=== PATIENT | female | born 1965 | race Caucasian/White ===

== ENCOUNTER 2020-01-15 07:44 | Outpatient (REF) | payer OTHER, SELFPAY ==
[2020-01-15 12:33] LABS: Free T4 (Free Thyroxine) 1.18 ng/dL (0.71-1.85); Thyroid Stimulating Hormone 0.66 mIU/mL (0.32-4.0); Vitamin D 25-OH Total 41.5 ng/mL (>30)
[2020-01-15 12:36] LABS: Alanine Aminotransferase 25 U/L (0-31); Anion Gap 16 (12-20); Aspartate Amino Transferase 28 U/L (5-31); Blood Urea Nitrogen 10 mg/dL (9-16); Calcium 9.1 mg/dL (8.4-10.2); Carbon Dioxide 29 mmol/L (22-29); Chloride 100 mmol/L (96-108); Cholesterol 183 mg/dL; Estimated Glomerular Filt Rate > 60; Glucose Fasting 113 mg/dL (60-99); HDL Cholesterol 40 mg/dL; LDL Cholesterol Calculated 64 mg/dl; Potassium 3.4 mmol/l (3.3-5.1); Sodium 142 mmol/L (135-145); Triglycerides 396 mg/dL
== END 2020-01-15 07:45 | disposition home or self-care (01) ==
LOC: HO.HMGCLDS 07:44
PROVIDERS: PCP Internal Medicine; Visit Provider Internal Medicine
DX: Z00.01 Encounter for general adult medical examination with abnormal findings (principal); E03.9 Hypothyroidism, unspecified; Z78.0 Asymptomatic menopausal state
CPT/HCPCS: 80048; 80061; 82306; 84439; 84443; 84450; 84460

== ENCOUNTER 2020-10-19 06:01 | Outpatient (REF) | payer OTHER, SELFPAY ==
[2020-10-19 11:47] LABS: Estimated Average Glucose 100 mg/dL; Hemoglobin A1c % 5.1 %
[2020-10-19 12:17] LABS: Alanine Aminotransferase 17 U/L (0-31); Anion Gap 12 (12-20); Aspartate Amino Transferase 23 U/L (5-31); Blood Urea Nitrogen 8 mg/dL (9-16); Calcium 9.4 mg/dL (8.4-10.2); Carbon Dioxide 29 mmol/L (22-29); Chloride 101 mmol/L (96-108); Cholesterol 192 mg/dL; Estimated Glomerular Filt Rate > 60; Glucose Fasting 128 mg/dL (60-99); HDL Cholesterol 37 mg/dL; Potassium 3.4 mmol/L (3.3-5.1); Sodium 139 mmol/L (135-145); Triglycerides 487 mg/dL
[2020-10-19 12:19] LABS: Free T4 (Free Thyroxine) 1.17 ng/dL (0.71-1.85); Thyroid Stimulating Hormone 0.77 uIU/mL (0.32-4.0)
== END 2020-10-19 06:02 | disposition home or self-care (01) ==
LOC: HO.HMGCLDS 06:01
PROVIDERS: PCP Internal Medicine; Visit Provider Internal Medicine
DX: R73.01 Impaired fasting glucose (principal); E78.1 Pure hyperglyceridemia; E03.9 Hypothyroidism, unspecified; I10 Essential (primary) hypertension
CPT/HCPCS: 36415; 80048; 80061; 82306; 83036; 84439; 84443; 84450; 84460

== ENCOUNTER → 2020-12-17 10:04 | Outpatient (BNVA) | payer OTHER, SELFPAY | PROVIDERS: PCP Internal Medicine; Visit Provider Surgery Vascular Surgery | DX: I73.9 Peripheral vascular disease, unspecified (principal) | CPT/HCPCS: 99202 ==

== ENCOUNTER 2021-01-05 12:36 | Outpatient (REF) | payer OTHER, SELFPAY ==
--- NOTE | ~2021-01-05 | US_ITS ---
EXAMINATION: NONINVASIVE ASSESSMENT OF THE ARTERIES OF BOTH LOWER EXTREMITIES INCLUDING PVR EXAM AND BILATERAL LOWER EXTREMITY DUPLEX CLINICAL INFORMATION: Peripheral vascular disease COMPARISON: None TECHNIQUE: Ankle pulse volume recordings, ankle pressure measurements and ankle brachial indices were obtained of the lower extremity arterial system bilaterally in addition to duplex Doppler techniques with wave form analysis and measurement of velocities in the common femoral, profunda femoral, superficial femoral, popliteal, tibial and peroneal arteries. The study was performed only at rest. FINDINGS: RIGHT LEG 1. Right Ankle-Brachial Index: 0.95 (higher of the DP/PT) >0.97-1.25 = normal - no significant arterial disease 0.75-0.96 = mild peripheral arterial disease 0.5-0.74 = moderate peripheral arterial disease <0.50 = severe peripheral arterial disease <0.30 = critical arterial disease 2. Segmental Pressures (mmHg): Brachial: 116 Ankle: PT 110, DP 106 3. PVR Waveforms: Ankle: Normal 4. Direct Duplex: Common femoral artery: 217 cm/s, Multiphasic Profunda femoris artery: 50.3 cm/s, monophasic Superficial femoral artery (proximal): 87.9 cm/s, multiphasic Superficial femoral artery (mid): 89.7 cm/s, multiphasic Superficial femoral artery (distal): 52.6 cm/s, Multiphasic Proximal Popliteal artery: 55.8 cm/s, Multiphasic Distal popliteal artery: 40.9 cm/s, Multiphasic Mid posterior tibial artery: 60.9 cm/s, Multiphasic Peroneal artery: 42.9 cm/s, Multiphasic LEFT LE. Left Ankle-Brachial Index: 0.77 (higher of the DP/PT) >0.97-1.25 = normal - no significant arterial disease 0.75-0.96 = mild peripheral arterial disease 0.5-0.74 = moderate peripheral arterial disease <0.50 = severe peripheral arterial disease <0.30 = critical arterial disease 2. Segmental Pressures: Brachial: 111 Ankle: PT 89, DP 70 3. PVR Waveforms: Ankle: Loss of dicrotic notch 4. Direct Duplex: Common femoral artery: 66.4 cm/s, monophasic Profunda femoris artery: 51.1 cm/s, monophasic Superficial femoral artery (proximal): 55.4 cm/s, monophasic Superficial femoral artery (mid): 55 cm/s, monophasic Superficial femoral artery (distal): 42 cm/s, monophasic Proximal Popliteal artery: 26.3 cm/s, monophasic Distal popliteal artery: 35.9 cm/s, monophasic Mid posterior tibial artery: 35.5 cm/s, monophasic Peroneal artery: 19.8 cm/s, monophasic US/US arterial duplex LE BI IMPRESSION: Right MARBIN 0.95. There is elevated peak systolic velocity of the common femoral artery suggesting mild/moderate stenosis, though there is otherwise normal multiphasic flow throughout the remainder of the right lower extremity. Left MARBIN 0.77 indicating mild peripheral arterial disease. PVR waveforms are abnormal. There is monophasic flow throughout the entire left lower extremity suggesting inflow disease.
== END 2021-01-05 12:37 | disposition home or self-care (01) ==
LOC: HO.US 12:36
PROVIDERS: PCP Internal Medicine; Visit Provider Surgery Vascular Surgery
DX: I70.213 Atherosclerosis of native arteries of extremities with intermittent claudication, bilateral legs (principal)
CPT/HCPCS: 93923; 93925

== ENCOUNTER → 2021-01-19 14:42 | Outpatient (BNVA) | payer OTHER, SELFPAY | PROVIDERS: PCP Internal Medicine; Visit Provider Surgery Vascular Surgery | DX: I73.9 Peripheral vascular disease, unspecified (principal) | CPT/HCPCS: 99212 ==

== ENCOUNTER 2021-01-20 09:32 | Outpatient (REF) | payer OTHER, SELFPAY ==
[2021-01-23 01:36] LABS: HPV mRNA E6/E7 rflx Not Detected (Not Detected)
== END 2021-01-20 09:33 | disposition home or self-care (01) ==
LOC: HO.LAB 09:32
PROVIDERS: PCP Internal Medicine; Visit Provider Advanced Practice Midwife
DX: Z01.419 Encounter for gynecological examination (general) (routine) without abnormal findings (principal); F17.210 Nicotine dependence, cigarettes, uncomplicated
CPT/HCPCS: 87624; 88142

== ENCOUNTER 2021-03-02 08:42 | Outpatient (REF) | payer OTHER, SELFPAY ==
[2021-03-02 11:39] LABS: Alanine Aminotransferase 14 U/L (0-31); Aspartate Amino Transferase 17 U/L (5-31); Cholesterol 168 mg/dL; HDL Cholesterol 51 mg/dL; LDL Cholesterol Calculated 94 mg/dl; Triglycerides 116 mg/dL
[2021-03-02 12:02] LABS: Free T4 (Free Thyroxine) 1.14 ng/dL (0.71-1.85); Thyroid Stimulating Hormone 0.93 uIU/mL (0.32-4.0)
== END 2021-03-02 08:43 | disposition home or self-care (01) ==
LOC: HO.HMGCLDS 08:42
PROVIDERS: PCP Internal Medicine; Visit Provider Internal Medicine
DX: E03.9 Hypothyroidism, unspecified (principal); E78.1 Pure hyperglyceridemia
CPT/HCPCS: 36415; 80061; 84439; 84443; 84450; 84460

== ENCOUNTER 2021-03-18 16:07 | Emergency (ER) | payer OTHER, SELFPAY ==
--- NOTE | ~2021-03-18 | XR_ITS ---
EXAMINATION: XR CHEST CLINICAL INFORMATION: Shortness of breath. COMPARISON: None TECHNIQUE: Frontal view of the chest was obtained. FINDINGS: There is mild hyperinflation. There are groundglass opacities left base. No lobar or segmental airspace consolidation or effusion. The costophrenic sulci are clear. The heart is normal in size. The hilar and mediastinal contours are normal. There is mild levocurvature lower thoracic spine. Fusion hardware seen overlying lower cervical spine. XR/XR chest 1V IMPRESSION: Groundglass opacities left base. No effusion.
[2021-03-18 16:11] VITALS: BP 121/73; PULSE 69; RESP 24; TEMP 36.3; O2SAT 94; BMI 22.3
--- NOTE | 2021-03-18 16:15 | ECG_ITS ---
Test Reason : SOB Blood Pressure : / mmHG Vent. Rate : 064 BPM Atrial Rate : 064 BPM P-R Int : 138 ms QRS Dur : 094 ms QT Int : 426 ms P-R-T Axes : 078 070 086 degrees QTc Int : 439 ms Normal sinus rhythm ST & T wave abnormality, consider anterior ischemia Abnormal ECG No previous ECGs available Referred By: Generic ED Physician Electronically Signed By:MITESH MORALEZ MD
[2021-03-18 17:06] LABS: MANUAL DIFF FLAG NO
[2021-03-18 17:07] LABS: Basophils Percent Auto 0.3 % (0-2); Eosinophils Percent Auto 0.2 % (0-4); Hematocrit 35.8 % (37.0-47.0); Hemoglobin 12.7 g/dl (12.0-16.0); Imm Gran Abs Auto 0.05 X10*3/uL (0.00-0.03); Imm Gran Pct Auto 0.4 % (0.0-0.4); Lymphocytes Percent Auto 17.5 % (20-40); Mean Corpuscular HGB Conc 35.5 g/dl (31.0-35.0); Mean Corpuscular Hemoglobin 34.7 pg (27.0-33.0); Mean Corpuscular Volume 97.8 fL (80.0-98.0); Mean Platelet Volume 8.4 fL (9.4-12.3); Monocytes Absolute Auto 0.9 X10*3/uL (0.1-1.2); Monocytes Percent Auto 7.3 % (2-11); Neutrophils Absolute Auto 8.7 x10*3/uL (2.0-8.3); Neutrophils Percent Auto 74.3 % (45-73); Platelet Count 237 X10*3/uL (160-400); Red Blood Count 3.66 X10*6/uL (4.20-5.50); Red Cell Distribution Width 12.6 % (11.0-16.0); White Blood Count 11.7 X10*3/uL (4.8-10.8)
[2021-03-18 17:21] LABS: COVID-19 Test Positive (Negative); IDNOW Serial# 9DD0AD1C
[2021-03-18 17:33] LABS: Anion Gap 14 (12-20); Blood Urea Nitrogen 15 mg/dL (9-16); Calcium 9.2 mg/dL (8.4-10.2); Carbon Dioxide 27 mmol/L (22-29); Chloride 99 mmol/L (96-108); Creatinine Clr Calc Pharmacy 48.4; Estimated Glomerular Filt Rate 50; Glucose Random 118 mg/dL (60-115); Potassium 2.7 mmol/L (3.3-5.1); Sodium 137 mmol/L (135-145)
[2021-03-18 17:39] LABS: B Type Natriuretic Peptide 40 pg/mL (<100); Troponin-I High Sensitivity 4.6 ng/L (<3.5-17.0)
--- NOTE | 2021-03-18 18:05 | ED_ITS ---
HPI - SOB/Dyspnea General Chief Complaint: Dyspnea Stated Complaint: sob asthma diff breathing Time Seen by Provider: 03/18/21 17:55 Source: patient Mode of arrival: ambulatory Limitations: no limitations History of Present Illness HPI Narrative: 55-year-old female smoker with history of asthma came in for 1 week of coughing, generalized body ache, shortness of breath. Patient is up-to-date in her 2 Moderna vaccination for COVID, no sick contact, no recent travel. No lower extremity swelling or tenderness, no history or risk factors for DVT/ PE. Patient found to be COVID positive in the emergency department. Related Data Home Medications Medication Instructions Recorded Confirmed albuterol sulfate 90 mcg/actuation 2 puff PO Q6H PRN 02/05/20 03/12/21 aerosol inhaler cetirizine 10 mg tablet 10 mg PO DAILY 02/05/20 03/12/21 fluticasone propionate 50 INTRANASAL 02/05/20 03/12/21 mcg/actuation nasal spray,suspension levothyroxine 50 mcg tablet 50 mcg PO DAILY 02/05/20 03/12/21 losartan 50 mg tablet 50 mg PO DAILY 02/05/20 03/12/21 ascorbate calcium (vitamin C) 500 500 mg PO DAILY 08/05/20 03/12/21 mg tablet cholecalciferol (vitamin D3) 25 25 mcg PO DAILY 08/05/20 03/12/21 mcg (1,000 unit) capsule cyanocobalamin (vitamin B-12) 1,000 mcg PO DAILY 08/05/20 03/12/21 1,000 mcg capsule Previous Rx's Medication Instructions Recorded fenofibrate 160 mg tablet 160 mg PO DAILY #30 tab 11/12/20 atenolol 50 mg tablet 50 mg PO DAILY #30 tab 02/04/21 hydrochlorothiazide 12.5 mg capsule 12.5 mg PO QAM #90 cap 03/07/21 azithromycin 250 mg tablet See Rx Instructions .ROUTE 03/18/21 (Zithromax Z-Mic) .COMPLEX #6 tab prednisone 20 mg tablet 20 mg PO DAILY #5 tab 03/18/21 Allergies Allergy/AdvReac Type Severity Reaction Status Date / Time Sulfa (Sulfonamide Allergy Unknown rash Verified 03/12/21 01:05 Antibiotics) Review of Systems Review of Systems: All other systems are reviewed and are negative Constitutional: Reports as per HPI and Reports no additional constitutional complaints Eyes: Reports as per HPI and Reports no additional eye complaints Reports system reviewed and no additional complaints, except as documented Cardiovascular: Reports as per HPI and Reports no additional cardiovascular complaints Respiratory: Reports as per HPI and Reports no additional respiratory complaints Gastrointestinal: Reports as per HPI and Reports no additional gastrointestinal complaints Genitourinary: Reports no additional female genitourinary complaints Musculoskeletal: Reports no additional musculoskeletal complaints Skin/Breast: Reports system reviewed and no additional complaints, except as docu Psychiatric: Reports no additional psychiatric complaints Endocrine: Reports no additional endocrine complaints Hematologic/Lymphatic: Reports no additional hematologic/lymphatic complaints Allergic/Immunologic: Reports no additional allergic/immunologic complaints Reports system reviewed and no additional complaints, except as documented and Reports Abnormal speech present [facility] Past Medical History Medical History Acquired hypothyroidism Carpal tunnel syndrome, bilateral Degenerative disc disease, cervical Essential hypertension Hypertriglyceridemia Impaired fasting glucose Intermittent claudication Leg pain, bilateral Mass of both feet Mild intermittent asthma in adult without complication Osteoarthritis involving multiple joints on both sides of body Primary insomnia Smoker unmotivated to quit Smokes with greater than 40 pack year history Surgical History H/O LEEP History of carpal tunnel surgery History of fusion of cervical spine History of rotator cuff surgery Hx of tubal ligation Family History Family History Father Esophageal cancer Liver cancer Cancer of kidney Mother Emphysema lung Social History Social History Housing: Apartment Alcohol intake: current Patient Tobacco Use Status: Current everyday Tobacco user Tobacco use type: Cigarette Cigarette Packs Per Day: 1 Cigarettes Per Day: 20 Years Smoked: 40 e-Cigarette/Vaping Use: Former Use Second Hand Smoke Exposure: No Advance Directives: No Advance Directives Information Provided: No Current occupational status: employed Physical Exam Vital Signs: Vital Signs: Last Vital Signs Temp 98.3 F 03/18/21 18:10 Pulse 68 03/18/21 18:10 Resp 20 03/18/21 18:10 BP 111/64 03/18/21 18:10 Pulse Ox 91 L 03/18/21 18:10 BMI result Body Mass Index 22.3 vital signs have been reviewed as appeared to be correct. Blood pressure normal. Heart rate normal. Respiration rate elevated. Temperature normal. Oxygen saturation normal. Appearance: Alert. Oriented X3. No acute distress. Head: Normal external exam. Normocephalic. Atraumatic. No Bellamy signs noted. No raccoon eyes noted Eyes: PERRLA. EOMI. Conjunctiva and sclera normal. Eyelids normal. ENT: TM's Normal. Pharynx normal. Uvula midline. Moist mucous membranes. No trismus noted. No drooling noted. No muffled voice noted. Neck: Normal inspection. Neck supple. FROM. No adenopathy. Thyroid Normal. No meningeal signs. No neck mass noted. CVS: Normal heart rate and rhythm. Heart sound normal. No murmurs noted. Pulses normal throughout. Respiratory: No respiratory distress. Painless inspiration. Breath sounds normal. mild expiratory wheezing. Chest nontender. No accessory muscle usage noted or decreased air movement noted. Abdomen: Soft and nontender. Bowel sounds normal in all 4 quadrants. No distention noted. No organomegaly noted. No visible injury noted. Back: No CVA tenderness. Full range of motion noted. Skin: Skin warm and dry. Normal skin color. Normal skin turgor. No rashes/lesions/lacerations noted. Extremities: No lower extremity edema. Extremities exhibit normal range of motion. Extremities nontender. Neuro: Oriented X 3. Cranial nerve exam: II-XII are grossly intact No motor deficit. No sensory deficit. Reflexes normal. Course Course Course Narrative: assessment and plan. 55-year-old history of asthma/ smoker came in with COVID infection and likely bronchitis on top of the COVID infection. patient is satting 91% on room air and breathing 20-24 per minute patient was advised to stay in the hospital but patient declined admission patient stated she will call 911 if she get worse and come back to the ED. Will start the patient on prednisone/bronchodilator/ a Z-Mic. Hypokalemia will replete with p.o. potassium. MDM - SOB/Dyspnea Lab Data Attestation: I reviewed the patient's lab results. Result diagrams: 03/18/21 16:59 03/18/21 16:59 Labs: Lab Results 03/18/21 03/18/21 03/18/21 Range/Units 16:58 16:59 16:59 WBC 11.7 H (4.8-10.8) X10*3/uL RBC 3.66 L (4.20-5.50) X10*6/uL Hgb 12.7 (12.0-16.0) g/dl Hct 35.8 L (37.0-47.0) % MCV 97.8 (80.0-98.0) fL MCH 34.7 H (27.0-33.0) pg MCHC 35.5 H (31.0-35.0) g/dl RDW 12.6 (11.0-16.0) % Plt Count 237 (160-400) X10*3/uL MPV 8.4 L (9.4-12.3) fL Immature Gran % (Auto) 0.4 (0.0-0.4) % Neut % (Auto) 74.3 H (45-73) % Lymph % (Auto) 17.5 L (20-40) % [place] % (Auto) 7.3 (2-11) % Eos % (Auto) 0.2 (0-4) % Baso % (Auto) 0.3 (0-2) % Lymph # (Auto) 2.0 (1.2-4.9) X10*3/uL [place] # (Auto) 0.9 (0.1-1.2) X10*3/uL Eos # (Auto) 0.0 (0.0-0.4) X10*3/uL Baso # (Auto) 0.0 (0.0-0.2) X10*3/uL Abs Immat Gran (auto) 0.05 H (0.00-0.03) X10*3/uL Absolute Neuts (auto) 8.7 H (2.0-8.3) x10*3/uL Absolute Nucleated RBC 0.000 (0.0-0.012) X10*3/uL Nucleated RBC % (auto) 0.0 (0.0-0.2) /100WBC Sodium 137 (135-145) mmol/L Potassium 2.7 L D (3.3-5.1) mmol/L Chloride 99 (96-108) mmol/L Carbon Dioxide 27 (22-29) mmol/L Anion Gap 14 (12-20) BUN 15 (9-16) mg/dL Creatinine 1.12 (0.5-1.4) mg/dL Estim Creat Clear Calc 48.4 Estimated GFR 50 Random Glucose 118 H (60-115) mg/dL Calcium 9.2 (8.4-10.2) mg/dL Troponin I High Sens (<3.5-17.0) ng/L B-Natriuretic Peptide (<100) pg/mL COVID-19 ([facility]) Positive A (Negative) COVID-19 Clin Com See Note 03/18/21 Range/Units 16:59 WBC (4.8-10.8) X10*3/uL RBC (4.20-5.50) X10*6/uL Hgb (12.0-16.0) g/dl Hct (37.0-47.0) % MCV (80.0-98.0) fL MCH (27.0-33.0) pg MCHC (31.0-35.0) g/dl RDW (11.0-16.0) % Plt Count (160-400) X10*3/uL MPV (9.4-12.3) fL Immature Gran % (Auto) (0.0-0.4) % Neut % (Auto) (45-73) % Lymph % (Auto) (20-40) % [place] % (Auto) (2-11) % Eos % (Auto) (0-4) % Baso % (Auto) (0-2) % Lymph # (Auto) (1.2-4.9) X10*3/uL [place] # (Auto) (0.1-1.2) X10*3/uL Eos # (Auto) (0.0-0.4) X10*3/uL Baso # (Auto) (0.0-0.2) X10*3/uL Abs Immat Gran (auto) (0.00-0.03) X10*3/uL Absolute Neuts (auto) (2.0-8.3) x10*3/uL Absolute Nucleated RBC (0.0-0.012) X10*3/uL Nucleated RBC % (auto) (0.0-0.2) /100WBC Sodium (135-145) mmol/L Potassium (3.3-5.1) mmol/L Chloride (96-108) mmol/L Carbon Dioxide (22-29) mmol/L Anion Gap (12-20) BUN (9-16) mg/dL Creatinine (0.5-1.4) mg/dL Estim Creat Clear Calc Estimated GFR Random Glucose (60-115) mg/dL Calcium (8.4-10.2) mg/dL Troponin I High Sens 4.6 (<3.5-17.0) ng/L B-Natriuretic Peptide 40 (<100) pg/mL COVID-19 ([facility]) (Negative) COVID-19 Clin Com Imaging Data Chest x-ray: Radiologist's impression: Ground-glass opacities left base with no effusion Discharge Plan Discharge Clinical Impression: COVID-19 virus infection Patient Disposition: Home, Self-Care Instructions: COVID-19 (Coronavirus Disease 2019) (ED) Prescriptions: New prednisone 20 mg tablet 20 mg PO DAILY Qty: 5 RF: 0 azithromycin [Zithromax Z-Mic] 250 mg tablet See Rx Instructions .ROUTE .COMPLEX Qty: 6 RF: 0 No Action atenolol 50 mg tablet 50 mg PO DAILY Qty: 30 RF: 5 hydrochlorothiazide 12.5 mg capsule 12.5 mg PO QAM Qty: 90 RF: 0 levothyroxine 50 mcg tablet 50 mcg PO DAILY RF: 0 losartan 50 mg tablet 50 mg PO DAILY RF: 0 albuterol sulfate 90 mcg/actuation HFA aerosol inhaler 2 puff PO Q6H PRN (Reason: muscle spasm) RF: 0 cetirizine 10 mg tablet 10 mg PO DAILY RF: 0 fluticasone propionate 50 mcg/actuation spray,suspension intranasal RF: 0 ascorbate calcium (vitamin C) 500 mg tablet 500 mg PO DAILY RF: 0 cholecalciferol (vitamin D3) 25 mcg (1,000 unit) capsule 25 mcg PO DAILY RF: 0 cyanocobalamin (vitamin B-12) 1,000 mcg capsule 1,000 mcg PO DAILY RF: 0 fenofibrate 160 mg tablet 160 mg PO DAILY Qty: 30 RF: 5 Referrals: Dede Hua MD [Primary Care Provider] - 2 days Stand Alone Forms: Work/School Release
[2021-03-18 18:10] VITALS: BP 111/64; PULSE 68; RESP 20; TEMP 36.8; O2SAT 91
[2021-03-18] MEDS: Potassium Chloride Packet 20 MEQ PACKET 40 MEQ PO (19:06)
== END 2021-03-18 19:14 | disposition home or self-care (01) ==
PROVIDERS: Emergency Provider Emergency Medicine; PCP Internal Medicine
DX: U07.1 COVID-19 (principal); R06.02 Shortness of breath; I10 Essential (primary) hypertension; F17.200 Nicotine dependence, unspecified, uncomplicated
CPT/HCPCS: 36415; 71045; 80048; 83880; 84484; 85025; 87635; 93005; 99283; 99284

== ENCOUNTER 2021-06-02 06:59 | Day surgery (SDC) | payer OTHER, SELFPAY ==
[2021-06-02] VITALS (10 sets, daily range): BP systolic 109–142; BP diastolic 75–84; PULSE 46–81; RESP 16–18; TEMP 36.2–36.5; O2SAT 94–99
[2021-06-02 08:16] LABS: MANUAL DIFF FLAG NO
[2021-06-02 08:24] LABS: Basophils Absolute Auto 0.1 X10*3/uL (0.0-0.2); Basophils Percent Auto 1.3 % (0-2); Eosinophils Absolute Auto 0.8 X10*3/uL (0.0-0.4); Eosinophils Percent Auto 9.5 % (0-4); Hematocrit 41.3 % (37.0-47.0); Hemoglobin 14.1 g/dl (12.0-16.0); Imm Gran Abs Auto 0.03 X10*3/uL (0.00-0.03); Imm Gran Pct Auto 0.4 % (0.0-0.4); Lymphocytes Absolute Auto 2.2 X10*3/uL (1.2-4.9); Lymphocytes Percent Auto 26.6 % (20-40); Mean Corpuscular HGB Conc 34.1 g/dl (31.0-35.0); Mean Corpuscular Hemoglobin 34.9 pg (27.0-33.0); Mean Corpuscular Volume 102.2 fL (80.0-98.0); Mean Platelet Volume 8.4 fL (9.4-12.3); Monocytes Absolute Auto 0.8 X10*3/uL (0.1-1.2); Monocytes Percent Auto 9.4 % (2-11); Neutrophils Absolute Auto 4.4 x10*3/uL (2.0-8.3); Neutrophils Percent Auto 52.8 % (45-73); Platelet Count 288 X10*3/uL (160-400); Red Blood Count 4.04 X10*6/uL (4.20-5.50); Red Cell Distribution Width 12.5 % (11.0-16.0); White Blood Count 8.3 X10*3/uL (4.8-10.8)
[2021-06-02 08:38] LABS: Anion Gap 13 (12-20); Blood Urea Nitrogen 16 mg/dL (9-16); Calcium 9.7 mg/dL (8.4-10.2); Carbon Dioxide 28 mmol/L (22-29); Chloride 103 mmol/L (96-108); Estimated Glomerular Filt Rate > 60; Glucose Random 121 mg/dL (60-115); Potassium 4.1 mmol/L (3.3-5.1); Sodium 140 mmol/L (135-145)
[2021-06-02] MEDS: 0.9 % Sodium Chloride 1,000 ML 100 ML IVCONT (08:54)
[2021-06-02] MEDS: iohexoL 300 MG/ML 100 ML INFUS..BTL IV (11:06)
[2021-06-02] MEDS: iohexoL 300 MG/ML 50 ML INFUS..BTL IV (11:07)
--- NOTE | 2021-06-02 11:44 | W.PM.OPN ---
Operative Note Operative Note Date of Service: 06/02/21 Narrative: Angiogram report from [facility] Preoperative diagnosis: Atherosclerosis of left lower extremity with activity limiting claudication Postoperative diagnosis: Same Procedure: 1. Ultrasound-guided right common femoral access 2. Ultrasound-guided left common femoral access 3. Aortogram 4. Right common iliac plasty 5. Left common iliac stent Surgeon:Angelo Cruz M.D., FACS, RPVI Tur[employer] Electric Operator:None Anesthesia: Local with moderate conscious sedation. Total intraservice moderate sedation time was 78 minutes. I monitored the patient's level of consciousness and physiologic status continuously throughout the procedure. Specimens:none Drains:none Estimated blood loss: Less than 10 ml Implant: Coden VBX 6x39 balloon expandable stent Indications: 56-year-old female with a smoking history presents with severe activity limiting claudication of left lower extremity. She now presents for endovascular intervention. The patient has signed the informed consent after reviewing risks, complications, benefits, and alternatives previously discussed with the patient. The patient was given the opportunity to ask any additional questions or voice any concerns. All questions were answered to the patient's satisfaction. Procedure in detail: Patient was brought to the angiography suite prior to which a time-out was called for patient identification and site verification. Bilateral groins were prepped and draped in the standard surgical fashion. Under ultrasound guidance right common femoral was punctured with micro puncture needle and wire. Subsequently a precision 5 [place] sheath was then placed. espinal wire was advanced to the level of the aorta. 5 [place] Flush catheter was brought up and parked at the level of the renal arteries. Aortogram was then undertaken. Catheter was brought down to the level of the iliac bifurcation. Iliacs were subsequently imaged. It was recognized that she had significant left common iliac disease. At this point left common femoral artery puncture was made in a similar fashion under ultrasound guidance. We advanced wire and subsequently a 5 [place] sheath. We then slowly advanced a Glidewire through this area. We were able to re-enter and advanced a Thompsons catheter. We confirmed true lumen. At this point we administered 3000 units of systemic heparin. We initial plasty did at this area on the left common iliac with a 3 x 40 balloon. Is a very tight lumen. At this point we exchanged out on him and we re-entered again with a 5 x 20 balloon. We were able to obtain some luminal gain in this area. Due to the large nature of the calcification right at the bifurcation a decision was made to perform kissing stent technique. Through the right side 5 [place] sheath we advanced a 7 x 30 regular balloon. On the left side we advanced a Coden VBX 6 x 39 balloon expandable stent. A decision was made to use the smaller stent due to the bulky nature of the calcific disease in fear of rupture. Once in position these were simultaneously insufflated. Once to volume we then desufflated this. Good result was achieved. Bilateral catheter wire sheaths were removed. StarClose closure device was then deployed. Patient tolerated the procedure well returned to recovery with stable vitals. Interpretation of films: 1. Ultrasound demonstrates appropriate femoral puncture of right and left side. Image of which was saved. 2. Aortogram demonstrates appropriate caliber aorta. Minimal disease. Appropriate take-off of the renals. 3. Iliac images demonstrate left was near total occlusion with high-grade stenosis right at the bifurcation. There was significant calcific disease all the way up to the takeoff of the hypogastric. External iliac was within normal limits going down to the common femoral. Good takeoff of the profunda and SFA. 4. Iliac of the right had mild to moderate disease more towards the origin. The hypogastric was normal external iliac was normal in caliber as well good flow all the way down to the common femoral. Conclusion: 1. Successful left common iliac stent placement 2. Anticoagulation status: Will need minimum of 6 months of aspirin and Plavix This note is constructed using voice recognition software. While every effort has been made to ensure accuracy, radio division officer errors may have been included. Thank you for allowing me to participate in the care of your patient. Yours sincerely, Angelo Cruz MD, FACS, R.P.V.I.
[2021-06-02] MEDS: ondansetron HCL 4 MG/2 ML VIAL IVPUSH (12:02)
[2021-06-02] MEDS: oxyCODONE HCl Immed Release 5 MG TABLET PO (12:03)
[2021-06-02] MEDS: Clopidogrel Bisulfate 300 MG TABLET PO (12:03)
[2021-06-02] MEDS: Acetaminophen 325 MG TABLET 650 MG PO (12:03)
[2021-06-02] MEDS: Aspirin Enteric Coated 325 MG TABLET.DR 650 MG PO (12:21)
[2021-06-03 08:53] VITALS: BMI 23.2
== END 2021-06-02 13:58 | disposition home or self-care (01) ==
PROVIDERS: PCP Internal Medicine; Visit Provider Surgery Vascular Surgery
DX: I70.212 Atherosclerosis of native arteries of extremities with intermittent claudication, left leg (principal); M79.605 Pain in left leg; M79.604 Pain in right leg; M50.30 Other cervical disc degeneration, unspecified cervical region; M15.9 Polyosteoarthritis, unspecified; I10 Essential (primary) hypertension; R73.01 Impaired fasting glucose; E03.9 Hypothyroidism, unspecified; J45.20 Mild intermittent asthma, uncomplicated; Z79.51 Long term (current) use of inhaled steroids; Z79.899 Other long term (current) drug therapy; Z88.2 Allergy status to sulfonamides; F17.210 Nicotine dependence, cigarettes, uncomplicated
CPT/HCPCS: 36415; 37220; 37221; 76937; 80048; 85025; 99152; 99153; C1725; C1760; C1769; C1874; C1887; C1894; J2250; J2405; J3010; Q9967

== ENCOUNTER → 2021-06-15 10:44 | Outpatient (BNVA) | payer OTHER, SELFPAY | PROVIDERS: PCP Internal Medicine; Visit Provider Surgery Vascular Surgery | DX: I73.9 Peripheral vascular disease, unspecified (principal) | CPT/HCPCS: 99212 ==

== ENCOUNTER 2021-09-08 07:40 | Outpatient (REF) | payer OTHER, SELFPAY ==
--- NOTE | ~2021-09-08 | US_ITS ---
EXAMINATION: US RETROPERITONEAL LIMITED (AORTA) CLINICAL INFORMATION: Peripheral vascular disease, history of prior vascular stents. COMPARISON: None TECHNIQUE: Gonzalez-scale, color Doppler and spectral Doppler evaluation of the abdominal aorta. FINDINGS: The aorta is normal in caliber. Diffuse calcified plaque is seen. The measurements of the aorta in maximum AP dimensions respectively are as follows: Proximal: 2.6 cm. Mid: 1.9 cm. Distal: 1.6 cm. PSV: 52 cm/s. Right Common Iliac Artery: 9.8 mm. 104 cm/s, triphasic. Diffuse calcified plaque is seen. Right external iliac artery: 161 cm/s, monophasic. Diffuse calcified plaque is seen. There is a segment in the distal external iliac artery with extensive calcified plaque causing posterior acoustic shadowing and obscuring evaluation of the vessel Left Common Iliac Artery: 8 mm. 218 cm/s, monophasic. There are diffuse calcified plaque. Left external iliac artery: 156 cm/s, triphasic. Diffuse calcified plaque is seen Right leg:???Normal right lower extremity ankle brachial index. Normal arterial waveforms and velocities within the evaluated vessels. No significant arterial stenosis. No significant change compared to the prior exam ? Left leg:???Normal left lower extremity ankle brachial index which is improved compared the prior exam. Arterial waveforms and velocities are normal in the common femoral and proximal mid superficial femoral artery. These have improved compared the prior exam. Velocities are dampened in the distal superficial femoral artery and popliteal artery which could indicate a nonvisualized stenosis causing a decrease velocities ? ?? MARBIN Reference: - >1.4 = calcified vessels - 0.9 - 1.4 = normal - no significant arterial disease - 0.7 - 0.89 = mild peripheral arterial disease - 0.51 - 0.69 = moderate peripheral arterial disease - ? 0.50 = severe peripheral arterial disease - < .30 = critical arterial disease US/US abdominal aortic aneurysm IMPRESSION: Diffuse calcified plaque is seen throughout the abdominal aorta and bilateral iliac arteries. Elevated velocity seen in the right external iliac artery, left common iliac artery and left external iliac artery consistent with mild to moderate stenoses. EXAMINATION: Noninvasive assessment of the bilateral lower extremities with ARTERIAL DUPLEX and ANKLE BRACHIAL INDICES (ABIs). ? CLINICAL INFORMATION: Peripheral vascular disease ? TECHNIQUE: Duplex Doppler techniques with waveform analysis and measurement of velocities in the bilateral common femoral, profunda femoris, superficial femoral, popliteal and tibial arteries were performed. Additionally, ankle pulse volume recordings, ankle pressure measurements and ankle brachial indices were obtained of the lower extremity arterial system bilaterally. The study was performed only at rest. ? COMPARISON: 01/05/2021 ? FINDINGS: ? DIRECT DUPLEX DOPPLER FINDINGS: ? RIGHT LEG: Common femoral artery:?105 cm/s, phasicity: Triphasic Profunda femoris artery:??43 cm/s, phasicity: Triphasic Superficial femoral artery (proximal):?78.6 cm/s, phasicity: Biphasic Superficial femoral artery (mid):?60.1 cm/s, phasicity: Biphasic Superficial femoral artery (distal):?58.1 cm/s, phasicity: Biphasic Popliteal artery:?35.2 cm/s, phasicity: Biphasic Posterior tibial artery:?64 cm/s, phasicity: Biphasic Peroneal artery:?40.9 cm/s, phasicity: Biphasic ? LEFT LEG: Common femoral artery:?90 cm/s, phasicity: Triphasic Profunda femoris artery:?45?cm/s, phasicity: Triphasic Superficial femoral artery (proximal):?75?cm/s, phasicity: Biphasic Superficial femoral artery (mid):?77 cm/s, phasicity: Biphasic Superficial femoral artery (distal):?35?cm/s, phasicity: Biphasic Popliteal artery:?34?cm/s, phasicity: Biphasic Posterior tibial artery:?58?cm/s, phasicity: Biphasic Peroneal artery:?27.4 cm/s, phasicity: Biphasic ANKLE-BRACHIAL INDEX: ? Right: 1.02?, previously 0.95 Left: 1.03, previously 0.77 ? ANKLE PRESSURES: ? Right: PT 116, DP?120?? Left: PT?122, DP?112?? ? ANKLE PVR WAVEFORMS: ? Right: Normal Left: Normal? ? IMPRESSION: ?
--- NOTE | ~2021-09-08 | XR_ITS ---
EXAMINATION: XR RIBS, RIGHT CLINICAL INFORMATION: Contusion anterior chest COMPARISON: Previous chest x-ray March 2021 TECHNIQUE: 3 views of the right ribs and one view of the chest were obtained. FINDINGS: Lungs are clear. No consolidation, pneumothorax, or pleural effusion. The cardiomediastinal silhouette and pulmonary vasculature are normal. There are postsurgical changes to the lower cervical spine.. Ribs are intact. No fractures are identified. XR/XR ribs RT min 3V w CXR1V IMPRESSION: No evidence for acute disease in the chest. No rib fracture seen.
== END 2021-09-08 07:41 | disposition home or self-care (01) ==
LOC: HO.US 07:40
PROVIDERS: Absent Provider Internal Medicine; PCP Internal Medicine; Visit Provider Surgery Vascular Surgery
DX: Z13.6 Encounter for screening for cardiovascular disorders (principal); I73.9 Peripheral vascular disease, unspecified; S20.219A Contusion of unspecified front wall of thorax, initial encounter; Z98.890 Other specified postprocedural states
CPT/HCPCS: 71101; 76706; 93923; 93925

== ENCOUNTER → 2021-09-14 10:33 | Outpatient (BNVA) | payer OTHER, SELFPAY | PROVIDERS: PCP Internal Medicine; Visit Provider Surgery Vascular Surgery | DX: I73.9 Peripheral vascular disease, unspecified (principal) | CPT/HCPCS: 99212 ==

== ENCOUNTER → 2022-03-24 08:50 | Outpatient (BNVA) | payer OTHER, SELFPAY | PROVIDERS: PCP Internal Medicine; Visit Provider Advanced Practice Midwife | DX: Z13.89 Encounter for screening for other disorder (principal) ==

== ENCOUNTER 2022-04-15 14:32 | Outpatient (REF) | payer OTHER, SELFPAY ==
--- NOTE | ~2022-04-15 | CT_ITS ---
EXAMINATION: CT CHEST SCREENING CLINICAL INFORMATION: Nicotine dependence. COMPARISON: No prior chest CT. Radiographs from 09/08/2021. TECHNIQUE: Multidetector volumetric CT imaging of the chest is performed without contrast using low dose technique. Additional 2D coronal and sagittal reformatted images and axial 3D maximum intensity projection (MIP) images are generated on the CT workstation. This CT examination was performed using dose optimization techniques as appropriate, variously including the following: *Automated exposure control *Adjustment of mA and/or kV according to patient size (this includes techniques or standardized protocols for targeted exams where dose is matched to indication/reason for exam; i.e. extremities or head) *Use of iterative reconstruction technique DLP: 47 mGy-cm FINDINGS: LUNGS: The central airways are patent. No consolidation. No pulmonary mass. There is a peripheral right upper lobe on series 5 image 122. No additional pulmonary nodules identified.. MEDIASTINUM: Normal heart size. Coronary artery calcifications. No pericardial effusion. No mediastinal lymphadenopathy. CORONARY ARTERY CALCIFICATION: Present. PLEURA: There is no pleural effusion. No pleural mass or thickening. No pneumothorax. AXILLA: No lymphadenopathy. UPPER ABDOMEN: Unremarkable OSSEOUS STRUCTURES: No acute or suspicious osseous abnormality. Cervical fusion hardware. Mild T8 vertebral body compression deformity appears chronic. CT/CT lung screening IMPRESSION: Right upper lobe 0.2 cm pulmonary nodule. ASSESSMENT: Lung-RADS category 2: Benign RECOMMENDATION: Routine annual low-dose CT screening in 12 months.
== END 2022-04-15 14:33 | disposition home or self-care (01) ==
LOC: HO.CT 14:32
PROVIDERS: PCP Internal Medicine; Visit Provider Physician Assistant Medical
DX: Z12.2 Encounter for screening for malignant neoplasm of respiratory organs (principal); F17.210 Nicotine dependence, cigarettes, uncomplicated
CPT/HCPCS: 71271; G0296

== ENCOUNTER 2022-04-20 07:31 | Outpatient (REF) | payer OTHER, SELFPAY ==
[2022-04-20 12:14] LABS: Alanine Aminotransferase 19 U/L (0-31); Anion Gap 14 (12-20); Aspartate Amino Transferase 27 U/L (5-31); Blood Urea Nitrogen 13 mg/dL (9-16); Carbon Dioxide 27 mmol/L (22-29); Chloride 100 mmol/L (96-108); Cholesterol 185 mg/dL; Estimated Glomerular Filt Rate > 60; Glucose Fasting 127 mg/dL (60-99); HDL Cholesterol 49 mg/dL; LDL Cholesterol Calculated 97 mg/dl; Potassium 3.2 mmol/L (3.3-5.1); Sodium 138 mmol/L (135-145); Triglycerides 196 mg/dL
[2022-04-20 12:34] LABS: Free T4 (Free Thyroxine) 1.04 ng/dL (0.71-1.85); Thyroid Stimulating Hormone 1.18 uIU/mL (0.32-4.0); Vitamin D 25-OH Total 40.7 ng/mL (>30)
== END 2022-04-20 07:32 | disposition home or self-care (01) ==
LOC: HO.HMGCLDS 07:31
PROVIDERS: PCP Internal Medicine; Visit Provider Internal Medicine
DX: E03.9 Hypothyroidism, unspecified (principal); E78.1 Pure hyperglyceridemia; I10 Essential (primary) hypertension; Z78.0 Asymptomatic menopausal state
CPT/HCPCS: 36415; 80048; 80061; 82306; 84439; 84443; 84450; 84460

== ENCOUNTER 2022-04-20 07:57 | Outpatient (REF) | payer OTHER, SELFPAY ==
--- NOTE | ~2022-04-20 | US_ITS ---
EXAMINATION: US RETROPERITONEAL LIMITED (AORTA) NONINVASIVE ASSESSMENT OF THE ARTERIES OF BOTH LOWER EXTREMITIES INCLUDING PVR EXAM AND BILATERAL LOWER EXTREMITY DUPLEX CLINICAL INFORMATION: Peripheral vascular disease, unspecified. COMPARISON: Ultrasound 09/08/2021 TECHNIQUE: Gonzalez-scale, color Doppler and spectral Doppler evaluation of the abdominal aorta. Ankle pulse volume recordings, ankle pressure measurements and ankle brachial indices were obtained of the lower extremity arterial system bilaterally in addition to duplex Doppler techniques with wave form analysis and measurement of velocities in the common femoral, profunda femoral, superficial femoral, popliteal, tibial and peroneal arteries. The study was performed only at rest. FINDINGS: Minimal ectasia of the distal abdominal aorta, otherwise the aorta is overall unremarkable The measurements of the aorta in maximum AP and transverse dimensions respectively are as follows: Proximal: 2.3 cm. PSV 50.7 cm/s Mid: 1.6 cm. PSV 59.3 cm/s Distal: 1.7 cm. PSV 41.5 cm/s Visualization of the iliacs is quite limited on grayscale. Right common iliac artery measures on the order of 0.9 cm on grayscale images. Peak systolic velocities in the common iliac artery is 131 cm/s and within the external iliac artery is 150 cm/s. Waveforms are multiphasic. Left common iliac artery measures on the order of 0.8 cm on grayscale. Peak systolic velocity within the common iliac measures 177 cm/s and within the external iliac artery measures 125 cm/s. Waveforms are multiphasic. RIGHT LEG 1. Right Ankle-Brachial Index: 1.06 (higher of the DP/PT) >0.97-1.25 = normal - no significant arterial disease 0.75-0.96 = mild peripheral arterial disease 0.5-0.74 = moderate peripheral arterial disease <0.50 = severe peripheral arterial disease <0.30 = critical arterial disease 2. Segmental Pressures (mmHg): Brachial: 126 Ankle: PT 133, DP 125 3. PVR Waveforms: Ankle: Normal 4. Direct Duplex: Common femoral artery: 193 cm/s, Multiphasic Profunda femoris artery: 82.7 cm/s, Multiphasic Superficial femoral artery (proximal): 85 cm/s, Multiphasic Superficial femoral artery (mid): 64.4 cm/s, Multiphasic Superficial femoral artery (distal): 51.5 cm/s, Multiphasic Popliteal artery: 38.1 cm/s, Multiphasic Mid posterior tibial artery: 71.5 cm/s, Multiphasic Peroneal artery: 46.4 cm/s, Multiphasic LEFT LE. Left Ankle-Brachial Index: 1.06 (higher of the DP/PT) >0.97-1.25 = normal - no significant arterial disease 0.75-0.96 = mild peripheral arterial disease 0.5-0.74 = moderate peripheral arterial disease <0.50 = severe peripheral arterial disease <0.30 = critical arterial disease 2. Segmental Pressures: Brachial: 115 Ankle: PT 125, DP 134 3. PVR Waveforms: Ankle: Dampened, no dicrotic notch 4. Direct Duplex: Common femoral artery: 120 cm/s, Multiphasic Profunda femoris artery: 124 cm/s, Multiphasic Superficial femoral artery (proximal): 73.5 cm/s, Multiphasic Superficial femoral artery (mid): 99.7 cm/s, Multiphasic Superficial femoral artery (distal): 42.9 cm/s, Multiphasic Proximal Popliteal artery: 38.3 cm/s, Multiphasic Mid posterior tibial artery: 65.6 cm/s, Multiphasic Peroneal artery: 44 cm/s, multiphasic and proximal and midportion, monophasic distally US/US abdominal aortic aneurysm IMPRESSION: Slightly ectatic distal abdominal aorta, otherwise no evidence of abdominal aortic aneurysm. Patent bilateral iliac stents without evidence of iliac artery aneurysm. The right MARBIN is 1.06, PVR waveform is unremarkable. There is normal multiphasic flow throughout the right lower extremity. The left MARBIN is 1.06. PVR waveform is dampened and has loss of dicrotic notch. Other than monophasic flow within the distal peroneal artery suggesting distal small vessel disease, there is multiphasic flow throughout the left lower extremity.
== END 2022-04-20 07:58 | disposition home or self-care (01) ==
LOC: HO.US 07:57
PROVIDERS: PCP Internal Medicine; Visit Provider Surgery Vascular Surgery
DX: I73.9 Peripheral vascular disease, unspecified (principal)
CPT/HCPCS: 76706; 93923; 93925

== ENCOUNTER 2022-05-20 10:50 | Outpatient (AMB) | payer OTHER, SELFPAY ==
[2022-05-20 11:13] VITALS: BP 104/64; PULSE 52; O2SAT 98; BMI 22.8
--- NOTE | 2022-05-20 11:13 | MHC.PC.OV ---
Vital Signs 05/20/22 11:13 Height 5 ft 4 in Weight 133 lb BMI 22.8 BP 104/64 Blood Pressure Location Lt brachial Position Sitting Pulse 52 Pulse Source Pulse Oximeter Pulse Oximetry (%) 98 Oxygen Delivery Method Room Air Intake Visit Reasons: PE Allergies nisoldipine [Sular] Allergy (Unknown, Verified 05/30/23 01:47) Unknown Sulfa (Sulfonamide Antibiotics) Allergy (Unknown, Verified 05/30/23 01:47) rash Codeine Phosphate Adverse Reaction (Unknown, Uncoded 05/30/23 01:47) hives Medication List - Last Reconciled 05/20/22 by Dede Hua MD albuterol sulfate 90 mcg/actuation (Ventolin HFA) 2 puffs inhalation Q6H PRN ascorbate calcium (vitamin C) 500 mg PO DAILY aspirin 81 mg PO DAILY atenolol 50 mg PO DAILY cholecalciferol (vitamin D3) 25 mcg PO DAILY cyanocobalamin (vitamin B-12) 1,000 mcg PO DAILY hydrochlorothiazide 12.5 mg PO QAM levothyroxine 50 mcg PO DAILY losartan 50 mg PO DAILY Tobacco use date assessed: 05/20/22 HPI PE HPI Details 58-year-old lady with hypothyroidism, hypertension, has COPD with emphysema, osteoarthritis, peripheral artery disease and active smoker with no desire to quit at present time, here today for physical exam. She currently is being seen at [facility] for her routine Pap and pelvic exam, last done 2020 with normal findings. She is also up-to-date with her screening colonoscopy done by Dr. Tomas in 2018 with removal of hyperplastic polyp, repeat colonoscopy due again in 2028. She gets yearly low-dose CT scan of lung for lung cancer screening last 1 done a month ago which showed benign findings. She had recent fasting labs done which showed a mildly decreased potassium at 3.2, fasting glucose in the prediabetic range and elevated triglycerides. The rest of her lab results were within normal limits. Complaining today of pain and stiffness in her right shoulder joint, worse with doing overhead movements with right arm. Has history of rotator cuff surgery on the right done at [facility] in 2008. Has been taking [id number] NSAIDs and Tylenol which affords only temporary minimal relief. [facility] Medical History (Updated 05/30/23 @ 01:59 by Dede Hua MD) COPD (chronic obstructive pulmonary disease) with emphysema Second degree burn of right foot Microscopic hematuria (~2020) Postmenopausal Plantar fascial fibromatosis of both feet Nicotine dependence, cigarettes, uncomplicated Mild intermittent asthma PAD (peripheral artery disease) Hypertriglyceridemia Impaired fasting glucose Degenerative disc disease, cervical Osteoarthritis involving multiple joints on both sides of body Primary insomnia Acquired hypothyroidism Essential hypertension Surgical History (Updated 01/19/23 @ 10:52 by Dede Hua MD) History of arthroscopic surgery of shoulder History of colonoscopy History of tubal ligation History of loop electrosurgical excision procedure (LEEP) History of angioplasty (2021) History of carpal tunnel surgery History of rotator cuff surgery (~2008) History of fusion of cervical spine (~2004) Family History Father Esophageal cancer Liver cancer Cancer of kidney Mother Emphysema lung Social History Housing: Apartment Alcohol intake: current Patient Tobacco Use Status: Current everyday Tobacco user Tobacco use type: Cigarette Cigarettes Per Day: 15 Years Smoked: onset 15yo, 1ppd x 43yrs, now 3/4ppd - 40+PYH e-Cigarette/Vaping Use: Never Used Second Hand Smoke Exposure: No Current occupational status: employed Current occupation: [employer] Sexual orientation: Straight/Heterosexual Gender identity: Female Cognitive needs: No Hearing needs: No Vision needs: Yes Questionnaire PHQ-9 Over the last 2 weeks, how often have you been bothered by any of the following problems? 1. Little interest or pleasure in doing things: not at all 2. Feeling down, depressed, or hopeless: not at all 3. Trouble falling or staying asleep, or sleeping too much: more than half the days 4. Feeling tired or having little energy: more than half the days 5. Poor appetite or overeating: not at all 6. Feeling bad about yourself - or that you are a failure or have let yourself or your family down: not at all 7. Trouble concentrating on things, such as reading the newspaper or watching television: several days 8. Moving or speaking so slowly that other people could have noticed. Or the opposite - being so fidgety or restless that you have been moving around a lot more than usual: not at all 9. Thoughts that you would be better off or of hurting yourself in some way: not at all Total score: 5 Depression Screening Interpretation: Negative 85660 - PHQ-9 Billing: Yes Source: Developed by Drs. Maurice Talbot, Keke Gonzales, Mickey Henson and colleagues, with an educational elsa from [employer]. Thrive Questionnaire Declines Thrive assessment: No Date Thrive assessed: 05/20/22 I am a: Patient What is your living situation today?: I have a steady place to live Within the past 12 months, did the food you bought not last and you didn't have the money to get more?: Never true Within the past 12 months, did you worry whether your food would run out before you got money to buy more?: Never true Do you have trouble paying for medicines?: No Do you have trouble getting transportation to medical appointments?: No Do you have trouble paying your heating and electricity bill?: No Do you have trouble taking care of your child, family member or friend?: No Do you have trouble with day-to-day activities such as bathing, preparing meals, shopping, managing finances, etc.?: No Are you currently unemployed and looking for a job?: No Are you interested in more education?: No AUDIT C Alcohol Use Questionnaire (AUDIT-C) 1. How often do you have a drink containing alcohol?: Monthly or less 2. How many drinks containing alcohol do you have on a typical day when you are drinking?: 1 or 2 3. How often do you have six or more drinks on one occasion?: Never Total Score: 1 JOHN-7 AMB Questionnaire JOHN-7 Date JOHN - 7 assessed: 05/20/22 Feeling nervous, anxious, or on edge: 0 = Not at all Not being able to stop or control worryin = Not at all Worrying too much about different things: 0 = Not at all Trouble relaxin = Not at all Being so restless that it is hard to sit still: 0 = Not at all Becoming easily annoyed or irritable: 0 = Not at all Feeling afraid as if something awful might happen: 0 = Not at all Total JOHN-7 score (0-4 normal; 5-9 mild; 10-14 moderate; 15-21 severe): 0 Source: Developed by Drs. Maurice Talbot, Keke Gonzales, Mickey Henson and colleagues, with an educational elsa from [employer]. JOHN-7 Assessment Billing JOHN-7 Assessment Tool: JOHN-7 Assessment 07721 Review of Systems Const Denies excessive sweating, Reports fatigue, Denies fever(s), Reports malaise and Denies snoring Eyes Denies change in vision ENT Denies nasal congestion, Denies post nasal drip, Denies sinus pain and Denies sinus pressure Card Denies chest pain, Denies chest pain with activity, Denies leg ulcers, Denies leg edema, Denies lightheadedness, Denies palpitations, Denies dyspnea, Denies orthopnea and Denies paroxysmal nocturnal dyspnea Resp Denies cough, Denies hemoptysis, Denies excessive phlegm production, Denies dyspnea, Denies snoring and Denies wheezing GI Denies abdominal pain, Denies melena, Denies hematochezia and Denies heartburn Reports no additional complaints Musc Denies myalgias, Denies arthralgias and Denies joint swelling Skin/Breast Denies breast pain, Denies breast mass and Denies rash Neuro Denies memory loss and Denies seizure-like activity Psych Denies abnormal sleep pattern, Denies anxiety and Denies memory loss Endo Denies excessive sweating, Reports fatigue, Denies heat intolerance and Denies palpitations Catalino/Lymph Denies easy bruising Aller/Immun Denies seasonal rhinorrhea and Denies wheezing Physical exam (Primary Care) Vital Signs: Last Vital Signs Pulse 52 05/20/22 11:13 BP 104/64 05/20/22 11:13 Pulse Ox 98 05/20/22 11:13 Oxygen Delivery Method Room Air 05/20/22 11:13 BMI result Body Mass Index 22.8 Tobacco/Smoking Status: Tobacco use Status Tobacco use date assessed 05/20/22 05/20/22 11:16 Patient Tobacco Use Status Current everyday Tobacco 05/20/22 11:16 Tobacco use type Cigarette 05/20/22 11:16 e-Cigarette/Vaping Use Never Used 05/20/22 11:16 PHQ-9: PHQ-9 Score PHQ-9: Total score 9 05/20/22 11:26 Depression Screening Interpretation: Negative Thrive Assessment: Date of Thrive Assessment Date Thrive assessed 05/20/22 05/20/22 11:19 Const General: cooperative, comfortable and no acute distress Orientation/consciousness: patient oriented x3 [facility] General nose exam: Normal external nose present, Normal nasal mucous membranes and turbinates present and No nasal discharge present Mouth: Normal oral and palatal mucosa present, oropharynx normal and moist mucous membranes Eyes General: appearance normal, both eyes and all related structures Neck Neck: Yes full ROM, Yes no lymphadenopathy and Yes supple Chest Chest palpation & inspection: normal inspection of the chest Breast/axilla palpation: normal palpation of the breasts Resp Effort & Inspection: normal respiratory effort and able to speak in complete sentences Auscultation: clear to auscultation bilaterally Cardio Rate: regular rate Rhythm: regular rhythm Heart sounds: S1 normal heart sound present and S2 normal heart sound present GI Inspection: Yes normal to inspection Palpation (GI): Soft to palpation, nontender and no masses Auscultation: normal bowel sounds General: Yes no CVA tenderness and Yes deferred (Sees her OBGYN at [place], up-to-date with her cervical cancer screening) Back/Spine/Pelvis Back: no CVA tenderness and No back tenderness Skin General skin exam: no rashes or lesions noted Neuro General: patient oriented x3, gait normal, tone normal, moves all extremities, Normal light touch and pain sensation and no focal motor deficits Extrem Other: Decreased range of motion of right shoulder joint due to pain General: Yes no joint enlargement and Yes normal gait Psych Appearance: grossly normal Mental Status: mental status grossly normal Speech and movement: Normal speech and movement present Affect: normal affect Attitude: cooperative Thought process: Normal thought process present Results Reviewed Results Reviewed: RUN: 05/20/22 1125 PAGE 1 [facility] [address] [place] [id number] Telecom Coordinator: True Smith M.D. Specimen Inquiry Name: Liliya Richards Age/Sex: 57/F : 1965 Unit#: [id number] Attend Dr: Dede Hua MD Re04/20/22 Status: DEP REF Location: [facility] Disch: SPEC : [id number] MARÍA: 04/20/22 STATUS: COMP REQ : [id number] RECD: 04/20/22 [facility] DR: Dede Hua MD COMP: 04/20/224 ENTERED: 04/20/22 [facility] DR: ORDERED: Met Prof Fast, AST, ALT, Lipid Panel, Vitamin D 25-OH, Free T4, TSH Test Result Flag Reference Site Sodium 138 135-145 mmol/L Potassium 3.2 # L 3.3-5.1 mmol/L CL 100 96-108 mmol/L CO2 27 22-29 mmol/L Gap 14 12-20 BUN 13 9-16 mg/dL Creat 0.91 0.5-1.4 mg/dL EGFR > 60 NOTE: For -Portuguese individuals, multiply the result by 1.210. Chronic Kidney Disease: Estimated GFR < 60 mL/min/1.73m2 Severe Kidney Disease: Estimated GFR < 15 mL/min/1.73m2 FBS 127 H 60-99 mg/dL A fasting glucose of 126 mg/dl or greater on more than one occasion is considered diagnostic of diabetes. CA 9.0 # 8.4-10.2 mg/dL AST (GOT) 27 5-31 U/L ALT (GPT) 19 0-31 U/L Triglyceride 196 mg/dL Desirable Triglyceride: less than 150 mg/dL Borderline High Triglyceride 150-199 mg/dL High Triglyceride: 200-499 mg/dL Very High Triglyceride: greater than or equal to 5OO mg/dL Chol 185 mg/dL Desirable Cholesterol: less than 200 mg/dL Borderline High Cholesterol: 200-239 mg/dL High Cholesterol: greater than 239 mg/dL LDL Calculated 97 mg/dl Desirable LDL: less than 100 mg/dL Near Optimal/Above Optimal LDL: 110-129 mg/dL Borderline High LDL: 130-159 mg/dL High LDL: 160-189 mg/dL Very High LDL: greater than or equal to 190 mg/dL HDL 49 mg/dL Desirable HDL: greater than 40 mg/dL Note: This HDL assay may give artificially low results in patients with liver disease. Vit D 25-OH Tot 40.7 >30 ng/mL Health Based Reference Values* < 20 ng/mL Deficient 20-30 ng/mL Insufficient > 30 ng/mL Sufficient *Mallory FINNEY. N Engl J Med. 2007;357:266-280 Care must be taken in interpreting Vitamin D results from different laboratories and methodologies. Published data demonstrated that results from patients undergoing hemodialysis may show a negative bias when tested with various automated 25-OH vitamin D assays when compared to LC-MS/MS. When testing samples from patients whose predominant form of Vitamin D is Vitamin D2, such as patients receiving Vitamin D2 supplementation, results that are subtherapeutic should be confirmed with another method such as LC-MS/MS. Free T4 1.04 0.71-1.85 ng/dL TSH 3rd Gen. 1.18 0.32-4.0 uIU/mL TSH 3rd Generation ([facility]) Assessment and Plan Assessment & Plan (1) Annual visit for general adult medical examination with abnormal findings: Code(s): Z00.01 - Encounter for general adult medical examination with abnormal findings Plan: Reviewed recent fasting labs results with patient. She is up-to-date with her eye exam. Wears reading glasses only. . Take adequate calcium in diet and vitamin-D 3 at 2000 IU per cap once a day, in addition to weight-bearing exercises to help maintain good muscle tone and weight control. Instructed to do self-breast exam, and recommended to get yearly mammogram. She is up-to-date with her cervical cancer screening and pelvic exam. Already received her pneumonia vaccine and Tdap, reminded to get her COVID booster, but does not want to get a flu shot today. Up-to-date with her screening colonoscopy due again in 2028 (2) PAD (peripheral artery disease): Comment: 06/02/2021 left common iliac stent right common iliac plasty currently followed by Dr. Yepez Code(s): I73.9 - Peripheral vascular disease, unspecified Plan: she has done extremely well status post endovascular intervention.?continued on lifelong aspiri, and advised smoking cessation . Has a follow up visit with Dr yepez next month (3) Essential hypertension: Code(s): I10 - Essential (primary) hypertension Plan: Blood pressure at goal of less than 130/80. Continue with current medication. Reinforced importance of following a low sodium diet, getting regular exercise, and lowering stress levels. (4) Acquired hypothyroidism: Code(s): E03.9 - Hypothyroidism, unspecified Plan: Recent thyroid levels are within normal limits, continued on current dose of levothyroxine (5) Impaired fasting glucose: Code(s): R73.01 - Impaired fasting glucose Plan: Your fasting blood sugars elevated above 100 mg/dL. Impaired glucose metabolism makes you at risk for developing diabetes mellitus type 2, as well as heart attack and stroke later on. Lifestyle changes at just weight loss, healthy eating habits, and regular exercise are important, and can prevent the progression to diabetes. Ordered a hemoglobin A1c (6) Nicotine dependence, cigarettes, uncomplicated: Comment: (current smoker, onset 15yo, 1ppd x 44yrs, now 3/4ppd - 40+PYH) Code(s): F17.210 - Nicotine dependence, cigarettes, uncomplicated Plan: Patient strongly advised to stop smoking, as smoking damages blood vessels, degenerative of joints and spine, damage to lungs and heart., predisposes to developing certain cancers like lung, breast, bladder, colon. Recommended to try decreasing cigarette use by 1-2 cigarettes a day. Advised to monitor what triggers are for smoking so that this can be discussed on the next office visit. We can discuss different options to quit smoking when ready. Gets yearly low-dose CT for screening (7) Primary insomnia: Code(s): F51.01 - Primary insomnia (8) Osteoarthritis involving multiple joints on both sides of body: Code(s): M15.9 - Polyosteoarthritis, unspecified (9) Hypokalemia: Code(s): E87.6 - Hypokalemia Plan: Serum potassium ordered (10) Shoulder pain, right: Code(s): M25.511 - Pain in right shoulder Plan: X-ray right shoulder ordered, referred to orthopedics for further evaluation management (11) COPD (chronic obstructive pulmonary disease) with emphysema: Comment: Currently followed by [facility] Code(s): J43.9 - Emphysema, unspecified Orders: Orders Potassium 05/20/22 E87.6 - Hypokalemia, R73.01 - Impaired fasting glucose Hemoglobin A1c 05/20/22 E87.6 - Hypokalemia, R73.01 - Impaired fasting glucose Vitamin B12 and Folate 05/20/22 E87.6 - Hypokalemia, R73.01 - Impaired fasting glucose XR shoulder RT min 2V 05/20/22 M25.511 - Pain in right shoulder Referrals Orthopedics Referral M25.511 - Pain in right shoulder, Z98.890 - Other specified postprocedural states Coding Level of Care Code Est Pt Prev Care 40-64y(01346) Diagnoses Annual visit for general adult medical examination with abnormal findings Z00.01 PAD (peripheral artery disease) I73.9 Essential hypertension I10 Acquired hypothyroidism E03.9 Impaired fasting glucose R73.01 Nicotine dependence, cigarettes, uncomplicated F17.210 Primary insomnia F51.01 Osteoarthritis involving multiple joints on both sides of body M15.9 Hypokalemia E87.6 Shoulder pain, right M25.511 COPD (chronic obstructive pulmonary disease) with emphysema J43.9 Additional Codes JOHN-7 Assessment Billing - JOHN-7 Assessment Tool: JOHN-7 Assessment [id number] ([id number])
== END 2022-05-20 11:52 | disposition home or self-care (01) ==
LOC: HO.HMGC 10:50
PROVIDERS: PCP Internal Medicine; Visit Provider Internal Medicine
DX: Z00.01 Encounter for general adult medical examination with abnormal findings (principal); I73.9 Peripheral vascular disease, unspecified; I10 Essential (primary) hypertension; E03.9 Hypothyroidism, unspecified; R73.01 Impaired fasting glucose; F17.210 Nicotine dependence, cigarettes, uncomplicated; F51.01 Primary insomnia; M15.9 Polyosteoarthritis, unspecified; E87.6 Hypokalemia; M25.511 Pain in right shoulder; J43.9 Emphysema, unspecified
CPT/HCPCS: 99499

== ENCOUNTER 2022-05-20 11:55 | Outpatient (REF) | payer OTHER, SELFPAY ==
--- NOTE | ~2022-05-20 | XR_ITS ---
EXAMINATION: XR SHOULDER, RIGHT CLINICAL INFORMATION: Pain. COMPARISON: None TECHNIQUE: AP external rotation, Grashey, scapular Y, and axillary views of the right shoulder. FINDINGS: Bony alignment and mineralization are normal. The glenohumeral joint is intact and shows very mild osteoarthritic change. The acromioclavicular and coracoclavicular intervals are normal. No fracture or dislocation is seen. There is no abnormal soft tissue calcification or foreign body. No right pneumothorax is seen. XR/XR shoulder RT min 2V IMPRESSION: There is very mild osteoarthritic change of the right glenohumeral joint. The examination is otherwise unremarkable.
[2022-05-20 14:31] LABS: Estimated Average Glucose 105 mg/dL; Hemoglobin A1c % 5.3 %; Total Hemoglobin (HGBA1C) 3869.5639 umol/L
[2022-05-20 14:42] LABS: Potassium 3.1 mmol/L (3.3-5.1)
[2022-05-20 15:22] LABS: Folate < 2.2 ng/mL (> or = 4.0); Vitamin B12 1642 pg/mL (200-900)
== END 2022-05-20 11:56 | disposition home or self-care (01) ==
LOC: HO.HMGCLDS 11:55
PROVIDERS: PCP Internal Medicine; Visit Provider Internal Medicine
DX: M25.511 Pain in right shoulder (principal); R73.01 Impaired fasting glucose; E87.6 Hypokalemia
CPT/HCPCS: 36415; 73030; 82607; 82746; 83036; 84132

== ENCOUNTER 2022-06-08 13:50 | Outpatient (REF) | payer OTHER, SELFPAY ==
--- NOTE | ~2022-06-08 | XR_ITS ---
EXAMINATION: XR LUMBOSACRAL SPINE CLINICAL INFORMATION: Lower back pain COMPARISON: None TECHNIQUE: Three views of the lumbosacral spine. FINDINGS: No fracture or subluxation. Vertebral body height and alignment maintained. Mild disc space narrowing of L4-L5. Facet arthropathy at the lower lumbar spine. Small endplate osteophytes. There is a vascular stent noted in the left iliac region. The sacroiliac joints are symmetric. The sacrum is intact. Normal bowel gas pattern. XR/XR lumbar spine 2-3V IMPRESSION: Mild degenerative changes of the lower lumbar spine.
== END 2022-06-08 13:51 | disposition home or self-care (01) ==
LOC: HO.HMGCX 13:50
PROVIDERS: PCP Internal Medicine; Visit Provider Nurse Practitioner Family
DX: M54.50 Low back pain, unspecified (principal)
CPT/HCPCS: 72100

== ENCOUNTER → 2022-06-21 09:45 | Outpatient (BNVA) | payer OTHER, SELFPAY | PROVIDERS: PCP Internal Medicine; Visit Provider Physician Assistant | DX: M19.011 Primary osteoarthritis, right shoulder (principal) | CPT/HCPCS: 99202 ==

== ENCOUNTER → 2022-06-28 12:46 | Outpatient (BNVA) | payer OTHER, SELFPAY | PROVIDERS: PCP Internal Medicine; Visit Provider Surgery Vascular Surgery | DX: I73.9 Peripheral vascular disease, unspecified (principal) | CPT/HCPCS: 99212 ==

== ENCOUNTER 2022-07-05 10:28 | Outpatient (REF) | payer OTHER, SELFPAY ==
--- NOTE | 2022-07-05 12:00 | PFT_ITS ---
FLOWS: 1. FEV1 of 72% of predicted at 1.88 L. 2. FVC 83% of predicted at 2.79 L. 3. FEV1 to FVC ratio of 0.67. 4. Positive bronchodilator response. LUNG VOLUMES: 1. Total lung capacity 104% of predicted at 5.26 L. 2. Residual volume 144% of predicted at 2.82 L. 3. Slow vital capacity 78% of predicted at 2.44 L. 4. Expiratory reserve volume 57% of predicted at 0.52 L. 5. Diffusion capacity is mildly decreased. IMPRESSION: Moderate obstructive ventilatory defect with positive bronchodilatory response. Increased residual volume suggests air trapping. Decreased diffusion capacity suggests emphysema. Scot Boston MD AP/MODL / [id number]
== END 2022-07-05 10:29 | disposition home or self-care (01) ==
LOC: HO.RESP 10:28
PROVIDERS: PCP Internal Medicine; Visit Provider Internal Medicine
DX: F17.210 Nicotine dependence, cigarettes, uncomplicated (principal)
CPT/HCPCS: 94060; 94727; 94729

== ENCOUNTER 2022-10-12 09:04 | Outpatient (AMB) | payer OTHER, SELFPAY ==
[2022-10-12 09:19] VITALS: BP 130/70; PULSE 55; TEMP 36.4; O2SAT 97
--- NOTE | 2022-10-12 09:19 | MHC.OFFWIV ---
Intake Vital Signs 10/12/22 09:19 Height 5 ft 4 in BP 130/70 Blood Pressure Location Rt brachial Position Sitting Pulse 55 Pulse Source Pulse Oximeter Temp 97.6 F Temp Source Temporal Artery Scan Pulse Oximetry (%) 97 Intake Visit Reasons: EST/cat bite left hand Intake Note: pt is here for cat bite on left hand, swollen and red last tdap according to chart is 07/17/22 Patient Tobacco Use Status: Current everyday Tobacco user [employer] Required: No Accompanied by: Self / Same As Patient Allergies nisoldipine [Sular] Allergy (Unknown, Verified 10/12/22 09:47) Unknown Sulfa (Sulfonamide Antibiotics) Allergy (Unknown, Verified 10/12/22 09:47) rash Codeine Phosphate Adverse Reaction (Unknown, Uncoded 06/08/22 13:14) hives Medication List - Last Reconciled 10/12/22 by Lashawn Simmons, [facility]- ascorbate calcium (vitamin C) 500 mg PO DAILY aspirin 81 mg PO DAILY atenolol 50 mg PO DAILY cholecalciferol (vitamin D3) 25 mcg PO DAILY cyanocobalamin (vitamin B-12) 1,000 mcg PO DAILY hydrochlorothiazide 12.5 mg PO QAM levothyroxine 50 mcg PO DAILY losartan 50 mg PO DAILY Ventolin HFA 90 mcg/actuation (albuterol sulfate) 2 puffs inhalation Q6H PRN NS Do you need a note to return to daycare/school/sports/work: Yes HPI HPI Comments History of Present Illness Details Here today with complaints of Cat bite that occurred 2 days ago. The CaT was hers; up-to-date on vaccinations. Affecting left hand. No at home treatments rendered. Up-to-date on her tetanus shot given in July. Denies fever chills. [facility] Medical History Acquired hypothyroidism Degenerative disc disease, cervical Essential hypertension Hypertriglyceridemia Impaired fasting glucose Microscopic hematuria (~2020) Mild intermittent asthma Nicotine dependence, cigarettes, uncomplicated Osteoarthritis involving multiple joints on both sides of body PAD (peripheral artery disease) Plantar fascial fibromatosis of both feet Postmenopausal Primary insomnia Shoulder pain, right Surgical History History of angioplasty (2021) History of arthroscopic surgery of shoulder History of carpal tunnel surgery History of colonoscopy History of fusion of cervical spine (~2004) History of loop electrosurgical excision procedure (LEEP) History of rotator cuff surgery (~2008) History of tubal ligation Family History Father Esophageal cancer Liver cancer Cancer of kidney Mother Emphysema lung Social History Housing: Apartment Alcohol intake: current Patient Tobacco Use Status: Current everyday Tobacco user Tobacco use type: Cigarette Cigarettes Per Day: 15 Years Smoked: onset 15yo, 1ppd x 44yrs, now 3/4ppd - 40+PYH e-Cigarette/Vaping Use: Never Used Second Hand Smoke Exposure: No Current occupational status: employed Current occupation: [employer] Sexual orientation: Straight/Heterosexual Gender identity: Female Cognitive needs: No Hearing needs: No Vision needs: Yes Review of Systems Const All systems reviewed & are unremarkable except as noted in HPI and below Physical Exam Vital Signs: Last Vital Signs Temp 97.6 F 10/12/22 09:19 Pulse 55 10/12/22 09:19 BP 130/70 10/12/22 09:19 Pulse Ox 97 10/12/22 09:19 Const Other: awake alert oriented in no acute distress dorsum of left hand is a single cat bite proximal to the wrist; distal to this on the back of the hand is a well-circumscribed area of erythema and edema skin is mildly warm to touch. on the lower arm are several cat scratches without signs of infection. With her permission the area of redness on the hand and wrist were outlined. full use of hand and fingers without limitation. Assessment & Plan Assessment & Plan (1) Cat bite of left hand: Code(s): S61.452A - Open bite of left hand, initial encounter; W55.01XA - Bitten by cat, initial encounter Medications: New amoxicillin-pot clavulanate 875-125 mg 1 tab PO Q12H 10 days 20 tabs 0RF Patient Instructions: advised to monitor the area. It was outlined with marker today. If the redness extends outside of the markings, swelling becomes worse, redness becomes worse, Fever or chills develop advised to seek care in the emergency room. Otherwise advised not to scrub the marker offices used to monitor the area. Take antibiotics as directed and complete the course of therapy. Coding Level of Care Code Est Pt Level 3 (08968) Diagnoses Cat bite of left hand S61.452A; W55.01XA
== END 2022-10-12 09:56 | disposition home or self-care (01) ==
PROVIDERS: PCP Internal Medicine; Visit Provider Nurse Practitioner Family
DX: S61.452A Open bite of left hand, initial encounter (principal); W55.01XA Bitten by cat, initial encounter
CPT/HCPCS: 99213

== ENCOUNTER 2022-12-21 10:17 | Outpatient (AMB) | payer OTHER, SELFPAY ==
--- NOTE | 2022-12-21 11:04 | AM.OFFWIN_ITS ---
Intake Vital Signs 12/21/22 11:27 Height 5 ft 4 in Weight 129 lb 4 oz BMI 22.2 BP 140/80 H Pulse 65 Pulse Source Pulse Oximeter Temp 98 F Temp Source Temporal Artery Scan Pulse Oximetry (%) 98 Oxygen Delivery Method Room Air Intake Visit Reasons: EP, upper back pain Intake Note: Pt is here c/o upper back pain. Pt states she leaned forward on her couch 2 1/2 weeks ago and got a radiating pain up her back. Patient Tobacco Use Status: Current everyday Tobacco user Allergies nisoldipine [Sular] Allergy (Unknown, Verified 12/21/22 12:33) Unknown Sulfa (Sulfonamide Antibiotics) Allergy (Unknown, Verified 12/21/22 12:33) rash Codeine Phosphate Adverse Reaction (Unknown, Uncoded 12/21/22 12:33) hives Medication List - Last Reconciled 12/21/22 by Ej John MD amoxicillin-pot clavulanate 875-125 mg 1 tab PO Q12H 10 days ascorbate calcium (vitamin C) 500 mg PO DAILY aspirin 81 mg PO DAILY atenolol 50 mg PO DAILY cholecalciferol (vitamin D3) 25 mcg PO DAILY cyanocobalamin (vitamin B-12) 1,000 mcg PO DAILY hydrochlorothiazide 12.5 mg PO QAM levothyroxine 50 mcg PO DAILY losartan 50 mg PO DAILY Ventolin HFA 90 mcg/actuation (albuterol sulfate) 2 puffs inhalation Q6H PRN NS Do you need a note to return to daycare/school/sports/work: No HPI EP, upper back pain HPI Details Patient presents to the office for a sick visit. Complaining of lower back pain for the past week. No history of fall or trauma prior to the onset of symptoms. No urinary incontinence. No fevers or chills. Pain is worse on bending forwards or sideways. Relieve done sitting down. Pain is radiating into the gluteal area. [facility] Medical History Acquired hypothyroidism Degenerative disc disease, cervical Essential hypertension Hypertriglyceridemia Impaired fasting glucose Microscopic hematuria (~2020) Mild intermittent asthma Nicotine dependence, cigarettes, uncomplicated Osteoarthritis involving multiple joints on both sides of body PAD (peripheral artery disease) Plantar fascial fibromatosis of both feet Postmenopausal Primary insomnia Shoulder pain, right Surgical History History of angioplasty (2021) History of arthroscopic surgery of shoulder History of carpal tunnel surgery History of colonoscopy History of fusion of cervical spine (~2004) History of loop electrosurgical excision procedure (LEEP) History of rotator cuff surgery (~2008) History of tubal ligation Family History Father Esophageal cancer Liver cancer Cancer of kidney Mother Emphysema lung Social History Housing: Apartment Alcohol intake: current Patient Tobacco Use Status: Current everyday Tobacco user Tobacco use type: Cigarette Cigarettes Per Day: 15 Years Smoked: onset 15yo, 1ppd x 43yrs, now 3/4ppd - 40+PYH e-Cigarette/Vaping Use: Never Used Second Hand Smoke Exposure: No Current occupational status: employed Current occupation: [employer] Sexual orientation: Straight/Heterosexual Gender identity: Female Cognitive needs: No Hearing needs: No Vision needs: Yes Physical Exam Vital Signs: Last Vital Signs Temp 98 F 12/21/22 11:27 Pulse 65 12/21/22 11:27 BP 140/80 H 12/21/22 11:27 Pulse Ox 98 12/21/22 11:27 Oxygen Delivery Method Room Air 12/21/22 11:27 BMI result Body Mass Index 22.2 Const General: cooperative and healthy appearing Nutritional Appearance: well nourished Orientation/consciousness: patient oriented x3 Limitations: no limitations HEENT Head: Yes normal to inspection Eyes General: appearance normal, both eyes and all related structures Neck Neck: Yes normal visual inspection Chest Chest palpation & inspection: normal palpation of entire chest wall Resp Effort & Inspection: normal respiratory effort Back/Spine/Pelvis Other: Back: No spinal tenderness or paraspinal spasm. Neuro General: patient oriented x3 Assessment & Plan Assessment & Plan (1) Upper back pain: Code(s): M54.9 - Dorsalgia, unspecified Plan: Meloxicam and cyclobenzaprine called in. Patient was advised rest. Note for work if necessary provided. Once pain symptoms subside, patient should start physical therapy. If symptoms worsen to follow-up here. Patient is a heavy smoker. Chest x-ray done was unremarkable. Images were personally reviewed by me. Orders: Orders XR chest 2V Today R05.9 - Cough, unspecified Coding Level of Care Code Est Pt Level 4 (36774) Diagnoses Upper back pain M54.9
[2022-12-21 11:27] VITALS: BP 140/80; PULSE 65; TEMP 36.6; O2SAT 98; BMI 22.2
== END 2022-12-21 12:40 | disposition home or self-care (01) ==
PROVIDERS: PCP Internal Medicine; Visit Provider Internal Medicine
DX: M54.9 Dorsalgia, unspecified (principal)
CPT/HCPCS: 99214

== ENCOUNTER 2022-12-21 11:54 | Outpatient (REF) | payer OTHER, SELFPAY ==
--- NOTE | ~2022-12-21 | XR_ITS ---
EXAMINATION: XR CHEST CLINICAL INFORMATION: Cough COMPARISON: Right rib radiograph from 09/08/2021, CT lung screening from 04/15/2022 TECHNIQUE: 2 views of the chest were obtained. FINDINGS: No focal consolidation. No pneumothorax. Trachea is midline. Cardiac mediastinal silhouette is not enlarged. No large. Partially visualized lower cervical spinal hardware. Stable loss of height of midthoracic vertebral body. Soft tissues are unremarkable. XR/XR chest 2V IMPRESSION: No acute cardiopulmonary process.
== END 2022-12-21 11:55 | disposition home or self-care (01) ==
LOC: HO.HMGCX 11:54
PROVIDERS: PCP Internal Medicine; Visit Provider Internal Medicine
DX: R05.9 Cough, unspecified (principal)
CPT/HCPCS: 71046

== ENCOUNTER 2023-01-19 09:50 | Outpatient (AMB) | payer OTHER, SELFPAY ==
--- NOTE | 2023-01-19 09:53 | A.OFFPC_ITS ---
Vital Signs 3 01/19/23 09:54 Height 5 ft 4 in Weight 129 lb BMI 22.1 BP 130/86 Blood Pressure Location Lt brachial Position Sitting Pulse 70 Pulse Source Pulse Oximeter Pulse Oximetry (%) 100 Oxygen Delivery Method Room Air Intake Visit Reasons: Discuss pulmonary function test Intake Note: pt is here for the results of her PFT test. pt says she spilled boiling water on her right foot a few weeks ago but pt says her pinky toe does not look good Allergies nisoldipine [Sular] Allergy (Unknown, Verified 01/20/23 02:30) Unknown Sulfa (Sulfonamide Antibiotics) Allergy (Unknown, Verified 01/20/23 02:30) rash Codeine Phosphate Adverse Reaction (Unknown, Uncoded 01/20/23 02:30) hives Medication List - Last Reconciled 01/20/23 by Dede Hua MD albuterol sulfate 90 mcg/actuation 2 puffs inhalation Q6H PRN amoxicillin-pot clavulanate 875-125 mg 1 tab PO Q12H 10 days aspirin 81 mg PO DAILY atenolol 50 mg PO DAILY cholecalciferol (vitamin D3) 25 mcg PO DAILY cyanocobalamin (vitamin B-12) 1,000 mcg PO DAILY fluticasone propion-salmeterol 250-50 mcg/dose (Advair Diskus) 1 inh inhalation Q12H hydrochlorothiazide 12.5 mg PO QAM levothyroxine 50 mcg PO DAILY losartan 50 mg PO DAILY Tobacco use date assessed: 01/19/23 Dental Screening Dental Screen Date: 01/19/23 Did you have a dental visit in the last 12 months?: No Did you have a dental problem in the last 6 months where you did not have access to dental care?: No Was dental information given to patient?: No HPI Discuss pulmonary function test 2 HPI0 Details 57-year-old lady here today to have her burn injury on right foot checked. Patient states that she was cooking lobster approximately 10 days ago when she accidentally spilled boiling water on her right foot. She went to the Urgent Care going to and was advised to just apply bacitracin ointment to burn area. Patient is up-to-date with her tetanus shot, has been applying bacitracin ointment from her wounds on dorsal aspect of her right foot just below the right big toe and on her right 5th toe, and wrapping it with a nonstick dressing and leaving it open at night. She states that it is slowly healing, wound getting smaller and has less pain . 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 She is also here for follow-up on results of her pulmonary function test which showed moderate obstructive ventilatory defect with positive bronchodilatory response. Increased residual volume suggests air trapping, and decreased diffusion capacity suggests emphysema. Continues to smoke at least 15 cigarettes/day however, with no desire to quit at present time he denies any shortness of breath, no wheezing, rarely needing to use her albuterol inhaler. She has hypothyroidism, hypertriglyceridemia, prediabetes, hypertension and noted to have elevated vitamin B12 level and low folic acid level as well as hypokalemia on previous labs done. [place] 2 History of Present Illness0 Associated symptoms denies fever(s) [facility] Medical History (Updated 01/20/23 @ 02:36 by Dede Hua MD) COPD (chronic obstructive pulmonary disease) with emphysema Second degree burn of right foot Folic acid deficiency Shoulder pain, right Microscopic hematuria (~2020) Postmenopausal Plantar fascial fibromatosis of both feet Nicotine dependence, cigarettes, uncomplicated Mild intermittent asthma PAD (peripheral artery disease) Hypertriglyceridemia Impaired fasting glucose Degenerative disc disease, cervical Osteoarthritis involving multiple joints on both sides of body Primary insomnia Acquired hypothyroidism Essential hypertension Surgical History (Updated 01/19/23 @ 10:52 by Dede Hua MD) History of arthroscopic surgery of shoulder History of colonoscopy History of tubal ligation History of loop electrosurgical excision procedure (LEEP) History of angioplasty (2021) History of carpal tunnel surgery History of rotator cuff surgery (~2008) History of fusion of cervical spine (~2004) Family History Father Esophageal cancer Liver cancer Cancer of kidney Mother Emphysema lung Social History Housing: Apartment Alcohol intake: current Patient Tobacco Use Status: Current everyday Tobacco user Tobacco use type: Cigarette Cigarettes Per Day: 15 Years Smoked: onset 15yo, 1ppd x 44yrs, now 3/4ppd - 40+PYH e-Cigarette/Vaping Use: Never Used Second Hand Smoke Exposure: No Current occupational status: employed Current occupation: [employer] Sexual orientation: Straight/Heterosexual Gender identity: Female Cognitive needs: No Hearing needs: No Vision needs: Yes Questionnaire Thrive Questionnaire Date Thrive assessed: 05/20/22 JOHN-7 AMB Questionnaire JOHN-7 Date JOHN - 7 assessed: 05/20/22 Source: Developed by Drs. Maurice Talbot, Keke Gonzales, Mickey Henson and colleagues, with an educational elsa from [employer]. Review of Systems Const Denies fever(s), Denies headache(s) and Denies lethargy Eyes Denies change in vision ENT Denies headache(s) and Denies sore throat Card Denies chest pain, Denies irregular heart rhythm and Denies dyspnea Resp Denies chest congestion, Denies cough and Denies dyspnea GI Reports no additional complaints Reports no additional complaints Musc Reports as per HPI, Denies abnormal gait, Denies joint swelling and Reports stiffness Skin/Breast Reports as per HPI Neuro Denies abnormal gait, Denies headache(s) and Denies Sensory deficit (Neuro) Endo Reports no additional complaints Catalino/Lymph Reports no additional complaints Aller/Immun Reports no additional complaints Physical exam (Primary Care) Vital Signs: Last Vital Signs Pulse 70 01/19/23 09:54 BP 130/86 01/19/23 09:54 Pulse Ox 100 01/19/23 09:54 Oxygen Delivery Method Room Air 01/19/23 09:54 BMI result Body Mass Index 22.1 Tobacco/Smoking Status: Tobacco use Status Tobacco use date assessed 01/19/23 01/19/23 10:00 Patient Tobacco Use Status Current everyday Tobacco 01/19/23 10:00 Tobacco use type Cigarette 01/19/23 10:00 e-Cigarette/Vaping Use Never Used 01/19/23 10:00 Thrive Assessment: Date of Thrive Assessment Date Thrive assessed 05/20/22 01/19/23 10:00 Const Other: Alert oriented x3, no acute distress noted, ambulatory normal gait Orientation/consciousness: patient oriented x3 HENMT Mouth: Normal oral and palatal mucosa present, oropharynx normal and moist mucous membranes Eyes General: appearance normal, both eyes and all related structures Neck Other: Supple, no lymphadenopathy palpated, thyroid gland nonpalpable Resp Auscultation: clear to auscultation bilaterally Cardio Other: S1-S2 present regular rate and rhythm GI Inspection: Yes normal to inspection Palpation (GI): Soft to palpation, nontender and no guarding Skin Wounds: wounds noted (See above pictures) Neuro General: patient oriented x3, tone normal, moves all extremities, Normal light touch and pain sensation, no focal motor deficits and CN's II-XI intact bilaterally Sensory Exam: No Sensory deficit (Neuro) Assessment and Plan Assessment & Plan (1) Second degree burn of right foot: Code(s): T25.221A - Burn of second degree of right foot, initial encounter Qualifiers: Encounter type: initial encounter Qualified Code(s): T25.221A - Burn of second degree of right foot, initial encounter Plan: Wound cleaned and bacitracin applied, covered with nonstick Telfa dressing secured with surgical tape. Patient is up-to-date with her tetanus booster. Empirically placed on Augmentin 875 mg per tablet to take 1 every 12 hours for 7 days. Return to clinic in a week for follow-up (2) Impaired fasting glucose: Code(s): R73.01 - Impaired fasting glucose Plan: Your fasting blood sugars in the past were elevated above 100 mg/dL. Impaired glucose metabolism O2 at risk for developing diabetes mellitus type 2, as well as heart attack and stroke later on. Lifestyle changes at just weight loss, healthy eating habits, and regular exercise are important, and can prevent the progression to diabetes (3) Acquired hypothyroidism: Code(s): E03.9 - Hypothyroidism, unspecified Plan: TSH and free T4 ordered today, in the meantime continue with current dose of levothyroxine 50 mcg daily. (4) Essential hypertension: Code(s): I10 - Essential (primary) hypertension Plan: Blood pressure at goal of less than 130/80. Continue with current medication. Reinforced importance of following a low sodium diet, getting regular exercise, and lowering stress levels. (5) Elevated vitamin B12 level: Code(s): R74.8 - Abnormal levels of other serum enzymes Plan: Will repeat another vitamin B12 level advised to hold off on taking her vitamin B12 supplements (6) COPD (chronic obstructive pulmonary disease) with emphysema: Code(s): J43.9 - Emphysema, unspecified Plan: Discussed results of pulmonary function test with patient. Continue with albuterol inhaler as needed for episodes of bronchospasm and wheezing, started on Advair 250/50 mcg 1 inhalation every 12 hours. Advised to rinse mouth after use. Referred to Pulmonary for further evaluation and management. (7) Nicotine dependence, cigarettes, uncomplicated: Comment: (current smoker, onset 15yo, 1ppd x 44yrs, now 3/4ppd - 40+PYH) Code(s): F17.210 - Nicotine dependence, cigarettes, uncomplicated Plan: Patient strongly advised to stop smoking, as smoking damages blood vessels, degenerative of joints and spine, damage to lungs and heart., predisposes to developing certain cancers like lung, breast, bladder, colon. Recommended to try decreasing cigarette use by 1-2 cigarettes a day. Advised to monitor what triggers are for smoking so that this can be discussed on the next office visit. We can discuss different options to quit smoking when ready. Orders: Orders 2 Vitamin D 25-OH Total 01/19/23 E03.9 - Hypothyroidism, unspecified, E53.8 - Deficiency of other specified B group vitamins, I10 - Essential (primary) hypertension, R73.01 - Impaired fasting glucose, R74.8 - Abnormal levels of other serum enzymes, T25.221A - Burn of second degree of right foot, initial encounter, Z78.0 - Asymptomatic menopausal state Thyroid Stimulating Hormone 01/19/23 E03.9 - Hypothyroidism, unspecified, E53.8 - Deficiency of other specified B group vitamins, I10 - Essential (primary) hypertension, R73.01 - Impaired fasting glucose, R74.8 - Abnormal levels of other serum enzymes, T25.221A - Burn of second degree of right foot, initial encounter, Z78.0 - Asymptomatic menopausal state Free T4 (Free Thyroxine) 3 Months E03.9 - Hypothyroidism, unspecified, E53.8 - Deficiency of other specified B group vitamins, I10 - Essential (primary) hypertension, R73.01 - Impaired fasting glucose, R74.8 - Abnormal levels of other serum enzymes, T25.221A - Burn of second degree of right foot, initial encounter, Z78.0 - Asymptomatic menopausal state Hemoglobin A1c 01/19/23 E03.9 - Hypothyroidism, unspecified, E53.8 - Deficiency of other specified B group vitamins, I10 - Essential (primary) hypertension, R73.01 - Impaired fasting glucose, R74.8 - Abnormal levels of other serum enzymes, T25.221A - Burn of second degree of right foot, initial encounter, Z78.0 - Asymptomatic menopausal state Aspartate Amino Transferase 01/19/23 E03.9 - Hypothyroidism, unspecified, E53.8 - Deficiency of other specified B group vitamins, I10 - Essential (primary) hypertension, R73.01 - Impaired fasting glucose, R74.8 - Abnormal levels of other serum enzymes, T25.221A - Burn of second degree of right foot, initial encounter, Z78.0 - Asymptomatic menopausal state Vitamin B12 and Folate 01/19/23 E03.9 - Hypothyroidism, unspecified, E53.8 - Deficiency of other specified B group vitamins, I10 - Essential (primary) hypertension, R73.01 - Impaired fasting glucose, R74.8 - Abnormal levels of other serum enzymes, T25.221A - Burn of second degree of right foot, initial encounter, Z78.0 - Asymptomatic menopausal state Basic Metabolic Panel Fasting 01/19/23 E03.9 - Hypothyroidism, unspecified, E53.8 - Deficiency of other specified B group vitamins, I10 - Essential (primary) hypertension, R73.01 - Impaired fasting glucose, R74.8 - Abnormal levels of other serum enzymes, T25.221A - Burn of second degree of right foot, initial encounter, Z78.0 - Asymptomatic menopausal state Complete Blood Count Auto Diff 01/19/23 E03.9 - Hypothyroidism, unspecified, E53.8 - Deficiency of other specified B group vitamins, I10 - Essential (primary) hypertension, R73.01 - Impaired fasting glucose, R74.8 - Abnormal levels of other serum enzymes, T25.221A - Burn of second degree of right foot, initial encounter, Z78.0 - Asymptomatic menopausal state Alanine Aminotransferase 01/19/23 E03.9 - Hypothyroidism, unspecified, E53.8 - Deficiency of other specified B group vitamins, I10 - Essential (primary) hypertension, R73.01 - Impaired fasting glucose, R74.8 - Abnormal levels of other serum enzymes, T25.221A - Burn of second degree of right foot, initial encounter, Z78.0 - Asymptomatic menopausal state Lipid Panel 01/19/23 E03.9 - Hypothyroidism, unspecified, E53.8 - Deficiency of other specified B group vitamins, I10 - Essential (primary) hypertension, R73.01 - Impaired fasting glucose, R74.8 - Abnormal levels of other serum enzymes, T25.221A - Burn of second degree of right foot, initial encounter, Z78.0 - Asymptomatic menopausal state Referrals 2 Pulmonary Medicine Referral F17.210 - Nicotine dependence, cigarettes, uncomplicated, J43.9 - Emphysema, unspecified Medications: New 2 amoxicillin-pot clavulanate 875-125 mg 1 tab PO Q12H 10 days 20 tabs 0RF fluticasone propion-salmeterol 250-50 mcg/dose (Advair Diskus) 1 inh inhalation Q12H 60 ea 1RF Coding Level of Care Code Est Pt Level 4 (23275) Diagnoses Partial thickness burn of right foot, initial encounter T25.221A Encounter type: initial encounter Impaired fasting glucose R73.01 Acquired hypothyroidism E03.9 Essential hypertension I10 Elevated vitamin B12 level R74.8 COPD (chronic obstructive pulmonary disease) with emphysema J43.9 Nicotine dependence, cigarettes, uncomplicated F17
[2023-01-19 09:54] VITALS: BP 130/86; PULSE 70; O2SAT 100; BMI 22.1
== END 2023-01-19 10:58 | disposition home or self-care (01) ==
PROVIDERS: PCP Internal Medicine; Visit Provider Internal Medicine
DX: R73.01 Impaired fasting glucose (principal); T25.221A Burn of second degree of right foot, initial encounter; E03.9 Hypothyroidism, unspecified; J43.9 Emphysema, unspecified; I10 Essential (primary) hypertension; R74.8 Abnormal levels of other serum enzymes; F17.210 Nicotine dependence, cigarettes, uncomplicated
CPT/HCPCS: 99214

== ENCOUNTER 2023-01-19 11:00 | Outpatient (REF) | payer OTHER, SELFPAY ==
[2023-01-19 13:23] LABS: MANUAL DIFF FLAG NO
[2023-01-19 13:33] LABS: Basophils Absolute Auto 0.1 X10*3/uL (0.0-0.2); Basophils Percent Auto 1.4 % (0-2); Eosinophils Absolute Auto 0.4 X10*3/uL (0.0-0.4); Eosinophils Percent Auto 4.2 % (0-4); Hematocrit 39.8 % (37.0-47.0); Imm Gran Abs Auto 0.04 X10*3/uL (0.00-0.03); Imm Gran Pct Auto 0.4 % (0.0-0.4); Lymphocytes Absolute Auto 2.3 X10*3/uL (1.2-4.9); Lymphocytes Percent Auto 22.7 % (20-40); Mean Corpuscular HGB Conc 35.2 g/dl (31.0-35.0); Mean Corpuscular Hemoglobin 36.2 pg (27.0-33.0); Mean Corpuscular Volume 102.8 fL (80.0-98.0); Mean Platelet Volume 9.1 fL (9.4-12.3); Monocytes Absolute Auto 0.9 X10*3/uL (0.1-1.2); Monocytes Percent Auto 8.7 % (2-11); Neutrophils Absolute Auto 6.2 x10*3/uL (2.0-8.3); Neutrophils Percent Auto 62.6 % (45-73); Platelet Count 275 X10*3/uL (160-400); Red Blood Count 3.87 X10*6/uL (4.20-5.50); Red Cell Distribution Width 12.3 % (11.0-16.0); White Blood Count 9.9 X10*3/uL (4.8-10.8)
[2023-01-19 14:39] LABS: Estimated Average Glucose 105 mg/dL; Hemoglobin A1c % 5.3 % (<6.0)
[2023-01-19 14:51] LABS: Alanine Aminotransferase 17 U/L (0-31); Anion Gap 16 (12-20); Aspartate Amino Transferase 24 U/L (5-31); Blood Urea Nitrogen 13 mg/dL (9-16); Calcium 10.1 mg/dL (8.4-10.2); Carbon Dioxide 29 mmol/L (22-29); Chloride 98 mmol/L (96-108); Cholesterol 186 mg/dL (<200); Estimated Glomerular Filt Rate > 60; Glucose Fasting 88 mg/dL (60-99); HDL Cholesterol 45 mg/dL (>40); LDL Cholesterol Calculated 73 mg/dL (<100); Potassium 3.8 mmol/L (3.3-5.1); Sodium 139 mmol/L (135-145); Thyroid Stimulating Hormone 0.61 uIU/mL (0.32-4.0); Triglycerides 342 mg/dL (<150); Vitamin D 25-OH Total 53.1 ng/mL (>30)
[2023-01-19 14:52] LABS: Folate < 2.2 ng/mL (> or = 4.0); Vitamin B12 1856 pg/mL (200-900)
== END 2023-01-19 11:01 | disposition home or self-care (01) ==
LOC: HO.HMGCLDS 11:00
PROVIDERS: PCP Internal Medicine; Visit Provider Internal Medicine
DX: R73.01 Impaired fasting glucose (principal); E03.9 Hypothyroidism, unspecified; I10 Essential (primary) hypertension; R74.8 Abnormal levels of other serum enzymes; E53.8 Deficiency of other specified B group vitamins; T25.221A Burn of second degree of right foot, initial encounter; Z78.0 Asymptomatic menopausal state
CPT/HCPCS: 36415; 80048; 80061; 82306; 82607; 82746; 83036; 84443; 84450; 84460; 85025

== ENCOUNTER 2023-05-02 09:40 | Outpatient (AMB) | payer OTHER, SELFPAY ==
[2023-05-02 09:45] VITALS: BP 128/87; PULSE 65; O2SAT 98; BMI 22.3
--- NOTE | 2023-05-02 09:45 | A.OFFVIS_ITS ---
Intake Vital Signs 05/02/23 09:45 Height 5 ft 4 in Weight 130 lb 1.164 oz BMI 22.3 BP 128/87 Blood Pressure Location Rt brachial Position Sitting Pulse 65 Pulse Source Doppler Pulse Oximetry (%) 98 Oxygen Delivery Method Room Air Intake Visit Reasons: Emphysema Allergies nisoldipine [Sular] Allergy (Unknown, Verified 05/02/23 09:49) Unknown Sulfa (Sulfonamide Antibiotics) Allergy (Unknown, Verified 05/02/23 09:49) rash Codeine Phosphate Adverse Reaction (Unknown, Uncoded 01/20/23 02:30) hives HPI Emphysema HPI Details 58-year-old lady, active 30+ pack-year s isaac referred for evaluation her underlying recently diagnosed COPD. Patient had pulmonary function test in spring 2022 showing underlying moderate COPD with significant bronchodilator response. She denies dyspnea on exertion. She does use albuterol MDI every other day or so. Her symptoms were somewhat controlled on Advair, however it is no longer available. She does have family history of COPD in her mother. Patient does have cats. She does complain of environmental allergies worse in fall and spring. [facility], [facility] Medical History (Updated 01/20/23 @ 02:36 by Dede Hua MD) COPD (chronic obstructive pulmonary disease) with emphysema Second degree burn of right foot Folic acid deficiency Shoulder pain, right Microscopic hematuria (~2020) Postmenopausal Plantar fascial fibromatosis of both feet Nicotine dependence, cigarettes, uncomplicated Mild intermittent asthma PAD (peripheral artery disease) Hypertriglyceridemia Impaired fasting glucose Degenerative disc disease, cervical Osteoarthritis involving multiple joints on both sides of body Primary insomnia Acquired hypothyroidism Essential hypertension Surgical History (Updated 01/19/23 @ 10:52 by Dede Hua MD) History of arthroscopic surgery of shoulder History of colonoscopy History of tubal ligation History of loop electrosurgical excision procedure (LEEP) History of angioplasty (2021) History of carpal tunnel surgery History of rotator cuff surgery (~2008) History of fusion of cervical spine (~2004) Family History Father Esophageal cancer Liver cancer Cancer of kidney Mother Emphysema lung Social History Housing: Apartment Alcohol intake: current Patient Tobacco Use Status: Current everyday Tobacco user Tobacco use type: Cigarette Cigarettes Per Day: 15 Years Smoked: onset 15yo, 1ppd x 44yrs, now 3/4ppd - 40+PYH e-Cigarette/Vaping Use: Never Used Second Hand Smoke Exposure: No Current occupational status: employed Current occupation: [employer] Sexual orientation: Straight/Heterosexual Gender identity: Female Cognitive needs: No Hearing needs: No Vision needs: Yes Review of Systems Const Denies daytime sleepiness, Denies excessive sweating, Denies fatigue, Denies fever(s), Denies lethargy, Denies malaise, Denies night sweats, Denies snoring and Denies weight loss Eyes Denies blurry vision and Denies itchy eyes ENT Denies nasal congestion, Denies post nasal drip, Denies sinus pain, Denies sinus pressure and Denies other ( Thrush) Card Denies chest pain, Denies pedal edema, Denies dyspnea, Denies orthopnea and Denies paroxysmal nocturnal dyspnea Resp Denies cough, Denies hemoptysis, Denies excessive phlegm production, Denies dyspnea, Denies snoring and Denies wheezing GI Denies abdominal pain and Denies heartburn Musc Denies myalgias, Denies arthralgias and Denies joint swelling Skin/Breast Denies rash Neuro Denies memory loss and Denies seizure-like activity Psych Denies abnormal sleep pattern, Denies anxiety and Denies memory loss Endo Denies excessive sweating, Denies fatigue and Denies heat intolerance Catalino/Lymph Denies easy bruising Aller/Immun Denies itchy eyes, Denies seasonal rhinorrhea and Denies wheezing Physical Exam Vital Signs: Last Vital Signs Pulse 65 05/02/23 09:45 BP 128/87 05/02/23 09:45 Pulse Ox 98 05/02/23 09:45 Oxygen Delivery Method Room Air 05/02/23 09:45 BMI result Body Mass Index 22.3 Const General: no acute distress and alert Nutritional Appearance: not obese Orientation/consciousness: Other orientation findings ( oriented) HEENT Head: Yes atraumatic Eyes General: appearance normal, both eyes and all related structures Sclerae: sclerae normal EOM: EOMs intact bilaterally Neck Neck: Yes supple Lymphatic: no lymphadenopathy noted Resp Effort & Inspection: normal respiratory effort and no use of accessory muscles Auscultation: clear to auscultation bilaterally Cardio Rate: regular rate Rhythm: regular rhythm Heart sounds: no gallops, no murmurs and no rubs Skin General skin exam: other ( warm) Extrem General: No clubbing, No cyanosis and No edema Assessment & Plan Assessment & Plan (1) COPD (chronic obstructive pulmonary disease) with emphysema: Code(s): J43.9 - Emphysema, unspecified Plan: Underlying moderate COPD suboptimally controlled on Advair, will switch to An fidelina. Continue albuterol MDI. (2) Nicotine dependence, cigarettes, uncomplicated: Comment: (current smoker, onset 15yo, 1ppd x 44yrs, now 3/4ppd - 40+PYH) Code(s): F17.210 - Nicotine dependence, cigarettes, uncomplicated Plan: Strategies for quitting smoking, including setting a day to quit and usage of ancillary nicotine replacement have been discussed with the patient. Will continue with lung cancer screening. Orders: Orders CT lung screening Today - Nicotine dependence, cigarettes, uncomplicated Medications: New umeclidinium-vilanterol 62.5-25 mcg/actuation (Anoro Ellipta) 1 inh inhalation DAILY 1 ea 6RF 30 days nicotine apply 1-21 mg NICOTINE PATCH daily for 28 days; follow with 1-14 mg PATCH daily for 14 days, then 1-7mg PATCH daily for 14 days transdermal 56 patches 0RF nicotine (polacrilex) 4 mg buccal Q2-4H PRN 108 ea 3RF nicotine cravings 30 days Discontinued fluticasone propion-salmeterol 250-50 mcg/dose (Advair Diskus) Discontinued Reason: Doctor's Order 1 inh inhalation Q12H 60 ea 1RF Coding Level of Care Code New Pt Level 4 (56309) Diagnoses COPD (chronic obstructive pulmonary disease) with emphysema J43.9 Nicotine dependence, cigarettes, uncomplicated
== END 2023-05-02 10:05 | disposition home or self-care (01) ==
PROVIDERS: PCP Internal Medicine; Visit Provider Internal Medicine Pulmonary Disease
DX: J43.9 Emphysema, unspecified (principal); F17.210 Nicotine dependence, cigarettes, uncomplicated
CPT/HCPCS: 99214

== ENCOUNTER → 2023-05-02 09:40 | Outpatient (BNVA) | payer OTHER, SELFPAY | PROVIDERS: PCP Internal Medicine; Visit Provider Internal Medicine Pulmonary Disease | DX: J43.9 Emphysema, unspecified (principal); F17.210 Nicotine dependence, cigarettes, uncomplicated | CPT/HCPCS: 99212 ==

== ENCOUNTER 2023-06-07 09:05 | Outpatient (REF) | payer OTHER, SELFPAY ==
--- NOTE | ~2023-06-07 | CT_ITS ---
EXAMINATION: CT CHEST SCREENING CLINICAL INFORMATION: Nicotine dependence. Current smoker at 1 pack per day with 45 pack year history. COMPARISON: CT lung screening 04/15/2022. TECHNIQUE: Multidetector volumetric CT imaging of the chest is performed without contrast using low dose technique. Additional 2D coronal and sagittal reformatted images and axial 3D maximum intensity projection (MIP) images are generated on the CT workstation. This CT examination was performed using dose optimization techniques as appropriate, variously including the following: *Automated exposure control *Adjustment of mA and/or kV according to patient size (this includes techniques or standardized protocols for targeted exams where dose is matched to indication/reason for exam; i.e. extremities or head) *Use of iterative reconstruction technique DLP: 43 mGy-cm FINDINGS: LUNGS: Biapical pleural-parenchymal scarring is again seen. Minimal emphysematous changes are seen. Again noted is a tiny 1 mm pulmonary nodule in the right upper lobe laterally (5:106 compare prior 5:120). The lungs are otherwise clear with no evidence of inflammation or concerning nodules. MEDIASTINUM: The mediastinum is normal. CORONARY ARTERY CALCIFICATION: Minimal. PLEURA: There is no pleural effusion. No pleural mass or thickening. AXILLA: No lymphadenopathy. UPPER ABDOMEN: Liver attenuation is decreased compared with the spleen consistent with hepatic steatosis. Upper abdomen otherwise unremarkable. OSSEOUS STRUCTURES: Degenerative changes are present in the spine. Most marked at T7-T8 where there are Schmorl's nodes/compression fractures of the inferior endplate of T7 and the superior endplate of T8. No bony destructive lesions are seen. CT/CT lung screening IMPRESSION: No evidence of malignancy. ASSESSMENT: Lung-RADS category 2: Benign. RECOMMENDATION: Routine annual low-dose CT screening in 12 months.
== END 2023-06-07 09:06 | disposition home or self-care (01) ==
LOC: HO.CT 09:05
PROVIDERS: PCP Internal Medicine; Visit Provider Internal Medicine Pulmonary Disease
DX: Z12.2 Encounter for screening for malignant neoplasm of respiratory organs (principal); F17.210 Nicotine dependence, cigarettes, uncomplicated
CPT/HCPCS: 71271

== ENCOUNTER 2023-06-12 07:55 | Outpatient (REF) | payer OTHER, SELFPAY ==
--- NOTE | ~2023-06-12 | US_ITS ---
EXAMINATION: US RETROPERITONEAL LIMITED (AORTA) CLINICAL INFORMATION: Peripheral vascular disease with history of iliac artery stents. COMPARISON: 04/20/2022 TECHNIQUE: Gonzalez-scale, color Doppler and spectral Doppler evaluation of the abdominal aorta. FINDINGS: The aorta is normal in diameter with scattered atherosclerotic plaque. The measurements of the aorta in maximum AP and transverse dimensions respectively are as follows: Proximal: 2.1 cm. Mid: 1.7 cm. Distal: 1.6 cm. PSV: 118 cm/s. Diffuse atherosclerotic calcified plaque throughout the bilateral common iliac and external iliac arteries. Diameter measurements are not obtained due to the extensive plaque. Velocity measurements as follows: Right common iliac artery: 75.2 cm/s Right external iliac artery: 134 cm/s Left common iliac artery: 101 cm/s Left external iliac artery 92.8 cm/s US/US abdominal aortic aneurysm IMPRESSION: Atherosclerotic plaque in the bilateral common and external iliac arteries without significant stenosis. EXAMINATION: Noninvasive assessment of the bilateral lower extremities with ARTERIAL DUPLEX and ANKLE BRACHIAL INDICES (ABIs). CLINICAL INFORMATION: Peripheral vascular disease TECHNIQUE: Duplex Doppler techniques with waveform analysis and measurement of velocities in the bilateral common femoral, profunda femoris, superficial femoral, popliteal and tibial arteries were performed. Additionally, ankle pulse volume recordings, ankle pressure measurements and ankle brachial indices were obtained of the lower extremity arterial system bilaterally. The study was performed only at rest. COMPARISON: 04/20/2022 FINDINGS: DIRECT DUPLEX DOPPLER FINDINGS: RIGHT LEG: Common femoral artery: 138 cm/s, phasicity: Triphasic. Mild calcified plaque Profunda femoris artery: 37.3 cm/s, phasicity: Biphasic Superficial femoral artery (proximal): 58.9 cm/s, phasicity: Biphasic. Mild calcified plaque Superficial femoral artery (mid): 55.9 cm/s, phasicity: Biphasic Superficial femoral artery (distal): 40.6 cm/s, phasicity: Biphasic Popliteal artery: 49.1 cm/s, phasicity: Biphasic Posterior tibial artery: 40.8 cm/s, phasicity: Biphasic Peroneal artery: 40.5 cm/s, phasicity: Biphasic Anterior tibial artery: 36.1 cm/s, phasicity: Biphasic Dorsalis pedis artery: 41.3 cm/s, phasicity:Biphasic LEFT LEG: Common femoral artery: 83.1 cm/s, phasicity: Triphasic. Moderate calcified plaque Profunda femoris artery: 97.0 cm/s, phasicity: Triphasic Superficial femoral artery (proximal): 101 cm/s, phasicity: Triphasic Superficial femoral artery (mid): 61.1 cm/s, phasicity: Biphasic Superficial femoral artery (distal): 36.4 cm/s, phasicity: Biphasic Popliteal artery: 49.9 cm/s, phasicity: Triphasic Posterior tibial artery: 49.4 cm/s, phasicity: Biphasic Peroneal artery: 33.8 cm/s, phasicity: Biphasic Anterior tibial artery: 52.8 cm/s, phasicity: Biphasic Dorsalis pedis artery: 40.8 cm/s, phasicity: Biphasic ANKLE-BRACHIAL INDEX: Right: 0.92?, previously 1.06 Left: 0.94, previously 1.06 ANKLE PRESSURES: Right: PT 116, DP 120 Left: PT?117, DP?122 ANKLE PVR WAVEFORMS: Right: Mildly dampened Left: Mildly dampened IMPRESSION: Right leg: Low-normal ankle-brachial index. Patent arterial flow throughout the right lower extremity without significant stenosis or occlusion. No significant change Left leg: Low-normal ankle-brachial index. Patent arterial flow throughout the left lower extremity without significant stenosis or occlusion. No significant change MARBIN Reference: - >1.4 = calcified vessels - 0.9 - 1.4 = normal - no significant arterial disease - 0.7 - 0.89 = mild peripheral arterial disease - 0.51 - 0.69 = moderate peripheral arterial disease - ? 0.50 = severe peripheral arterial disease - < .30 = critical arterial disease
== END 2023-06-12 07:56 | disposition home or self-care (01) ==
LOC: HO.US 07:55
PROVIDERS: PCP Internal Medicine; Visit Provider Surgery Vascular Surgery
DX: I70.213 Atherosclerosis of native arteries of extremities with intermittent claudication, bilateral legs (principal)
CPT/HCPCS: 76706; 93923; 93925

== ENCOUNTER 2023-07-11 13:54 | Outpatient (AMB) | payer OTHER, SELFPAY ==
--- NOTE | 2023-07-11 13:54 | MHC.OFFVIS ---
Intake Vital Signs 07/11/23 13:59 Height 5 ft 4 in Weight 134 lb BMI 23.0 Intake Visit Reasons: 1 yr follow up arterial US 06/12/2023 Intake Note: Pt presents to the office today for a 1 year follow up Arterial US 06/12/23. Pt states she is feeling well and denies any concerns at this time. Allergies nisoldipine [Sular] Allergy (Unknown, Verified 07/11/23 14:01) Unknown Sulfa (Sulfonamide Antibiotics) Allergy (Unknown, Verified 07/11/23 14:01) rash Codeine Phosphate Adverse Reaction (Unknown, Uncoded 07/11/23 14:01) hives HPI 1 yr follow up arterial US 06/12/2023 HPI Details Very pleasant 58-year-old female presents for follow-up regarding peripheral vascular disease. She had undergone bilateral iliac stenting with us nearly 2 years ago with us. She reports she is doing fairly well since that time. She is ambulating with no difficulty. 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 She now presents to us for routine follow-up. She continues to smoke about 3/4-1 pack per day. [facility] Medical History COPD (chronic obstructive pulmonary disease) with emphysema Second degree burn of right foot Microscopic hematuria (~2020) Postmenopausal Plantar fascial fibromatosis of both feet Nicotine dependence, cigarettes, uncomplicated Mild intermittent asthma PAD (peripheral artery disease) Hypertriglyceridemia Impaired fasting glucose Degenerative disc disease, cervical Osteoarthritis involving multiple joints on both sides of body Primary insomnia Acquired hypothyroidism Essential hypertension Surgical History History of arthroscopic surgery of shoulder History of colonoscopy History of tubal ligation History of loop electrosurgical excision procedure (LEEP) History of angioplasty (2021) History of carpal tunnel surgery History of rotator cuff surgery (~2008) History of fusion of cervical spine (~2004) Family History Father Esophageal cancer Liver cancer Cancer of kidney Mother Emphysema lung Social History Housing: Apartment Alcohol intake: current Patient Tobacco Use Status: Current everyday Tobacco user Tobacco use type: Cigarette Cigarettes Per Day: 15 Years Smoked: onset 15yo, 1ppd x 44yrs, now 3/4ppd - 40+PYH e-Cigarette/Vaping Use: Never Used Second Hand Smoke Exposure: No Current occupational status: employed Current occupation: [employer] Sexual orientation: Straight/Heterosexual Gender identity: Female Cognitive needs: No Hearing needs: No Vision needs: Yes Review of Systems Const All systems reviewed & are unremarkable except as noted in HPI and below Reports no additional complaints ENT Reports Normal hearing present Card Denies chest pain, Denies chest pain at rest, Denies chest pain with activity and Denies pedal edema Resp Denies cough GI Denies abdominal pain Musc Denies abnormal gait, Denies muscle cramps and Denies radiating pain into limb Skin/Breast Denies skin ulcer and Denies wounds Neuro Reports Normal hearing present and Denies abnormal gait Psych Reports no additional complaints Physical Exam Vital Signs: BMI result Body Mass Index 23.0 Const General: cooperative, healthy appearing and comfortable Orientation/consciousness: oriented to person, oriented to place and oriented to time HEENT Head: Yes normal to inspection Neck Neck: Yes normal visual inspection Carotids: no bruits Chest Chest palpation & inspection: normal inspection of the chest Resp Effort & Inspection: normal respiratory effort and able to speak in complete sentences Auscultation: clear to auscultation bilaterally, no crackles, no rales, no rhonchi and no wheezes Cardio Other: Bilateral palpable dorsalis pedis pulse Rate: regular rate Rhythm: regular rhythm Heart sounds: S1 normal heart sound present and S2 normal heart sound present Bruits: no carotid bruits Peripheral pulses: Peripheral pulses 2+ throughout GI Inspection: Yes normal to inspection Skin Wounds: no wounds Hair: normal Neuro General: oriented to person, oriented to place and oriented to time Cranial nerves: Yes CN's II-XII intact bilaterally and Yes Normal hearing present Cognition (Neuro): normal cognition Motor exam (neuro): 5/5 motor strength present throughout Extrem Other: venous exam: No significant superficial varicosities or spider telangiectasias, minimal edema General: No clubbing, No cyanosis and No edema Psych Appearance: grossly normal Mental Status: mental status grossly normal Speech and movement: Normal speech and movement present Results Reviewed Results Reviewed: Noninvasive testing dated 06/12/2023 demonstrates MARBIN on the right of 0.92 and on the left of 0.94. Direct ultrasound of stents demonstrates no significant disease. Assessment & Plan Assessment & Plan (1) PAD (peripheral artery disease): Comment: 06/02/2021 left common iliac stent right common iliac plasty currently followed by Dr. Cruz Code(s): I73.9 - Peripheral vascular disease, unspecified Plan: In short patient has stable claudication. I did review the pathophysiology of peripheral vascular disease with the patient. In addition we did discuss routine conservative measures including a healthy diet and the importance of exercise and ambulation. We did discuss risk factor modification. The patient will continue to to follow-up with surveillance follow-up in approximately 1 year. Thank you for allowing us to participate in this patient's care. If there are any questions or concerns please do not hesitate to contact us. Orders: Orders US abdominal aortic aneurysm 1 Year I73.9 - Peripheral vascular disease, unspecified US arterial duplex LE BI 1 Year I73.9 - Peripheral vascular disease, unspecified Coding Level of Care Code Est Pt Level 4 (61810) Diagnoses PAD (peripheral artery disease) I73.9
[2023-07-11 13:59] VITALS: BMI 23.0
== END 2023-07-11 14:19 | disposition home or self-care (01) ==
PROVIDERS: PCP Internal Medicine; Visit Provider Surgery Vascular Surgery
DX: I73.9 Peripheral vascular disease, unspecified (principal)
CPT/HCPCS: 99213

== ENCOUNTER → 2023-07-11 13:54 | Outpatient (BNVA) | payer OTHER, SELFPAY | PROVIDERS: PCP Internal Medicine; Visit Provider Surgery Vascular Surgery | DX: I73.9 Peripheral vascular disease, unspecified (principal) | CPT/HCPCS: 99212 ==

== ENCOUNTER 2023-07-26 09:25 | Outpatient (AMB) | payer OTHER, SELFPAY ==
[2023-07-26 09:27] VITALS: BP 132/67; PULSE 63; O2SAT 97; BMI 21.1
--- NOTE | 2023-07-26 09:27 | MHC.OFFVIS ---
Vital Signs 07/26/23 09:27 Height 5 ft 4 in Weight 123 lb BMI 21.1 BP 132/67 Blood Pressure Location Rt brachial Position Sitting Pulse 63 Pulse Source Doppler Pulse Oximetry (%) 97 Oxygen Delivery Method Room Air Intake Visit Reasons: Emphysema Allergies nisoldipine [Sular] Allergy (Unknown, Verified 07/26/23 09:32) Unknown Sulfa (Sulfonamide Antibiotics) Allergy (Unknown, Verified 07/26/23 09:32) rash Codeine Phosphate Adverse Reaction (Unknown, Uncoded 07/11/23 14:01) hives HPI HPI Emphysema: Details: 58-year-old lady, active 30+ pack-year smoker followed for COPD. Patient had pulmonary function test in spring 2022 showing underlying moderate COPD with significant bronchodilator response. She denies dyspnea on exertion. She does use albuterol MDI every other day or so. At the last office visit her Advair was switched to Anoro, however patient states that she does not require using it. she denies recent exacerbations. Patient did complete her lung cancer screening CT chest that did not demonstrate any worrisome pulmonary nodules [facility] Medical History COPD (chronic obstructive pulmonary disease) with emphysema Second degree burn of right foot Microscopic hematuria (~2020) Postmenopausal Plantar fascial fibromatosis of both feet Nicotine dependence, cigarettes, uncomplicated Mild intermittent asthma PAD (peripheral artery disease) Hypertriglyceridemia Impaired fasting glucose Degenerative disc disease, cervical Osteoarthritis involving multiple joints on both sides of body Primary insomnia Acquired hypothyroidism Essential hypertension Surgical History History of arthroscopic surgery of shoulder History of colonoscopy History of tubal ligation History of loop electrosurgical excision procedure (LEEP) History of angioplasty (2021) History of carpal tunnel surgery History of rotator cuff surgery (~2008) History of fusion of cervical spine (~2004) Family History Father Esophageal cancer Liver cancer Cancer of kidney Mother Emphysema lung Social History Housing: Apartment Alcohol intake: current Patient Tobacco Use Status: Current everyday Tobacco user Tobacco use type: Cigarette Cigarettes Per Day: 15 Years Smoked: onset 15yo, 1ppd x 43yrs, now 3/4ppd - 40+PYH e-Cigarette/Vaping Use: Never Used Second Hand Smoke Exposure: No Current occupational status: employed Current occupation: [employer] Sexual orientation: Straight/Heterosexual Gender identity: Female Cognitive needs: No Hearing needs: No Vision needs: Yes Review of Systems Const Denies daytime sleepiness, Denies excessive sweating, Denies fatigue, Denies fever(s), Denies lethargy, Denies malaise, Denies night sweats, Denies snoring and Denies weight loss Eyes Denies blurry vision and Denies itchy eyes ENT Denies nasal congestion, Denies post nasal drip, Denies sinus pain, Denies sinus pressure and Denies other ( Thrush) Card Denies chest pain, Denies pedal edema, Denies dyspnea, Denies orthopnea and Denies paroxysmal nocturnal dyspnea Resp Denies cough, Denies hemoptysis, Denies excessive phlegm production, Denies dyspnea, Denies snoring and Denies wheezing GI Denies abdominal pain and Denies heartburn Musc Denies myalgias, Denies arthralgias and Denies joint swelling Skin/Breast Denies rash Neuro Denies memory loss and Denies seizure-like activity Psych Denies abnormal sleep pattern, Denies anxiety and Denies memory loss Endo Denies excessive sweating, Denies fatigue and Denies heat intolerance Catalino/Lymph Denies easy bruising Aller/Immun Denies itchy eyes, Denies seasonal rhinorrhea and Denies wheezing Physical Exam Vital Signs: Last Vital Signs Pulse 63 07/26/23 09:27 BP 132/67 07/26/23 09:27 Pulse Ox 97 07/26/23 09:27 Oxygen Delivery Method Room Air 07/26/23 09:27 BMI result Body Mass Index 21.1 Const General: no acute distress and alert Nutritional Appearance: not obese Orientation/consciousness: Other orientation findings ( oriented) HEENT Head: Yes atraumatic Eyes General: appearance normal, both eyes and all related structures Sclerae: sclerae normal EOM: EOMs intact bilaterally Neck Neck: Yes supple Lymphatic: no lymphadenopathy noted Resp Effort & Inspection: normal respiratory effort and no use of accessory muscles Auscultation: clear to auscultation bilaterally Cardio Rate: regular rate Rhythm: regular rhythm Heart sounds: no gallops, no murmurs and no rubs Skin General skin exam: other ( warm) Extrem General: No clubbing, No cyanosis and No edema Assessment & Plan Assessment & Plan (1) COPD (chronic obstructive pulmonary disease) with emphysema: Comment: Currently followed by [facility] Code(s): J43.9 - Emphysema, unspecified Category: Medical Plan: Well controlled on current regimen of Anoro and albuterol MDI. Continue current regimen. (2) Personal history of nicotine dependence: Code(s): Z87.891 - Personal history of nicotine dependence Category: Medical Plan: Results of lung cancer screening CT chest reviewed and no worrisome pulmonary nodules noted. Will continue with yearly screening, next in June of 2024. Ordered. Orders: Orders CT lung screening 06/24/24 Z87.891 - Personal history of nicotine dependence Coding Level of Care Code Est Pt Level 4 (22449) Diagnoses COPD (chronic obstructive pulmonary disease) with emphysema J43.9 Personal history of nicotine dependence Z87.891
== END 2023-07-26 09:37 | disposition home or self-care (01) ==
PROVIDERS: PCP Internal Medicine; Visit Provider Internal Medicine Pulmonary Disease
DX: J43.9 Emphysema, unspecified (principal); Z87.891 Personal history of nicotine dependence
CPT/HCPCS: 99214

== ENCOUNTER → 2023-07-26 09:25 | Outpatient (BNVA) | payer OTHER, SELFPAY | PROVIDERS: PCP Internal Medicine; Visit Provider Internal Medicine Pulmonary Disease | DX: J43.9 Emphysema, unspecified (principal); Z87.891 Personal history of nicotine dependence | CPT/HCPCS: 99212 ==

== ENCOUNTER 2023-09-15 11:27 | Outpatient (AMB) | payer OTHER, SELFPAY ==
--- NOTE | 2023-09-15 11:31 | A.OFFPC_ITS ---
Vital Signs 09/15/23 11:37 Height 5 ft 4 in Weight 124 lb BMI 21.3 BP 118/74 Blood Pressure Location Lt brachial Position Sitting Pulse 66 Pulse Source Pulse Oximeter Pulse Oximetry (%) 98 Oxygen Delivery Method Room Air Intake Visit Reasons: PE Intake Note: pt here for annual PE. Pap 01/21/21. Colonoscopy 10/09/18. Mammogram due. Bone density due Allergies nisoldipine [Sular] Allergy (Unknown, Verified 09/15/23 11:56) Unknown Sulfa (Sulfonamide Antibiotics) Allergy (Unknown, Verified 09/15/23 11:56) rash Codeine Phosphate Adverse Reaction (Unknown, Uncoded 09/15/23 11:56) hives Tobacco use date assessed: 09/15/23 Dental Screening Dental Screen Date: 09/15/23 Did you have a dental visit in the last 12 months?: No Did you have a dental problem in the last 6 months where you did not have access to dental care?: No Was dental information given to patient?: No HPI HPI Comments History of Present Illness Details Patient is a 58-year-old female who I am meeting for the 1st time in for a physical exam. She is up-to-date with Tdap, shingles vaccine, influenza and COVID. Patient had Prevnar 23, due to reactive airway disease she is a candidate for Prevnar 20. PT declining in office. Patient is due for mammogram and Pap smear. Patient does have establish care with [facility]. Last well-woman visit is 2021. Patient had colonoscopy in 2018 with a suggested follow-up in 7 years, patient has follow-up colonoscopy will be due in 2025. She has a past medical history significant for: Peripheral artery disease-she has establish care with [facility]. Does have history of stenting in the iliac artery. Vascular notes indicate patient is doing well with this. History of smoking-patient is currently in the screening program, recent CT scan of the lungs showed no malignancies. This was completed and June of 2023. COPD-patient has establish care with Pulmonary Medicine utilizes Anoro Ellipta and albuterol sulfate with good effect. Hypothyroidism-currently utilizing 50 mcg levothyroxine sodium with good effect. History of SI pain- Will obtain X-ray today. Patient declining prednisone. Hypertension-utilizing losartan 50 mg p.o. daily, hydrochlorothiazide 12.5 mg p.o. daily. Atenolol 50 mg p.o. daily. [facility] Medical History COPD (chronic obstructive pulmonary disease) with emphysema Second degree burn of right foot Microscopic hematuria (~2020) Postmenopausal Plantar fascial fibromatosis of both feet Nicotine dependence, cigarettes, uncomplicated Mild intermittent asthma PAD (peripheral artery disease) Hypertriglyceridemia Impaired fasting glucose Degenerative disc disease, cervical Osteoarthritis involving multiple joints on both sides of body Primary insomnia Acquired hypothyroidism Essential hypertension Surgical History History of arthroscopic surgery of shoulder History of colonoscopy History of tubal ligation History of loop electrosurgical excision procedure (LEEP) History of angioplasty (2021) History of carpal tunnel surgery History of rotator cuff surgery (~2008) History of fusion of cervical spine (~2004) Family History Father Esophageal cancer Liver cancer Cancer of kidney Mother Emphysema lung Social History Housing: Apartment Alcohol intake: current Patient Tobacco Use Status: Current everyday Tobacco user Tobacco use type: Cigarette Cigarettes Per Day: 15 Years Smoked: onset 15yo, 1ppd x 44yrs, now 3/4ppd - 40+PYH e-Cigarette/Vaping Use: Never Used Second Hand Smoke Exposure: No Current occupational status: employed Current occupation: [employer] Sexual orientation: Straight/Heterosexual Gender identity: Female Cognitive needs: No Hearing needs: No Vision needs: Yes Questionnaire PHQ-9 Over the last 2 weeks, how often have you been bothered by any of the following problems? 1. Little interest or pleasure in doing things: not at all 2. Feeling down, depressed, or hopeless: not at all 3. Trouble falling or staying asleep, or sleeping too much: not at all 4. Feeling tired or having little energy: not at all 5. Poor appetite or overeating: not at all 6. Feeling bad about yourself - or that you are a failure or have let yourself or your family down: not at all 7. Trouble concentrating on things, such as reading the newspaper or watching television: not at all 8. Moving or speaking so slowly that other people could have noticed. Or the opposite - being so fidgety or restless that you have been moving around a lot more than usual: not at all 9. Thoughts that you would be better off or of hurting yourself in some way: not at all Total score: 0 Depression Screening Interpretation: Negative Depression Screening Done: Yes 38632 - PHQ-9 Billing: Yes Source: Developed by Drs. Maurice Talbot, Keke Gonzales, Mickey Henson and colleagues, with an educational elsa from [employer]. Thrive Questionnaire Date Thrive assessed: 09/15/23 I am a: Patient What is your living situation today?: I have a steady place to live Within the past 12 months, did the food you bought not last and you didn't have the money to get more?: Never true Within the past 12 months, did you worry whether your food would run out before you got money to buy more?: Never true Do you have trouble paying for medicines?: No Do you have trouble getting transportation to medical appointments?: No Do you have trouble paying your heating and electricity bill?: No Do you have trouble taking care of your child, family member or friend?: No Do you have trouble with day-to-day activities such as bathing, preparing meals, shopping, managing finances, etc.?: No Are you currently unemployed and looking for a job?: No Are you interested in more education?: No Please select the resources that you would like help with: None Currently or been in a relationship where the following occur: no concerns reported THRIVE Score: 0 AUDIT C Alcohol Use Questionnaire (AUDIT-C) 1. How often do you have a drink containing alcohol?: Monthly or less 2. How many drinks containing alcohol do you have on a typical day when you are drinking?: 1 or 2 3. How often do you have six or more drinks on one occasion?: Never Total Score: 1 Score Reviewed/Action Taken: Yes JOHN-7 AMB Questionnaire JOHN-7 Date JOHN - 7 assessed: 09/15/23 Feeling nervous, anxious, or on edge: 0 = Not at all Not being able to stop or control worryin = Not at all Worrying too much about different things: 0 = Not at all Trouble relaxin = Not at all Being so restless that it is hard to sit still: 0 = Not at all Becoming easily annoyed or irritable: 0 = Not at all Feeling afraid as if something awful might happen: 0 = Not at all Total JOHN-7 score (0-4 normal; 5-9 mild; 10-14 moderate; 15-21 severe): 0 Source: Developed by Drs. Maurice Talbot, Keke Gonzales, Mickey Henson and colleagues, with an educational elsa from [employer]. JOHN-7 Assessment Billing JOHN-7 Assessment Tool: JOHN-7 Assessment 68237 Review of Systems Const All systems reviewed & are unremarkable except as noted in HPI and below ENT Reports dysphagia (Food intermittently getting stuck in throat.) GI Reports hematochezia, Reports dysphagia (Food intermittently getting stuck in throat.), Reports dyspepsia and Reports other Physical exam (Primary Care) Care Plan Goal for BP management: Blood pressure control. Tobacco/Smoking Status: Tobacco use Status Tobacco use date assessed 01/19/23 09/15/23 11:31 Patient Tobacco Use Status Current everyday Tobacco 09/15/23 11:31 Tobacco use type Cigarette 09/15/23 11:31 e-Cigarette/Vaping Use Never Used 09/15/23 11:31 Are you ready to quit: No Tobacco cessation counseling provided: No Depression Screening Interpretation: Negative Thrive Assessment: Date of Thrive Assessment Date Thrive assessed 05/20/22 09/15/23 11:31 Currently or been in a relationship where the following occur: no concerns reported Forms completed: Health Care Proxy Time spent: 16-45 minutes Actual minutes spent: 17 Const Other: Appearance: Alert.? Oriented X3.? No acute distress.? Head: Normocephalic. Eyes: Pupils equal, round and reactive to light.? ENT: Pharynx normal.?TM intact and pearly biswas. Neck: Normal inspection.? Neck supple.? CVS: Normal heart rate and rhythm.? Pulses normal.? Respiratory: No respiratory distress.? Breath sounds diminished. Abdomen: Soft and nontender.? Rectal: Declined. Skin: Skin warm and dry.? Normal skin color.? Normal skin turgor.? Extremities: No lower extremity edema. 5/5 strength to bilateral upper and lower extremities Back: No midline tenderness, no C-spine tenderness, full range of motion, no CVA tenderness bilaterally. +Right sided SI tenderness with rediculopathy. Neuro: Oriented X 3.? No motor deficit.? No sensory deficit. CN 2-12 intact Assessment and Plan Assessment & Plan (1) Encounter for routine adult physical exam with abnormal findings: Comment: Patient is a 58-year-old female who I am meeting for the 1st time in for a physical exam. She is up-to-date with Tdap, shingles vaccine, influenza and COVID. Patient had Prevnar 23, due to reactive airway disease she is a candidate for Prevnar 20. PT declining in office. Patient is due for mammogram and Pap smear. Patient does have establish care with [facility]. Last well-woman visit is 2021. Patient had colonoscopy in 2018 with a suggested follow-up in 7 years, patient has follow-up colonoscopy will be due in 2025. She has a past medical history significant for: Peripheral artery disease-she has establish care with [facility]. Does have history of stenting in the iliac artery. Vascular notes indicate patient is doing well with this. History of smoking-patient is currently in the screening program, recent CT scan of the lungs showed no malignancies. This was completed and June of 2023. COPD-patient has establish care with Pulmonary Medicine utilizes Anoro Ellipta and albuterol sulfate with good effect. Hypothyroidism-currently utilizing 50 mcg levothyroxine sodium with good effect. History of SI pain- Will obtain X-ray today. Patient declining prednisone. Hypertension-utilizing losartan 50 mg p.o. daily, hydrochlorothiazide 12.5 mg p.o. daily. Atenolol 50 mg p.o. daily. Code(s): Z00.01 - Encounter for general adult medical examination with abnormal findings Orders: Orders Vitamin D 25-OH (D2 and D3) Today Z13.21 - Encounter for screening for nutritional disorder Comprehensive Met. Panel Today Z91.89 - Other specified personal risk factors, not elsewhere classified Lipid Panel Today Z13.220 - Encounter for screening for lipoid disorders XR sacroiliac joint 1-2V Today M53.3 - Sacrococcygeal disorders, not elsewhere classified MM tomosynthesis screening BI Today Z12.31 - Encounter for screening mammogram for malignant neoplasm of breast Vitamin B12 Today Z13.21 - Encounter for screening for nutritional disorder Vitamin B6 Today Z13.21 - Encounter for screening for nutritional disorder UA CC w/rflx Micro + Cult Today Z13.89 - Encounter for screening for other disorder TSH reflex Free T4 Today Z13.29 - Encounter for screening for other suspected endocrine disorder Complete Blood Count Auto Diff Today Z13.0 - Encounter for screening for diseases of the blood and blood-forming organs and certain disorders involving the immune mechanism Referrals Gastroenterology Referral K92.1 - [facility] Referral Z12.4 - Encounter for screening for malignant neoplasm of cervix Coding Level of Care Code Est Pt Prev Care 40-64y(08894) Diagnoses Encounter for routine adult physical exam with abnormal findings Z00.01 Additional Codes JOHN-7 Assessment Billing - JOHN-7 Assessment Tool: JOHN-7 Assessment 91923 ([id number]) Vital Signs *Quality* - Time spent: 16-45 minutes ([id number]) Time Spent (min) 35
[2023-09-15 11:37] VITALS: BP 118/74; PULSE 66; O2SAT 98; BMI 21.3
== END 2023-09-15 12:14 | disposition home or self-care (01) ==
PROVIDERS: PCP Internal Medicine; Visit Provider Nurse Practitioner Primary Care
DX: Z00.00 Encounter for general adult medical examination without abnormal findings (principal)
CPT/HCPCS: 99396; 99497

== ENCOUNTER 2023-09-15 12:15 | Outpatient (REF) | payer OTHER, SELFPAY ==
--- NOTE | ~2023-09-15 | XR_ITS ---
EXAMINATION: XR SACROILIAC JOINTS CLINICAL INFORMATION: Sacrococcygeal disorders COMPARISON: None available. TECHNIQUE: 3 views of the sacroiliac joints FINDINGS: Bones and soft tissues are normal. No fracture. Alignment is anatomic. Sacroiliac joint spaces are well-maintained without erosions or surrounding sclerosis. Calcific atherosclerotic disease noted. Left iliac stent noted XR/XR sacroiliac joint 1-2V IMPRESSION: Normal sacroiliac joints.
[2023-09-15 13:26] LABS: MANUAL DIFF FLAG NO
[2023-09-15 13:29] LABS: Appearance Urine Clear; Color Urine Yellow; Glucose Urine UA Negative (Negative); Leukocyte Esterase Urine Negative (Negative); Nitrite Urine Negative (Negative); PH 7.5 (5.0-9.0); Urine Blood Negative (Negative); Urine Ketones Negative (Negative); Urine Protein Negative (Neg-Trace)
[2023-09-15 13:47] LABS: Basophils Absolute Auto 0.1 X10*3/uL (0.0-0.2); Basophils Percent Auto 1.2 % (0-2); Eosinophils Absolute Auto 0.5 X10*3/uL (0.0-0.4); Eosinophils Percent Auto 4.3 % (0-4); Hematocrit 40.1 % (37.0-47.0); Hemoglobin 14.2 g/dl (12.0-16.0); Imm Gran Abs Auto 0.06 X10*3/uL (0.00-0.03); Imm Gran Pct Auto 0.6 % (0.0-0.4); Lymphocytes Absolute Auto 2.6 X10*3/uL (1.2-4.9); Mean Corpuscular HGB Conc 35.4 g/dl (31.0-35.0); Mean Corpuscular Volume 104.4 fL (80.0-98.0); Mean Platelet Volume 8.5 fL (9.4-12.3); Monocytes Percent Auto 9.3 % (2-11); Neutrophils Absolute Auto 6.5 x10*3/uL (2.0-8.3); Neutrophils Percent Auto 60.6 % (45-73); Platelet Count 280 X10*3/uL (160-400); Red Blood Count 3.84 X10*6/uL (4.20-5.50); Red Cell Distribution Width 12.3 % (11.0-16.0); White Blood Count 10.8 X10*3/uL (4.8-10.8)
[2023-09-15 14:46] LABS: Alanine Aminotransferase 16 U/L (0-31); Alkaline Phosphatase 88 U/L (39-117); Anion Gap 12 (12-20); Aspartate Amino Transferase 24 U/L (5-31); Bilirubin Total 0.9 mg/dL (0.0-1.0); Blood Urea Nitrogen 12 mg/dL (9-16); Calcium 9.8 mg/dL (8.4-10.2); Carbon Dioxide 30 mmol/L (22-29); Chloride 101 mmol/L (96-108); Cholesterol 181 mg/dL (<200); Estimated Glomerular Filt Rate > 60; Glucose Random 102 mg/dL (60-115); HDL Cholesterol 55 mg/dL (>40); LDL Cholesterol Calculated 95 mg/dL (<100); Potassium 3.5 mmol/L (3.3-5.1); Sodium 139 mmol/L (135-145); Total Protein 7.1 g/dL (6.5-8.0); Triglycerides 157 mg/dL (<150)
[2023-09-15 14:48] LABS: TSH reflex Free T4 0.88 uIU/mL (0.32-4.0)
[2023-09-15 14:54] LABS: Vitamin B12 376 pg/mL (200-900)
[2023-09-20 13:52] LABS: Vitamin D 25-OH, D2 <4 ng/mL; Vitamin D 25-OH, D3 35 ng/mL; Vitamin D 25-OH, Total 35 ng/mL (30-100)
[2023-09-22 09:14] LABS: Vitamin B6 3.3 ng/mL (2.1-21.7)
== END 2023-09-15 12:16 | disposition home or self-care (01) ==
LOC: HO.HMGCX 12:15
PROVIDERS: PCP Internal Medicine; Visit Provider Nurse Practitioner Primary Care
DX: M53.3 Sacrococcygeal disorders, not elsewhere classified (principal); Z13.21 Encounter for screening for nutritional disorder; Z13.89 Encounter for screening for other disorder; Z13.29 Encounter for screening for other suspected endocrine disorder; Z13.220 Encounter for screening for lipoid disorders; Z91.89 Other specified personal risk factors, not elsewhere classified; Z13.0 Encounter for screening for diseases of the blood and blood-forming organs and certain disorders involving the immune mechanism
CPT/HCPCS: 36415; 72200; 80053; 80061; 81003; 82306; 82607; 84207; 84443; 85025

== ENCOUNTER 2023-10-10 10:30 | Outpatient (REF) | payer OTHER, SELFPAY | END 2023-10-10 10:31 | disposition home or self-care (01) | LOC: HO.MAMMO 10:30 | PROVIDERS: Visit Provider Nurse Practitioner Primary Care | DX: Z12.31 Encounter for screening mammogram for malignant neoplasm of breast (principal) | CPT/HCPCS: 77063; 77067 ==

== ENCOUNTER → 2023-10-10 10:30 | Outpatient (BNV) | payer OTHER, SELFPAY | PROVIDERS: Visit Provider Radiology Diagnostic Radiology | DX: Z12.31 Encounter for screening mammogram for malignant neoplasm of breast (principal) | CPT/HCPCS: 77063; 77067 ==

== ENCOUNTER 2024-03-25 11:17 | Outpatient (AMB) | payer OTHER, SELFPAY ==
[2024-03-25 11:39] VITALS: BP 120/80; PULSE 78; O2SAT 96
--- NOTE | 2024-03-25 11:39 | MHC.OFFWIV ---
Intake Vital Signs 03/25/24 11:39 Weight 127 lb 8 oz BP 120/80 Blood Pressure Location Rt brachial Pulse 78 Pulse Source Pulse Oximeter Pulse Oximetry (%) 96 Oxygen Delivery Method Room Air Intake Visit Reasons: EP pain on LT arm and sciatic nerve Intake Note: Patient here for left arm pain after open ochoa door a couple of weeks ago and her arm gave out. Patient Tobacco Use Status: Current everyday Tobacco user Allergies nisoldipine [Sular] Allergy (Unknown, Verified 03/25/24 11:46) Unknown Sulfa (Sulfonamide Antibiotics) Allergy (Unknown, Verified 03/25/24 11:46) rash Codeine Phosphate Adverse Reaction (Unknown, Uncoded 03/25/24 11:46) hives Do you need a note to return to daycare/school/sports/work: No HPI EP pain on LT arm and sciatic nerve HPI Details This note is constructed using voice recognition software. While every effort has been made to ensure accuracy, assistant executive housekeeper errors may have been included. The patient is a 59 year old female who presents to the clinic today with left arm and right sciatic nerve pain. She notes that she was in the basement coming out of a hat when she pushed with her left arm opening the ochoa, felt like her left arm gave out. She reports that she has been taking ibuprofen intermittently which seems to help as well as Voltaren gel. She is not taking ibuprofen regularly. She denies numbness and tingling in her hand. She notes that she has also been struggling with right-sided sciatica for the past couple of weeks. [facility] Medical History COPD (chronic obstructive pulmonary disease) with emphysema Second degree burn of right foot Microscopic hematuria (~2020) Postmenopausal Plantar fascial fibromatosis of both feet Nicotine dependence, cigarettes, uncomplicated Mild intermittent asthma PAD (peripheral artery disease) Hypertriglyceridemia Impaired fasting glucose Degenerative disc disease, cervical Osteoarthritis involving multiple joints on both sides of body Primary insomnia Acquired hypothyroidism Essential hypertension Surgical History History of arthroscopic surgery of shoulder History of colonoscopy History of tubal ligation History of loop electrosurgical excision procedure (LEEP) History of angioplasty (2021) History of carpal tunnel surgery History of rotator cuff surgery (~2008) History of fusion of cervical spine (~2004) Family History Father Esophageal cancer Liver cancer Cancer of kidney Mother Emphysema lung Social History Housing: Apartment Alcohol intake: current Patient Tobacco Use Status: Current everyday Tobacco user Tobacco use type: Cigarette Cigarettes Per Day: 15 Years Smoked: onset 15yo, 1ppd x 43yrs, now 3/4ppd - 40+PYH e-Cigarette/Vaping Use: Never Used Second Hand Smoke Exposure: No Current occupational status: employed Current occupation: [employer] Sexual orientation: Straight/Heterosexual Gender identity: Female Cognitive needs: No Hearing needs: No Vision needs: Yes Review of Systems Const All systems reviewed & are unremarkable except as noted in HPI and below Physical Exam Vital Signs: Last Vital Signs Pulse 78 03/25/24 11:39 BP 120/80 03/25/24 11:39 Pulse Ox 96 03/25/24 11:39 Oxygen Delivery Method Room Air 03/25/24 11:39 Const General: cooperative, healthy appearing, comfortable, no acute distress and well developed Orientation/consciousness: patient oriented x3 Limitations: no limitations Resp Effort & Inspection: normal respiratory effort and able to speak in complete sentences Skin General skin exam: no rashes or lesions noted Neuro Other: Positive right SLR, negative well SLR General: patient oriented x3 Extrem Other: Left arm abduction limited to 90 degrees due to pain. Strength 5/5, equal bilaterally. No visible deformities. No erythema, warmth, ecchymosis. TTP at biceps insertion point General: Yes normal to inspection Assessment & Plan Assessment & Plan (1) Left shoulder pain: Code(s): M25.512 - Pain in left shoulder Qualifiers: Chronicity: acute Qualified Code(s): M25.512 - Pain in left shoulder Plan: Likely muscular in nature, we will continue with NSAIDs for symptomatic management. Advised gentle stretches to avoid immobilization. X-ray ordered for evaluation due to nature of injury. Muscle relaxers prescribed for symptomatic management. Advised follow up as needed with worsening or failure to resolve. (2) Right sided sciatica: Code(s): M54.31 - Sciatica, right side Plan: Advised ongoing use of NSAIDs, muscle relaxers prescribed for symptomatic management. Advised follow up with PCP with ongoing symptoms, as she may benefit from physical therapy. Plan See above for full details and plan. Orders: Orders XR shoulder LT min 2V Today M25.512 - Pain in left shoulder Medications: New cyclobenzaprine 1 to 2 orally 3 times a day PRN; 10 tabs 0RF muscle spasm Coding Level of Care Code Est Pt Level 3 (21585) Diagnoses Acute pain of left shoulder M25.512 Chronicity: acute Right sided sciatica M54.31
== END 2024-03-25 12:16 | disposition home or self-care (01) ==
PROVIDERS: Visit Provider Registered Nurse
DX: M25.512 Pain in left shoulder (principal); M54.31 Sciatica, right side

== ENCOUNTER 2024-03-25 11:17 | Outpatient (REF) | payer OTHER, SELFPAY ==
--- NOTE | ~2024-03-25 | XR_ITS ---
EXAMINATION: XR SHOULDER, LEFT CLINICAL INFORMATION: M25.512 - Pain in left shoulder. The patient states lifting injury a few weeks ago, pain since then. COMPARISON: None available. TECHNIQUE: Three views of the left shoulder. FINDINGS: Moderate degenerative changes in the acromioclavicular joint with joint space narrowing and hypertrophic change. Mild degenerative changes in the glenohumeral joint with inferior hypertrophic change. Small faint calcifications in the soft tissues adjacent to the supralateral aspect of the humeral head. Small amorphous calcification inferior to the glenoid. XR/XR shoulder LT min 2V IMPRESSION: 1. Moderate degenerative changes in the acromioclavicular joint. 2. Mild degenerative changes in the glenohumeral joint. 3. Small faint calcifications in the soft tissues adjacent to the supralateral aspect of the humeral head suggestive of calcific tendinitis. Small amorphous calcification inferior to the glenoid. This study was presented today to March 25, 2024 for interpretation. Stat results provided at this time as requested by referring provider. Electronically signed by: Mavis Espinoza MD 03/25/2024 01:13 PM [facility]
== END 2024-03-25 11:18 | disposition home or self-care (01) ==
LOC: HO.HMGCX 11:17
PROVIDERS: Visit Provider Registered Nurse
DX: M25.512 Pain in left shoulder (principal); M54.31 Sciatica, right side
CPT/HCPCS: 73030; 99212

== ENCOUNTER 2024-04-08 08:03 | Outpatient (AMB) | payer OTHER, SELFPAY ==
[2024-04-08 08:11] VITALS: BP 108/70; PULSE 76; O2SAT 97; BMI 21.6
--- NOTE | 2024-04-08 08:11 | A.OFFPC_ITS ---
Vital Signs 04/08/24 08:11 Height 5 ft 4 in Weight 126 lb BMI 21.6 BP 108/70 Blood Pressure Location Rt brachial Position Sitting Pulse 76 Pulse Source Pulse Oximeter Pulse Oximetry (%) 97 Oxygen Delivery Method Room Air Intake Visit Reasons: Back pain Intake Note: Pt is here today c/o Lt shoulder pain into Lt Hip down Lt leg x1mo. ago opening a ochoa in the basement: Was seen at the walkin no improvement Allergies nisoldipine [Sular] Allergy (Unknown, Verified 04/08/24 08:44) Unknown Sulfa (Sulfonamide Antibiotics) Allergy (Unknown, Verified 04/08/24 08:44) rash Codeine Phosphate Adverse Reaction (Unknown, Uncoded 04/08/24 08:44) hives Medication List - Last Reconciled 04/08/24 by Dede Hua MD albuterol sulfate 90 mcg/actuation 2 puffs inhalation Q6H PRN aspirin 81 mg PO DAILY atenolol 50 mg PO DAILY cholecalciferol (vitamin D3) 25 mcg PO DAILY cyclobenzaprine 1 to 2 orally 3 times a day PRN; hydrochlorothiazide 12.5 mg PO QAM levothyroxine 50 mcg PO DAILY losartan 50 mg PO DAILY Tobacco use date assessed: 04/08/24 Dental Screening Dental Screen Date: 04/08/24 Did you have a dental visit in the last 12 months?: No Did you have a dental problem in the last 6 months where you did not have access to dental care?: No Was dental information given to patient?: Patient declined (no teeth) HPI Back pain HPI Details 59-year-old lady here today complaining of sudden onset of left shoul juana pain. Which was not been present now for the last month. Patient states that she was trying to keep the shaft door in her basement open when her left shoulder suddenly gave out. Prior to that she did not have any problems with her left shoulder joint. Ever since then she has also been having recurrent pain in her left lower back, radiating to buttock which is aggravated with weight-bearing denies any accompanying urinary or stool incontinence, no numbness or tingling in extremities reported. She has been taking naproxen which affords no relief. She went to the urgent care clinic and was prescribed cyclobenzaprine, x-ray of her shoulder showed presence of calcific tendinosis [facility] Medical History Left shoulder pain COPD (chronic obstructive pulmonary disease) with emphysema Second degree burn of right foot Microscopic hematuria (~2020) Postmenopausal Plantar fascial fibromatosis of both feet Nicotine dependence, cigarettes, uncomplicated Mild intermittent asthma PAD (peripheral artery disease) Hypertriglyceridemia Impaired fasting glucose Degenerative disc disease, cervical Osteoarthritis involving multiple joints on both sides of body Primary insomnia Acquired hypothyroidism Essential hypertension Surgical History History of arthroscopic surgery of shoulder History of colonoscopy History of tubal ligation History of loop electrosurgical excision procedure (LEEP) History of angioplasty (2021) History of carpal tunnel surgery History of rotator cuff surgery (~2008) History of fusion of cervical spine (~2004) Family History Father Esophageal cancer Liver cancer Cancer of kidney Mother Emphysema lung Social History Housing: Apartment Alcohol intake: current Patient Tobacco Use Status: Current everyday Tobacco user Tobacco use type: Cigarette Cigarettes Per Day: 15 Years Smoked: onset 15yo, 1ppd x 44yrs, now 3/4ppd - 40+PYH Packs per year/per ci.00 e-Cigarette/Vaping Use: Never Used Second Hand Smoke Exposure: No Current occupational status: employed Current occupation: [employer] Sexual orientation: Straight/Heterosexual Gender identity: Female Cognitive needs: No Hearing needs: No Vision needs: Yes Questionnaire PHQ-9 Over the last 2 weeks, how often have you been bothered by any of the following problems? 1. Little interest or pleasure in doing things: not at all 2. Feeling down, depressed, or hopeless: not at all 3. Trouble falling or staying asleep, or sleeping too much: not at all 4. Feeling tired or having little energy: not at all 5. Poor appetite or overeating: not at all 6. Feeling bad about yourself - or that you are a failure or have let yourself or your family down: not at all 7. Trouble concentrating on things, such as reading the newspaper or watching television: not at all 8. Moving or speaking so slowly that other people could have noticed. Or the opposite - being so fidgety or restless that you have been moving around a lot m ore than usual: not at all 9. Thoughts that you would be better off or of hurting yourself in some way: not at all Total score: 0 Source: Developed by Drs. Maurice Talbot, Keke Gonzales, Mickey Henson and colleagues, with an educational elsa from [employer]. Thrive Questionnaire Date Thrive assessed: 04/08/24 I am a: Patient What is your living situation today?: I have a steady place to live Within the past 12 months, did the food you bought not last and you didn't have the money to get more?: Never true Within the past 12 months, did you worry whether your food would run out before you got money to buy more?: Never true Do you have trouble paying for medicines?: No Do you have trouble getting transportation to medical appointments?: No Do you have trouble paying your heating and electricity bill?: No Do you have trouble taking care of your child, family member or friend?: No Do you have trouble with day-to-day activities such as bathing, preparing meals, shopping, managing finances, etc.?: No Are you currently unemployed and looking for a job?: Yes Are you interested in more education?: No Please select the resources that you would like help with: None Currently or been in a relationship where the following occur: No concerns reported THRIVE Score: 0 AUDIT C Alcohol Use Questionnaire (AUDIT-C) 1. How often do you have a drink containing alcohol?: 2-3 times a week 2. How many drinks containing alcohol do you have on a typical day when you are drinking?: 1 or 2 3. How often do you have six or more drinks on one occasion?: Never Total Score: 3 JOHN-7 AMB Questionnaire JOHN-7 Date JOHN - 7 assessed: 04/08/24 Feeling nervous, anxious, or on edge: 0 = Not at all Not being able to stop or control worryin = Not at all Worrying too much about different things: 0 = Not at all Trouble relaxin = Not at all Being so restless that it is hard to sit still: 0 = Not at all Becoming easily annoyed or irritable: 0 = Not at all Feeling afraid as if something awful might happen: 0 = Not at all Total JOHN-7 score (0-4 normal; 5-9 mild; 10-14 moderate; 15-21 severe): 0 Source: Developed by Drs. Maurice Talbot, Keke Gonzales, Mickey Henson and colleagues, with an educational elsa from [employer]. Review of Systems Const All systems reviewed & are unremarkable except as noted in HPI and below Physical exam (Primary Care) Vital Signs: Last Vital Signs Pulse 76 04/08/24 08:11 BP 108/70 04/08/24 08:11 Pulse Ox 97 04/08/24 08:11 Oxygen Delivery Method Room Air 04/08/24 08:11 BMI result Body Mass Index 21.6 Tobacco/Smoking Status: Tobacco use Status Tobacco use date assessed 04/08/24 04/08/24 08:18 Patient Tobacco Use Status Current everyday Tobacco 04/08/24 08:12 Tobacco use type Cigarette 04/08/24 08:12 e-Cigarette/Vaping Use Never Used 04/08/24 08:12 PHQ-9: PHQ-9 Score PHQ-9: Total score 0 04/08/24 09:02 Thrive Assessment: Date of Thrive Assessment Date Thrive assessed 04/08/24 04/08/24 08:18 Currently or been in a relationship where the following occur: No concerns reported Const Other: Alert oriented x3, no acute distress noted ambulatory normal gait General: no acute distress Nutritional Appearance: average body habitus Orientation/consciousness: patient oriented x3 Neck Neck: Yes full ROM, Yes no lymphadenopathy and Yes supple Resp Auscultation: clear to auscultation bilaterally Cardio Rate: regular rate Rhythm: regular rhythm Heart sounds: S1 normal heart sound present and S2 normal heart sound present Back/Spine/Pelvis Other: Slight swelling noted over left lumbar area Thoracic/Lumbar Spine: straight leg raise negative bilaterally and paraspinal muscle tenderness on the left in the mid lumbar Skin General skin exam: no rashes or lesions noted Neuro General: patient oriented x3 Extrem Other: Decreased range of motion of shoulder especially on abduction, forward flexion, supination and pronation, tenderness on palpation over left AC joint, no gross bone deformity swelling Coding Level of Care Code Est Pt Level 4 (90811) Diagnoses Calcific tendinitis of left shoulder M75.32 Left shoulder pain M25.512 SI (sacroiliac) pain M53.3 Assessment & Plan Assessment & Plan (1) Calcific tendinitis of left shoulder: Code(s): M75.32 - Calcific tendinitis of left shoulder Category: Medical (2) Left shoulder pain: Code(s): M25.512 - Pain in left shoulder Category: Medical (3) SI (sacroiliac) pain: Code(s): M53.3 - Sacrococcygeal disorders, not elsewhere classified Category: Medical Plan Orthopedics consult obtained for left shoulder joint for further evaluation management, recent sent for prednisone tapering dose and also prescribed gabapentin 100 mg per capsule to take 1 capsule once up to 3 capsules at bedtime as needed for pain relief Orders: Referrals Orthopedics Referral M25.512 - Pain in left shoulder, M75.32 - Calcific tendinitis of left shoulder Medications: New prednisone take 4 tablets on days 1 &2, 3 tablets po on days 3 and 4, 2 tablets on days 5 and 6 , and 1 tablet on days 7 and 8, Take with food or milk in am 10 mg PO DIRECTED 20 tabs 0RF prednisone see taper instructions 10 mg PO DIRECTED 20 tabs 0RF gabapentin 100 mg PO BEDTIME 30 caps 0RF
== END 2024-04-08 09:05 | disposition home or self-care (01) ==
PROVIDERS: Visit Provider Internal Medicine
DX: M75.32 Calcific tendinitis of left shoulder (principal); M25.512 Pain in left shoulder; M53.3 Sacrococcygeal disorders, not elsewhere classified

== ENCOUNTER → 2024-04-08 08:03 | Outpatient (BNVA) | payer OTHER, SELFPAY | PROVIDERS: Visit Provider Internal Medicine | DX: M75.32 Calcific tendinitis of left shoulder (principal); M25.512 Pain in left shoulder; M53.3 Sacrococcygeal disorders, not elsewhere classified | CPT/HCPCS: 99212 ==

== ENCOUNTER 2024-05-20 11:34 | Inpatient (IN) | payer OTHER, SELFPAY ==
[2024-05-20] VITALS (11 sets, daily range): BP systolic 88–111; BP diastolic 44–67; PULSE 56–90; RESP 14–22; TEMP 36.6–36.8; O2SAT 86–96; BMI 22.7
--- NOTE | ~2024-05-20 | XR_ITS ---
CLINICAL HISTORY: cough, SOB Chest two views Comparison: 01/26/2017 Findings: Mild overinflation and coarsened pulmonary interstitium as on prior. New patchy opacities in the right lower lungs most compatible with multifocal pneumonia involving right middle lobe and lingula although can not exclude lower lobe involvement. An additional smaller patchy opacity in the retrosternal clear space indeterminate for small nodule or infiltrate. This appears to be in the left perihilar lung on the PA view. May reflect small nodular infiltrate or nodule. Close follow-up recommended. Similar apical pleural scarring. Right slightly greater than left. Normal heart size and mediastinal contour with midline trachea. Lower cervical fusion. Upper abdomen unremarkable. Impression: Bilateral infiltrates suggesting multifocal pneumonia appearing to be in the right middle lobe and lingula. More focal opacity in the left mid lung, possibly small infiltrate or nodule. Close follow-up recommended. This document has been electronically signed by: Tres Coto MD on 05/20/2024 12:38:10
--- NOTE | 2024-05-20 12:01 | ED_ITS ---
HPI - URI/Sore Throat General Chief Complaint: Upper Respiratory Symptoms Stated Complaint: Diff Breathing SOB Time Seen by Provider: 05/20/24 12:47 Source: patient and family Mode of arrival: ambulatory Limitations: no limitations History of Present Illness ED Provider: AMITA ROSAS Narrative: 59 female with PMH of COPD not on home O2, smoker, PAD, HTN, hypothyroidism who works at the [employer] in [place] she has been sick for 10 days with fevers, cough, difficulty breathing and poor PO intake. She denies sick contacts at home. She is coughing up thick sputum. She feels weak and tired today. She has not smoked in 10 days. She has not traveled, stayed in a hotel. She notes she has not felt like this before. There was no preceding illness. MD elicited complaint: fever, cough and rhinorrhea Pertinent past history: COPD Onset (ago): day(s) (10) Consistency: constant Severity: moderate Description of mucous: yellow Able to tolerate fluids by mouth: Yes Exacerbating factors: exertion Relieving factors: nothing Associated symptoms: fever, chills, myalgias, rhinorrhea, cough, shortness of breath and nausea Treatments prior to arrival: none Related Data Home Medications ?Medication ?Instructions ?Recorded ?Confirmed cholecalciferol (vitamin D3) 25 25 mcg PO DAILY 08/05/20 10/12/22 mcg (1,000 unit) capsule Previous Rx's ?Medication ?Instructions ?Recorded atenolol 50 mg tablet 50 mg PO DAILY #90 tabs 08/02/23 losartan 50 mg tablet 50 mg PO DAILY #90 tabs 08/02/23 hydrochlorothiazide 12.5 mg capsule 12.5 mg PO QAM #90 caps 12/13/23 levothyroxine 50 mcg tablet 50 mcg PO DAILY #90 tabs 03/11/24 cyclobenzaprine 5 mg tablet See Rx Instructions PO TID PRN 03/25/24 muscle spasm #10 tabs albuterol sulfate 90 mcg/actuation 2 puff inhalation Q6H PRN 04/08/24 aerosol inhaler shortness of breath or wheezing #25.5 grams prednisone 10 mg tablet 10 mg PO DIRECTED #20 tabs 04/08/24 meloxicam 15 mg tablet 15 mg PO DAILY PRN pain, moderate 04/18/24 #30 tabs gabapentin 100 mg capsule 300 mg (3 x 100 mg) PO BEDTIME #90 01/20/25 caps aspirin 81 mg tablet,delayed 81 mg PO DAILY #90 tabs 04/30/24 release Allergies Allergy/AdvReac Type Severity Reaction Status Date / Time nisoldipine [Sular] Allergy Unknown Unknown Verified 05/20/24 12:03 Sulfa (Sulfonamide Allergy Unknown rash Verified 05/20/24 12:03 Antibiotics) Codeine Phosphate AdvReac Unknown hives Uncoded 05/20/24 12:03 Review of Systems 2 Review of Systems: Constitutional : pos Fever, pos Chills ENT/Mouth : No Hoarseness, No sore throat, No Rhinorrhea Eyes: No Redness, No Discharge, No Vision Changes Cardiovascular : No Chest Pain, positive SOB, positive Dyspnea on Exertion, No Edema Respiratory : positive Cough, pos Sputum, positive Wheezing, Gastrointestinal : pos Nausea, No Vomiting, No Diarrhea, No abdominal Pain Genitourinary : No Dysuria, No Hematuria Musculoskeletal : No joint pain, No Myalgias Skin : No rash Neuro : pos Weakness, No Numbness, No Headache Psych : No anxiety, depression Heme/Lymph: No Bruising, No Bleeding Endocrine : No Polyuria, No Polydipsia All other systems reviewed and are negative PMFSH Past Medical History Attestation statement: The following information was validated with the patient. Source: old records reviewed Medical History Left hip pain Left shoulder pain COPD (chronic obstructive pulmonary disease) with emphysema Second degree burn of right foot Microscopic hematuria (~2020) Postmenopausal Plantar fascial fibromatosis of both feet Nicotine dependence, cigarettes, uncomplicated Mild intermittent asthma PAD (peripheral artery disease) Hypertriglyceridemia Impaired fasting glucose Degenerative disc disease, cervical Osteoarthritis involving multiple joints on both sides of body Primary insomnia Acquired hypothyroidism Essential hypertension Surgical History History of arthroscopic surgery of shoulder History of colonoscopy History of tubal ligation History of loop electrosurgical excision procedure (LEEP) History of angioplasty (2021) History of carpal tunnel surgery History of rotator cuff surgery (~2008) History of fusion of cervical spine (~2004) Family History Family History Father Esophageal cancer Liver cancer Cancer of kidney Mother Emphysema lung Social History Social History Housing: Apartment Alcohol intake: current Patient Tobacco Use Status: Current everyday Tobacco user Tobacco use type: Cigarette Cigarettes Per Day: 15 Years Smoked: onset 15yo, 1ppd x 43yrs, now 3/4ppd - 40+PYH e-Cigarette/Vaping Use: Never Used Second Hand Smoke Exposure: No Advance Directives: Yes Advance Directives on File: Yes Advance Directives Date on File: 09/15/23 Do you have a plan to hurt others: No Plan Current occupational status: employed Current occupation: [employer] Sexual orientation: Straight/Heterosexual Gender identity: Female Cognitive needs: No Hearing needs: No Vision needs: Yes Physical Exam 2 Vital Signs: Vital Signs: Last Vital Signs Temp 98.2 F 05/20/24 15:27 Pulse 56 05/20/24 15:27 Resp 21 H 05/20/24 15:27 BP 102/59 L 05/20/24 15:27 Pulse Ox 92 05/20/24 15:27 O2 Del Method Nasal Cannula 05/20/24 15:27 O2 Flow Rate 2 05/20/24 15:27 BMI result Body Mass Index 22.7 Appearance: Alert. Oriented X3. Mild acute distress. Eyes: Pupils equal, round and reactive to light. ENT: Pharynx dry MM Neck: Normal inspection. Neck supple. CVS: Normal heart rate and rhythm. Pulses normal. Respiratory: No respiratory distress. Breath sounds normal coarse and diminished throughout decreased RLL, + wheeze Abdomen: Soft and nontender. Skin: Skin warm and dry. Normal skin color. Normal skin turgor. Extremities: No lower extremity edema. No calf ttp Neuro: Oriented X 3. No motor deficit. No sensory deficit. CN2-12 intact Course Course Course Narrative: This is an RME: Additional HPI, ROS, PE not included below will be deferred to primary provider. RME assessment and note performed by: Louise Mack PA-C This is a [id number], with a hx of HTN, hypothyroidism, PAD, asthma, COPD, who presents to the ER with complaints of shortness of breath x 10 days. Reports that she has had cough, congestion. Reports yellow sputum. Endorsing fevers, chills. Lung sounds extremely diminished, with inspiratory and expiratory wheezes noted in the right upper and right lower lung hickman. Plan: labs, viral swabs, cxr, ed bronch protocol. Reevaluation(s) Reevaluation #1: focused exam for sepsis performed at 419pm Medications Administered Generic Name Dose Route Start Last Admin Trade Name Freq PRN Reason Stop Dose Admin Potassium Chloride 10 meq in 100 mls @ 100 mls/hr 05/20/24 13:30 05/20/24 15:48 Potassium Chloride/H20 IV 05/20/24 17:29 100 mls/hr Q1H RADHA Administration Discontinued Medications Generic Name Dose Route Start Last Admin Trade Name Freq PRN Reason Stop Dose Admin Albuterol Sulfate 5 mg/ 7.5 mg 05/20/24 12:30 05/20/24 12:33 Albuterol Sulfate 2.5 mg INHALE 05/20/24 12:31 7.5 mg ONCE ONE Administration Ceftriaxone Sodium 1 gm 05/20/24 12:53 05/20/24 13:15 Ceftriaxone Sodium 1 Gm Vial IVPUSH 05/20/24 12:54 1 gm ONCE ONE Administration Azithromycin 500 mg/ Sodium 250 mls @ 125 mls/hr 05/20/24 12:53 05/20/24 15:47 Chloride IV 05/20/24 14:52 Infused ONCE ONE Infusion Lactated Ringer's 1,796.22 mls @ 1,796.22 mls/hr 05/20/24 12:55 05/20/24 14:30 Lr 30 ml/kg infuse over 1 hr (1796.22 ml) 05/20/24 13:54 Infused IV Infusion .Q1H ONE Magnesium Sulfate 2 gm in 50 mls @ 25 mls/hr 05/20/24 13:24 05/20/24 16:07 Magnesium Sulfate/H2o IV 05/20/24 15:23 Infused ONCE ONE Infusion Vancomycin HCl 1,500 mg/ 500 mls @ 333.333 mls/hr 05/20/24 13:28 05/20/24 14:49 Sodium Chloride IV 05/20/24 14:57 333.33 mls/hr ONCE ONE Administration Lactated Ringer's 1,000 mls @ 999 mls/hr 05/20/24 13:28 05/20/24 15:47 Lr IV 05/20/24 14:28 Infused .Q1H1M ONE Infusion Methylprednisolone Sodium Succinate 60 mg 05/20/24 12:54 05/20/24 13:15 Methylprednisolone Sod Succ 125 Mg/2 Ml Vial IVPUSH 05/20/24 12:55 60 mg ONCE ONE Administration Medical Decision Making Medical Decision Making [facility] Narrative: 59 female with PMH of COPD not on home O2, smoker, PAD, HTN, hypothyroidism here with c/o being sick for 10 days now with low BPs and respiratory illness at this time I have ordered 30cc/kg bolus, empiric CAP abx and steroids, nebs, viral panel - suspect pneumonia vs viral syndrome. She is labored on arrival BP lower will add on additional fluids and add on vancomycin as well Differential Diagnosis Differential Diagnoses: The differential diagnosis associated with the presentation includes URI, viral syndrome, COPD, pneumonia Admission/Observation Consideration of admission/observation: Escalation of care including admission/observation considered admit given sepsis and multifocal pneumonia 02 demand new desaturated into the 80s Consult Healthcare Provider Management of the patient was discussed with: Hospitalist (will admit) Lab Data [facility] Lab Attestation statement: I reviewed the patient's lab results. 05/20/24 12:42 05/20/24 12:42 Labs: Lab Results 05/20/24 05/20/24 05/20/24 Range/Units 12:42 12:43 13:04 WBC 19.0 H (4.8-10.8) X10*3/uL RBC 3.84 L (4.20-5.50) X10*6/uL Hgb 13.6 (12.0-16.0) g/dl Hct 36.7 L (37.0-47.0) % MCV 95.6 (80.0-98.0) fL MCH 35.4 H (27.0-33.0) pg MCHC 37.1 H (31.0-35.0) g/dl RDW 12.1 (11.0-16.0) % Plt Count 421 H D (160-400) X10*3/uL MPV 8.0 L (9.4-12.3) fL Immature Gran % (Auto) Cancelled Neut % (Auto) Cancelled Lymph % (Auto) Cancelled [place] % (Auto) Cancelled Eos % (Auto) Cancelled Baso % (Auto) Cancelled Lymph # (Auto) Cancelled [place] # (Auto) Cancelled Eos # (Auto) Cancelled Baso # (Auto) Cancelled Abs Immat Gran (auto) Cancelled Absolute Neuts (auto) Cancelled Absolute Nucleated RBC 0.000 (0.0-0.012) X10*3/uL Nucleated RBC % (auto) 0.0 (0.0-0.2) /100WBC Neutrophils % (Manual) 80 H (45-73) % Band Neutrophils % 8 H (3-5) % Lymphocytes % (Manual) 9 L (20-40) % Monocytes % (Manual) 3 (2-11) % Abs Neuts (Manual) 16.7 H (2.0-8.3) X10*3/uL Lymphocytes # (Manual) 1.7 (1.2-4.9) X10*3/uL Monocytes # (Manual) 0.6 (0.1-1.2) X10*3/uL Platelet Estimate SLIGHTLY INCREASED (NORMAL) Plt Morphology Comment NORMAL RBC Morphology NORMAL Smear Tech's Comments MANUAL DIFF Sodium 133 L (135-145) mmol/L Potassium 2.7 L* D (3.3-5.1) mmol/L Chloride 97 (96-108) mmol/L Carbon Dioxide 25 (22-29) mmol/L Anion Gap 14 (12-20) BUN 22 H (9-16) mg/dL Creatinine 0.81 (0.5-1.4) mg/dL Estim Creat Clear Calc 63.8 Estimated GFR > 60 Random Glucose 148 H (60-115) mg/dL Lactic Acid 1.5 (0.5-2.0) mmol/L Calcium 9.0 D (8.4-10.2) mg/dL Magnesium 1.9 (1.6-2.6) mg/dL Total Bilirubin 0.9 (0.0-1.0) mg/dL Direct Bilirubin 0.4 (0.0-0.5) mg/dL AST 24 (5-31) U/L ALT 14 (0-31) U/L Alkaline Phosphatase 98 (39-117) U/L Troponin I High Sens < 2.7 (<3.5-17.0) ng/L C-Reactive Protein 13.01 H (< or = 0.50) mg/dL B-Natriuretic Peptide 23 (<100) pg/mL Total Protein 7.9 (6.5-8.0) g/dL Albumin 3.6 (3.5-5.0) g/dL Procalcitonin 0.08 ng/mL Influenza Type A (PCR) NEGATIVE (Negative) Influenza Type B (PCR) NEGATIVE (Negative) RSV RNA Qual (PCR) NEGATIVE (Negative) SARS-CoV-2 RNA (RT-PCR) NEGATIVE (Negative) Independent Interpretation I performed an independent interpretation of an: EKG and Plain X-Ray (multifocal opacities) Interpretation: Rate: 55 Rhythm: sinus bradycardia [place]: normal Normal P waves. Normal BEATA. Normal QRS complex. ST T wave : inverted t waves V1-V3, no JONG qTC: 411 prior studies: no acute ischemia no change 2020 The study has been interpreted contemporaneously by me. . Radiology Impression Discussion of test interpretation with radiology: I have reviewed the radiologist's reading. Critical Care Time Critical Care Time Critical Care Time: Yes Total Critical Care Time: 60 Attestation: IVF 2L of fluid, sepsis protocol, nebs, admission, review of records I attest to this time spent taking care of the patient Discharge Plan Discharge Clinical Impression: Acute hypokalemia, Bandemia, Multifocal pneumonia, Hypoxia Patient Disposition: Admitted As Inpatient Print Language: Croatian
--- NOTE | 2024-05-20 12:04 | ECG_ITS ---
Test Reason : SOB Blood Pressure : */* mmHG Vent. Rate : 55 BPM Atrial Rate : 55 BPM P-R Int : 128 ms QRS Dur : 90 ms QT Int : 430 ms P-R-T Axes : 91 73 72 degrees QTcB Int : 411 ms Sinus bradycardia Nonspecific ST abnormality Abnormal ECG When compared with ECG of 18-Mar-2021 16:50, No significant changes seen Referred By: Louise Mack Electronically Signed By: GISSELLE COLE
[2024-05-20] MEDS: Albuterol Sulfate 5 MG, Albuterol Sulfate (0.083%) 2.5 MG 7.5 MG INHALE (12:33)
[2024-05-20 12:52] LABS: Hematocrit 36.7 % (37.0-47.0); Hemoglobin 13.6 g/dl (12.0-16.0); Mean Corpuscular HGB Conc 37.1 g/dl (31.0-35.0); Mean Corpuscular Hemoglobin 35.4 pg (27.0-33.0); Mean Corpuscular Volume 95.6 fL (80.0-98.0); Platelet Count 421 X10*3/uL (160-400); Red Blood Count 3.84 X10*6/uL (4.20-5.50); Red Cell Distribution Width 12.1 % (11.0-16.0)
[2024-05-20 13:11] LABS: SLIDE REVIEW MANUAL DIFF
[2024-05-20 13:13] LABS: B Type Natriuretic Peptide 23 pg/mL (<100)
--- NOTE | 2024-05-20 13:13 | PC.NURSE ---
Called lab- awaiting labs to accept blood culture orders at this time prior to scanning abx.
[2024-05-20] MEDS: Azithromycin 500 MG in 0.9 % Sodium Chloride 250 ML 125 MG IV (13:14)
[2024-05-20 13:15] LABS: Troponin-I High Sensitivity < 2.7 ng/L (<3.5-17.0)
[2024-05-20] MEDS: cefTRIAXone sodium 1 GM VIAL IVPUSH (13:15)
[2024-05-20] MEDS: methylPREDNISolone Sod Succ 125 MG/2 ML VIAL 60 MG IVPUSH (13:15)
[2024-05-20] MEDS: LACTATED RINGERS 1796.22 ML IV (13:17)
[2024-05-20 13:19] LABS: Band Neutrophils Percent 8 % (3-5); Lymphocytes Absolute Manual 1.7 X10*3/uL (1.2-4.9); Lymphocytes Percent Manual 9 % (20-40); Monocytes Absolute Manual 0.6 X10*3/uL (0.1-1.2); Monocytes Percent Manual 3 % (2-11); Neutrophils Absolute Manual 16.7 X10*3/uL (2.0-8.3); Neutrophils Percent Manual 80 % (45-73); RBC Morphology NORMAL
[2024-05-20 13:20] LABS: Alanine Aminotransferase 14 U/L (0-31); Albumin Level 3.6 g/dL (3.5-5.0); Alkaline Phosphatase 98 U/L (39-117); Anion Gap 14 (12-20); Aspartate Amino Transferase 24 U/L (5-31); Bilirubin Direct 0.4 mg/dL (0.0-0.5); Bilirubin Total 0.9 mg/dL (0.0-1.0); Blood Urea Nitrogen 22 mg/dL (9-16); Carbon Dioxide 25 mmol/L (22-29); Chloride 97 mmol/L (96-108); Creatinine Clr Calc Pharmacy 63.8; Estimated Glomerular Filt Rate > 60; Glucose Random 148 mg/dL (60-115); Magnesium 1.9 mg/dL (1.6-2.6); Platelet Estimate SLIGHTLY INCREASED (NORMAL); Platelet Morphology Comment NORMAL; Sodium 133 mmol/L (135-145); Total Protein 7.9 g/dL (6.5-8.0)
[2024-05-20 13:26] LABS: Potassium 2.7 mmol/L (3.3-5.1)
[2024-05-20 13:35] LABS: Influenza A PCR NEGATIVE (Negative); Influenza B PCR NEGATIVE (Negative); Resp Syncy Virus RNA Qual PCR NEGATIVE (Negative); SARS COV2 PCR INHOUSE NEGATIVE (Negative)
[2024-05-20 13:38] LABS: Lactic Acid 1.5 mmol/L (0.5-2.0)
[2024-05-20 13:41] LABS: C Reactive Protein 13.01 mg/dL (< or = 0.50)
--- NOTE | 2024-05-20 13:54 | PC.NURSE ---
3 IV access placed- 20G to R forearm, 20G to R AC, 20G to L forearm. All insertions tolerated well and with good blood return.
[2024-05-20 13:59] LABS: Procalcitonin 0.08 ng/mL
[2024-05-20] MEDS: Potassium Chloride/H20 10 MEQ/100 ML PIGGYBACK 100 MEQ IV ×4 (14:01→20:53)
[2024-05-20] MEDS: Magnesium Sulfate/H2O 2 GM/50 ML PIGGYBACK IV (14:01)
[2024-05-20] MEDS: Lactated Ringers 1,000 ML 999 ML IV (14:12)
[2024-05-20] MEDS: vancomycin HCL 1,500 MG in 0.9 % Sodium Chloride 500 ML 333.33 MG IV (14:49)
--- NOTE | 2024-05-20 15:43 | MHC.EDTECH ---
pt is unable to tolerate ambulation to bathroom or commode due to weakness, pure wick in place, will obtain urine sample when able
[2024-05-20] MEDS: Potassium Chloride ER 20 MEQ TAB.ER.PRT PO (17:12)
--- NOTE | 2024-05-20 17:23 | PM.IMHP ---
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 Review of Systems Review of Systems: General no headache no dizziness ,fever and chills, generalized weakness, fatigue. CVS no chest pain, no palpitation. Respiratory cough productive of thick mucus Gastrointestinal no nausea no vomiting, no abdominal pain no urgency no frequency Musculoskeletal no pain Skin no rash All other system reviewed and are negative [facility] Medical History Left hip pain Left shoulder pain COPD (chronic obstructive pulmonary disease) with emphysema Second degree burn of right foot Microscopic hematuria (~2020) Postmenopausal Plantar fascial fibromatosis of both feet Nicotine dependence, cigarettes, uncomplicated Mild intermittent asthma PAD (peripheral artery disease) Hypertriglyceridemia Impaired fasting glucose Degenerative disc disease, cervical Osteoarthritis involving multiple joints on both sides of body Primary insomnia Acquired hypothyroidism Essential hypertension Family History Father Esophageal cancer Liver cancer Cancer of kidney Mother Emphysema lung Surgical History History of arthroscopic surgery of shoulder History of colonoscopy History of tubal ligation History of loop electrosurgical excision procedure (LEEP) History of angioplasty (2021) History of carpal tunnel surgery History of rotator cuff surgery (~2008) History of fusion of cervical spine (~2004) Social History Housing: Apartment Alcohol intake: current Patient Tobacco Use Status: Current everyday Tobacco user Tobacco use type: Cigarette Cigarettes Per Day: 15 Years Smoked: onset 15yo, 1ppd x 44yrs, now 3/4ppd - 40+PYH e-Cigarette/Vaping Use: Never Used Second Hand Smoke Exposure: No Advance Directives: Yes Advance Directives on File: Yes Advance Directives Date on File: 09/15/23 Do you have a plan to hurt others: No Plan Current occupational status: employed Current occupation: [employer] Sexual orientation: Straight/Heterosexual Gender identity: Female Cognitive needs: No Hearing needs: No Vision needs: Yes Meds Allergies Allergy/AdvReac Type Severity Reaction Status Date / Time nisoldipine [Sular] Allergy Unknown Unknown Verified 05/20/24 12:03 Sulfa (Sulfonamide Allergy Unknown rash Verified 05/20/24 12:03 Antibiotics) Codeine Phosphate AdvReac Unknown hives Uncoded 05/20/24 12:03 Active Medications: Current Medications Acetaminophen (Acetaminophen 325 Mg Tablet) 650 mg PO Q6H PRN PRN Reason: Pain, Mild 1-3,fever,headache Albuterol/Ipratropium (Albuterol/Iprat 2.5/0.5mg 3 Ml Ampul.Neb) 3 ml INHALE RQ6H WHILE AWAKE RADHA Calcium Carbonate (Calcium Carbonate 750 Mg Tab.Chew) 750 mg PO Q4H PRN PRN Reason: Heartburn Enoxaparin Sodium (Enoxaparin Sodium 40 Mg/0.4 Ml Syringe) 40 mg SUBCUT Q24H [facility] Guaifenesin/Codeine Phosphate (Guaifen/Codeine Sf 200/20/10ml 10 Ml Liquid) 10 ml PO Q6H PRN PRN Reason: Cough Guaifenesin/Dextromethorphan (Guaifenesin Dm 200/20/10 Ml 10 Ml Syrup) 10 ml PO QID RAD[facility] Potassium Chloride (Potassium Chloride/H20) 10 meq in 100 mls @ 100 mls/hr IV Q1H RADHA Stop: 05/20/24 17:29 Last Admin: 05/20/24 17:13 Dose: 100 mls/hr Magnesium Hydroxide (Milk Of Magnesia 30 Ml Oral.Susp) 30 ml PO DAILY PRN PRN Reason: Constipation Melatonin (Melatonin 3 Mg Tablet) 6 mg PO BEDTIME PRN PRN Reason: Insomnia Ondansetron HCl (Ondansetron Hcl 4 Mg/2 Ml Vial) 4 mg IVPUSH Q8H PRN PRN Reason: Nausea and Vomiting Sodium Chloride (0.9 % Sodium Chloride Flush 3 Ml Syringe) 3 ml IVFLUSH QSHIFT [facility] Home Medications ?Medication ?Instructions ?Recorded ?Confirmed ?Last Taken ?Type cholecalciferol (vitamin D3) 25 25 mcg PO DAILY 08/05/20 10/12/22 Unknown History mcg (1,000 unit) capsule Physical Exam Vital Signs and Narrative: Vital Signs: Last Vital Signs Temp 98.2 F 05/20/24 15:27 Pulse 56 05/20/24 15:27 Resp 21 H 05/20/24 15:27 BP 102/59 L 05/20/24 15:27 Pulse Ox 92 05/20/24 15:27 O2 Del Method Nasal Cannula 05/20/24 15:27 O2 Flow Rate 2 05/20/24 15:27 BMI result Body Mass Index 22.7 Const: Other: General awake alert, in no acute distress. Anicteric sclera Neck no JVD. CVS regular rate rhythm, Respiratory lungs coarse breath sounds, no rhonchi, no wheeze Gastrointestinal abdomen soft, non tender, bowel sounds audible. Extremities no edema. Neuro non focal Skin no rash Psych appropriate affect. Results Labs 05/20/24 12:42 05/20/24 12:42 Labs: Laboratory Results - last 24 hr 05/20/24 05/20/24 05/20/24 12:42 12:43 13:04 MCV 95.6 MCH 35.4 H MCHC 37.1 H RDW 12.1 Plt Count 421 H D MPV 8.0 L Immature Gran % (Auto) Cancelled Neut % (Auto) Cancelled Lymph % (Auto) Cancelled [place] % (Auto) Cancelled Eos % (Auto) Cancelled Baso % (Auto) Cancelled Lymph # (Auto) Cancelled [place] # (Auto) Cancelled Eos # (Auto) Cancelled Baso # (Auto) Cancelled Abs Immat Gran (auto) Cancelled Absolute Neuts (auto) Cancelled Absolute Nucleated RBC 0.000 Nucleated RBC % (auto) 0.0 Neutrophils % (Manual) 80 H Band Neutrophils % 8 H Lymphocytes % (Manual) 9 L Monocytes % (Manual) 3 Abs Neuts (Manual) 16.7 H Lymphocytes # (Manual) 1.7 Monocytes # (Manual) 0.6 Platelet Estimate SLIGHTLY INCREASED Plt Morphology Comment NORMAL RBC Morphology NORMAL Smear Tech's Comments MANUAL DIFF Anion Gap 14 Estim Creat Clear Calc 63.8 Estimated GFR > 60 Random Glucose 148 H Lactic Acid 1.5 Calcium 9.0 D Magnesium 1.9 Total Bilirubin 0.9 Direct Bilirubin 0.4 AST 24 ALT 14 Alkaline Phosphatase 98 C-Reactive Protein 13.01 H B-Natriuretic Peptide 23 Total Protein 7.9 Albumin 3.6 Procalcitonin 0.08 Influenza Type A (PCR) NEGATIVE Influenza Type B (PCR) NEGATIVE RSV RNA Qual (PCR) NEGATIVE SARS-CoV-2 RNA (RT-PCR) NEGATIVE Assessment and Plan (1) Hypoxia: Status: Acute (2) Multifocal pneumonia: Status: Acute (3) Bandemia: Status: Acute (4) Acute hypokalemia: Status: Acute Plan 59-year-old female patient with past medical history significant for COPD not on home oxygen, tobacco use disorder, hypertension, hypothyroidism presented with 10 days of fever cough chills generalized weakness has not smoked in last 10 days workup in the ED showed multifocal pneumonia with severe sepsis and is being admitted for continued antibiotic treatment. Severe sepsis due to multifocal pneumonia Met sepsis criteria due to leukocytosis with bandemia, tachypnea, hypotension MAP <60, normal lactic acid Received 30 cc/kg IV fluid bolus, blood pressure improved. Treated in emergency room with IV ceftriaxone, IV azithromycin and IV vancomycin. cont. iv abx ,cough syp,duoneb, supportive care. Follow CBC, blood cultures. Acute hypoxic respiratory failure Due to pneumonia as above, not on home oxygen, continued to support and wean as tolerated. Hypokalemia Likely due to poor by mouth intake and use of hydrochlorothiazide, treat with p.o./IV potassium replacement hold hydrochlorothiazide follow labs. Tobacco use disorder Has not smoked in last 10 days due to acute illness will order Nicorette gums/nicotine patch. Counseling done. Essential hypertension Presented with low blood pressure, hold antihypertensive medications follow BP, on atenolol, losartan and hydrochlorothiazide. Hypothyroidism continue Synthroid, check TSH. Overlap syndrome with COPD/mild intermittent asthma no acute exacerbation, continue home inhalers, hold IV steroids. DVT prophylaxis Lovenox. Full code In my clinical judgment patient requires 2 night inpatient hospitalization for management of severe sepsis. requiring IV antibiotics. IV fluids and close clinical follow-up. Quality Stroke Does the patient have a stroke diagnosis?: No VTE Prior VTE?: No VTE Risk Level:: Medical - moderate - high VTE Device Contraindication: Treatment Not Indicated VTE Drug Contraindication: N/A - Med Ordered
[2024-05-20] MEDS: Piperacillin Sodium/Tazobactam 4.5 GM in 0.9 % Sodium Chloride 100 ML IV (18:42)
[2024-05-20] MEDS: Enoxaparin Sodium 40 MG/0.4 ML SYRINGE SUBCUT (18:43)
[2024-05-20] MEDS: Albuterol/Iprat 2.5/0.5MG 3 ML AMPUL.NEB INHALE (19:44)
--- NOTE | 2024-05-20 20:15 | PHA.MEDREC ---
Addendum entered by Sivan Cárdenas RPh 05/20/24 22:52: Reviewed by [facility] Original Note: Pharmacy Consult ? Medication Reconciliation Pharmacy has completed the medication reconciliation. Spoke with patient to confirm medications. She takes 2 gabapentin capsules at bedtime, not 3. She is no longer taking prednisone or cyclobenzaprine. She last took her medications this morning.
--- NOTE | 2024-05-20 20:50 | PC.NURSE ---
order for fourth bag of potassium late unable to pull from pyxis per clinical coordinator pharmacy called for med re time
[2024-05-20] MEDS: guaiFENesin DM 200/20/10 ML 10 ML SYRUP PO (20:53)
[2024-05-21] VITALS (9 sets, daily range): BP systolic 87–109; BP diastolic 41–64; PULSE 47–75; RESP 12–19; TEMP 36.2–37; O2SAT 96–98; BMI 22.6
[2024-05-21] MEDS: 0.9 % Sodium Chloride Flush 3 ML SYRINGE IVFLUSH ×3 (00:01→17:39)
[2024-05-21 05:14] LABS: Hemoglobin 11.9 g/dl (12.0-16.0); Mean Corpuscular HGB Conc 37.2 g/dl (31.0-35.0); Mean Corpuscular Hemoglobin 35.7 pg (27.0-33.0); Mean Corpuscular Volume 96.1 fL (80.0-98.0); Mean Platelet Volume 8.4 fL (9.4-12.3); Platelet Count 431 X10*3/uL (160-400); Red Blood Count 3.33 X10*6/uL (4.20-5.50); Red Cell Distribution Width 12.2 % (11.0-16.0); White Blood Count 19.1 X10*3/uL (4.8-10.8)
[2024-05-21 05:42] LABS: Anion Gap 12 (12-20); Blood Urea Nitrogen 17 mg/dL (9-16); Calcium 8.2 mg/dL (8.4-10.2); Carbon Dioxide 21 mmol/L (22-29); Chloride 108 mmol/L (96-108); Creatinine Clr Calc Pharmacy 70.7; Estimated Glomerular Filt Rate > 60; Glucose Random 149 mg/dL (60-115); Potassium 3.3 mmol/L (3.3-5.1); Sodium 138 mmol/L (135-145)
[2024-05-21 06:01] LABS: Thyroid Stimulating Hormone 0.18 uIU/mL (0.32-4.0)
[2024-05-21] MEDS: Piperacillin Sodium/Tazobactam 4.5 GM in 0.9 % Sodium Chloride 100 ML IV ×5 (06:10→23:38)
--- NOTE | 2024-05-21 06:14 | PC.NURSE ---
pt medicated according to mar at which time pt noted to have increased coughing this rn asked pt if pt wanted prn for cough medicine pt declined states I just want a brittni srinivasa pt provided with brittni srinivasa declines new needs at this time
[2024-05-21 07:00] LABS: Appearance Urine Clear; Color Urine Yellow; Glucose Urine UA Negative (Negative); Leukocyte Esterase Urine Negative (Negative); Nitrite Urine Negative (Negative); PH 6.5 (5.0-9.0); Specific Gravity - Urine 1.015 (1.005-1.025); Urine Blood Negative (Negative); Urine Ketones Negative (Negative); Urine Protein Negative (Neg-Trace)
[2024-05-21] MEDS: Albuterol/Iprat 2.5/0.5MG 3 ML AMPUL.NEB INHALE ×3 (07:33→21:49)
[2024-05-21 08:42] LABS: Free T4 (Free Thyroxine) 1.14 ng/dL (0.71-1.85)
[2024-05-21] MEDS: guaiFENesin DM 200/20/10 ML 10 ML SYRUP PO ×4 (09:32→20:46)
[2024-05-21] MEDS: Aspirin Enteric Coated 81 MG TABLET.DR PO (09:32)
--- NOTE | 2024-05-21 10:22 | PC.NURSE ---
Attending arrives to see Pt. Pt is resting comfortably with eyes closed a this time and attending opts to allow Pt to rest. Attending plans to follow up with Pt later on. Brief review of the events of this AM completed with attending and will contact attending with any issues that arise.
--- NOTE | 2024-05-21 14:20 | MHC.CM.PN ---
PT LIVES [place] HAS OWN RIDE JHO E IS WORKING WILL NOT NEED SERVICES WHEN DCD
--- NOTE | 2024-05-21 14:40 | P.PNIM_ITS ---
Subjective Subjective Date of Service: 05/21/24 Interval History: Complaining of persistent weakness, feeling cold, congested cough, denies nausea, no vomiting tolerated diet, no other acute events overnight. Review of Systems All other system reviewed and are negative. Physical Exam 2 Vital Signs: Vital Signs: Last Vital Signs Temp 98.6 F 05/21/24 10:00 Pulse 75 05/21/24 14:30 Resp 17 05/21/24 14:30 BP 90/41 L 05/21/24 10:00 Pulse Ox 96 05/21/24 10:00 O2 Del Method Nasal Cannula 05/21/24 10:00 O2 Flow Rate 2 05/21/24 10:00 BMI result Body Mass Index 22.6 Const: Other: General awake alert, in no acute distress. Anicteric sclera Neck no JVD. CVS regular rate rhythm, Respiratory lungs coarse breath sounds, diminished, no rhonchi, no wheeze Gastrointestinal abdomen soft, non tender, bowel sounds audible. Extremities no edema. Neuro non focal Skin no rash Psych appropriate affect. Objective Data Active Medications Acetaminophen (Acetaminophen 325 Mg Tablet) 650 mg PO Q6H PRN PRN Reason: Pain, Mild 1-3,fever,headache Albuterol/Ipratropium (Albuterol/Iprat 2.5/0.5mg 3 Ml Ampul.Neb) 3 ml INHALE RQ6H WHILE AWAKE [facility] Last Admin: 05/21/24 14:28 Dose: 3 ml Documented By: EVARISTO Aspirin (Aspirin Enteric Coated 81 Mg Tablet.Dr) 81 mg PO DAILY [facility] Last Admin: 05/21/24 09:32 Dose: 81 mg Documented By: TON Calcium Carbonate (Calcium Carbonate 750 Mg Tab.Chew) 750 mg PO Q4H PRN PRN Reason: Heartburn Enoxaparin Sodium (Enoxaparin Sodium 40 Mg/0.4 Ml Syringe) 40 mg SUBCUT Q24H [facility] Last Admin: 05/20/24 18:43 Dose: 40 mg Documented By: FELIZ Gabapentin (Gabapentin 100 Mg Capsule) 200 mg PO BEDTIME [facility] Guaifenesin/Codeine Phosphate (Guaifen/Codeine Sf 200/20/10ml 10 Ml Liquid) 10 ml PO Q6H PRN PRN Reason: Cough Guaifenesin/Dextromethorphan (Guaifenesin Dm 200/20/10 Ml 10 Ml Syrup) 10 ml PO QID [facility] Last Admin: 05/21/24 13:49 Dose: 10 ml Documented By: TON Piperacillin Sod/Tazobactam (Sod 4.5 gm/ Sodium Chloride) 100 mls @ 200 mls/hr IV Q6H [facility] Last Infusion: 05/21/24 12:45 Dose: Infused Documented By: TON Magnesium Hydroxide (Milk Of Magnesia 30 Ml Oral.Susp) 30 ml PO DAILY PRN PRN Reason: Constipation Melatonin (Melatonin 3 Mg Tablet) 6 mg PO BEDTIME PRN PRN Reason: Insomnia Ondansetron HCl (Ondansetron Hcl 4 Mg/2 Ml Vial) 4 mg IVPUSH Q8H PRN PRN Reason: Nausea and Vomiting Sodium Chloride (0.9 % Sodium Chloride Flush 3 Ml Syringe) 3 ml IVFLUSH QSHIFT [facility] Last Admin: 05/21/24 07:35 Dose: 3 ml Documented By: TON Labs 05/21/24 04:45 05/21/24 04:44 Labs: Laboratory Results - last 24 hr 05/21/24 05/21/24 05/21/24 04:44 04:45 06:51 MCV 96.1 MCH 35.7 H MCHC 37.2 H RDW 12.2 Plt Count 431 H MPV 8.4 L Absolute Nucleated RBC 0.000 Nucleated RBC % (auto) 0.0 Anion Gap 12 Estim Creat Clear Calc 70.7 Estimated GFR > 60 Random Glucose 149 H Calcium 8.2 L D TSH 0.18 L Free T4 1.14 Urine Color Yellow Urine Appearance Clear Urine pH 6.5 Ur Specific Williamson 1.015 Urine Protein Negative Urine Glucose (UA) Negative Urine Ketones Negative Urine Blood Negative Urine Nitrite Negative Ur Leukocyte Esterase Negative Assessment and Plan (1) Hypoxia: Status: Acute (2) Multifocal pneumonia: Status: Acute Plan 59-year-old female patient with past medical history significant for COPD not on home oxygen, tobacco use disorder, hypertension, hypothyroidism presented with 10 days of fever cough chills generalized weakness has not smoked in last 10 days workup in the ED showed multifocal pneumonia with severe sepsis and is being admitted for continued antibiotic treatment. Severe sepsis due to multifocal pneumonia Met sepsis criteria due to leukocytosis with bandemia, tachypnea, hypotension MAP <60, normal lactic acid,s/p 30 cc/kg IV fluid bolus, blood pressure improved. Sepsis resolved persistent leukocytosis likely due to steroids cont. iv Zosyn and azithromycin started on 05/20 ,cough syp,duoneb, supportive care. Follow CBC, blood cultures. RSV/flu/COVID negative Will check respiratory viral pathogen Acute hypoxic respiratory failure Due to pneumonia as above, not on home oxygen, continued to support and wean as tolerated. Hypokalemia Likely due to poor by mouth intake and use of hydrochlorothiazide, potassium improved to 3.3 continue to hold hydrochlorothiazide and give additional potassium Tobacco use disorder Has not smoked in last 10 days due to acute illness ,on Nicorette gums/nicotine patch. Counseling done. Essential hypertension Low BP, hold antihypertensive medications follow BP, on atenolol, losartan and hydrochlorothiazide. Hypothyroidism continue Synthroid, TSH 0.18 will check free T3 and T4 hold Synthroid. Overlap syndrome with COPD/mild intermittent asthma no acute exacerbation, continue inhalers, hold IV steroids. DVT prophylaxis Lovenox. Full code In my clinical judgment patient requires continued inpatient hospitalization for management of severe sepsis. requiring IV antibiotics and close clinical follow- up. Quality Stroke Does the patient have a stroke diagnosis?: No VTE Prior VTE?: No VTE Risk Level:: Medical - moderate - high VTE Device Contraindication: Treatment Not Indicated VTE Drug Contraindication: N/A - Med Ordered
[2024-05-21] MEDS: Potassium Chloride ER 20 MEQ TAB.ER.PRT PO (15:08)
[2024-05-21] MEDS: Azithromycin 500 MG in 0.9 % Sodium Chloride 250 ML 125 MG IV (15:09)
--- NOTE | 2024-05-21 15:47 | PC.NURSE ---
Pt will transition to Overflow unit. Call placed to HEMANT Avendaño for RN to RN report. Transport Team with Pt now.
[2024-05-21] MEDS: Enoxaparin Sodium 40 MG/0.4 ML SYRINGE SUBCUT (17:21)
[2024-05-21] MEDS: Gabapentin 100 MG CAPSULE 200 MG PO (20:46)
[2024-05-22] MEDS: 0.9 % Sodium Chloride Flush 3 ML SYRINGE IVFLUSH ×3 (00:30→15:51)
--- NOTE | 2024-05-22 04:32 | PC.NURSE ---
Assumed care of patient . Patient has been sleeping throughout night. Purposeful rounding performed to maintain safety. Bed alarm vendor relationship manager hughes within reach.
[2024-05-22] MEDS: Piperacillin Sodium/Tazobactam 4.5 GM in 0.9 % Sodium Chloride 100 ML IV ×3 (05:14→18:09)
[2024-05-22 05:17] VITALS: BP 137/75; PULSE 83; RESP 18; TEMP 36.8; O2SAT 93
[2024-05-22 05:35] LABS: Anion Gap 11 (12-20); Blood Urea Nitrogen 11 mg/dL (9-16); Calcium 8.1 mg/dL (8.4-10.2); Carbon Dioxide 23 mmol/L (22-29); Chloride 111 mmol/L (96-108); Creatinine Clr Calc Pharmacy 69.8; Estimated Glomerular Filt Rate > 60; Glucose Random 96 mg/dL (60-115); Potassium 3.1 mmol/L (3.3-5.1); Sodium 142 mmol/L (135-145)
[2024-05-22 05:53] LABS: Free T4 (Free Thyroxine) 1.07 ng/dL (0.71-1.85)
[2024-05-22] MEDS: Albuterol/Iprat 2.5/0.5MG 3 ML AMPUL.NEB INHALE ×3 (08:41→21:48)
[2024-05-22 08:44] VITALS: BP 111/63; PULSE 59; PULSE 60; RESP 16; RESP 20; TEMP 36.8; O2SAT 93; O2SAT 95
[2024-05-22 08:58] LABS: Adenovirus PCR Not Detected (Not Detect.); Bordetella parapertussis PCR Not Detected (Not Detect.); Bordetella pertussis PCR Not Detected (Not Detect.); Chlamydia pneumoniae PCR Not Detected (Not Detect.); Coronavirus 229E PCR Not Detected (Not Detect.); Coronavirus HKU1 PCR Not Detected (Not Detect.); Coronavirus NL63 PCR Not Detected (Not Detect.); Coronavirus OC43 PCR Not Detected (Not Detect.); Human metapneumovirus PCR Not Detected (Not Detect.); Influenza A PCR Not Detected (Not Detect.); Influenza B PCR Not Detected (Not Detect.); Mycoplasma pneumoniae PCR Not Detected (Not Detect.); Parainfluenza 1 PCR Not Detected (Not Detect.); Parainfluenza 2 PCR Not Detected (Not Detect.); Parainfluenza 3 PCR Not Detected (Not Detect.); Parainfluenza 4 PCR Not Detected (Not Detect.); RSV PCR Not Detected (Not Detect.); Rhino/Enterovirus PCR Not Detected (Not Detect.)
[2024-05-22 09:11] LABS: SARS-CoV-2 PCR Not Detected (Not Detect.)
[2024-05-22] MEDS: Aspirin Enteric Coated 81 MG TABLET.DR PO (10:02)
[2024-05-22] MEDS: guaiFENesin DM 200/20/10 ML 10 ML SYRUP PO ×3 (10:02→21:39)
[2024-05-22 12:11] VITALS: PULSE 75; RESP 18; O2SAT 96
--- NOTE | 2024-05-22 14:53 | HO.PM.IMPN ---
Subjective Subjective Date of Service: 05/22/24 Interval History: Feeling tired/persistent shortness of breath and cough/no fevers, no chills/tolerating diet. Review of Systems All other system reviewed and are negative. Physical Exam Vital Signs: Vital Signs: Last Vital Signs Temp 98.3 F 05/22/24 08:44 Pulse 75 05/22/24 12:11 Resp 18 05/22/24 12:11 BP 111/63 05/22/24 08:44 Pulse Ox 93 05/22/24 08:44 O2 Del Method Room Air 05/22/24 08:44 O2 Flow Rate 2 05/21/24 22:12 BMI result Body Mass Index 22.6 Const: Other: General awake alert, in no acute distress. Anicteric sclera Neck no JVD. CVS regular rate rhythm, Respiratory lungs expiratory wheeze, diminished, no use of accessory muscles Gastrointestinal abdomen soft, non tender, bowel sounds audible. Extremities no edema. Neuro non focal Skin no rash Psych appropriate affect. Objective Data Active Medications Acetaminophen (Acetaminophen 325 Mg Tablet) 650 mg PO Q6H PRN PRN Reason: Pain, Mild 1-3,fever,headache Albuterol/Ipratropium (Albuterol/Iprat 2.5/0.5mg 3 Ml Ampul.Neb) 3 ml INHALE RQ4H WHILE AWAKE ON LICENSE OF [facility] Last Admin: 05/22/24 12:09 Dose: 3 ml Documented By: NANETTE Aspirin (Aspirin Enteric Coated 81 Mg Tablet.) 81 mg PO DAILY [facility] OF [facility] Last Admin: 05/22/24 10:02 Dose: 81 mg Documented By: CHRISTINA Calcium Carbonate (Calcium Carbonate 750 Mg Tab.Chew) 750 mg PO Q4H PRN PRN Reason: Heartburn Enoxaparin Sodium (Enoxaparin Sodium 40 Mg/0.4 Ml Syringe) 40 mg SUBCUT Q24H [facility] Last Admin: 05/21/24 17:21 Dose: 40 mg Documented By: ALEXA Gabapentin (Gabapentin 100 Mg Capsule) 200 mg PO BEDTIME [facility] Last Admin: 05/21/24 20:46 Dose: 200 mg Documented By: PRITI Guaifenesin/Codeine Phosphate (Guaifen/Codeine Sf 200/20/10ml 10 Ml Liquid) 10 ml PO Q6H PRN PRN Reason: Cough Guaifenesin/Dextromethorphan (Guaifenesin Dm 200/20/10 Ml 10 Ml Syrup) 10 ml PO QID [facility] Last Admin: 05/22/24 10:02 Dose: 10 ml Documented By: CHRISTINA Piperacillin Sod/Tazobactam (Sod 4.5 gm/ Sodium Chloride) 100 mls @ 200 mls/hr IV Q6H [facility] Last Admin: 05/22/24 12:06 Dose: 200 mls/hr Documented By: CHRISTINA Azithromycin 500 mg/ Sodium (Chloride) 250 mls @ 125 mls/hr IV Q24H [facility] Last Infusion: 05/21/24 17:24 Dose: Infused Documented By: ALEXA Magnesium Hydroxide (Milk Of Magnesia 30 Ml Oral.Susp) 30 ml PO DAILY PRN PRN Reason: Constipation Melatonin (Melatonin 3 Mg Tablet) 6 mg PO BEDTIME PRN PRN Reason: Insomnia Ondansetron HCl (Ondansetron Hcl 4 Mg/2 Ml Vial) 4 mg IVPUSH Q8H PRN PRN Reason: Nausea and Vomiting Sodium Chloride (0.9 % Sodium Chloride Flush 3 Ml Syringe) 3 ml IVFLUSH QSHIFT ON LICENSE OF [facility] Last Admin: 05/22/24 10:02 Dose: 3 ml Documented By: CHRISTINA Labs 05/21/24 04:45 05/22/24 04:11 Labs: Laboratory Results - last 24 hr 05/21/24 05/22/24 16:33 04:11 Anion Gap 11 L Estim Creat Clear Calc 69.8 Estimated GFR > 60 Random Glucose 96 Calcium 8.1 L Free T4 1.07 Respiratory Panel [place] See Note Adenovirus (Rapid PCR) Not Detected B.pert (TEM-PCR) Not Detected B.parapertussis DNA PCR Not Detected C. pneumoniae DNA (PCR) Not Detected Coronavirus OC43 (PCR) Not Detected Coronavirus HKU1 (PCR) Not Detected Coronavirus 229E (PCR) Not Detected Coronavirus NL63 (PCR) Not Detected Human Metapneumovir PCR Not Detected Influenza A (RT-PCR) Not Detected Influenza B (RT-PCR) Not Detected M. pneumoniae (PCR) Not Detected Parainfluenza 1 (PCR) Not Detected Parainfluenza 2 (PCR) Not Detected Parainfluenza 3 (PCR) Not Detected Parainfluenza 4 (PCR) Not Detected RSV (PCR) Not Detected Entero/Rhino (PCR) Not Detected SARS-CoV-2 RNA (RT-PCR) Not Detected Microbiology Microbiology Results: Microbiology 05/20/24 13:03 Blood Culture - Preliminary Blood - Venous No growth after 24 hours. 05/20/24 13:04 Blood Culture - Preliminary Blood - Venous No growth after 24 hours. Assessment and Plan (1) Hypoxia: Status: Acute (2) Multifocal pneumonia: Status: Acute Plan 59-year-old female patient with past medical history significant for COPD not on home oxygen, tobacco use disorder, hypertension, hypothyroidism presented with 10 days of fever cough chills generalized weakness has not smoked in last 10 days workup in the ED showed multifocal pneumonia with severe sepsis and is being admitted for continued antibiotic treatment. Severe sepsis due to multifocal pneumonia Met sepsis criteria due to leukocytosis with bandemia, tachypnea, hypotension MAP <60, normal lactic acid,s/p 30 cc/kg IV fluid bolus, blood pressure improved. Sepsis resolved persistent leukocytosis likely due to steroids cont. iv Zosyn and azithromycin started on 05/20 ,cough syp,duoneb, supportive care. Follow CBC, blood cultures. RSV/flu/COVID negative, respiratory viral pathogen neg. Acute hypoxic respiratory failure Due to pneumonia as above, not on home oxygen, continued to support and wean as tolerated. Hypokalemia Likely due to poor by mouth intake and use of hydrochlorothiazide, give potassium follow labs Tobacco use disorder Has not smoked in last 10 days due to acute illness ,on Nicorette gums prn, Counseling done. Essential hypertension Low BP, hold antihypertensive medications follow BP, on atenolol, losartan and hydrochlorothiazide. Hypothyroidism on Synthroid, TSH 0.18 ,free T3 pending and T4 1.07 Overlap syndrome with COPD/mild intermittent asthma with acute exacerbation, noted to bilateral expiratory wheeze, will treat with IV steroids and updraft treatment. DVT prophylaxis Lovenox. Full code In my clinical judgment patient requires continued inpatient hospitalization for management of severe sepsis. requiring IV antibiotics and close clinical follow-up. Quality Stroke Does the patient have a stroke diagnosis?: No VTE Prior VTE?: No VTE Risk Level:: Medical - moderate - high VTE Device Contraindication: Treatment Not Indicated VTE Drug Contraindication: N/A - Med Ordered
[2024-05-22] MEDS: Azithromycin 500 MG in 0.9 % Sodium Chloride 250 ML 125 MG IV (15:23)
[2024-05-22] MEDS: Potassium Chloride ER 20 MEQ TAB.ER.PRT 40 MEQ PO (15:49)
[2024-05-22 18:04] VITALS: BP 137/72; PULSE 67; RESP 20; TEMP 36.9; O2SAT 95
[2024-05-22] MEDS: guaiFEN/Codeine SF 200/20/10ML 10 ML LIQUID PO (18:08)
[2024-05-22] MEDS: Enoxaparin Sodium 40 MG/0.4 ML SYRINGE SUBCUT (18:09)
--- NOTE | 2024-05-22 19:49 | PC.NURSE ---
This RN assumed pt care @ 1910. Pt a&ox4, no signs of distress. Pt reports pain only when coughing When this RN entered the pts room, IV was completed and removed from pt just not charted. This RN charted against the med. Plan of care ongoing.
[2024-05-22] MEDS: Gabapentin 100 MG CAPSULE 200 MG PO (21:39)
--- NOTE | 2024-05-22 21:42 | PC.NURSE ---
Pt medicated per [facility] Plan of care ongoing.
[2024-05-23] MEDS: Piperacillin Sodium/Tazobactam 4.5 GM in 0.9 % Sodium Chloride 100 ML IV ×2 (00:10→08:23)
[2024-05-23] MEDS: 0.9 % Sodium Chloride Flush 3 ML SYRINGE IVFLUSH ×2 (00:11→08:27)
--- NOTE | 2024-05-23 00:13 | PC.NURSE ---
Pt medicated per [facility] Plan of care ongoing.
[2024-05-23] MEDS: methylPREDNISolone Sod Succ 40 MG/ML VIAL IVPUSH (02:42)
[2024-05-23 06:13] VITALS: BP 145/78; PULSE 68; RESP 20; TEMP 36.2; O2SAT 94
--- NOTE | 2024-05-23 06:19 | PC.NURSE ---
Carlitos Leone not in the Pyxis. Med req from pharmacy Plan of care ongoing.
[2024-05-23 07:34] LABS: Potassium 3.9 mmol/L (3.3-5.1)
[2024-05-23] MEDS: guaiFENesin DM 200/20/10 ML 10 ML SYRUP PO (08:57)
[2024-05-23] MEDS: Aspirin Enteric Coated 81 MG TABLET.DR PO (08:57)
--- NOTE | 2024-05-23 09:57 | PC.NURSE ---
Pt took morning meds, ate some of her breakfast. Pt reports still feeling unwell but overall better. Per provider plan to check in around noon time today and see if pt is ready to go home. Pt refused her morning breathing treatment, reports she does not need it. No signs of resp distress. Requested to sleep.
[2024-05-23 10:29] LABS: Triiodothyronine T3 Free 2.3 pg/mL (2.3-4.2)
--- NOTE | 2024-05-23 11:25 | PC.NURSE ---
Pt reports feeling overall better and requesting discharge. Provider updated
--- NOTE | 2024-05-23 11:47 | P.DS_ITS ---
DS: Providers Provider Date of Service: 05/23/24 Date of admission: 05/20/24 17:36 Date of discharge: 05/23/24 Primary care physician: Harjinder Boykin MD DS: Diagnosis Discharge Diagnosis (1) Hypoxia: Status: Acute (2) Multifocal pneumonia: Status: Acute DS: Summary Hospital Course Hospital Course: History of presenting illness: Date of Service: 05/20/24 Chief Complaint: Fever/chills 59-year-old female patient with past medical history significant for active tobacco use, history of COPD, not on home O2, mild intermittent asthma, peripheral arterial disease, hypothyroidism, essential hypertension, presented to [place] ED with history of fever , chills, cough productive of yellow phlegm, generalized weakness, fatigue decreased by mouth intake of 10 day duration, patient denied history of travel, no sick contacts, 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 Hospital course: 59-year-old female patient with past medical history significant for COPD not on home oxygen, tobacco use disorder, hypertension, hypothyroidism presented with 10 days of fever cough chills generalized weakness has not smoked in last 10 days workup in the ED showed multifocal pneumonia with severe sepsis and iadmitted for continued antibiotic treatment. Severe sepsis due to multifocal pneumonia, Met sepsis criteria due to leukocytosis with bandemia, tachypnea, hypotension MAP <60, normal lactic acid,s/p 30 cc/kg IV fluid bolus, blood pressure improved, treated with IV Zosyn IV azithromycin, cough medication IV steroids and updraft treatment patient responded well to above treatment blood cultures negative, RSV/flu/COVID negative, respiratory viral pathogen neg. Patient responded well to above treatment all features of sepsis resolved, patient is being discharged home on Augmentin and cough medication. Acute hypoxic respiratory failure due to mild acute exacerbation of overlap syndrome with COPD/mild intermittent asthma, treated with updraft treatment steroids hypoxia resolved lung sounds significantly improved, being discharged on tapering dose of steroids and recommend to use home inhalers, strongly advised to quit smoking. Hypokalemia Likely due to poor by mouth intake and use of hydrochlorothiazide, repleted and normalized. Tobacco use disorder as per patient she has Nicorette gum and nicotine patch that she will use counseling done. Essential hypertension noted to have significantly low blood pressure on admission, therefore all antihypertensive medication held since blood pressure is trending up resume home dose of atenolol and recommend to discontinue losartan and hydrochlorothiazide and follow blood pressure as outpatient. Hypothyroidism on Synthroid, TSH 0.18 ,free T3 normal and T4 1.07 , recommend to continue Synthroid and outpatient TSH in 6 weeks Time Attestation Discharge Coordination Time (in mins): 40 Quality: Safe Use of Opioids Does Pt have an Active Cancer Diagnosis on the Problem List?: No Quality: Stroke Does the patient have a stroke diagnosis?: No Physical Exam Vital Signs: Vital Signs: Last Vital Signs Temp 97.1 F 05/23/24 06:13 Pulse 68 05/23/24 06:13 Resp 20 05/23/24 06:13 BP 145/78 H 05/23/24 06:13 Pulse Ox 94 05/23/24 06:13 O2 Del Method Room Air 05/23/24 06:13 O2 Flow Rate 2 05/21/24 22:12 BMI result Body Mass Index 22.6 Const: Other: General awake alert, in no acute distress. Anicteric sclera Neck no JVD. CVS regular rate rhythm, Respiratory lungs coarse breath sounds, no wheeze, no crackles Gastrointestinal abdomen soft, non tender, bowel sounds audible. Extremities no edema. Neuro non focal Skin no rash Psych appropriate affect. DS: Data Data Completed and Pending Labs on day of discharge: Laboratory Results - last 24 hr 05/22/24 05/23/24 06:48 06:58 Potassium 3.9 D Free T3 2.3 Preliminary micro results at discharge 05/20/24 13:03 Blood Culture - Preliminary Blood - Venous No growth after 48 hours. 05/20/24 13:04 Blood Culture - Preliminary Blood - Venous No growth after 48 hours. Discharge Plan Discharge Anticipated Discharge Date/Time: 05/23/24 11:41 Patient Disposition: Home, Self-Care Discharge Diagnosis: Multifocal pneumonia Severe sepsis Acute hypoxic respiratory failure Hypokalemia Referrals: Harjinder Boykin MD [Primary Care Provider] - 1 Week Discharge Medications: New prednisone 10 mg tablet 10 mg PO DIRECTED Qty: 30 0RF Rx Instructions: see taper instructions; 40 mg Daily x3 days, 30 mg daily x3 days, 20 mg daily x3 days, 10 mg daily x3 days amoxicillin-pot clavulanate 875-125 mg tablet 1 tab PO BID Qty: 6 0RF dextromethorphan-guaifenesin 10-100 mg/5 mL Syrup 10 ml PO QID Qty: 500 0RF Continued atenolol 50 mg tablet 50 mg PO DAILY Qty: 90 5RF albuterol sulfate 90 mcg/actuation HFA aerosol inhaler 2 puff inhalation Q6H PRN (Reason: shortness of breath or wheezing) Qty: 25.5 1RF meloxicam 15 mg tablet 15 mg PO DAILY PRN (Reason: pain, moderate) Qty: 30 0RF aspirin 81 mg tablet,delayed release (DR/EC) 81 mg PO DAILY Qty: 90 4RF gabapentin 100 mg capsule 200 mg PO BEDTIME levothyroxine 50 mcg tablet 50 mcg PO DAILY@0600 Discontinued losartan 50 mg tablet 50 mg PO DAILY Qty: 90 5RF hydrochlorothiazide 12.5 mg capsule 12.5 mg PO QAM Qty: 90 1RF Discharge Orders: Discharge Order (Routine); Ordered 05/23/24 Ordered By: Nicolle Clemons Diet: Advance to usual diet Activity on Discharge: As tolerated Stand Alone Forms: Patient Portal Discharge page, Work/School Release Print Language: Turkish Care Plan Goals: Take Augmentin 1 tablet for 3 more days Use prednisone as directed Take cough medication 4 times a day Continue home inhalers 2 puffs Q 2-4 hours as needed for chest tightness/wheeze Rest and plenty of fluids Take cough medication 10 mL 4 times a day for next few days and then as needed Low TSH likely subclinical hypothyroidism repeat TSH in 6 weeks Health Concerns: Tobacco use disorder use nicotine patch and Nicorette gums(patient has medicine at home) Strongly recommend to abstain from smoking. Plan of Treatment: Outpatient follow-up with primary care physician call for appointment Assessment: As above
[2024-05-23 11:58] VITALS: BP 131/77; PULSE 80; RESP 18; TEMP 37; O2SAT 93
--- NOTE | 2024-05-23 12:10 | MHC.CM.PN ---
PT CLEARED TO DC HOME TODAY WITH NO SERVICES VIA PRIVATE TRANSPORT
[2024-05-23 12:58] VITALS: BP 131/77; PULSE 80; RESP 18; TEMP 37; O2SAT 93
== END 2024-05-23 12:34 | disposition home or self-care (01) | DRG 720 ==
LOC: HO.ED 16:34 → HO.EDOVER 17:38
PROVIDERS: Physician Assistant Medical; Admitting Provider Hospitalist; Emergency Provider Emergency Medicine; PCP Internal Medicine; Visit Provider Hospitalist
DX: A41.9 Sepsis, unspecified organism (principal); J96.01 Acute respiratory failure with hypoxia; J44.0 Chronic obstructive pulmonary disease with (acute) lower respiratory infection; J18.9 Pneumonia, unspecified organism; J44.1 Chronic obstructive pulmonary disease with (acute) exacerbation; J45.21 Mild intermittent asthma with (acute) exacerbation; R65.20 Severe sepsis without septic shock; F17.210 Nicotine dependence, cigarettes, uncomplicated; E03.9 Hypothyroidism, unspecified; E87.6 Hypokalemia; Z71.6 Tobacco abuse counseling; Z20.822 Contact with and (suspected) exposure to COVID-19; Z79.82 Long term (current) use of aspirin; Z79.890 Hormone replacement therapy; Z79.899 Other long term (current) drug therapy
CPT/HCPCS: 0241U; 36415; 71046; 80048; 80076; 81003; 83605; 83735; 83880; 84132; 84145; 84439; 84443; 84481; 84484; 85007; 85025; 85027; 86140; 87040; 87633; 93005; 94640; 99285; J0456; J0696; J1650; J2543; J2919; J3371; J3475; J3480; J7120

== ENCOUNTER → 2024-05-20 12:04 | Outpatient (BNV) | payer OTHER, SELFPAY | PROVIDERS: Admitting Provider Hospitalist; Emergency Provider Emergency Medicine; PCP Internal Medicine; Visit Provider Internal Medicine | DX: R00.1 Bradycardia, unspecified (principal) | CPT/HCPCS: 93010 ==

== ENCOUNTER → 2024-05-20 12:04 | Outpatient (BNV) | payer OTHER, SELFPAY | PROVIDERS: PCP Internal Medicine; Visit Provider Radiology Diagnostic Radiology | DX: J18.9 Pneumonia, unspecified organism (principal) | CPT/HCPCS: 71046 ==

== ENCOUNTER → 2024-05-20 17:36 | Outpatient (BNV) | payer OTHER, SELFPAY | PROVIDERS: Admitting Provider Hospitalist; Emergency Provider Emergency Medicine; PCP Internal Medicine; Visit Provider Hospitalist | DX: A41.9 Sepsis, unspecified organism (principal); R65.20 Severe sepsis without septic shock; J96.01 Acute respiratory failure with hypoxia; J18.9 Pneumonia, unspecified organism | CPT/HCPCS: 99223; 99232; 99239 ==

== ENCOUNTER 2024-06-07 11:14 | Outpatient (AMB) | payer OTHER, SELFPAY ==
[2024-06-07 11:33] VITALS: BP 120/70; PULSE 88; TEMP 36.8; O2SAT 96; BMI 21.8
--- NOTE | 2024-06-07 11:33 | AM.OFFWIN_ITS ---
Intake Vital Signs 06/07/24 11:33 Height 5 ft 4 in Weight 127 lb BMI 21.8 BP 120/70 Blood Pressure Location Lt brachial Position Sitting Pulse 88 Pulse Source Pulse Oximeter Temp 98.2 F Temp Source Oral Pulse Oximetry (%) 96 Intake Visit Reasons: EP pain on hip & tingling on LT foot Intake Note: pt is here for pain on hip and tingling on left foot Patient Tobacco Use Status: Current everyday Tobacco user Allergies nisoldipine [Sular] Allergy (Unknown, Verified 06/07/24 11:33) Unknown Sulfa (Sulfonamide Antibiotics) Allergy (Unknown, Verified 06/07/24 11:33) rash Codeine Phosphate Adverse Reaction (Unknown, Uncoded 05/20/24 12:03) hives Do you need a note to return to daycare/school/sports/work: No HPI HPI Comments History of Present Illness Details History of Present Illness - The patient is a 59-year-old female pr esenting with exacerbated hip pain. - Hip pain and numbness began a while ag o, with progression to unbearable intensity hindering ambulation. - Pain is described to affect the hip, b uttock, and but it does not radiate. - no pain in the calf - without specific injury inciting pain, associated with foot tingling and unilateral left hip swelling - Has Ortho appt in July for her hip, P CP already sent referral - Previous interventions like cyclobenza shaila, ibuprofen, meloxicam, a heating pad, and a back brace failed to provide substantial relief, though a course of Prednisone previously offered considerable improvement. - 200 mg of gabapentin, used at bedtime, aids in pain management but is avoided during the day due to sedative effects. - Associated shoulder pain stems from an incident involving a falling ochoa door, presumed to cause rotator cuff injury, with ongoing movement deficits. has a follow up with Ortho about this next month. 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 - Past hospitalizations for multifocal p neumonia and severe sepsis have impacted health and recuperation significantly. Physical Exam General: Cooperative, healthy appearing, comfortable, no acute distress and well developed Orientation: Patient oriented x3 Limitations: Patient reports severe pain in the hip and buttock area, with tingling in the foot and swelling on one side, causing limitations in walking and standing. Head: Normal to inspection Ears: Hearing grossly normal bilaterally Nose: Normal external nose present Face and sinus: Normal facial exam Eyes: Appearance normal, both eyes and all related structures Neck: Normal visual inspection and Yes full ROM Respiratory: Normal respiratory effort and able to speak in complete sentences. Skin: no rashes or lesions noted Neuro: Patient oriented x3, reports tingling in the foot Extremities: see below [facility] Medical History Left hip pain Left shoulder pain COPD (chronic obstructive pulmonary disease) with emphysema Second degree burn of right foot Microscopic hematuria (~2020) Postmenopausal Plantar fascial fibromatosis of both feet Nicotine dependence, cigarettes, uncomplicated Mild intermittent asthma PAD (peripheral artery disease) Hypertriglyceridemia Impaired fasting glucose Degenerative disc disease, cervical Osteoarthritis involving multiple joints on both sides of body Primary insomnia Acquired hypothyroidism Essential hypertension Surgical History History of arthroscopic surgery of shoulder History of colonoscopy History of tubal ligation History of loop electrosurgical excision procedure (LEEP) History of angioplasty (2021) History of carpal tunnel surgery History of rotator cuff surgery (~2008) History of fusion of cervical spine (~2004) Family History Father Esophageal cancer Liver cancer Cancer of kidney Mother Emphysema lung Social History Household Members: Family Housing: House Do you presently have visiting nurse or other home services: No Alcohol intake: former Patient Tobacco Use Status: Current everyday Tobacco user Tobacco use type: Cigarette Cigarettes Per Day: 15 Years Smoked: onset 15yo, 1ppd x 44yrs, now 3/4ppd - 40+PYH e-Cigarette/Vaping Use: Never Used Second Hand Smoke Exposure: No Advance Directives Date on File: 09/15/23 service: No Current occupational status: employed Current occupation: [employer] Sexual orientation: Straight/Heterosexual Gender identity: Female Cognitive needs: No Hearing needs: No Vision needs: Yes Review of Systems Const All systems reviewed & are unremarkable except as noted in HPI and below Physical Exam Vital Signs: Last Vital Signs Temp 98.2 F 06/07/24 11:33 Pulse 88 06/07/24 11:33 BP 120/70 03/07/25 11:33 Pulse Ox 96 06/07/24 11:33 BMI result Body Mass Index 21.8 Back/Spine/Pelvis Cervical Spine: cervical ROM normal and No Cervical spine tenderness Thoracic/Lumbar Spine: No paraspinal muscle tenderness, No thoracic spinal tenderness and No lumbar spinal tenderness Pelvis: no pain with lateral compression and buttock tenderness Assessment & Plan Assessment & Plan (1) Left hip pain: Code(s): M25.552 - Pain in left hip Plan: A prednisone tapering dose is prescribed to mitigate hip pain by reducing inflammation, with an initial dosage of 40 mg, stepping down progressively every 3 days. Gabapentin will be used at a lower daytime dose of 100 mg to aid daytime pain management. An orthopedic consultation is scheduled for late July to evaluate the underlying cause of pain. Given the limitations described at the patient's workplace, the option for note excusal or leave was discussed though logistical acceptance remains a barrier as her employer does not accept doctors notes . Further reassessment will follow based on symptom progression and specialist input. Patient was informed and verbally consented to the use of an ambient scribe for clinic note documentation during this visit. Medications: New gabapentin 100 mg PO DAILY 20 caps 0RF Refilled prednisone see taper instructions; 40 mg Daily x3 days, 30 mg daily x3 days, 20 mg daily x3 days, 10 mg daily x3 days 10 mg PO DIRECTED 30 tabs 0RF Coding Level of Care Code Est Pt Level 3 (30142) Diagnoses Left hip pain M25.552
== END 2024-06-07 13:08 | disposition home or self-care (01) ==
PROVIDERS: PCP Internal Medicine; Visit Provider Physician Assistant
DX: M25.552 Pain in left hip (principal)

== ENCOUNTER → 2024-06-07 11:14 | Outpatient (BNVA) | payer OTHER, SELFPAY | PROVIDERS: PCP Internal Medicine; Visit Provider Physician Assistant | DX: M25.552 Pain in left hip (principal) | CPT/HCPCS: 99212 ==

== ENCOUNTER 2024-06-11 13:36 | Outpatient (REF) | payer OTHER, SELFPAY ==
--- NOTE | ~2024-06-11 | XR_ITS ---
EXAMINATION: XR SHOULDER 2 OR MORE VIEWS LEFT HISTORY: M25.519 - Pain in unspecified shoulder COMPARISON: Comparison is made with the prior examination dated 03/22/2024. FINDINGS: Three views of the left shoulder are submitted. Osseous mineralization is normal. A tiny triangular osseous density is again noted adjacent to the inferior glenoid which may be the result of old trauma. There is no acute fracture or dislocation. The glenohumeral joint is maintained. There is moderate narrowing of the AC joint. Again seen are calcifications adjacent to the humeral head and greater tuberosity which are likely related to the rotator cuff. XR/XR shoulder LT min 2V IMPRESSION: Moderate osteoarthritis of the AC joint. Probable rotator cuff calcifications. Electronically signed by: Maurice Gruber MD 06/12/2024 08:04 AM EDT
== END 2024-06-11 13:37 | disposition home or self-care (01) ==
LOC: HO.HOSX 13:36
PROVIDERS: Visit Provider Physician Assistant
DX: M25.512 Pain in left shoulder (principal); M25.312 Other instability, left shoulder
CPT/HCPCS: 20610; 73030; 99212; J1010; J2003

== ENCOUNTER 2024-06-11 13:36 | Outpatient (AMB) | payer OTHER, SELFPAY ==
--- NOTE | 2024-06-11 13:40 | MHC.OFFVIS ---
Intake Visit Reasons: New Prob - left shoulder pain Intake Note: Liliya is a 59 year old right hand dominant female who presents today for a evaluation of her left shoulder pain. Patient reports ongoing pain for a couple months. She states that her pain is on the lateral aspect of the shoulder. Patient notices that she is unable to perform overhead reaching, reaching her back and is unable to put pressure on the side. She has tried and failed NSAIDs, cyclobenzaprine and meloxicam. IMPRESSION (03/25/24): 1. Moderate degenerative changes in the acromioclavicular joint. 2. Mild degenerative changes in the glenohumeral joint. 3. Small faint calcifications in the soft tissues adjacent to the supralateral aspect of the humeral head suggestive of calcific tendinitis. Small amorphous calcification inferior to the glenoid. Allergies nisoldipine [Sular] Allergy (Unknown, Verified 06/11/24 13:53) Unknown Sulfa (Sulfonamide Antibiotics) Allergy (Unknown, Verified 06/11/24 13:53) rash Codeine Phosphate Adverse Reaction (Unknown, Uncoded 05/20/24 12:03) hives HPI HPI New Prob - left shoulder pain: Details: Ms. Richards is a 59-year-old [id number] female who presents to the office today for evaluation of left shoulder pain. She reports that she has had ongoing pain for the past 3 months. She states that she has trying to open her ochoa way when it fell. This placed excess pressure on the left shoulder and caused immediate pain. She reports that the pain is mostly located on the lateral aspect of the shoulder and has difficulty with overhead activities. She has tried and failed NSAIDs, cyclobenzaprine and meloxicam. [facility] Medical History Left hip pain Left shoulder pain COPD (chronic obstructive pulmonary disease) with emphysema Second degree burn of right foot Microscopic hematuria (~2020) Postmenopausal Plantar fascial fibromatosis of both feet Nicotine dependence, cigarettes, uncomplicated Mild intermittent asthma PAD (peripheral artery disease) Hypertriglyceridemia Impaired fasting glucose Degenerative disc disease, cervical Osteoarthritis involving multiple joints on both sides of body Primary insomnia Acquired hypothyroidism Essential hypertension Surgical History History of arthroscopic surgery of shoulder History of colonoscopy History of tubal ligation History of loop electrosurgical excision procedure (LEEP) History of angioplasty (2021) History of carpal tunnel surgery History of rotator cuff surgery (~2008) History of fusion of cervical spine (~2004) Family History Father Esophageal cancer Liver cancer Cancer of kidney Mother Emphysema lung Social History Household Members: Family Housing: House Do you presently have visiting nurse or other home services: No Alcohol intake: former Patient Tobacco Use Status: Current everyday Tobacco user Tobacco use type: Cigarette Cigarettes Per Day: 15 Years Smoked: onset 15yo, 1ppd x 44yrs, now 3/4ppd - 40+PYH e-Cigarette/Vaping Use: Never Used Second Hand Smoke Exposure: No Advance Directives Date on File: 09/15/23 service: No Current occupational status: employed Current occupation: [employer] Sexual orientation: Straight/Heterosexual Gender identity: Female Cognitive needs: No Hearing needs: No Vision needs: Yes Review of Systems Const All systems reviewed & are unremarkable except as noted in HPI and below Physical Exam Const General: cooperative, healthy appearing and no acute distress Resp Effort & Inspection: normal respiratory effort and able to speak in complete sentences Cardio Rate: regular rate Peripheral pulses: Peripheral pulses 2+ throughout Skin Lesions: no lesions Rashes: no rashes Extrem Other: Right shoulder: Forward flexion to 90 degrees. Abduction to 45 degrees. Pain with cross-body reach. 3/5 strength with empty can. Negative drop arm. NVI. Office Procedures AMB Joint Injection/Aspiration Joint Injection/Aspiration Primary Site: left shoulder Prep: site was prepped using aseptic technique, ethochloride spray was applied and injection warnings given Injected: 80 mg of, DepoMedrol, with 8 mL of (2% plain lidocaine) and in the subcromial space Approach Used: posterolateral Procedure: The patient tolerated the procedure well, but had some pain with the injection and there was some relief with the local anesthesia Coding 87030 - Large joint Procedure code (CPT) selection complete Assessment & Plan Assessment & Plan (1) Rotator cuff insufficiency of left shoulder: Code(s): M25.312 - Other instability, left shoulder Category: Medical Plan Ms. Richards is a 59-year-old [id number] female who presents to the office today for evaluation of left shoulder pain. She reports that she has had ongoing pain for the past 3 months. She states that she has trying to open her ochoa way when it fell. This placed excess pressure on the left shoulder and caused immediate pain. She reports that the pain is mostly located on the lateral aspect of the shoulder and has difficulty with overhead activities. She has tried and failed NSAIDs, cyclobenzaprine and meloxicam. While in the office today, we discussed the role of cortisone injection and physical therapy. The patient is reluctant to attend physical therapy due to her work hours being late in the evening. I did educate the patient that it would be beneficial for her to attend at least 1-2 physical therapy sessions with home exercise instruction. The patient was offered a cortisone injection in the left shoulder with 80 mg of DepoMedrol. The patient was explained the risks, benefits, and alternatives to receiving this injection. After receiving consent for the injection, the patient had the procedure done while in the office today. The patient tolerated the procedure well with no complications. She will follow up by telephone in the next 6-8 weeks if her symptoms continue to persist an MRI will be ordered at that time. X-rays of the left shoulder which were obtained while in the office today and were reviewed by me, Sara Moore PA-C, revealed calcific tendonitis Orders: Orders XR shoulder LT min 2V Today M25.519 - Pain in unspecified shoulder Coding Level of Care Code Est Pt Level 4 (05611) Diagnoses Rotator cuff insufficiency of left shoulder M25.312 CPT Codes Coding - 15399 Large joint: 27255 - Large joint ([id number])
== END 2024-06-11 14:43 | disposition home or self-care (01) ==
LOC: HO.HOS 13:37
PROVIDERS: Visit Provider Physician Assistant
DX: M25.312 Other instability, left shoulder (principal)
CPT/HCPCS: 20610; 99214

== ENCOUNTER → 2024-06-11 14:15 | Outpatient (BNV) | payer OTHER, SELFPAY | PROVIDERS: Visit Provider Radiology Diagnostic Radiology | DX: M19.012 Primary osteoarthritis, left shoulder (principal) | CPT/HCPCS: 73030 ==

== ENCOUNTER 2024-06-14 08:51 | Outpatient (AMB) | payer OTHER, SELFPAY ==
[2024-06-14 08:53] VITALS: BP 118/76; PULSE 73; RESP 16; TEMP 36.7; O2SAT 97; BMI 21.5
--- NOTE | 2024-06-14 08:53 | MHC.PC.OV ---
Vital Signs 06/14/24 08:53 Height 5 ft 4 in Weight 125 lb 8 oz BMI 21.5 BP 118/76 Blood Pressure Location Rt brachial Position Sitting Respiration 16 Pulse 73 Pulse Source Pulse Oximeter Temp 98.1 F Temp Source Oral Pulse Oximetry (%) 97 Oxygen Delivery Method Room Air Intake Visit Reasons: HDF pneumonia ok's per Dr. Pathak Allergies nisoldipine [Sular] Allergy (Unknown, Verified 06/14/24 08:53) Unknown Sulfa (Sulfonamide Antibiotics) Allergy (Unknown, Verified 06/14/24 08:53) rash Codeine Phosphate Adverse Reaction (Unknown, Uncoded 05/20/24 12:03) hives Medication List - Last Reconciled 06/14/24 by Juancho Pathak MD albuterol sulfate 90 mcg/actuation 2 puffs inhalation Q6H PRN aspirin 81 mg PO DAILY atenolol 50 mg PO DAILY gabapentin 200 mg PO BEDTIME levothyroxine 50 mcg PO DAILY@0600 losartan mg PO DAILY prednisone 10 mg PO DIRECTED Tobacco use date assessed: 06/14/24 Dental Screening Dental Screen Date: 06/14/24 Did you have a dental visit in the last 12 months?: Yes Did you have a dental problem in the last 6 months where you did not have access to dental care?: No Was dental information given to patient?: Patient has dentist HPI HDF pneumonia ok's per Dr. Pathak HPI Details Patient is 59-year-old female came in today for hospital discharge follow-up Date of admission 05/20/2024 date of discharge 05/23/2024 [facility] Patient have history of tobacco abuse, history of COPD, peripheral arterial disease, hypothyroidism, essential hypertension. 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 and mild asthma Multifocal pneumonia And sepsis resolved For tobacco abuse patient verbalized to having Nicorette gum and nicotine patch at home Due to low blood pressure on admission her blood pressure medications were held Once blood pressure came up medication were supposed to be resumed upon discharge She is on atenolol Losartan and hydrochlorothiazide was discontinued Patient is also on Synthroid TSH level was within normal limit Medications - Atenolol for hypertension - Losartan for hypertension - Hydrochlorothiazide for hypertension - Aspirin for cardiovascular disease prevention - Levothyroxine for thyroid disorder - Albuterol inhaler for respiratory use, as needed - Anoro inhaler which patient is not using Problem List - Sepsis, resolved - Essential Hypertension - Nicotine Dependence - Thyroid Disorder - Pneumonia, history - Hypokalemia, resolved - peripheral vascular disease Patient Instructions - Begin consistent home blood pressure monitoring with a report to follow up. - Schedule a lab test for potassium levels as indicated. - Withhold thyroid function re-evaluation for two additional weeks for more accurate testing. - Incorporate albuterol inhaler usage for respiratory symptom management, as advised. - Immediate smoking cessation is advised, explore her chemotherapy since you have filled other treatment modalities to quit smoking - Continue with scheduled CAT scan and address any upcoming concerns as necessary. Review of Systems General: No fever no chills neurological: No headaches no dizziness ear nose throat: No sore throat no hearing difficulty no ear pain cardiovascular: No syncope, no chest pain, no palpitations gastrointestinal: No nausea vomiting or diarrhea endocrine: No polyuria polydipsia no heat intolerance genitourinary: No dysuria skin: No new complaints Physical Exam general: No acute distress HEENT: No acute findings neck: Supple respiratory system: Wheezing present, able to talk in full sentences, no stridor, mild shortness a breath noted seems to be baseline for the patient cardiovascular: S1-S2 gastrointestinal: No pain extremities: No new findings UTILITY ARBORIST: Alert awake oriented x3 motor sensory intact skin: Normal turgor [facility] Medical History Left hip pain Left shoulder pain COPD (chronic obstructive pulmonary disease) with emphysema Second degree burn of right foot Microscopic hematuria (~2020) Postmenopausal Plantar fascial fibromatosis of both feet Nicotine dependence, cigarettes, uncomplicated Mild intermittent asthma PAD (peripheral artery disease) Hypertriglyceridemia Impaired fasting glucose Degenerative disc disease, cervical Osteoarthritis involving multiple joints on both sides of body Primary insomnia Acquired hypothyroidism Essential hypertension Surgical History History of arthroscopic surgery of shoulder History of colonoscopy History of tubal ligation History of loop electrosurgical excision procedure (LEEP) History of angioplasty (2021) History of carpal tunnel surgery History of rotator cuff surgery (~2008) History of fusion of cervical spine (~2004) Family History Father Esophageal cancer Liver cancer Cancer of kidney Mother Emphysema lung Social History Household Members: Family Housing: House Do you presently have visiting nurse or other home services: No Alcohol intake: former Patient Tobacco Use Status: Current everyday Tobacco user Tobacco use type: Cigarette Cigarettes Per Day: 15 Years Smoked: onset 15yo, 1ppd x 44yrs, now 3/4ppd - 40+PYH Packs per year/per ci.00 e-Cigarette/Vaping Use: Never Used Second Hand Smoke Exposure: No Advance Directives Date on File: 09/15/23 service: No Current occupational status: employed Current occupation: [employer] Sexual orientation: Straight/Heterosexual Gender identity: Female Cognitive needs: No Hearing needs: No Vision needs: Yes Questionnaire PHQ-9 Over the last 2 weeks, how often have you been bothered by any of the following problems? 30720 - PHQ-9 Billing: Yes Source: Developed by Drs. Maurice Talbot, Keke Gonzales, Mickey Henson and colleagues, with an educational elsa from [employer]. Thrive Questionnaire Date Thrive assessed: 06/14/24 I am a: Patient What is your living situation today?: I have a steady place to live Within the past 12 months, did the food you bought not last and you didn't have the money to get more?: Never true Within the past 12 months, did you worry whether your food would run out before you got money to buy more?: Never true Do you have trouble paying for medicines?: No Do you have trouble getting transportation to medical appointments?: No Do you have trouble paying your heating and electricity bill?: No Do you have trouble taking care of your child, family member or friend?: No Do you have trouble with day-to-day activities such as bathing, preparing meals, shopping, managing finances, etc.?: No Are you currently unemployed and looking for a job?: Yes Are you interested in more education?: No Please select the resources that you would like help with: None Currently or been in a relationship where the following occur: No concerns reported THRIVE Score: 0 AUDIT C Alcohol Use Questionnaire (AUDIT-C) 1. How often do you have a drink containing alcohol?: 2-3 times a week 2. How many drinks containing alcohol do you have on a typical day when you are drinking?: 1 or 2 3. How often do you have six or more drinks on one occasion?: Never Total Score: 3 Score Reviewed/Action Taken: Yes JOHN-7 AMB Questionnaire JOHN-7 Date JOHN - 7 assessed: 06/14/24 Feeling nervous, anxious, or on edge: 0 = Not at all Not being able to stop or control worryin = Not at all Worrying too much about different things: 0 = Not at all Trouble relaxin = Not at all Being so restless that it is hard to sit still: 0 = Not at all Becoming easily annoyed or irritable: 0 = Not at all Feeling afraid as if something awful might happen: 0 = Not at all Total JOHN-7 score (0-4 normal; 5-9 mild; 10-14 moderate; 15-21 severe): 0 Source: Developed by Drs. Maurice Talbot, Keke Gonzales, Mickey Henson and colleagues, with an educational elsa from [employer]. JOHN-7 Assessment Billing JOHN-7 Assessment Tool: JOHN-7 Assessment 83407 Physical exam (Primary Care) Vital Signs: Last Vital Signs Temp 98.1 F 06/14/24 08:53 Pulse 73 06/14/24 08:53 Resp 16 06/14/24 08:53 BP 118/76 06/14/24 08:53 Pulse Ox 97 06/14/24 08:53 Oxygen Delivery Method Room Air 06/14/24 08:53 BMI result Body Mass Index 21.5 Tobacco/Smoking Status: Tobacco use Status Tobacco use date assessed 06/14/24 06/14/24 08:55 Patient Tobacco Use Status Current everyday Tobacco 06/14/24 08:55 Tobacco use type Cigarette 06/14/24 08:55 e-Cigarette/Vaping Use Never Used 06/14/24 08:55 Thrive Assessment: Date of Thrive Assessment Date Thrive assessed 06/14/24 06/14/24 08:55 Currently or been in a relationship where the following occur: No concerns reported Coding Level of Care Code Est Pt Level 5 (58147) Diagnoses Hospital discharge follow-up Z09 Mild shortness of breath R06.02 Wheezing R06.2 Low TSH level R79.89 Multifocal pneumonia J18.9 Essential hypertension I10 Acquired hypothyroidism E03.9 Other emphysema J43.8 Emphysema type: other Additional Codes JOHN-7 Assessment Billing - JOHN-7 Assessment Tool: JOHN-7 Assessment 38360 ([id number]) PHQ-9 - 67327 - PHQ-9 Billing: Yes ([id number]) Assessment & Plan Assessment & Plan (1) Hospital discharge follow-up: Code(s): Z09 - Encounter for follow-up examination after completed treatment for conditions other than malignant neoplasm Category: Medical (2) Mild shortness of breath: Code(s): R06.02 - Shortness of breath Category: Medical (3) Wheezing: Code(s): R06.2 - Wheezing Category: Medical (4) Low TSH level: Code(s): R79.89 - Other specified abnormal findings of blood chemistry Category: Medical (5) Multifocal pneumonia: Code(s): J18.9 - Pneumonia, unspecified organism Category: Medical (6) Essential hypertension: Code(s): I10 - Essential (primary) hypertension Category: Medical (7) Acquired hypothyroidism: Code(s): E03.9 - Hypothyroidism, unspecified Category: Medical (8) COPD (chronic obstructive pulmonary disease) with emphysema: Comment: Currently followed by [facility] [place] [facility] Code(s): J43.9 - Emphysema, unspecified Category: Medical Qualifiers: Emphysema type: other Qualified Code(s): J43.8 - Other emphysema Plan Patient is 59-year-old female came in today for hospital discharge follow-up Date of admission 05/20/2024 date of discharge 05/23/2024 [facility] Patient have history of tobacco abuse, history of COPD, peripheral arterial disease, hypothyroidism, essential hypertension. 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 and mild asthma Multifocal pneumonia And sepsis resolved For tobacco abuse patient verbalized to having Nicorette gum and nicotine patch at home Due to low blood pressure on admission her blood pressure medications were held Once blood pressure came up medication were supposed to be resumed upon discharge She is on atenolol Losartan and hydrochlorothiazide was discontinued Patient is also on Synthroid TSH level was within normal limit Medications - Atenolol for hypertension - Losartan for hypertension - Hydrochlorothiazide for hypertension - Aspirin for cardiovascular disease prevention - Levothyroxine for thyroid disorder - Albuterol inhaler for respiratory use, as needed - Anoro inhaler which patient is not using Problem List - Sepsis, resolved - Essential Hypertension - Nicotine Dependence - Thyroid Disorder - Pneumonia, history - Hypokalemia, resolved - peripheral vascular disease Patient Instructions - Begin consistent home blood pressure monitoring with a report to follow up. - Schedule a lab test for potassium levels as indicated. - Withhold thyroid function re-evaluation for two additional weeks for more accurate testing. - Incorporate albuterol inhaler usage for respiratory symptom management, as advised. - Immediate smoking cessation is advised, explore her chemotherapy since you have filled other treatment modalities to quit smoking - Continue with scheduled CAT scan and address any upcoming concerns as necessary. 41 when minutes spent in care of this patient Orders: Orders Comprehensive Met. Panel 2 Weeks E03.9 - Hypothyroidism, unspecified, I10 - Essential (primary) hypertension, J18.9 - Pneumonia, unspecified organism, J43.9 - Emphysema, unspecified, R79.89 - Other specified abnormal findings of blood chemistry TSH reflex Free T4 2 Weeks E03.9 - Hypothyroidism, unspecified, I10 - Essential (primary) hypertension, J18.9 - Pneumonia, unspecified organism, J43.9 - Emphysema, unspecified, R79.89 - Other specified abnormal findings of blood chemistry Complete Blood Count Auto Diff 2 Weeks E03.9 - Hypothyroidism, unspecified, I10 - Essential (primary) hypertension, J18.9 - Pneumonia, unspecified organism, J43.9 - Emphysema, unspecified, R79.89 - Other specified abnormal findings of blood chemistry Medications: Changed From losartan PO DAILY To losartan 50 mg PO DAILY 90 tabs 0RF Refilled atenolol 50 mg PO DAILY 90 tabs 0RF hydrochlorothiazide 12.5 mg PO QAM 90 caps 1RF I10 - Essential (primary) hypertension umeclidinium-vilanterol 62.5-25 mcg/actuation (Anoro Ellipta) 1 inh inhalation DAILY 1 ea 6RF 30 days
== END 2024-06-14 09:32 | disposition home or self-care (01) ==
LOC: HO.HMCC 08:52
PROVIDERS: PCP Internal Medicine; Visit Provider Internal Medicine
DX: R06.02 Shortness of breath (principal); R06.2 Wheezing; J43.8 Other emphysema; Z09 Encounter for follow-up examination after completed treatment for conditions other than malignant neoplasm; R79.89 Other specified abnormal findings of blood chemistry; J18.9 Pneumonia, unspecified organism; I10 Essential (primary) hypertension; E03.9 Hypothyroidism, unspecified

== ENCOUNTER → 2024-06-14 08:51 | Outpatient (BNVA) | payer OTHER, SELFPAY | PROVIDERS: PCP Internal Medicine; Visit Provider Internal Medicine | DX: Z09 Encounter for follow-up examination after completed treatment for conditions other than malignant neoplasm (principal); R06.02 Shortness of breath; R06.2 Wheezing; R79.89 Other specified abnormal findings of blood chemistry; J18.9 Pneumonia, unspecified organism; I10 Essential (primary) hypertension; J43.8 Other emphysema; E03.9 Hypothyroidism, unspecified | CPT/HCPCS: 96127; 99212 ==

== ENCOUNTER 2024-07-02 09:40 | Outpatient (REF) | payer OTHER, SELFPAY ==
--- NOTE | ~2024-07-02 | XR_ITS ---
EXAMINATION: XR HIP, LEFT CLINICAL INFORMATION: M25.559 - Pain in unspecified hip COMPARISON: None available. TECHNIQUE: Two views of the left hip. FINDINGS: No acute cortical disruption or gross malalignment. No lytic or blastic lesions. Vascular calcifications. XR/XR hip LT min 2V IMPRESSION: No acute fracture or dislocation, left hip. Atherosclerosis disease. Electronically signed by: Eugene Birch MD 07/03/2024 08:46 AM EDT
== END 2024-07-02 09:41 | disposition home or self-care (01) ==
LOC: HO.HOSX 09:40
PROVIDERS: Visit Provider Physician Assistant
DX: M25.552 Pain in left hip (principal)
CPT/HCPCS: 73502; 99212

== ENCOUNTER 2024-07-02 11:44 | Outpatient (AMB) | payer OTHER, SELFPAY ==
--- NOTE | 2024-07-02 11:54 | MHC.OFFVIS ---
Vital Signs 07/02/24 11:59 Height 5 ft 4 in Weight 125 lb BMI 21.5 Intake Visit Reasons: New prob - left hip pain Intake Note: Liliya is a 59 year old right hand dominant female who presents today for a evaluation of her left hip pain. Patient reports ongoing pain for 6 months. She states that her pain is on the glutes and it moves to her lower back. Patient notices that her pain is worse when she is standing. Patient has tried and failed icing/heat, Tylenol and resting. Allergies nisoldipine [Sular] Allergy (Unknown, Verified 07/02/24 11:59) Unknown Sulfa (Sulfonamide Antibiotics) Allergy (Unknown, Verified 07/02/24 11:59) rash Codeine Phosphate Adverse Reaction (Unknown, Uncoded 05/20/24 12:03) hives HPI HPI New prob - left hip pain: Details: The patient is a 59-year-old female presenting with left hip pain. The pain has been ongoing for six months, specifically in the glute and radiating towards the lower back, intensifying while standing. She has attempted conservative measures such as icing and heating along with Tylenol use without notable relief. Imaging of the L spine from June 2022 identified mild degenerative changes in the lower lumbar spine, including disc space narrowing and facet arthropathy at L4-L5, as well as small endplate osteophytes. She has no history of consultations regarding her lower back before this visit and endorses left foot numbness and tingling. [facility] Medical History Left hip pain Left shoulder pain COPD (chronic obstructive pulmonary disease) with emphysema Second degree burn of right foot Microscopic hematuria (~2020) Postmenopausal Plantar fascial fibromatosis of both feet Nicotine dependence, cigarettes, uncomplicated Mild intermittent asthma PAD (peripheral artery disease) Hypertriglyceridemia Impaired fasting glucose Degenerative disc disease, cervical Osteoarthritis involving multiple joints on both sides of body Primary insomnia Acquired hypothyroidism Essential hypertension Surgical History History of arthroscopic surgery of shoulder History of colonoscopy History of tubal ligation History of loop electrosurgical excision procedure (LEEP) History of angioplasty (2021) History of carpal tunnel surgery History of rotator cuff surgery (~2008) History of fusion of cervical spine (~2004) Family History Father Esophageal cancer Liver cancer Cancer of kidney Mother Emphysema lung Social History Household Members: Family Housing: House Do you presently have visiting nurse or other home services: No Alcohol intake: former Patient Tobacco Use Status: Current everyday Tobacco user Tobacco use type: Cigarette Cigarettes Per Day: 15 Years Smoked: onset 15yo, 1ppd x 44yrs, now 3/4ppd - 40+PYH e-Cigarette/Vaping Use: Never Used Second Hand Smoke Exposure: No Advance Directives Date on File: 09/15/23 service: No Current occupational status: employed Current occupation: [employer] Sexual orientation: Straight/Heterosexual Gender identity: Female Cognitive needs: No Hearing needs: No Vision needs: Yes Review of Systems Const All systems reviewed & are unremarkable except as noted in HPI and below Physical Exam Vital Signs: BMI result Body Mass Index 21.5 Const General: cooperative, healthy appearing and no acute distress Resp Effort & Inspection: normal respiratory effort and able to speak in complete sentences Cardio Rate: regular rate Peripheral pulses: Peripheral pulses 2+ throughout Skin Lesions: no lesions Rashes: no rashes Extrem Other: Left hip: Full hip ROM in all planes. No tenderness to palpation over the greater trochanteric bursa. 4/5 strength with resisted hip flexion, knee extension, abduction, and abduction. Able to perform straight leg raise. Reports numbness and tingling in the left foot. Assessment & Plan Assessment & Plan (1) Lumbar back pain with radiculopathy affecting left lower extremity: Code(s): M54.16 - Radiculopathy, lumbar region Category: Medical Plan I discussed with the patient the current findings of mild degenerative changes in the lower lumbar spine and the absence of significant hip arthritis. The proposed management includes physical therapy to strengthen the lower back muscles as an initial step, as this should enhance support and possibly alleviate the pain through non-pharmacological avenues however the patient would like to hold off at this time. We discussed that cortisone injections were not necessary at this stage for the hip joint. I have placed referral to Dr. Easton for a comprehensive lumbar spine evaluation, highlighting an integrative approach rather than immediate invasive interventions. she will follow up with Orthopedics p.r.n. X-rays of the left hip and pelvis which were obtained while in the office today and were reviewed by me, Sara Moore PA-C, revealed no acute .abnormalities Orders: Orders XR hip LT min 2V Today M25.559 - Pain in unspecified hip Coding Level of Care Code Est Pt Level 4 (48385) Diagnoses Lumbar back pain with radiculopathy affecting left lower extremity M54.16
[2024-07-02 11:59] VITALS: BMI 21.5
== END 2024-07-02 12:13 | disposition home or self-care (01) ==
LOC: HO.HOS 11:45
PROVIDERS: PCP Internal Medicine; Visit Provider Physician Assistant
DX: M54.16 Radiculopathy, lumbar region (principal)
CPT/HCPCS: 99214

== ENCOUNTER → 2024-07-02 11:47 | Outpatient (BNV) | payer OTHER, SELFPAY | PROVIDERS: Visit Provider Radiology Diagnostic Radiology | DX: M25.552 Pain in left hip (principal) | CPT/HCPCS: 73502 ==

== ENCOUNTER 2024-07-03 07:37 | Outpatient (REF) | payer OTHER, SELFPAY ==
--- NOTE | ~2024-07-03 | CT_ITS ---
CLINICAL HISTORY: Z87.891 - Personal history of nicotine dependence CT lung cancer screening (LDCT) Comparison: CT/REG/GA/SR - CT LUNG SCREENING - 06/07/23 09:[address]/GA/SR - CT LUNG SCREENING - 04/15/22 14:41 EST Technique: Axial CT images of the chest using low-dose technique. Referring provider counseled the patient on shared decision-making for LDCT screening. Additional counseling was provided on smoking cessation. Effective radiation dose total: DLP 28.2 mGycm, CTDIvol 0.9 mGy. Findings: 2 mm nodule right upper lobe image 26 series 4 and image 49, appears stable to priors. No clearly new or progressive lung nodule. Linear parenchymal changes in the anterior base right upper lobe suggesting subsegmental atelectasis or possibly scar more conspicuous than on priors. Similar generalized peribronchial thickening. No endobronchial nodule evident. Stable mild emphysema. No consolidation, pleural effusion or pneumothorax. Thoracic inlet intact. No thyroid nodules. No enlarged mediastinal or hilar lymph nodes. Normal caliber thoracic aorta. Normal heart size. Multifocal coronary artery calcification. No acute process evident upper abdomen. Bones unchanged with minor compression deformity with Schmorl's node centered at T7-8. Impression: Lung rads 2. Benign appearance. Management: Continue annual low-dose screening. Category 1: Normal; continue annual screening Category 2: Benign appearance or behavior, continue annual screening Category 3: Probably benign, [address] recommended Category 4A: Suspicious, [address] recommended; may consider PET/CT Category 4B: Suspicious, Additional diagnostics and/or tissue sampling recommended Category 4X: Suspicious, Additional diagnostics and/or tissue sampling recommended Category 0: Recalls (incomplete screen due to Incomplete coverage, Noise, Respiratory motion, Expiration, Obscured by acute abnormality) This document has been electronically signed by: Tres Coto MD on 07/04/2024 05:20:07
== END 2024-07-03 07:38 | disposition home or self-care (01) ==
LOC: HO.CT 07:37
PROVIDERS: PCP Internal Medicine; Visit Provider Internal Medicine Pulmonary Disease
DX: Z12.2 Encounter for screening for malignant neoplasm of respiratory organs (principal); Z87.891 Personal history of nicotine dependence
CPT/HCPCS: 71271

== ENCOUNTER → 2024-07-03 07:39 | Outpatient (BNV) | payer OTHER, SELFPAY | PROVIDERS: PCP Internal Medicine; Visit Provider Radiology Diagnostic Radiology | DX: Z12.2 Encounter for screening for malignant neoplasm of respiratory organs (principal); Z87.891 Personal history of nicotine dependence | CPT/HCPCS: 71271 ==

== ENCOUNTER 2024-07-23 18:07 | Inpatient (IN) | payer OTHER, SELFPAY ==
--- NOTE | ~2024-07-23 | XR_ITS ---
CLINICAL HISTORY: Pneumonia? 1 view chest x-ray Comparison: CR - XR CHEST 2V - 05/20/24 12:23 EST Findings: Heart size is normal. Atherosclerotic vascular disease of aortic arch. Chronic interstitial changes bilaterally appear stable. No consolidation, significant pleural effusion or pneumothorax. No acute fracture. Previous cervical spine fusion. IMPRESSION: 1. No acute findings. This document has been electronically signed by: Sona Jeffery MD on 07/23/2024 19:41:28
[2024-07-23 18:18] VITALS: BP 125/75; PULSE 91; RESP 22; TEMP 37.2; O2SAT 89; BMI 22.7
--- NOTE | 2024-07-23 18:21 | ECG_ITS ---
Test Reason : SOB Blood Pressure : */* mmHG Vent. Rate : 90 BPM Atrial Rate : 90 BPM P-R Int : 128 ms QRS Dur : 72 ms QT Int : 352 ms P-R-T Axes : 64 76 80 degrees QTcB Int : 430 ms Normal sinus rhythm Nonspecific ST and T wave abnormality Abnormal ECG When compared with ECG of 20-May-2024 12:51, Vent. rate has increased by 35 bpm Nonspecific T wave abnormality now evident in Lateral leads Referred By: Bobby Bansal Electronically Signed By: GISSELLE COLE
--- NOTE | 2024-07-23 18:28 | ED.GENADULT ---
HPI - General Adult General Chief complaint: Dyspnea Stated complaint: Difficulty breathing Time Seen by Provider: 07/23/24 19:29 Related Data Home Medications ?Medication ?Instructions ?Recorded ?Confirmed gabapentin 100 mg capsule 200 mg PO BEDTIME 05/20/24 06/14/24 levothyroxine 50 mcg tablet 50 mcg PO DAILY@0600 05/20/24 06/14/24 Previous Rx's ?Medication ?Instructions ?Recorded aspirin 81 mg tablet,delayed 81 mg PO DAILY #90 tabs 04/30/24 release albuterol sulfate 90 mcg/actuation 2 puff inhalation Q6H PRN 05/30/24 aerosol inhaler shortness of breath or wheezing #25.5 grams prednisone 10 mg tablet 10 mg PO DIRECTED #30 tabs 06/07/24 atenolol 50 mg tablet 50 mg PO DAILY #90 tabs 06/14/24 losartan 50 mg tablet 50 mg PO DAILY #90 tabs 06/14/24 umeclidinium 62.5 mcg-vilanterol 1 inh inhalation DAILY 30 days #1 06/14/24 25 mcg/actuation powdr for ea inhalation (Anoro Ellipta) Allergies Allergy/AdvReac Type Severity Reaction Status Date / Time nisoldipine [Sular] Allergy Unknown Unknown Verified 07/23/24 18:21 Sulfa (Sulfonamide Allergy Unknown rash Verified 07/23/24 18:21 Antibiotics) Codeine Phosphate AdvReac Unknown hives Uncoded 05/20/24 12:03 PMFSH Past Medical History Medical History Left hip pain Left shoulder pain COPD (chronic obstructive pulmonary disease) with emphysema Second degree burn of right foot Microscopic hematuria (~2020) Postmenopausal Plantar fascial fibromatosis of both feet Nicotine dependence, cigarettes, uncomplicated Mild intermittent asthma PAD (peripheral artery disease) Hypertriglyceridemia Impaired fasting glucose Degenerative disc disease, cervical Osteoarthritis involving multiple joints on both sides of body Primary insomnia Acquired hypothyroidism Essential hypertension Surgical History History of arthroscopic surgery of shoulder History of colonoscopy History of tubal ligation History of loop electrosurgical excision procedure (LEEP) History of angioplasty (2021) History of carpal tunnel surgery History of rotator cuff surgery (~2008) History of fusion of cervical spine (~2004) Family History Family History Father Esophageal cancer Liver cancer Cancer of kidney Mother Emphysema lung Social History Social History Household Members: Family Housing: House Do you presently have visiting nurse or other home services: No Alcohol intake: former Patient Tobacco Use Status: Current everyday Tobacco user Tobacco use type: Cigarette Cigarettes Per Day: 15 Years Smoked: onset 15yo, 1ppd x 44yrs, now 3/4ppd - 40+PYH e-Cigarette/Vaping Use: Never Used Second Hand Smoke Exposure: No Advance Directives: Yes Advance Directives on File: Yes Advance Directives Date on File: 09/15/23 service: No Current occupational status: employed Current occupation: [employer] Sexual orientation: Straight/Heterosexual Gender identity: Female Cognitive needs: No Hearing needs: No Vision needs: Yes Physical Exam ED Vital Signs: Vital Signs - 24 hr 07/23/24 18:18 Temperature 98.9 F Pulse Rate 91 Respiratory Rate 22 H Blood Pressure 125/75 Pulse Oximetry 89 L Oxygen Delivery Method Room Air BMI result Body Mass Index 22.7 Course Course Course Narrative: RmE: 59-year-old female presents to ED for shortness of breath coughing weakness and chills. Patient has history of COPD. Patient's O2 sat 88 90% on room air. Patient is placed on oxygen labs EKG ordered. Patient is brought back to the ED Medical Decision Making Lab Data 07/23/24 18:43 07/23/24 18:43 Labs: Lab Results 07/23/24 07/23/24 07/23/24 Range/Units 18:43 18:44 18:50 WBC 19.6 H (4.8-10.8) X10*3/uL RBC 3.61 L (4.20-5.50) X10*6/uL Hgb 12.9 (12.0-16.0) g/dl Hct 35.6 L (37.0-47.0) % MCV 98.6 H (80.0-98.0) fL MCH 35.7 H (27.0-33.0) pg MCHC 36.2 H (31.0-35.0) g/dl RDW 15.3 (11.0-16.0) % Plt Count 250 D (160-400) X10*3/uL MPV 7.9 L (9.4-12.3) fL Immature Gran % (Auto) 0.5 H (0.0-0.4) % Neut % (Auto) 84.8 H (45-73) % Lymph % (Auto) 6.2 L (20-40) % [place] % (Auto) 7.9 (2-11) % Eos % (Auto) 0.1 (0-4) % Baso % (Auto) 0.5 (0-2) % Lymph # (Auto) 1.2 (1.2-4.9) X10*3/uL [place] # (Auto) 1.6 H (0.1-1.2) X10*3/uL Eos # (Auto) 0.0 (0.0-0.4) X10*3/uL Baso # (Auto) 0.1 (0.0-0.2) X10*3/uL Abs Immat Gran (auto) 0.10 H (0.00-0.03) X10*3/uL Absolute Neuts (auto) 16.6 H (2.0-8.3) x10*3/uL Absolute Nucleated RBC 0.020 H (0.0-0.012) X10*3/uL Nucleated RBC % (auto) 0.1 (0.0-0.2) /100WBC Smear Tech's Comments VERIFIED VBG pH 7.44 H (7.32-7.43) VBG pCO2 35 mmHg VBG pO2 52 mmHg VBG HCO3 24 (22-26) mmol/L VBG O2 Saturation 83.0 % VBG Base Excess 0.9 mmol/L Sodium 136 (135-145) mmol/L Potassium 3.1 L D (3.3-5.1) mmol/L Chloride 103 (96-108) mmol/L Carbon Dioxide 22 (22-29) mmol/L Anion Gap 14 (12-20) BUN 7 L (9-16) mg/dL Creatinine 0.74 (0.5-1.4) mg/dL Estim Creat Clear Calc 69.8 Estimated GFR > 60 Random Glucose 166 H (60-115) mg/dL Lactic Acid 2.0 (0.5-2.0) mmol/L Calcium 7.9 L (8.4-10.2) mg/dL Total Bilirubin 1.5 H (0.0-1.0) mg/dL AST 22 (5-31) U/L ALT < 6 (0-31) U/L Alkaline Phosphatase 143 H (39-117) U/L Troponin I High Sens 3.4 (<3.5-17.0) ng/L B-Natriuretic Peptide 110 H (<100) pg/mL Total Protein 6.5 (6.5-8.0) g/dL Albumin 3.2 L (3.5-5.0) g/dL Influenza Type A (PCR) NEGATIVE (Negative) Influenza Type B (PCR) NEGATIVE (Negative) RSV RNA Qual (PCR) NEGATIVE (Negative) SARS-CoV-2 RNA (RT-PCR) NEGATIVE (Negative) Discharge Plan Discharge Clinical Impression: Acute exacerbation of chronic obstructive pulmonary disease Patient Disposition: Admitted As Inpatient Print Language: Turkish
--- NOTE | 2024-07-23 18:46 | PC.NURSE ---
PLACED ON 2L NC
[2024-07-23 18:54] LABS: VBG Base Excess 0.9 mmol/L; VBG HCO3 24 mmol/L (22-26); VBG pCO2 35 mmHg; VBG pH 7.44 (7.32-7.43); VBG pO2 52 mmHg
[2024-07-23 18:54] LABS: Venous Blood Gas Refer to POC result
[2024-07-23 18:55] LABS: Basophils Absolute Auto 0.1 X10*3/uL (0.0-0.2); Basophils Percent Auto 0.5 % (0-2); Eosinophils Percent Auto 0.1 % (0-4); Hematocrit 35.6 % (37.0-47.0); Hemoglobin 12.9 g/dl (12.0-16.0); Imm Gran Pct Auto 0.5 % (0.0-0.4); Lymphocytes Absolute Auto 1.2 X10*3/uL (1.2-4.9); Lymphocytes Percent Auto 6.2 % (20-40); MANUAL DIFF FLAG SCAN; Mean Corpuscular HGB Conc 36.2 g/dl (31.0-35.0); Mean Corpuscular Hemoglobin 35.7 pg (27.0-33.0); Mean Corpuscular Volume 98.6 fL (80.0-98.0); Mean Platelet Volume 7.9 fL (9.4-12.3); Monocytes Absolute Auto 1.6 X10*3/uL (0.1-1.2); Monocytes Percent Auto 7.9 % (2-11); NRBC Pct Auto 0.1 /100WBC (0.0-0.2); Neutrophils Absolute Auto 16.6 x10*3/uL (2.0-8.3); Neutrophils Percent Auto 84.8 % (45-73); Platelet Count 250 X10*3/uL (160-400); Red Blood Count 3.61 X10*6/uL (4.20-5.50); Red Cell Distribution Width 15.3 % (11.0-16.0); SCAN SMEAR FLAG 1; White Blood Count 19.6 X10*3/uL (4.8-10.8)
[2024-07-23 19:16] LABS: Alanine Aminotransferase < 6 U/L (0-31); Albumin Level 3.2 g/dL (3.5-5.0); Anion Gap 14 (12-20); Aspartate Amino Transferase 22 U/L (5-31); Bilirubin Total 1.5 mg/dL (0.0-1.0); Blood Urea Nitrogen 7 mg/dL (9-16); Calcium 7.9 mg/dL (8.4-10.2); Carbon Dioxide 22 mmol/L (22-29); Chloride 103 mmol/L (96-108); Creatinine Clr Calc Pharmacy 69.8; Estimated Glomerular Filt Rate > 60; Glucose Random 166 mg/dL (60-115); Potassium 3.1 mmol/L (3.3-5.1); Sodium 136 mmol/L (135-145); Total Protein 6.5 g/dL (6.5-8.0)
[2024-07-23 19:18] LABS: B Type Natriuretic Peptide 110 pg/mL (<100); Troponin-I High Sensitivity 3.4 ng/L (<3.5-17.0)
[2024-07-23 19:23] LABS: SLIDE REVIEW VERIFIED
[2024-07-23 19:31] LABS: Alkaline Phosphatase 143 U/L (39-117)
[2024-07-23 19:38] LABS: Influenza A PCR NEGATIVE (Negative); Influenza B PCR NEGATIVE (Negative); Resp Syncy Virus RNA Qual PCR NEGATIVE (Negative); SARS COV2 PCR INHOUSE NEGATIVE (Negative)
--- NOTE | 2024-07-23 19:40 | ED_ITS ---
HPI - SOB/Dyspnea General Chief Complaint: Dyspnea Stated Complaint: Difficulty breathing Time Seen by Provider: 07/23/24 19:29 History of Present Illness HPI Narrative: Patient is a 59-year-old female with a history of COPD. Baseline not on oxygen still smokes. Complaining of today of having increasing shortness of breath coughing upper respiratory symptoms generalized malaise. Patient and ambulation got extremely short of breath. Has a history of peripheral arterial disease. Patient from home. Positive coughing upper respiratory symptoms. Tried neb treatment at home to no avail. Related Data Home Medications ?Medication ?Instructions ?Recorded ?Confirmed gabapentin 100 mg capsule 200 mg PO BEDTIME 05/20/24 06/14/24 levothyroxine 50 mcg tablet 50 mcg PO DAILY@0600 05/20/24 06/14/24 Previous Rx's ?Medication ?Instructions ?Recorded aspirin 81 mg tablet,delayed 81 mg PO DAILY #90 tabs 04/30/24 release albuterol sulfate 90 mcg/actuation 2 puff inhalation Q6H PRN 05/30/24 aerosol inhaler shortness of breath or wheezing #25.5 grams prednisone 10 mg tablet 10 mg PO DIRECTED #30 tabs 06/07/24 atenolol 50 mg tablet 50 mg PO DAILY #90 tabs 06/14/24 losartan 50 mg tablet 50 mg PO DAILY #90 tabs 06/14/24 umeclidinium 62.5 mcg-vilanterol 1 inh inhalation DAILY 30 days #1 06/14/24 25 mcg/actuation powdr for ea inhalation (Anoro Ellipta) Allergies Allergy/AdvReac Type Severity Reaction Status Date / Time nisoldipine [Sular] Allergy Unknown Unknown Verified 07/23/24 18:21 Sulfa (Sulfonamide Allergy Unknown rash Verified 07/23/24 18:21 Antibiotics) Codeine Phosphate AdvReac Unknown hives Uncoded 05/20/24 12:03 Review of Systems 2 Review of Systems: Positive increased shortness of breath coughing upper respiratory symptoms Yes all other systems are reviewed and are negative [facility] Past Medical History Attestation statement: The following information was validated with the patient. Medical History Left hip pain Left shoulder pain COPD (chronic obstructive pulmonary disease) with emphysema Second degree burn of right foot Microscopic hematuria (~2020) Postmenopausal Plantar fascial fibromatosis of both feet Nicotine dependence, cigarettes, uncomplicated Mild intermittent asthma PAD (peripheral artery disease) Hypertriglyceridemia Impaired fasting glucose Degenerative disc disease, cervical Osteoarthritis involving multiple joints on both sides of body Primary insomnia Acquired hypothyroidism Essential hypertension Surgical History History of arthroscopic surgery of shoulder History of colonoscopy History of tubal ligation History of loop electrosurgical excision procedure (LEEP) History of angioplasty (2021) History of carpal tunnel surgery History of rotator cuff surgery (~2008) History of fusion of cervical spine (~2004) Family History Family History Father Esophageal cancer Liver cancer Cancer of kidney Mother Emphysema lung Social History Social History Household Members: Family Housing: House Do you presently have visiting nurse or other home services: No Alcohol intake: former Patient Tobacco Use Status: Current everyday Tobacco user Tobacco use type: Cigarette Cigarettes Per Day: 15 Years Smoked: onset 15yo, 1ppd x 43yrs, now 3/4ppd - 40+PYH e-Cigarette/Vaping Use: Never Used Second Hand Smoke Exposure: No Advance Directives: Yes Advance Directives on File: Yes Advance Directives Date on File: 09/15/23 service: No Current occupational status: employed Current occupation: [employer] Sexual orientation: Straight/Heterosexual Gender identity: Female Cognitive needs: No Hearing needs: No Vision needs: Yes Physical Exam 2 Vital Signs: Vital Signs: Last Vital Signs Temp 98.9 F 07/23/24 18:18 Pulse 91 07/23/24 18:18 Resp 22 H 07/23/24 18:18 BP 125/75 07/23/24 18:18 Pulse Ox 89 L 07/23/24 18:18 O2 Del Method Room Air 07/23/24 18:18 BMI result Body Mass Index 22.7 Appearance: Alert. Oriented X3. No acute distress. Eyes: Pupils equal, round and reactive to light. ENT: Pharynx normal. Neck: Normal inspection. Neck supple. No lymph nodes noted. No crepitus CVS: Normal heart rate and rhythm. Pulses normal. Normal S1 and S2 Respiratory: Diminished breath sounds bilaterally Abdomen: Soft and nontender. No rigidity. No distention. good BS x4 Skin: Skin warm and dry. Normal skin color. Normal skin turgor. Extremities: No lower extremity edema. Neurovascular intact to all extremities. No Lacerations. No Rash Neuro: Oriented X 3. No motor deficit. No sensory deficit. Moving all extermities. No slurred speech Medical Decision Making Medical Decision Making [facility] Narrative: Positive coughing upper respiratory symptoms generalized malaise patient's flu COVID RSV were all negative my interpretation of patient's chest x-ray was grossly negative for pneumonia no pneumothorax given neb treatment here in the emergency department with only moderate relief of symptoms O2 sat still 89% on room air patient baseline not on oxygen will admit patient for further evaluation additional treatment. Has a history of elevated white count. This is old. Patient given antibiotics as she had extensive amount of coughing upper respiratory symptoms. Patient to be admitted for further evaluation lactate was 2.0 there is no evidence for severe sepsis. Differential Diagnosis Differential Diagnoses: The differential diagnosis associated with the presentation includes Asthma, COPD Admission/Observation Consideration of admission/observation: Escalation of care including admission/observation considered Will require admission Consult Healthcare Provider Management of the patient was discussed with: Hospitalist Lab Data [facility] Lab Attestation statement: I reviewed the patient's lab results. 07/23/24 18:43 07/23/24 18:43 Labs: Lab Results 07/23/24 07/23/24 07/23/24 Range/Units 18:43 18:44 18:50 WBC 19.6 H (4.8-10.8) X10*3/uL RBC 3.61 L (4.20-5.50) X10*6/uL Hgb 12.9 (12.0-16.0) g/dl Hct 35.6 L (37.0-47.0) % MCV 98.6 H (80.0-98.0) fL MCH 35.7 H (27.0-33.0) pg MCHC 36.2 H (31.0-35.0) g/dl RDW 15.3 (11.0-16.0) % Plt Count 250 D (160-400) X10*3/uL MPV 7.9 L (9.4-12.3) fL Immature Gran % (Auto) 0.5 H (0.0-0.4) % Neut % (Auto) 84.8 H (45-73) % Lymph % (Auto) 6.2 L (20-40) % [place] % (Auto) 7.9 (2-11) % Eos % (Auto) 0.1 (0-4) % Baso % (Auto) 0.5 (0-2) % Lymph # (Auto) 1.2 (1.2-4.9) X10*3/uL [place] # (Auto) 1.6 H (0.1-1.2) X10*3/uL Eos # (Auto) 0.0 (0.0-0.4) X10*3/uL Baso # (Auto) 0.1 (0.0-0.2) X10*3/uL Abs Immat Gran (auto) 0.10 H (0.00-0.03) X10*3/uL Absolute Neuts (auto) 16.6 H (2.0-8.3) x10*3/uL Absolute Nucleated RBC 0.020 H (0.0-0.012) X10*3/uL Nucleated RBC % (auto) 0.1 (0.0-0.2) /100WBC Smear Tech's Comments VERIFIED VBG pH 7.44 H (7.32-7.43) VBG pCO2 35 mmHg VBG pO2 52 mmHg VBG HCO3 24 (22-26) mmol/L VBG O2 Saturation 83.0 % VBG Base Excess 0.9 mmol/L Sodium 136 (135-145) mmol/L Potassium 3.1 L D (3.3-5.1) mmol/L Chloride 103 (96-108) mmol/L Carbon Dioxide 22 (22-29) mmol/L Anion Gap 14 (12-20) BUN 7 L (9-16) mg/dL Creatinine 0.74 (0.5-1.4) mg/dL Estim Creat Clear Calc 69.8 Estimated GFR > 60 Random Glucose 166 H (60-115) mg/dL Lactic Acid 2.0 (0.5-2.0) mmol/L Calcium 7.9 L (8.4-10.2) mg/dL Total Bilirubin 1.5 H (0.0-1.0) mg/dL AST 22 (5-31) U/L ALT < 6 (0-31) U/L Alkaline Phosphatase 143 H (39-117) U/L Troponin I High Sens 3.4 (<3.5-17.0) ng/L B-Natriuretic Peptide 110 H (<100) pg/mL Total Protein 6.5 (6.5-8.0) g/dL Albumin 3.2 L (3.5-5.0) g/dL Influenza Type A (PCR) NEGATIVE (Negative) Influenza Type B (PCR) NEGATIVE (Negative) RSV RNA Qual (PCR) NEGATIVE (Negative) SARS-CoV-2 RNA (RT-PCR) NEGATIVE (Negative) Independent Interpretation I performed an independent interpretation of an: EKG (Sinus heart rate was 90 ME QRS QTC normal no acute ST segment elevation) and Plain X-Ray (No acute infiltrate) Radiology Impression Discussion of test interpretation with radiology: I have reviewed the radiologist's reading. External Record Review External record reviewed: Inpatient record Chronic Conditions COPD, peripheral vascular disease Social Determinants Patient?s care significantly limited by Social Determinants of Health including: Problems related to primary support group and Unemployment Critical Care Time Critical Care Time Critical Care Time: Yes Total Critical Care Time: 40 Attestation: I have personally provided 40 minutes of critical care time exclusive of time spent on separately billable procedures. ?Time includes review of lab data, radiology results, discussion with consultants, and monitoring for potential decompensation. ?Interventions were performed as documented above Discharge Plan Discharge Clinical Impression: Acute exacerbation of chronic obstructive pulmonary disease Patient Disposition: Admitted As Inpatient Print Language: Czech
[2024-07-23] MEDS: methylPREDNISolone Sod Succ 125 MG/2 ML VIAL IVPUSH (20:07)
[2024-07-23] MEDS: cefTRIAXone sodium 1 GM VIAL IVPUSH (20:07)
[2024-07-23] MEDS: Azithromycin 500 MG TABLET PO (20:07)
[2024-07-23] MEDS: Magnesium Sulfate/H2O 2 GM/50 ML PIGGYBACK IV (20:07)
[2024-07-23 20:39] VITALS: BP 131/82; PULSE 99; RESP 23; O2SAT 93
--- NOTE | 2024-07-23 20:59 | PHA.MEDREC ---
Addendum entered by Jd Walker mildred 07/23/24 21:06: Med rec reviewed Original Note: Pharmacy Consult ? Medication Reconciliation Pharmacy has completed the medication reconciliation. Spoke to patient to confirm med list. Patient states she no longer takes HCTZ 12.5 mg, and Anoro Elipta.
--- NOTE | 2024-07-23 21:58 | PM.IMHP ---
History of Present Illness Date of Service: 07/23/24 Attending physician on admission: Darian Wall Chief Complaint: Shortness of breath, fatigue, cough Patient is a 59-year-old female with a past medical history significant for COPD unspecified, PAD, tobacco use disorder, HTN and hypothyroid, who presented to the ED due to worsening shortness of breath, fatigue and cough. She was recently diagnosed with pneumonia and completed treatment for this. Occasionally, she will have some production with the cough and is unsure of the sputum color but reports no hemoptysis. She is having a hard time talking due to her cough, therefore, her history was limited. she denies any measured fever at home. no nausea, vomting, diarrhea, urinary sx, or abd pain. She has not been eating and drinking much due to her illness. Review of Systems Constitutional: Constitutional: Denies body ache(s), Denies chills, Reports fatigue, Denies fever(s) and Denies headache(s) Eyes: Eyes: Denies change in vision and Denies photophobia ENT: Denies headache(s), Denies nasal congestion, Denies nasal discharge and Denies sore throat Cardiovascular: Cardiovascular: Denies chest pain, Denies rapid heart rate, Denies leg edema, Denies lightheadedness and Reports dyspnea Respiratory: Respiratory: Reports chest congestion, Reports cough, Reports dyspnea and Reports wheezing Gastrointestinal: Gastrointestinal: Denies coffee ground emesis, Denies diarrhea and Denies vomiting Genitourinary: Genitourinary: Denies dysuria and Denies urinary urgency Musculoskeletal: Musculoskeletal: Denies myalgias Integumentary/Breasts: Skin/Breast: Denies rash Neurologic: Denies confusion and Denies headache(s) Psychiatric: Psychiatric: Denies confusion Endocrine: Endocrine: Reports fatigue Hematologic/Lymphatic: Hematologic/Lymphatic: Denies easy bleeding and Denies easy bruising Allergic/Immunologic: Allergic/Immunologic: Reports wheezing [facility] Medical History Left hip pain Left shoulder pain COPD (chronic obstructive pulmonary disease) with emphysema Second degree burn of right foot Microscopic hematuria (~2020) Postmenopausal Plantar fascial fibromatosis of both feet Nicotine dependence, cigarettes, uncomplicated Mild intermittent asthma PAD (peripheral artery disease) Hypertriglyceridemia Impaired fasting glucose Degenerative disc disease, cervical Osteoarthritis involving multiple joints on both sides of body Primary insomnia Acquired hypothyroidism Essential hypertension Functional capacity: independent ambulation Family History Father Esophageal cancer Liver cancer Cancer of kidney Mother Emphysema lung Surgical History History of arthroscopic surgery of shoulder History of colonoscopy History of tubal ligation History of loop electrosurgical excision procedure (LEEP) History of angioplasty (2021) History of carpal tunnel surgery History of rotator cuff surgery (~2008) History of fusion of cervical spine (~2004) Social History Household Members: Family Housing: House Do you presently have visiting nurse or other home services: No Alcohol intake: former Patient Tobacco Use Status: Current everyday Tobacco user Tobacco use type: Cigarette Cigarettes Per Day: 15 Years Smoked: onset 15yo, 1ppd x 44yrs, now 3/4ppd - 40+PYH Smoked in Last 30 Days: Yes e-Cigarette/Vaping Use: Never Used Second Hand Smoke Exposure: No Use of substances other than those prescribed or required for medical reasons: No Advance Directives: Yes Advance Directives on File: Yes Advance Directives Date on File: 09/15/23 Do you have a plan to hurt others: No Plan Nutrition Risks: No Nutritional Risk Patient : No service: No Current occupational status: employed Current occupation: [employer] Sexual orientation: Straight/Heterosexual Gender identity: Female Cognitive needs: No Hearing needs: No Vision needs: Yes Narrative: smokes 1/2-3/4 ppd, few etoh beverages almost daily, no drug use Meds Allergies Allergy/AdvReac Type Severity Reaction Status Date / Time nisoldipine [Sular] Allergy Unknown Unknown Verified 07/23/24 18:21 Sulfa (Sulfonamide Allergy Unknown rash Verified 07/23/24 18:21 Antibiotics) Codeine Phosphate AdvReac Unknown hives Uncoded 05/20/24 12:03 Active Medications: Current Medications Acetaminophen (Acetaminophen 325 Mg Tablet) 975 mg PO Q6H PRN PRN Reason: Pain, Mild 1-3,fever,headache Benzonatate (Benzonatate 100 Mg Capsule) 100 mg PO TID PRN PRN Reason: Cough Calcium Carbonate (Calcium Carbonate 750 Mg Tab.Chew) 750 mg PO Q4H PRN PRN Reason: Heartburn Levalbuterol HCl 2.5 mg/ (Ipratropium [place] 0.5 mg) 0 mg INHALE RQ4H WHILE AWAKE [facility] Enoxaparin Sodium (Enoxaparin Sodium 40 Mg/0.4 Ml Syringe) 40 mg SUBCUT Q24H [facility] Doxycycline Hyclate 100 mg/ (Sodium Chloride) 250 mls @ 166.67 mls/hr IV BID [facility] Magnesium Hydroxide (Milk Of Magnesia 30 Ml Oral.Susp) 30 ml PO DAILY PRN PRN Reason: Constipation Melatonin (Melatonin 3 Mg Tablet) 6 mg PO BEDTIME PRN PRN Reason: Insomnia Methylprednisolone Sodium Succinate (Methylprednisolone Sod Succ 125 Mg/2 Ml Vial) 60 mg IVPUSH Q12H [facility] Ondansetron HCl (Ondansetron Hcl 4 Mg/2 Ml Vial) 4 mg IVPUSH Q8H PRN PRN Reason: Nausea and Vomiting Sodium Chloride (0.9 % Sodium Chloride Flush 3 Ml Syringe) 3 ml IVFLUSH QSHIFT [facility] Home Medications ?Medication ?Instructions ?Recorded ?Confirmed ?Last Taken ?Type levothyroxine 50 mcg tablet 50 mcg PO DAILY@0600 05/20/24 07/23/24 07/23/24 History gabapentin 100 mg capsule 100 mg PO BEDTIME 07/23/24 07/23/24 Unknown History Physical Exam Vital Signs and Narrative: Vital Signs: Last Vital Signs Temp 98.9 F 07/23/24 18:18 Pulse 99 07/23/24 20:39 Resp 23 H 07/23/24 20:39 BP 131/82 07/23/24 20:39 Pulse Ox 93 07/23/24 20:39 O2 Del Method Room Air 07/23/24 20:39 BMI result Body Mass Index 22.7 General: AOx3, couging consistently, appears ill, not in respiratory distress Resp: no wheezing. diminished throughout CVS: S1, S2, RRR GI: +BS, NT, no distention Skin: Warm, dry Neuro: Cranial nerves II-XII grossly intact bilaterally. Motor grossly intact bilaterally Extremities: No LE edema Psych: Appropriate affect Const: General: No confusion Orientation/consciousness: No confusion Eyes: Direct Ophthalmoscopy: No photophobia Neuro: General: No confusion Results Labs 07/23/24 18:43 07/23/24 18:43 Labs: Laboratory Results - last 24 hr 07/23/24 07/23/24 07/23/24 18:43 18:44 18:50 MCV 98.6 H MCH 35.7 H MCHC 36.2 H RDW 15.3 Plt Count 250 D MPV 7.9 L Immature Gran % (Auto) 0.5 H Neut % (Auto) 84.8 H Lymph % (Auto) 6.2 L [place] % (Auto) 7.9 Eos % (Auto) 0.1 Baso % (Auto) 0.5 Lymph # (Auto) 1.2 [place] # (Auto) 1.6 H Eos # (Auto) 0.0 Baso # (Auto) 0.1 Abs Immat Gran (auto) 0.10 H Absolute Neuts (auto) 16.6 H Absolute Nucleated RBC 0.020 H Nucleated RBC % (auto) 0.1 Smear Tech's Comments VERIFIED VBG pH 7.44 H VBG pCO2 35 VBG pO2 52 VBG HCO3 24 VBG O2 Saturation 83.0 VBG Base Excess 0.9 Anion Gap 14 Estim Creat Clear Calc 69.8 Estimated GFR > 60 Random Glucose 166 H Lactic Acid 2.0 Calcium 7.9 L Total Bilirubin 1.5 H AST 22 ALT < 6 Alkaline Phosphatase 143 H B-Natriuretic Peptide 110 H Total Protein 6.5 Albumin 3.2 L Influenza Type A (PCR) NEGATIVE Influenza Type B (PCR) NEGATIVE RSV RNA Qual (PCR) NEGATIVE SARS-CoV-2 RNA (RT-PCR) NEGATIVE Assessment and Plan (1) Sepsis: Status: Acute (2) Acute hypoxic respiratory failure: Status: Acute (3) Acute exacerbation of chronic obstructive pulmonary disease: Status: Acute (4) Hypokalemia: Status: Acute (5) Alcohol use disorder: Status: Acute (6) Tobacco use: Status: Acute Plan Patient is a 59-year-old female with a past medical history significant for COPD/asthma unspecified, PAD, tobacco use disorder, HTN and hypothyroid, who presented to the ED due to worsening shortness of breath, fatigue and cough. Sepsis and acute hypoxic respiratory failure secondary to acute exacerbation of COPD/asthma - WBC 19.6, tachycardic and tachypneic, lactic acid normal, blood cultures x2 pending, not severe sepsis - chest x-ray negative for pneumonia - COVID/flu/RSV negative - BNP 110, no pulmonary edema or lower extremity edema - started on ceftriaxone and azithromycin in ED, discontinue and start doxycycline b.i.d. for bronchitis - Solu-Medrol 125 mg given in ED, continue 60 mg b.i.d. - given IV Mag 2 g in ED - levalbuteral/ipratropium q.4h while awake - Tessalon p.r.n. t.i.d. for cough - BP stable, give 1L LR due to poor PO intake and sepsis - monitor CBC and BMP Hypokalemia - secondary to poor p.o. intake - potassium 40 mEq p.o. - 1 L LR - recheck BMP in a.m. Alcohol use disorder - no history of alcohol withdrawal - monitor CIWA - start phenobarb protocol if CIWA scores elevated - alcohol cessation discussed PAD - continue aspirin Tobacco use disorder - smoking cessation encouraged - patient declines nicotine patch HTN - continue atenolol and losartan Hypothyroid - continue levothyroxine Full code VTE prophylaxis: Lovenox Patient with sepsis and acute hypoxic respiratory failure secondary to acute COPD/asthma exacerbation, requiring admission for at least 2 midnight stay for IV antibiotics, steroids and monitoring. Quality Stroke Does the patient have a stroke diagnosis?: No VTE Prior VTE?: No VTE Risk Level:: Medical - moderate - high VTE Device Contraindication: Treatment Not Indicated VTE Drug Contraindication: N/A - Med Ordered
[2024-07-23] MEDS: Potassium Chloride Packet 20 MEQ PACKET 40 MEQ PO (22:11)
[2024-07-23] MEDS: Doxycycline Hyclate 100 MG in 0.9 % Sodium Chloride 250 ML 166.67 MG IV (22:12)
[2024-07-23] MEDS: Enoxaparin Sodium 40 MG/0.4 ML SYRINGE SUBCUT (22:12)
[2024-07-23 22:19] VITALS: BP 145/81; PULSE 74; RESP 20; O2SAT 95
[2024-07-23 22:50] VITALS: BP 126/66; PULSE 66; RESP 22; TEMP 36.7; O2SAT 95
[2024-07-23] MEDS: Gabapentin 100 MG CAPSULE PO (23:27)
[2024-07-23] MEDS: Lactated Ringers 1,000 ML 999 ML IV (23:30)
[2024-07-24] VITALS (9 sets, daily range): BP systolic 97–141; BP diastolic 57–79; PULSE 57–88; RESP 14–24; TEMP 36.2–37.1; O2SAT 86–96; BMI 21.7
[2024-07-24] MEDS: Levothyroxine Sodium 50 MCG TABLET PO (05:54)
--- NOTE | 2024-07-24 06:37 | HO.SKINPHOTO ---
Location: L Lower Extremity
[2024-07-24 07:00] LABS: Basophils Absolute Auto 0.1 X10*3/uL (0.0-0.2); Basophils Percent Auto 0.3 % (0-2); Hematocrit 36.7 % (37.0-47.0); Imm Gran Abs Auto 0.06 X10*3/uL (0.00-0.03); Imm Gran Pct Auto 0.4 % (0.0-0.4); Lymphocytes Absolute Auto 0.7 X10*3/uL (1.2-4.9); Lymphocytes Percent Auto 4.4 % (20-40); MANUAL DIFF FLAG SCAN; Mean Corpuscular HGB Conc 35.4 g/dl (31.0-35.0); Mean Corpuscular Hemoglobin 35.4 pg (27.0-33.0); Mean Platelet Volume 8.1 fL (9.4-12.3); Monocytes Absolute Auto 0.4 X10*3/uL (0.1-1.2); Monocytes Percent Auto 2.3 % (2-11); Neutrophils Absolute Auto 15.1 x10*3/uL (2.0-8.3); Neutrophils Percent Auto 92.6 % (45-73); Platelet Count 257 X10*3/uL (160-400); Red Blood Count 3.67 X10*6/uL (4.20-5.50); SCAN SMEAR FLAG 1; White Blood Count 16.3 X10*3/uL (4.8-10.8)
[2024-07-24 07:06] LABS: Anion Gap 12 (12-20); Blood Urea Nitrogen 8 mg/dL (9-16); Calcium 7.9 mg/dL (8.4-10.2); Carbon Dioxide 23 mmol/L (22-29); Chloride 108 mmol/L (96-108); Creatinine Clr Calc Pharmacy 77.1; Estimated Glomerular Filt Rate > 60; Glucose Random 191 mg/dL (60-115); Potassium 3.3 mmol/L (3.3-5.1); Sodium 140 mmol/L (135-145)
[2024-07-24] MEDS: levalbuterol HCL 2.5 MG, Ipratropium Bromide 0.5 MG INHALE ×4 (07:48→19:26)
[2024-07-24] MEDS: atenoloL 50 MG TABLET PO (07:57)
[2024-07-24] MEDS: Aspirin Enteric Coated 81 MG TABLET.DR PO (07:57)
[2024-07-24] MEDS: Losartan Potassium 50 MG TABLET PO (07:58)
[2024-07-24] MEDS: Doxycycline Hyclate 100 MG in 0.9 % Sodium Chloride 250 ML 166.67 MG IV ×2 (07:58→20:49)
[2024-07-24] MEDS: methylPREDNISolone Sod Succ 125 MG/2 ML VIAL 60 MG IVPUSH ×2 (07:58→20:41)
[2024-07-24] MEDS: 0.9 % Sodium Chloride Flush 3 ML SYRINGE IVFLUSH ×3 (07:58→20:44)
[2024-07-24 08:47] LABS: SLIDE REVIEW VERIFIED
--- NOTE | 2024-07-24 13:43 | MHC.RECOVRN ---
AUDIT-C Brief Intervention Pt had positive screen for unhealthy alcohol use on admission. Attempted to meet with pt to discuss alcohol use and offer resources, pt declined. Pt declines SAMY and appt for treatment for SAMY, as well. Janette Cazares APRN, aware.
--- NOTE | 2024-07-24 15:33 | MHC.CM.PN ---
Pt. lives with her son, he is HCP, she will complete form when she is feeling better. She does not have home health services or DME. PCP confirmed: Dr. Hua. Pt is able to arrange a ride home at [place]. DCP: home, self care, CM to follow for [place] needs.
--- NOTE | 2024-07-24 16:11 | HO.PM.IMPN ---
Subjective Subjective Date of Service: 07/24/24 Interval History: Still sob and not well Review of Systems All other system reviewed and are negative. Physical Exam Vital Signs: Vital Signs: Last Vital Signs Temp 97.6 F 07/24/24 15:27 Pulse 64 07/24/24 15:27 Resp 24 H 07/24/24 15:27 BP 101/58 L 07/24/24 15:27 Pulse Ox 96 07/24/24 15:27 O2 Del Method Nasal Cannula 07/24/24 15:27 O2 Flow Rate 2 07/24/24 15:27 BMI result Body Mass Index 21.7 Const: Other: General: AO X 3, no acute distress Resp: CTA bilateral CVS: S1,S2,RRR GI: +BS, NT, no distention Skin: No rash Neuro: motor grossly intact Psych: appropriate affect Objective Data Active Medications Acetaminophen (Acetaminophen 325 Mg Tablet) 975 mg PO Q6H PRN PRN Reason: Pain, Mild 1-3,fever,headache Aspirin (Aspirin Enteric Coated 81 Mg Tablet.) 81 mg PO DAILY [facility] Last Admin: 07/24/24 07:57 Dose: 81 mg Documented By: BESSY Atenolol (Atenolol 50 Mg Tablet) 50 mg PO DAILY [facility]; Protocol Last Admin: 07/24/24 07:57 Dose: 50 mg Documented By: BESSY Benzonatate (Benzonatate 100 Mg Capsule) 100 mg PO TID PRN PRN Reason: Cough Calcium Carbonate (Calcium Carbonate 750 Mg Tab.Chew) 750 mg PO Q4H PRN PRN Reason: Heartburn Levalbuterol HCl 2.5 mg/ (Ipratropium [place] 0.5 mg) 0 mg INHALE RQ4H WHILE AWAKE [facility] Last Admin: 07/24/24 15:00 Dose: 3 dose Documented By: FAMILIA Enoxaparin Sodium (Enoxaparin Sodium 40 Mg/0.4 Ml Syringe) 40 mg SUBCUT Q24H [facility] Last Admin: 07/23/24 22:12 Dose: 40 mg Documented By: JACK Gabapentin (Gabapentin 100 Mg Capsule) 100 mg PO BEDTIME [facility] Last Admin: 07/23/24 23:27 Dose: 100 mg Documented By: DANA Doxycycline Hyclate 100 mg/ (Sodium Chloride) 250 mls @ 166.67 mls/hr IV BID [facility] Last Infusion: 07/24/24 09:51 Dose: Infused Documented By: BESSY Levothyroxine Sodium (Levothyroxine Sodium 50 Mcg Tablet) 50 mcg PO DAILY@0600 [facility] Last Admin: 07/24/24 05:54 Dose: 50 mcg Documented By: DANA Losartan Potassium (Losartan Potassium 50 Mg Tablet) 50 mg PO DAILY [facility]; Protocol Last Admin: 07/24/24 07:58 Dose: 50 mg Documented By: BESSY Magnesium Hydroxide (Milk Of Magnesia 30 Ml Oral.Susp) 30 ml PO DAILY PRN PRN Reason: Constipation Melatonin (Melatonin 3 Mg Tablet) 6 mg PO BEDTIME PRN PRN Reason: Insomnia Methylprednisolone Sodium Succinate (Methylprednisolone Sod Succ 125 Mg/2 Ml Vial) 60 mg IVPUSH Q12H [facility] Last Admin: 07/24/24 07:58 Dose: 60 mg Documented By: BESSY Ondansetron HCl (Ondansetron Hcl 4 Mg/2 Ml Vial) 4 mg IVPUSH Q8H PRN PRN Reason: Nausea and Vomiting Sodium Chloride (0.9 % Sodium Chloride Flush 3 Ml Syringe) 3 ml IVFLUSH QSHIFT [facility] Last Admin: 07/24/24 15:59 Dose: 3 ml Documented By: BESSY Labs 07/24/24 06:43 07/24/24 06:43 Labs: Laboratory Results - last 24 hr 07/23/24 07/23/24 07/23/24 18:43 18:44 18:50 MCV 98.6 H MCH 35.7 H MCHC 36.2 H RDW 15.3 Plt Count 250 D MPV 7.9 L Immature Gran % (Auto) 0.5 H Neut % (Auto) 84.8 H Lymph % (Auto) 6.2 L [place] % (Auto) 7.9 Eos % (Auto) 0.1 Baso % (Auto) 0.5 Lymph # (Auto) 1.2 [place] # (Auto) 1.6 H Eos # (Auto) 0.0 Baso # (Auto) 0.1 Abs Immat Gran (auto) 0.10 H Absolute Neuts (auto) 16.6 H Absolute Nucleated RBC 0.020 H Nucleated RBC % (auto) 0.1 Smear Tech's Comments VERIFIED VBG pH 7.44 H VBG pCO2 35 VBG pO2 52 VBG HCO3 24 VBG O2 Saturation 83.0 VBG Base Excess 0.9 Anion Gap 14 Estim Creat Clear Calc 69.8 Estimated GFR > 60 Random Glucose 166 H Lactic Acid 2.0 Calcium 7.9 L Total Bilirubin 1.5 H AST 22 ALT < 6 Alkaline Phosphatase 143 H B-Natriuretic Peptide 110 H Total Protein 6.5 Albumin 3.2 L Influenza Type A (PCR) NEGATIVE Influenza Type B (PCR) NEGATIVE RSV RNA Qual (PCR) NEGATIVE SARS-CoV-2 RNA (RT-PCR) NEGATIVE 07/24/24 06:43 MCV 100.0 H MCH 35.4 H MCHC 35.4 H RDW 15.0 Plt Count 257 MPV 8.1 L Immature Gran % (Auto) 0.4 Neut % (Auto) 92.6 H Lymph % (Auto) 4.4 L [place] % (Auto) 2.3 Eos % (Auto) 0.0 Baso % (Auto) 0.3 Lymph # (Auto) 0.7 L [place] # (Auto) 0.4 Eos # (Auto) 0.0 Baso # (Auto) 0.1 Abs Immat Gran (auto) 0.06 H Absolute Neuts (auto) 15.1 H Absolute Nucleated RBC 0.000 Nucleated RBC % (auto) 0.0 Smear Tech's Comments VERIFIED VBG pH VBG pCO2 VBG pO2 VBG HCO3 VBG O2 Saturation VBG Base Excess Anion Gap 12 Estim Creat Clear Calc 77.1 Estimated GFR > 60 Random Glucose 191 H Lactic Acid Calcium 7.9 L Total Bilirubin AST ALT Alkaline Phosphatase B-Natriuretic Peptide Total Protein Albumin Influenza Type A (PCR) Influenza Type B (PCR) RSV RNA Qual (PCR) SARS-CoV-2 RNA (RT-PCR) Assessment and Plan (1) Wheezing: Status: Acute (2) Mild intermittent asthma: Status: Acute Plan Patient is a 59-year-old female with a past medical history significant for COPD/asthma unspecified, PAD, tobacco use disorder, HTN and hypothyroid, who presented to the ED due to worsening shortness of breath, fatigue and cough. Sepsis and acute hypoxic respiratory failure secondary to acute exacerbation of COPD/asthma - WBC 19.6, tachycardic and tachypneic, lactic acid normal, blood cultures x2 pending, not severe sepsis - chest x-ray negative for pneumonia - COVID/flu/RSV negative - BNP 110, no pulmonary edema or lower extremity edema - started on ceftriaxone and azithromycin in ED, discontinue and start doxycycline b.i.d. for bronchitis - Solu-Medrol 125 mg given in ED, continue 60 mg b.i.d. - given IV Mag 2 g in ED - levalbuteral/ipratropium q.4h while awake - Tessalon p.r.n. t.i.d. for cough - BP stable, give 1L LR due to poor PO intake and sepsis - monitor CBC and BMP -continue doxy Hypokalemia, resolved. Alcohol use disorder - no history of alcohol withdrawal - monitor CIWA - start phenobarb protocol if CIWA scores elevated - alcohol cessation discussed PAD - continue aspirin Tobacco use disorder - smoking cessation encouraged - patient declines nicotine patch HTN - continue atenolol and losartan Hypothyroid - continue levothyroxine Full code VTE prophylaxis: Lovenox Quality Stroke Does the patient have a stroke diagnosis?: No VTE Prior VTE?: No VTE Risk Level:: Medical - moderate - high VTE Device Contraindication: Treatment Not Indicated VTE Drug Contraindication: N/A - Med Ordered
--- NOTE | 2024-07-24 17:06 | HO.WOUND ---
Wound Consult: Initial 59yr old?female admitted [place] [facility] [place] - See progress notes and H&P for detailed history.? Wound consult placed for Left Leg.? Patient agreeable to assessment and photo documentation.? Patient reports she is unsure how she obtained the injury - she reports they cause her no discomfort and requests to note have a dressing placed on them Given the abrasions are stable and intact no dressing needed at this time may leave PIPE STRAIGHT[employer]. There is mild erythema noted in the periwound - advise direct care team to monitor for s/s of infection however at this time there are no s/s of infection. Left Lateral Lower Leg ? Left Leg Re-consult wound care Nurse for wound deterioration or wound changes.
[2024-07-24] MEDS: Benzonatate 100 MG CAPSULE PO (20:40)
[2024-07-24] MEDS: Melatonin 3 MG TABLET 6 MG PO (20:40)
[2024-07-24] MEDS: Enoxaparin Sodium 40 MG/0.4 ML SYRINGE SUBCUT (20:41)
[2024-07-24] MEDS: Gabapentin 100 MG CAPSULE PO (20:41)
[2024-07-25] VITALS (7 sets, daily range): BP systolic 103–124; BP diastolic 60–75; PULSE 54–90; RESP 16–20; TEMP 36.1–37.1; O2SAT 89–96; BMI 22.5
[2024-07-25 06:32] LABS: MANUAL DIFF FLAG NO
[2024-07-25 06:37] LABS: Basophils Percent Auto 0.2 % (0-2); Hematocrit 34.7 % (37.0-47.0); Imm Gran Abs Auto 0.12 X10*3/uL (0.00-0.03); Imm Gran Pct Auto 0.6 % (0.0-0.4); Lymphocytes Absolute Auto 1.2 X10*3/uL (1.2-4.9); Lymphocytes Percent Auto 6.2 % (20-40); Mean Corpuscular HGB Conc 34.6 g/dl (31.0-35.0); Mean Corpuscular Volume 101.2 fL (80.0-98.0); Mean Platelet Volume 8.1 fL (9.4-12.3); Monocytes Absolute Auto 0.6 X10*3/uL (0.1-1.2); Monocytes Percent Auto 3.2 % (2-11); Neutrophils Absolute Auto 16.8 x10*3/uL (2.0-8.3); Neutrophils Percent Auto 89.8 % (45-73); Platelet Count 244 X10*3/uL (160-400); Red Blood Count 3.43 X10*6/uL (4.20-5.50); Red Cell Distribution Width 15.4 % (11.0-16.0); White Blood Count 18.7 X10*3/uL (4.8-10.8)
[2024-07-25 06:51] LABS: Alanine Aminotransferase 6 U/L (0-31); Albumin Level 2.8 g/dL (3.5-5.0); Alkaline Phosphatase 101 U/L (39-117); Anion Gap 13 (12-20); Aspartate Amino Transferase 20 U/L (5-31); Bilirubin Direct 0.2 mg/dL (0.0-0.5); Bilirubin Total 0.6 mg/dL (0.0-1.0); Blood Urea Nitrogen 12 mg/dL (9-16); Calcium 8.3 mg/dL (8.4-10.2); Carbon Dioxide 22 mmol/L (22-29); Chloride 110 mmol/L (96-108); Creatinine Clr Calc Pharmacy 73.8; Estimated Glomerular Filt Rate > 60; Glucose Random 180 mg/dL (60-115); Potassium 3.5 mmol/L (3.3-5.1); Sodium 141 mmol/L (135-145); Total Protein 5.6 g/dL (6.5-8.0)
[2024-07-25] MEDS: levalbuterol HCL 2.5 MG, Ipratropium Bromide 0.5 MG INHALE ×3 (08:01→19:09)
[2024-07-25] MEDS: guaiFEN/Codeine SF 200/20/10ML 10 ML LIQUID 5 ML PO ×2 (09:20→22:17)
[2024-07-25] MEDS: Aspirin Enteric Coated 81 MG TABLET.DR PO (09:20)
[2024-07-25] MEDS: Levothyroxine Sodium 50 MCG TABLET PO (09:20)
[2024-07-25] MEDS: 0.9 % Sodium Chloride Flush 3 ML SYRINGE IVFLUSH ×3 (09:20→22:06)
[2024-07-25] MEDS: atenoloL 50 MG TABLET PO (09:20)
[2024-07-25] MEDS: methylPREDNISolone Sod Succ 125 MG/2 ML VIAL 60 MG IVPUSH ×2 (09:20→22:17)
[2024-07-25] MEDS: Doxycycline Hyclate 100 MG in 0.9 % Sodium Chloride 250 ML 166.67 MG IV ×2 (09:21→22:06)
[2024-07-25] MEDS: Losartan Potassium 50 MG TABLET PO (09:31)
--- NOTE | 2024-07-25 09:39 | HO.PM.IMPN ---
Subjective Subjective Date of Service: 07/25/24 Interval History: seen and evaluated coughing, dyspnea , anxious denies fever ro chills no other events Review of Systems Review of Systems: Yes all other systems are reviewed and are negative Physical Exam Vital Signs: Vital Signs: Last Vital Signs Temp 98.2 F 07/25/24 08:00 Pulse 90 07/25/24 08:04 Resp 18 07/25/24 08:04 BP 124/75 07/25/24 08:00 Pulse Ox 92 07/25/24 08:00 O2 Del Method Room Air 07/25/24 08:00 O2 Flow Rate 2 07/24/24 15:27 BMI result Body Mass Index 22.5 Const: Other: General: AO X 3, no acute distress Resp: decreased bilateral air entry, wheezing bilaterally CVS: S1,S2,RRR GI: +BS, NT, no distention Skin: No rash Neuro: motor grossly intact Psych: appropriate affect Objective Data Active Medications Acetaminophen (Acetaminophen 325 Mg Tablet) 975 mg PO Q6H PRN PRN Reason: Pain, Mild 1-3,fever,headache Aspirin (Aspirin Enteric Coated 81 Mg Tablet.Dr) 81 mg PO DAILY [facility] Last Admin: 07/25/24 09:20 Dose: 81 mg Documented By: BESSY Atenolol (Atenolol 50 Mg Tablet) 50 mg PO DAILY [facility]; Protocol Last Admin: 07/25/24 09:20 Dose: 50 mg Documented By: BESSY Benzonatate (Benzonatate 100 Mg Capsule) 100 mg PO TID PRN PRN Reason: Cough Last Admin: 07/24/24 20:40 Dose: 100 mg Documented By: YUNG Calcium Carbonate (Calcium Carbonate 750 Mg Tab.Chew) 750 mg PO Q4H PRN PRN Reason: Heartburn Levalbuterol HCl 2.5 mg/ (Ipratropium [place] 0.5 mg) 0 mg INHALE RQ4H WHILE AWAKE [facility] Last Admin: 07/25/24 08:01 Dose: 1 dose Documented By: NANETTE Enoxaparin Sodium (Enoxaparin Sodium 40 Mg/0.4 Ml Syringe) 40 mg SUBCUT Q24H [facility] Last Admin: 07/24/24 20:41 Dose: 40 mg Documented By: YUNG Gabapentin (Gabapentin 100 Mg Capsule) 100 mg PO BEDTIME [facility] Last Admin: 07/24/24 20:41 Dose: 100 mg Documented By: YUNG Guaifenesin/Codeine Phosphate (Guaifen/Codeine Sf 200/20/10ml 10 Ml Liquid) 5 ml PO Q6H PRN PRN Reason: Cough Last Admin: 07/25/24 09:20 Dose: 5 ml Documented By: BESSY Doxycycline Hyclate 100 mg/ (Sodium Chloride) 250 mls @ 166.67 mls/hr IV BID [facility] Last Admin: 07/25/24 09:21 Dose: 166.67 mls/hr Documented By: BESSY Levothyroxine Sodium (Levothyroxine Sodium 50 Mcg Tablet) 50 mcg PO DAILY@0600 [facility] Last Admin: 07/25/24 09:20 Dose: 50 mcg Documented By: BESSY Losartan Potassium (Losartan Potassium 50 Mg Tablet) 50 mg PO DAILY [facility]; Protocol Last Admin: 07/25/24 09:31 Dose: 50 mg Documented By: BESSY Magnesium Hydroxide (Milk Of Magnesia 30 Ml Oral.Susp) 30 ml PO DAILY PRN PRN Reason: Constipation Melatonin (Melatonin 3 Mg Tablet) 6 mg PO BEDTIME PRN PRN Reason: Insomnia Last Admin: 07/24/24 20:40 Dose: 6 mg Documented By: YUNG Methylprednisolone Sodium Succinate (Methylprednisolone Sod Succ 125 Mg/2 Ml Vial) 60 mg IVPUSH Q12H [facility] Last Admin: 07/25/24 09:20 Dose: 60 mg Documented By: BESSY Ondansetron HCl (Ondansetron Hcl 4 Mg/2 Ml Vial) 4 mg IVPUSH Q8H PRN PRN Reason: Nausea and Vomiting Sodium Chloride (0.9 % Sodium Chloride Flush 3 Ml Syringe) 3 ml IVFLUSH QSHIFT [facility] Last Admin: 07/25/24 09:20 Dose: 3 ml Documented By: BESSY Labs 07/25/24 06:29 07/25/24 06:29 Labs: Laboratory Results - last 24 hr 07/25/24 06:29 MCV 101.2 H MCH 35.0 H MCHC 34.6 RDW 15.4 Plt Count 244 MPV 8.1 L Immature Gran % (Auto) 0.6 H Neut % (Auto) 89.8 H Lymph % (Auto) 6.2 L [place] % (Auto) 3.2 Eos % (Auto) 0.0 Baso % (Auto) 0.2 Lymph # (Auto) 1.2 [place] # (Auto) 0.6 Eos # (Auto) 0.0 Baso # (Auto) 0.0 Abs Immat Gran (auto) 0.12 H Absolute Neuts (auto) 16.8 H Absolute Nucleated RBC 0.000 Nucleated RBC % (auto) 0.0 Anion Gap 13 Estim Creat Clear Calc 73.8 Estimated GFR > 60 Random Glucose 180 H Calcium 8.3 L Total Bilirubin 0.6 Direct Bilirubin 0.2 AST 20 ALT 6 Alkaline Phosphatase 101 Total Protein 5.6 L Albumin 2.8 L Microbiology Microbiology Results: Microbiology 07/23/24 18:48 Blood Culture - Preliminary Blood - Venous No growth after 24 hours. 07/23/24 18:43 Blood Culture - Preliminary Blood - Venous No growth after 24 hours. Assessment and Plan (1) Tobacco use: Status: Acute (2) Alcohol use disorder: Status: Acute (3) Acute hypoxic respiratory failure: Status: Acute (4) Hypokalemia: Status: Acute (5) Acute exacerbation of chronic obstructive pulmonary disease: Status: Acute Plan Patient is a 59-year-old female with a past medical history significant for COPD/asthma unspecified, PAD, tobacco use disorder, HTN and hypothyroid, who presented to the ED due to worsening shortness of breath, fatigue and cough. Acute hypoxic respiratory failure secondary to acute exacerbation of COPD/asthma improving slowly Continue doxycycline b.i.d. for bronchitis Solu-Medrol 60 mg b.i.d. levalbuteral/ipratropium q.4h while awake Tessalon t.i.d. for cough, Mucine bid wean down O2 as tolerated Hypokalemia, resolved. Alcohol use disorder no history of alcohol withdrawal monitor CIWA start phenobarb protocol if scoring on CIWA alcohol cessation discussed PAD continue aspirin Tobacco use disorder smoking cessation encouraged patient declines nicotine patch HTN continue atenolol and losartan Hypothyroid continue levothyroxine Full code VTE prophylaxis: Lovenox The patient will need overnight hospital stay for treatment of COPD exacerbation with hypoxia on nebulizedrs and IV steroids Quality Stroke Does the patient have a stroke diagnosis?: No VTE Prior VTE?: No VTE Risk Level:: Medical - moderate - high VTE Device Contraindication: Treatment Not Indicated VTE Drug Contraindication: N/A - Med Ordered
[2024-07-25] MEDS: Benzonatate 100 MG CAPSULE 200 MG PO ×3 (10:59→22:05)
[2024-07-25] MEDS: guaiFENesin LA 600 MG TAB.ER.12H PO ×2 (11:00→22:06)
--- NOTE | 2024-07-25 15:22 | P.CDIM_ITS ---
PROVIDER RESPONSE TEXT: To clarify, the appropriate diagnosis supported by the clinical indicators: Acute QUERY TEXT: PHYSICIAN'S DOCUMENTATION REQUEST Date of Query: 07/25/2024 02:25 PM EDT Patient Name: Liliya Richards Admit Date: 07/24/2024 Dear Shruthi Reynolds MD, A review of the medical record indicates additional documentation may be needed. Please review below and update the documentation accordingly. Clinical Indicators: On IV Doxycycline BID for Bronchitis Clarify which of the following accurately represents the acuity of the Bronchitis. Possible options might include: Acute Acute on chronic Compensated Chronic stable condition Remission Other (explain) Clinically unable to determine (explain) Thank you, Isabel Farnsworth RN Use of terms such as suspected, likely, concern for, or probable (associated with a specific diagnosi s that is being evaluated, monitored, or treated as if it exists) are acceptable and can be coded in the inpatient se tting, when documented at the time of discharge. Please use your independent medical judgment in providing your response. THIS QUERY IS PART OF THE PERMANENT MEDICAL RECORD
[2024-07-25] MEDS: Gabapentin 100 MG CAPSULE PO (22:05)
[2024-07-25] MEDS: Enoxaparin Sodium 40 MG/0.4 ML SYRINGE SUBCUT (22:05)
[2024-07-26 03:21] VITALS: BP 138/64; PULSE 56; RESP 16; TEMP 36.1; O2SAT 92
[2024-07-26] MEDS: Levothyroxine Sodium 50 MCG TABLET PO (05:26)
[2024-07-26 05:57] VITALS: BMI 22.6
[2024-07-26 07:11] LABS: MANUAL DIFF FLAG NO
[2024-07-26 07:15] VITALS: BP 144/71; PULSE 63; RESP 18; TEMP 36.8; O2SAT 94
[2024-07-26 07:25] LABS: Basophils Percent Auto 0.1 % (0-2); Hematocrit 33.9 % (37.0-47.0); Hemoglobin 11.8 g/dl (12.0-16.0); Imm Gran Abs Auto 0.15 X10*3/uL (0.00-0.03); Lymphocytes Absolute Auto 1.2 X10*3/uL (1.2-4.9); Lymphocytes Percent Auto 7.7 % (20-40); Mean Corpuscular HGB Conc 34.8 g/dl (31.0-35.0); Mean Corpuscular Hemoglobin 35.6 pg (27.0-33.0); Mean Corpuscular Volume 102.4 fL (80.0-98.0); Mean Platelet Volume 8.2 fL (9.4-12.3); Monocytes Absolute Auto 0.4 X10*3/uL (0.1-1.2); Monocytes Percent Auto 2.5 % (2-11); Neutrophils Absolute Auto 13.3 x10*3/uL (2.0-8.3); Neutrophils Percent Auto 88.7 % (45-73); Platelet Count 266 X10*3/uL (160-400); Red Blood Count 3.31 X10*6/uL (4.20-5.50); Red Cell Distribution Width 15.3 % (11.0-16.0)
[2024-07-26 07:28] LABS: Anion Gap 13 (12-20); Blood Urea Nitrogen 15 mg/dL (9-16); Calcium 8.2 mg/dL (8.4-10.2); Carbon Dioxide 23 mmol/L (22-29); Chloride 110 mmol/L (96-108); Creatinine Clr Calc Pharmacy 72.8; Estimated Glomerular Filt Rate > 60; Glucose Random 186 mg/dL (60-115); Potassium 3.7 mmol/L (3.3-5.1); Sodium 142 mmol/L (135-145)
[2024-07-26] MEDS: Losartan Potassium 50 MG TABLET PO (07:52)
[2024-07-26] MEDS: Aspirin Enteric Coated 81 MG TABLET.DR PO (07:52)
[2024-07-26] MEDS: Doxycycline Hyclate 100 MG in 0.9 % Sodium Chloride 250 ML 166.67 MG IV (07:53)
[2024-07-26] MEDS: atenoloL 50 MG TABLET PO (07:53)
[2024-07-26] MEDS: Benzonatate 100 MG CAPSULE 200 MG PO (07:53)
[2024-07-26] MEDS: guaiFENesin LA 600 MG TAB.ER.12H PO (07:55)
[2024-07-26] MEDS: levalbuterol HCL 2.5 MG, Ipratropium Bromide 0.5 MG INHALE ×2 (07:55→11:10)
[2024-07-26] MEDS: methylPREDNISolone Sod Succ 125 MG/2 ML VIAL 60 MG IVPUSH (07:55)
[2024-07-26] MEDS: 0.9 % Sodium Chloride Flush 3 ML SYRINGE IVFLUSH (07:56)
[2024-07-26 07:59] VITALS: PULSE 68; RESP 18; O2SAT 94
[2024-07-26 11:12] VITALS: PULSE 69; RESP 18; O2SAT 94
--- NOTE | 2024-07-26 12:21 | P.DS_ITS ---
DS: Providers Provider Date of Service: 07/26/24 Date of admission: 07/23/24 20:26 Date of discharge: 07/26/24 Primary care physician: Dede Hua MD Consults: 07/23/24 23:15 Consult to Wound Care Routine Reason for consultation: wound to LLE 07/24/24 12:30 Inpt - Recovery Team Routine Comment: Reason for consultation: [facility]NER Eval DS: Diagnosis Discharge Diagnosis (1) Tobacco use: Status: Acute (2) Alcohol use disorder: Status: Acute (3) Acute hypoxic respiratory failure: Status: Acute (4) Hypokalemia: Status: Acute (5) Acute exacerbation of chronic obstructive pulmonary disease: Status: Acute DS: Summary Hospital Course Hospital Course: Chief Complaint: Shortness of breath, fatigue, cough Patient is a 59-year-old female with a past medical history significant for COPD unspecified, PAD, tobacco use disorder, HTN and hypothyroid, who presented to the ED due to worsening shortness of breath, fatigue and cough. She was recently diagnosed with pneumonia and completed treatment for this. Occasionally, she will have some production with the cough and is unsure of the sputum color but reports no hemoptysis. She is having a hard time talking due to her cough, therefore, her history was limited. she denies any measured fever at home. no nausea, vomting, diarrhea, urinary sx, or abd pain. She has not been eating and drinking much due to her illness. Hospital course The patient is a 59-year-old female with a past medical history of COPD/asthma (unspecified), peripheral artery disease (PAD), tobacco use disorder, hyperten abilio, and hypothyroidism. She presented to the Emergency Department with worsening shortness of breath, fatigue, and cough. Initial workup revealed a WBC count of 19,000; chest X-ray was negative for pneumonia.She was admitted for an acute exacerbation of COPD, likely due to underlying bronchitis. Treatment included IV steroids, nebulized bronchodilators, and supplemental oxygen. She has since been successfully weaned off oxygen, with current oxygen saturation of 94% on room air. She was treated with doxycycline during admission and will be discharged on an oral formulation. Cough management included Tessalon and Robitussin. Smoking cessation counseling was provided and reinforced. Leukocytosis--likely related to above, also noted chroincally elevated, in some instance related to steroid use, she needs repeat labs once off steroid---this should be done outpatient basis Hypokalemia, resolved. Alcohol use disorder no history of alcohol withdrawal Was monitored with [facility] and no alcohol withdrawal symptoms observed. Cessation discussed with her PAD continue aspirin Tobacco use disorder smoking cessation encouraged patient declines nicotine patch HTN continue atenolol and losartan Hypothyroid continue levothyroxine Time Attestation Discharge Coordination Time (in mins): 35 Quality: Safe Use of Opioids Does Pt have an Active Cancer Diagnosis on the Problem List?: No Quality: Stroke Does the patient have a stroke diagnosis?: No Physical Exam Vital Signs: Vital Signs: Last Vital Signs Temp 98.2 F 07/26/24 07:15 Pulse 69 07/26/24 11:12 Resp 18 07/26/24 11:12 BP 144/71 H 07/26/24 07:15 Pulse Ox 94 07/26/24 07:15 O2 Del Method Room Air 07/26/24 07:15 O2 Flow Rate 2 07/24/24 15:27 BMI result Body Mass Index 22.6 General: AO X 3, no acute distress Resp: CTA bilateral CVS: S1,S2,RRR GI: +BS, NT, no distention Skin: No rash Neuro: motor grossly intact Psych: appropriate affect DS: Data Data Completed and Pending Labs on day of discharge: Laboratory Results - last 24 hr 07/26/24 06:52 WBC 15.0 H RBC 3.31 L Hgb 11.8 L Hct 33.9 L MCV 102.4 H MCH 35.6 H MCHC 34.8 RDW 15.3 Plt Count 266 MPV 8.2 L Immature Gran % (Auto) 1.0 H Neut % (Auto) 88.7 H Lymph % (Auto) 7.[address] [place] % (Auto) 2.5 Eos % (Auto) 0.0 Baso % (Auto) 0.1 Lymph # (Auto) 1.2 [place] # (Auto) 0.4 Eos # (Auto) 0.0 Baso # (Auto) 0.0 Abs Immat Gran (auto) 0.15 H Absolute Neuts (auto) 13.3 H Absolute Nucleated RBC 0.000 Nucleated RBC % (auto) 0.0 Sodium 142 Potassium 3.7 Chloride 110 H Carbon Dioxide 23 Anion Gap 13 BUN 15 Creatinine 0.71 Estim Creat Clear Calc 72.8 Estimated GFR > 60 Random Glucose 186 H Calcium 8.2 L Preliminary micro results at discharge 07/23/24 18:48 Blood Culture - Preliminary Blood - Venous No growth after 48 hours. 07/23/24 18:43 Blood Culture - Preliminary Blood - Venous No growth after 48 hours. Discharge Plan Discharge Anticipated Discharge Date/Time: 07/26/24 15:03 Patient Disposition: Home, Self-Care Discharge Diagnosis: acute copd/asthma exacerbation Referrals: Dede Hua MD [Primary Care Provider] - 1 Week Discharge Medications: New doxycycline hyclate 100 mg tablet 100 mg PO BID 5 Days Qty: 10 0RF prednisone 20 mg tablet 20 mg PO DAILY Qty: 6 0RF benzonatate 100 mg Capsule 100 mg PO TID PRN (Reason: cough) Qty: 15 0RF codeine-guaifenesin 10-100 mg/5 mL Liquid 5 ml PO Q6H PRN (Reason: Cough) Qty: 120 0RF Continued aspirin 81 mg tablet,delayed release (DR/EC) 81 mg PO DAILY Qty: 90 4RF albuterol sulfate 90 mcg/actuation HFA aerosol inhaler 2 puff inhalation Q6H PRN (Reason: shortness of breath or wheezing) Qty: 25.5 1RF levothyroxine 50 mcg tablet 50 mcg PO DAILY@0600 gabapentin 100 mg capsule 100 mg PO BEDTIME atenolol 50 mg tablet 50 mg PO DAILY Qty: 90 0RF losartan 50 mg tablet 50 mg PO DAILY Qty: 90 0RF Discharge Orders: Discharge Order (Routine); Ordered 07/26/24 Ordered By: Marcus Littlejohn Diet: Advance to usual diet Activity on Discharge: As tolerated Stand Alone Forms: Patient Portal Discharge page, Work/School Release Print Language: Vietnamese Care Plan Goals: Stabilize respiratory status, prevent further COPD exacerbations, support smoking cessation, and ensure safe transition to home with continued medication adherence and follow-up care. Health Concerns: copd with exacerbation alcohol use disorder leukocytosis Plan of Treatment: * Take doxycycline as prescribed to complete treatment for bronchitis. * Take prednisone as directed to reduce airway inflammation. * Continue using your usual inhalers for COPD/asthma management. * Stop using tobacco or smoking?smoking cessation was discussed and strongly encouraged. * Follow up with your primary care provider in one week. * Ask your doctor to repeat your blood count at follow-up to monitor the previously elevated WBC. Assessment: see above Discharge Date/Time: 07/26/24 14:30
--- NOTE | 2024-07-26 12:39 | MHC.CM.PN ---
Pt has been medically cleared for DC, she will go home via private transport, plan is self care.
--- NOTE | 2024-08-11 18:46 | P.CDIM_ITS ---
PROVIDER RESPONSE TEXT: To clarify, the appropriate diagnosis supported by the clinical indicators: Sepsis is/was present and is a clinical diagnosis QUERY TEXT: PHYSICIAN'S DOCUMENTATION REQUEST Date of Query: 08/02/2024 02:07 PM EDT Patient Name: Liliya Richards Admit Date: 07/24/2024 Dear Marcus Littlejohn MD, A review of the medical record indicates additional documentation may be needed. Please review below and update the documentation accordingly. Documentation on progress note 07/24/24 included the diagnosis of sepsis. The patient's infectious clinical indicators include: pulse 91 WBC 19.6 respiratory rate 24 Sepsis is not noted in the Discharge Summary 07/26/24 Recognized standard criteria for this condition and other infectious definitions includes: Sepsis Systemic manifestations of infection, with 2 or more SIRS criteria which include: Fever > 100.4?F or hypothermia < 96.8?F Leukocytosis - WBC > 12,000 or leukopenia, WBC < 4,000, or > 10% bands Tachycardia- > 90 beats/minute Tachypnea- RR > 20 breaths/minute or PaCO2 < 32mmHg Source: Merck Manual 2013 Documentation should include the known or suspected organism, and the underlying infection, such as U TI or pneumonia Based on the above information and the recognized standard for sepsis, could you please clarify if th is diagnoses is still accurate and reflective of the patient's condition to ensure quality of the medical record. Sepsis is/was present and is a clinical diagnosis After study, Sepsis has been ruled out Other (explain) Clinically unable to determine (explain) Thank you, Isabel Farnsworth RN Use of terms such as suspected, likely, concern for, or probable (associated with a specific diagnosi s that is being evaluated, monitored, or treated as if it exists) are acceptable and can be coded in the inpatient se tting, when documented at the time of discharge. Please use your independent medical judgment in providing your response. THIS QUERY IS PART OF THE PERMANENT MEDICAL RECORD
== END 2024-07-26 14:30 | disposition home or self-care (01) | DRG 720 ==
LOC: HO.ED 19:45 → HO.EDOVER 20:31 → HO.IMC 20:35
PROVIDERS: Physician Assistant; Admitting Provider Physician Assistant; Emergency Provider Emergency Medicine Emergency Medical Services; PCP Internal Medicine; Visit Provider Internal Medicine
DX: A41.9 Sepsis, unspecified organism (principal); J96.01 Acute respiratory failure with hypoxia; J44.0 Chronic obstructive pulmonary disease with (acute) lower respiratory infection; J44.1 Chronic obstructive pulmonary disease with (acute) exacerbation; J45.901 Unspecified asthma with (acute) exacerbation; E87.6 Hypokalemia; E03.9 Hypothyroidism, unspecified; F17.210 Nicotine dependence, cigarettes, uncomplicated; F10.90 Alcohol use, unspecified, uncomplicated; J20.9 Acute bronchitis, unspecified; I10 Essential (primary) hypertension; I73.9 Peripheral vascular disease, unspecified; Z71.6 Tobacco abuse counseling; Z20.822 Contact with and (suspected) exposure to COVID-19; Z79.82 Long term (current) use of aspirin; Z79.890 Hormone replacement therapy; Z79.899 Other long term (current) drug therapy
CPT/HCPCS: 0241U; 36415; 71045; 80048; 80053; 80076; 82803; 83605; 83880; 84484; 85025; 87040; 93005; 94640; 99285; J0696; J1271; J1650; J2919; J3475; J7120

== ENCOUNTER → 2024-07-23 18:21 | Outpatient (BNV) | payer OTHER, SELFPAY | PROVIDERS: Admitting Provider Physician Assistant; Emergency Provider Emergency Medicine Emergency Medical Services; PCP Internal Medicine; Visit Provider Internal Medicine | DX: R94.31 Abnormal electrocardiogram [ECG] [EKG] (principal); R06.02 Shortness of breath | CPT/HCPCS: 93010 ==

== ENCOUNTER → 2024-07-23 18:21 | Outpatient (BNV) | payer OTHER, SELFPAY | PROVIDERS: Emergency Provider Emergency Medicine Emergency Medical Services; PCP Internal Medicine; Visit Provider Specialist | DX: J44.1 Chronic obstructive pulmonary disease with (acute) exacerbation (principal) | CPT/HCPCS: 71045 ==

== ENCOUNTER → 2024-07-23 20:26 | Outpatient (BNV) | payer OTHER, SELFPAY | PROVIDERS: Admitting Provider Physician Assistant; Emergency Provider Emergency Medicine Emergency Medical Services; PCP Internal Medicine; Visit Provider Internal Medicine | DX: A41.9 Sepsis, unspecified organism (principal); J96.01 Acute respiratory failure with hypoxia; J44.1 Chronic obstructive pulmonary disease with (acute) exacerbation; E87.6 Hypokalemia; F10.90 Alcohol use, unspecified, uncomplicated; Z72.0 Tobacco use | CPT/HCPCS: 99223; 99232; 99233 ==

== ENCOUNTER 2024-08-12 13:52 | Outpatient (AMB) | payer OTHER, SELFPAY ==
--- NOTE | 2024-08-12 14:20 | MHC.PC.OV ---
Vital Signs 08/12/24 14:21 Height 5 ft 4 in Weight 125 lb BMI 21.5 BP 100/70 Blood Pressure Location Lt brachial Position Sitting Respiration 17 Pulse 62 Pulse Source Pulse Oximeter Temp 98.1 F Temp Source Oral Pulse Oximetry (%) 96 Oxygen Delivery Method Room Air Intake Visit Reasons: COPD Intake Note: Pt is here today for her HDF COPD Allergies nisoldipine [Sular] Allergy (Unknown, Verified 08/12/24 14:42) Unknown Sulfa (Sulfonamide Antibiotics) Allergy (Unknown, Verified 08/12/24 14:42) rash Codeine Phosphate Adverse Reaction (Unknown, Uncoded 08/12/24 14:42) hives Medication List - Last Reconciled 08/12/24 by Dede Hua MD albuterol sulfate 90 mcg/actuation 2 puffs inhalation Q6H PRN aspirin 81 mg PO DAILY atenolol 50 mg PO DAILY gabapentin 100 mg PO BEDTIME levothyroxine 50 mcg PO DAILY@0600 losartan 50 mg PO DAILY Tobacco use date assessed: 08/12/24 Dental Screening Dental Screen Date: 08/12/24 Did you have a dental visit in the last 12 months?: No Did you have a dental problem in the last 6 months where you did not have access to dental care?: No Was dental information given to patient?: No HPI COPD HPI Details 59-year-old female with a past medical history significant for COPD/asthma unspecified, PAD, tobacco use disorder, HTN and hypothyroid, who presented to the ED due to worsening shortness of breath, fatigue and cough. [place] [id number] with chest x-ray negative for pneumonia. Admitted for acute exacerbation COPD. Treatment included IV steroids, nebulizer treatment with bronchodilators and supplemental oxygen. Has been successfully weaned off oxygen, treated empirically with doxycycline and prescribed Tessalon and Robitussin for cough suppression. Smoking cessation has been advised with counseling given. She has alcohol use disorder, with no history of alcohol withdrawal, monitored with [facility] and no withdrawal symptoms observed, swollen given with regards to stopping alcohol intake. Continue on aspirin 81 mg for her PND and strongly advised to stop smoking. Patient however declines nicotine patch that was offered . Continued on atenolol and losartan for hypertension and continued on current dose of levothyroxine for her hypothyroidism. [facility] Medical History (Updated 08/26/24 @ 04:28 by Dede Hua MD) Leukocytosis (leucocytosis) Left hip pain Left shoulder pain COPD (chronic obstructive pulmonary disease) with emphysema Second degree burn of right foot Microscopic hematuria (~2020) Postmenopausal Plantar fascial fibromatosis of both feet Nicotine dependence, cigarettes, uncomplicated Mild intermittent asthma PAD (peripheral artery disease) Hypertriglyceridemia Impaired fasting glucose Degenerative disc disease, cervical Osteoarthritis involving multiple joints on both sides of body Primary insomnia Acquired hypothyroidism Essential hypertension Surgical History History of arthroscopic surgery of shoulder History of colonoscopy History of tubal ligation History of loop electrosurgical excision procedure (LEEP) History of angioplasty (2021) History of carpal tunnel surgery History of rotator cuff surgery (~2008) History of fusion of cervical spine (~2004) Family History Father Esophageal cancer Liver cancer Cancer of kidney Mother Emphysema lung Social History Household Members: Children Housing: House Do you presently have visiting nurse or other home services: No Alcohol intake: former Patient Tobacco Use Status: Current everyday Tobacco user Tobacco use type: Cigarette Cigarettes Per Day: 15 Years Smoked: onset 15yo, 1ppd x 44yrs, now 3/4ppd - 40+PYH Packs per year/per ci.00 e-Cigarette/Vaping Use: Never Used Second Hand Smoke Exposure: No Advance Directives Date on File: 09/15/23 service: No Current occupational status: employed Current occupation: [employer] Sexual orientation: Straight/Heterosexual Gender identity: Female Cognitive needs: No Hearing needs: No Vision needs: Yes Questionnaire Thrive Questionnaire Date Thrive assessed: 04/08/24 I am a: Patient What is your living situation today?: I have a steady place to live Within the past 12 months, did the food you bought not last and you didn't have the money to get more?: Never true Within the past 12 months, did you worry whether your food would run out before you got money to buy more?: Never true Do you have trouble paying for medicines?: No Do you have trouble getting transportation to medical appointments?: No Do you have trouble paying your heating and electricity bill?: No Do you have trouble taking care of your child, family member or friend?: No Do you have trouble with day-to-day activities such as bathing, preparing meals, shopping, managing finances, etc.?: No Are you currently unemployed and looking for a job?: Yes Are you interested in more education?: No Please select the resources that you would like help with: None Currently or been in a relationship where the following occur: No concerns reported THRIVE Score: 0 JOHN-7 AMB Questionnaire JOHN-7 Date JOHN - 7 assessed: 06/14/24 Source: Developed by Drs. Maurice Talbot, Keke Gonzales, Mickey Henson and colleagues, with an educational elsa from [employer]. Review of Systems Const All systems reviewed & are unremarkable except as noted in HPI and below Physical exam (Primary Care) Vital Signs: Last Vital Signs Temp 98.1 F 08/12/24 14:21 Pulse 62 08/12/24 14:21 Resp 17 08/12/24 14:21 BP 100/70 08/12/24 14:21 Pulse Ox 96 08/12/24 14:21 Oxygen Delivery Method Room Air 08/12/24 14:21 BMI result Body Mass Index 21.5 Tobacco/Smoking Status: Tobacco use Status Tobacco use date assessed 08/12/24 08/12/24 14:26 Patient Tobacco Use Status Current everyday Tobacco 08/12/24 14:26 Tobacco use type Cigarette 08/12/24 14:26 e-Cigarette/Vaping Use Never Used 08/12/24 14:26 Are you ready to quit: No Tobacco cessation counseling provided: Yes Thrive Assessment: Date of Thrive Assessment Date Thrive assessed 04/08/24 08/12/24 14:26 Currently or been in a relationship where the following occur: No concerns reported Const Other: Alert oriented x3, no acute distress noted ambulatory normal gait General: no acute distress Nutritional Appearance: average body habitus Orientation/consciousness: patient oriented x3 HENMT Face and sinus: Yes face symmetric Mouth: Normal oral and palatal mucosa present, oropharynx normal and moist mucous membranes Eyes General: appearance normal, both eyes and all related structures Neck Neck: Yes full ROM, Yes no lymphadenopathy and Yes supple Resp Auscultation: clear to auscultation bilaterally Cardio Rate: regular rate Rhythm: regular rhythm Heart sounds: S1 normal heart sound present and S2 normal heart sound present GI Palpation (GI): Soft to palpation, nontender and no guarding Auscultation: normal bowel sounds Back/Spine/Pelvis Thoracic/Lumbar Spine: straight leg raise negative bilaterally and paraspinal muscle tenderness on the left in the mid lumbar Skin General skin exam: no rashes or lesions noted Neuro General: patient oriented x3 Extrem General: Yes no joint enlargement, Yes no pedal edema, Yes no calf tenderness and Yes normal gait Coding Level of Care Code Est Pt Level 4 (12429) Complex EM visit Add On G2211 Diagnoses Other emphysema J43.8 Emphysema type: other Essential hypertension I10 Acquired hypothyroidism E03.9 Impaired fasting glucose R73.01 PAD (peripheral artery disease) I73.9 Hospital discharge follow-up Z09 Alcohol use disorder F10.90 Leukocytosis (leucocytosis) D72.829 Assessment & Plan Assessment & Plan (1) COPD (chronic obstructive pulmonary disease) with emphysema: Comment: Currently followed by [facility] Code(s): J43.9 - Emphysema, unspecified Category: Medical Qualifiers: Emphysema type: other Qualified Code(s): J43.8 - Other emphysema Plan: Currently on albuterol inhaler, using as needed, declined use of maintenance medications such as Advair or Anoro, previously was on were but did not need to use it, sees Dr. Boston (2) Essential hypertension: Code(s): I10 - Essential (primary) hypertension Category: Medical Plan: Continued on atenolol 50 mg daily and losartan 50 mg once a day (3) Acquired hypothyroidism: Code(s): E03.9 - Hypothyroidism, unspecified Category: Medical Plan: Continued on levothyroxine 50 mcg daily. Ordered TSH and free T4 (4) Impaired fasting glucose: Code(s): R73.01 - Impaired fasting glucose Category: Medical Plan: Your previous fasting blood sugars were elevated above 100 mg/dL. Impaired glucose metabolism increases the risk for developing diabetes mellitus type 2, as well as heart attack and stroke later on. Lifestyle changes that promotes weight loss, healthy eating habits, and regular exercise are important, and can prevent the progression to diabetes (5) PAD (peripheral artery disease): Comment: 06/02/2021 left common iliac stent right common iliac plasty currently followed by Dr. Cruz Code(s): I73.9 - Peripheral vascular disease, unspecified Category: Medical Plan: Continue on aspirin 81 mg daily, strongly advised to quit smoking (6) Hospital discharge follow-up: Code(s): Z09 - Encounter for follow-up examination after completed treatment for conditions other than malignant neoplasm Category: Medical Plan: Continue current home medication (7) Alcohol use disorder: Code(s): F10.90 - Alcohol use, unspecified, uncomplicated Category: Medical Plan: Patient has been given counseled with regards to alcohol use, does not want to quit at present time, will check basic metabolic panel and liver enzymes (8) Leukocytosis (leucocytosis): Code(s): D72.829 - Elevated white blood cell count, unspecified Category: Medical Plan: Will check CBC with differential Orders: Orders Complete Blood Count Auto Diff 08/12/24 Z09 - Encounter for follow-up examination after completed treatment for conditions other than malignant neoplasm, I10 - Essential (primary) hypertension, E03.9 - Hypothyroidism, unspecified, R73.01 - Impaired fasting glucose, I73.9 - Peripheral vascular disease, unspecified Basic Metabolic Panel Fasting 08/12/24 Z09 - Encounter for follow-up examination after completed treatment for conditions other than malignant neoplasm, I10 - Essential (primary) hypertension, E03.9 - Hypothyroidism, unspecified, R73.01 - Impaired fasting glucose, I73.9 - Peripheral vascular disease, unspecified Aspartate Amino Transferase 08/12/24 Z09 - Encounter for follow-up examination after completed treatment for conditions other than malignant neoplasm, I10 - Essential (primary) hypertension, E03.9 - Hypothyroidism, unspecified, R73.01 - Impaired fasting glucose, I73.9 - Peripheral vascular disease, unspecified Alanine Aminotransferase 08/12/24 Z09 - Encounter for follow-up examination after completed treatment for conditions other than malignant neoplasm, I10 - Essential (primary) hypertension, E03.9 - Hypothyroidism, unspecified, R73.01 - Impaired fasting glucose, I73.9 - Peripheral vascular disease, unspecified Hemoglobin A1c 08/12/24 Z09 - Encounter for follow-up examination after completed treatment for conditions other than malignant neoplasm, I10 - Essential (primary) hypertension, E03.9 - Hypothyroidism, unspecified, R73.01 - Impaired fasting glucose, I73.9 - Peripheral vascular disease, unspecified Lipid Panel 08/12/24 Z09 - Encounter for follow-up examination after completed treatment for conditions other than malignant neoplasm, I10 - Essential (primary) hypertension, E03.9 - Hypothyroidism, unspecified, R73.01 - Impaired fasting glucose, I73.9 - Peripheral vascular disease, unspecified Vitamin B12 and Folate 08/12/24 Z09 - Encounter for follow-up examination after completed treatment for conditions other than malignant neoplasm, I10 - Essential (primary) hypertension, E03.9 - Hypothyroidism, unspecified, R73.01 - Impaired fasting glucose, I73.9 - Peripheral vascular disease, unspecified Thyroid Stimulating Hormone 08/12/24 Z09 - Encounter for follow-up examination after completed treatment for conditions other than malignant neoplasm, I10 - Essential (primary) hypertension, E03.9 - Hypothyroidism, unspecified, R73.01 - Impaired fasting glucose, I73.9 - Peripheral vascular disease, unspecified Free T4 (Free Thyroxine) 08/12/24 Z09 - Encounter for follow-up examination after completed treatment for conditions other than malignant neoplasm, I10 - Essential (primary) hypertension, E03.9 - Hypothyroidism, unspecified, R73.01 - Impaired fasting glucose, I73.9 - Peripheral vascular disease, unspecified Vitamin D 25-OH Total 08/12/24 Z09 - Encounter for follow-up examination after completed treatment for conditions other than malignant neoplasm, I10 - Essential (primary) hypertension, E03.9 - Hypothyroidism, unspecified, R73.01 - Impaired fasting glucose, I73.9 - Peripheral vascular disease, unspecified
[2024-08-12 14:21] VITALS: BP 100/70; PULSE 62; RESP 17; TEMP 36.7; O2SAT 96; BMI 21.5
== END 2024-08-12 15:40 | disposition home or self-care (01) ==
LOC: HO.HMCC 13:53
PROVIDERS: PCP Internal Medicine; Visit Provider Internal Medicine
DX: J43.8 Other emphysema (principal); I10 Essential (primary) hypertension; E03.9 Hypothyroidism, unspecified; R73.01 Impaired fasting glucose; I73.9 Peripheral vascular disease, unspecified; Z09 Encounter for follow-up examination after completed treatment for conditions other than malignant neoplasm; F10.90 Alcohol use, unspecified, uncomplicated; D72.829 Elevated white blood cell count, unspecified

== ENCOUNTER → 2024-08-12 13:52 | Outpatient (BNVA) | payer OTHER, SELFPAY | PROVIDERS: PCP Internal Medicine; Visit Provider Internal Medicine | DX: J44.89 Other specified chronic obstructive pulmonary disease (principal); I10 Essential (primary) hypertension; I73.9 Peripheral vascular disease, unspecified; E03.9 Hypothyroidism, unspecified; J43.8 Other emphysema; R73.01 Impaired fasting glucose; D72.829 Elevated white blood cell count, unspecified; F10.90 Alcohol use, unspecified, uncomplicated; F17.210 Nicotine dependence, cigarettes, uncomplicated; Z71.6 Tobacco abuse counseling | CPT/HCPCS: 99212 ==

== ENCOUNTER 2024-09-30 12:15 | Outpatient (REF) | payer OTHER, SELFPAY | END 2024-09-30 12:16 | disposition home or self-care (01) | LOC: HO.LAB 12:15 | PROVIDERS: PCP Internal Medicine; Visit Provider Nurse Practitioner Family | DX: R30.0 Dysuria (principal); R31.9 Hematuria, unspecified; Z13.89 Encounter for screening for other disorder | CPT/HCPCS: 81003; 87086; 87088; 87186; 99212 ==

== ENCOUNTER 2024-09-30 12:15 | Outpatient (AMB) | payer OTHER, SELFPAY ==
[2024-09-30 12:34] VITALS: BP 118/80; PULSE 96; TEMP 36.8; O2SAT 95; BMI 20.9
--- NOTE | 2024-09-30 12:34 | AM.OFFWIN_ITS ---
Intake Vital Signs 09/30/24 12:34 Height 5 ft 4 in Weight 121 lb 8 oz BMI 20.9 BP 118/80 Blood Pressure Location Rt brachial Position Sitting Pulse 96 Pulse Source Pulse Oximeter Temp 98.2 F Temp Source Oral Pulse Oximetry (%) 95 Oxygen Delivery Method Room Air Intake Visit Reasons: EP-uti & blood in urine Intake Note: Patient presents with a burning sensation times 2 days, then woke this morning urinated with visible blood in urine Patient Tobacco Use Status: Current everyday Tobacco user Act English Tutor Required: No Allergies nisoldipine (Sular) Allergy (Unknown, Verified 09/30/24 12:46) Unknown Sulfa (Sulfonamide Antibiotics) Allergy (Unknown, Verified 09/30/24 12:46) rash Codeine Phosphate Adverse Reaction (Unknown, Uncoded 08/12/24 14:42) hives Do you need a note to return to daycare/school/sports/work: No HPI HPI Comments History of Present Illness Details 59 y/o Female patient who presents to [facility] walk in clinic with 2 day h/o Burning with urination associated with Hematuria. [facility] Medical History (Updated 09/30/24 @ 13:24 by Oliva Peterson NP) Dysuria Leukocytosis (leucocytosis) Left hip pain Left shoulder pain COPD (chronic obstructive pulmonary disease) with emphysema Second degree burn of right foot Microscopic hematuria (~2020) Postmenopausal Plantar fascial fibromatosis of both feet Nicotine dependence, cigarettes, uncomplicated Mild intermittent asthma PAD (peripheral artery disease) Hypertriglyceridemia Impaired fasting glucose Degenerative disc disease, cervical Osteoarthritis involving multiple joints on both sides of body Primary insomnia Acquired hypothyroidism Essential hypertension Surgical History History of arthroscopic surgery of shoulder History of colonoscopy History of tubal ligation History of loop electrosurgical excision procedure (LEEP) History of angioplasty (2021) History of carpal tunnel surgery History of rotator cuff surgery (~2008) History of fusion of cervical spine (~2004) Family History Father Esophageal cancer Liver cancer Cancer of kidney Mother Emphysema lung Social History Household Members: Children Housing: House Do you presently have visiting nurse or other home services: No Alcohol intake: former Patient Tobacco Use Status: Current everyday Tobacco user Tobacco use type: Cigarette Cigarettes Per Day: 15 Years Smoked: onset 15yo, 1ppd x 44yrs, now 3/4ppd - 40+PYH e-Cigarette/Vaping Use: Never Used Second Hand Smoke Exposure: No Advance Directives Date on File: 09/15/23 service: No Current occupational status: employed Current occupation: [employer] Sexual orientation: Straight/Heterosexual Gender identity: Female Cognitive needs: No Hearing needs: No Vision needs: Yes Review of Systems Const All systems reviewed & are unremarkable except as noted in HPI and below Physical Exam Vital Signs: Last Vital Signs Temp 98.2 F 09/30/24 12:34 Pulse 96 09/30/24 12:34 BP 118/80 09/30/24 12:34 Pulse Ox 95 09/30/24 12:34 Oxygen Delivery Method Room Air 09/30/24 12:34 BMI result Body Mass Index 20.9 Const General: no acute distress; No comfortable Nutritional Appearance: well nourished Orientation/consciousness: patient oriented x3 General: Yes no CVA tenderness Back/Spine/Pelvis Back: no CVA tenderness Neuro General: patient oriented x3 Psych Speech and movement: Normal speech and movement present Results AMB Urinalysis, Automated UA Leukoctes 500 Marla/uL Last Edit by Sharon Vázquez CMA on 09/30/24 12:56 UA Nitrite Positive Last Edit by Sharon Vázquez CMA on 09/30/24 12:56 UA Urobilinogen 4 mg/dL Last Edit by Sharon Vázquez CMA on 09/30/24 12:56 UA Protein 300 mg/dL Last Edit by Sharon Vázquez CMA on 09/30/24 12:56 UA pH 6.5 Last Edit by Sharon Vázquez CMA on 09/30/24 12:56 UA Blood 200 Hong/uL Last Edit by Sharon Vázquez CMA on 09/30/24 12:56 UA Specific [place] 1.020 Last Edit by Sharon Vázquez CMA on 09/30/24 12:56 UA Ketone Positive Last Edit by Sharon Vázquez CMA on 09/30/24 12:56 UA Bilirubin 2 mg/dL Last Edit by Sharon Vázquez CMA on 09/30/24 12:56 UA Glucose 0 mg/dL Last Edit by Sharon Vázquez CMA on 09/30/24 12:56 Results Reviewed Results Reviewed: Laboratory Last Values Urine pH (Auto) 6.5 09/30/24 12:54 Specific [place] (Auto) 1.020 09/30/24 12:54 Urine Protein (Auto) 300 mg/dL 09/30/24 12:54 Glucose (UA)(Auto) 0 mg/dL 09/30/24 12:54 Urine Ketones (Auto) Positive 09/30/24 12:54 Urine Blood (Auto) 200 Hong/uL 09/30/24 12:54 Urine Nitrite (Auto) Positive 09/30/24 12:54 Urine Bilirubin (Auto) 2 mg/dL 09/30/24 12:54 Urine Urobilinogen (Auto) 4 mg/dL 09/30/24 12:54 Leukocyte Esterase (Auto) 500 Marla/uL 09/30/24 12:54 Assessment & Plan Assessment & Plan (1) Dysuria: Code(s): R30.0 - Dysuria Plan: Urinalysis positive for MARLA, NIT and BLOOD Ordered Urine culture Ordered Cefuroxime for 7 days. Hydrate well with plenty of fluids. Orders: Orders AMB Urinalysis Automated Today Louise Bryant PA-C Z13.9 - Encounter for screening, unspecified Urine Culture Today Oliva Peterson NP R30.0 - Dysuria Medications: New cefuroxime axetil 500 mg PO BID 14 tabs 0RF 7 days Oliva Peterson NP R30.0 - Dysuria Coding Level of Care Code Est Pt Level 4 (25095) Diagnoses Dysuria R30.0 Time Spent (min) 20
== END 2024-09-30 14:01 | disposition home or self-care (01) ==
PROVIDERS: PCP Internal Medicine; Visit Provider Nurse Practitioner Family
DX: Z13.9 Encounter for screening, unspecified (principal); R30.0 Dysuria

== ENCOUNTER → 2024-10-11 07:51 | Outpatient (BNV) | payer OTHER, SELFPAY | PROVIDERS: PCP Internal Medicine; Visit Provider Radiology Diagnostic Radiology | DX: M75.112 Incomplete rotator cuff tear or rupture of left shoulder, not specified as traumatic (principal); M75.52 Bursitis of left shoulder | CPT/HCPCS: 73221 ==

== ENCOUNTER 2024-10-11 07:54 | Outpatient (REF) | payer OTHER, SELFPAY ==
--- NOTE | ~2024-10-11 | MR_ITS ---
EXAMINATION: MR SHOULDER, LEFT WITHOUT CONTRAST CLINICAL INFORMATION: Left shoulder pain, limited range of motion. Symptoms since 02/2024. Other instability left shoulder. COMPARISON: No prior MRI. Left shoulder radiographs 06/11/2024. TECHNIQUE: Multiplanar multisequence MR imaging of the LEFT shoulder was done without IV contrast. Examination performed on a 1.5 Lou Siemens unit utilizing standard sequences. FINDINGS: Rotator Cuff and Biceps Tendon: Supraspinatus: There is mild to moderate calcific tendinopathy of the supraspinatus tendon, with edema and high signal within the tendon. There is a approximate 50% undersurface tear within the critical zone extending to the myotendinous junction (series 8, image 13). There is probable undersurface fraying. No tendinous retraction. There is likely partial tearing at the tendinous insertion. The muscle belly has a normal appearance. Infraspinatus: There is moderate calcific tendinopathy of the infraspinatus tendon, with edema and high signal within the tendon. There is an approximate 50% undersurface tear within the critical zone extending to the myotendinous junction, and continuity with the supraspinatus tear. There is probable undersurface fraying. There is likely partial tearing of the tendinous insertion. There is no tendinous retraction. The muscle belly has a normal appearance. Subscapularis: There is no definite discrete tear identified. There is mild hyperintensity of the tendon consistent with mild tendinopathy. Normal muscle belly. Teres Minor: Intact and normal in signal. Normal muscle belly. Biceps Long Head: Normally located within the bicipital groove. The tendon has focally increased signal centrally, suggestive of delamination type tearing. There is increased fluid within the tendon sheath consistent with tenosynovitis. The tendon within the rotator interval also demonstrates delamination type tearing. This appears to extend to the bicipital anchor. AC Joint and Acromiohumeral Arch: There is mild to moderate predominantly superior surface spurring with mild undersurface spurring of the AC joint, mild periarticular edema, and joint capsular distention. There is mild indentation upon the supraspinatus outlet. There is a type II acromion. There is no subacromial spurring or significant narrowing. Glenohumeral Joint and Labrum: There are findings suggestive of superior and anterior labral tearing. There are mild degenerative changes within the glenohumeral joint, with mild cartilaginous thinning but no full-thickness cartilaginous defect. There is a small joint effusion. Osseous Structures: There is diffuse edema throughout the greater tuberosity subjacent to the footplate attachment of the supraspinatus and infraspinatus tendons, with associated osseous erosions most notable on the T1 coronal sequence (most notable series 6, image 14). Findings likely represent sequela of inflammatory tendinopathy, or possibly stress response. Spino-glenoid Notch: Normal. Quadrilateral Space: Normal. Other: There is moderate subacromial/subdeltoid bursitis. The glenohumeral ligaments are intact without significant thickening. MR/MR shoulder LT wo con IMPRESSION: 1. 50% proximal undersurface tears with associated undersurface fraying of the supraspinatus and infraspinatus tendons. There is associated mild to moderate calcific tendinopathy of both tendons. There is likely partial insertional tearing of both tendons. No tendinous retraction identified. 2. There is diffuse edema and erosive changes involving the greater tuberosity at the footplate insertion of the supraspinatus and infraspinatus tendons, most sequela of inflammatory tendinopathy or possibly related to stress response. 3. There is moderate subacromial/subdeltoid bursitis present. 4. There is delamination type tearing of the long head of the bicipital tendon. There is associated mild tenosynovitis. 5. There is mild calcific tendinopathy of the subscapularis tendon without definite tear. 6. There is a small joint effusion present with mild degenerative arthritis in the glenohumeral joint. There is mild to moderate arthritis in the AC joint. 7. Findings suspicious for superior and anterior labral tearing. Electronically signed by: Damian Kraft MD 10/11/2024 10:01 AM EDT
== END 2024-10-11 07:55 | disposition home or self-care (01) ==
LOC: HO.MRI 07:54
PROVIDERS: PCP Internal Medicine; Visit Provider Physician Assistant
DX: M25.312 Other instability, left shoulder (principal)
CPT/HCPCS: 73221

== ENCOUNTER 2024-11-14 09:19 | Outpatient (AMB) | payer OTHER, SELFPAY ==
[2024-11-14 09:21] VITALS: BMI 20.8
--- NOTE | 2024-11-14 09:21 | A.OFFVIS_ITS ---
Vital Signs 11/14/24 09:21 Height 5 ft 4 in Weight 121 lb BMI 20.8 Intake Visit Reasons: OV-MRI Shoulder LT-DX surgery Intake Note: Liliya is a 59 year old right hand dominant female who presents today for an MRI review of her Left Shoulder. IMPRESSION: 1. 50% proximal undersurface tears with associated undersurface fraying of the supraspinatus and infraspinatus tendons. There is associated mild to moderate calcific tendinopathy of both tendons. There is likely partial insertional tearing of both tendons. No tendinous retraction identified. 2. There is diffuse edema and erosive changes involving the greater tuberosity at the footplate insertion of the supraspinatus and infraspinatus tendons, most sequela of inflammatory tendinopathy or possibly related to stress response. 3. There is moderate subacromial/subdeltoid bursitis present. 4. There is delamination type tearing of the long head of the bicipital tendon. There is associated mild tenosynovitis. 5. There is mild calcific tendinopathy of the subscapularis tendon without definite tear. 6. There is a small joint effusion present with mild degenerative arthritis in the glenohumeral joint. There is mild to moderate arthritis in the AC joint. 7. Findings suspicious for superior and anterior labral tearing. Allergies nisoldipine (Sular) Allergy (Unknown, Verified 09/30/24 12:46) Unknown Sulfa (Sulfonamide Antibiotics) Allergy (Unknown, Verified 09/30/24 12:46) rash Codeine Phosphate Adverse Reaction (Unknown, Uncoded 08/12/24 14:42) hives HPI HPI OV-MRI Shoulder LT-DX surgery: Details: Liliya has had left shoulder pain since 02/24 when she injured her shoulder. She has had pain ever since. Now she cannot sleep or abduct without pain. She did an injection in her shoulder which helped for one day. Now she feels pain with daily activities. She heats her home with wood so she can no longer cut wood. Abduction is also difficult and sleeping is very difficult. She is now taking Gabapentin specifically for her shoulder. Takes 400 mg 2-3 times a day. 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 She works at [employer] in [employer]. She has done PT and this was not helpful. She had a right shoulder surgery about 10 years ago which was complicated by postoperative adhesive capsulitis. [facility] Medical History (Updated 11/14/24 @ 09:48 by Jose G Osman MD) Dysuria Leukocytosis (leucocytosis) Left hip pain Left shoulder pain COPD (chronic obstructive pulmonary disease) with emphysema Second degree burn of right foot Microscopic hematuria (~2020) Postmenopausal Plantar fascial fibromatosis of both feet Nicotine dependence, cigarettes, uncomplicated Mild intermittent asthma PAD (peripheral artery disease) Hypertriglyceridemia Impaired fasting glucose Degenerative disc disease, cervical Osteoarthritis involving multiple joints on both sides of body Primary insomnia Acquired hypothyroidism Essential hypertension Surgical History History of arthroscopic surgery of shoulder History of colonoscopy History of tubal ligation History of loop electrosurgical excision procedure (LEEP) History of angioplasty (2021) History of carpal tunnel surgery History of rotator cuff surgery (~2008) History of fusion of cervical spine (~2004) Family History Father Esophageal cancer Liver cancer Cancer of kidney Mother Emphysema lung Social History Household Members: Children Housing: House Do you presently have visiting nurse or other home services: No Alcohol intake: former Patient Tobacco Use Status: Current everyday Tobacco user Tobacco use type: Cigarette Cigarettes Per Day: 15 Years Smoked: onset 15yo, 1ppd x 44yrs, now 3/4ppd - 40+PYH e-Cigarette/Vaping Use: Never Used Second Hand Smoke Exposure: No Advance Directives Date on File: 09/15/23 service: No Current occupational status: employed Current occupation: [employer] Sexual orientation: Straight/Heterosexual Gender identity: Female Cognitive needs: No Hearing needs: No Vision needs: Yes Physical Exam Vital Signs: BMI result Body Mass Index 20.8 Const General: cooperative, healthy appearing, no acute distress and well groomed Orientation/consciousness: oriented to person and oriented to place HEENT Head: Yes normal to inspection, Yes normocephalic and Yes atraumatic Eyes General: appearance normal, both eyes and all related structures Alignment and Position: alignment normal Conjunctivae: conjunctivae normal EOM: EOMs intact bilaterally Neck Neck: Yes normal visual inspection and Yes trachea midline Resp Other: No rerpiratory distress Effort & Inspection: normal respiratory effort and able to speak in complete sentences Cardio Other: Palpable radial pulse with no appreciable rythmic abnormalities GI Other: No abdominal distension Back/Spine/Pelvis Cervical Spine: normal cervical lordosis and cervical ROM normal Skin General skin exam: no rashes or lesions noted Neuro General: oriented to person, oriented to place and gait normal Extrem Other: 45/90/130/S1 4+/5 EC 4+/5 ER at 0 Neg H/N Results Reviewed Results Reviewed: I personally reviewed the MR images. 1. 50% proximal undersurface tears with associated undersurface fraying of the supraspinatus and infraspinatus tendons. There is associated mild to moderate calcific tendinopathy of both tendons. There is likely partial insertional tearing of both tendons. No tendinous retraction identified. 2. There is diffuse edema and erosive changes involving the greater tuberosity at the footplate insertion of the supraspinatus and infraspinatus tendons, most sequela of inflammatory tendinopathy or possibly related to stress response. 3. There is moderate subacromial/subdeltoid bursitis present. 4. There is delamination type tearing of the long head of the bicipital tendon. There is associated mild tenosynovitis. 5. There is mild calcific tendinopathy of the subscapularis tendon without definite tear. 6. There is a small joint effusion present with mild degenerative arthritis in the glenohumeral joint. There is mild to moderate arthritis in the AC joint. 7. Findings suspicious for superior and anterior labral tearing. I personally reviewed relevant radiographs. Radiographs from 03/26 demonstrate fx of greater tuberosity, avualsion type. Assessment & Plan Assessment & Plan (1) Rotator cuff tear, left: Code(s): M75.102 - Unspecified rotator cuff tear or rupture of left shoulder, not specified as traumatic Category: Medical Plan: This is a 59 yo with 2 years of shoulder pain after a injury. It appears, based on her imaging, that she may have sustained a greater tuberosity fracture and that this is gone on to result in a painful dysfunctional rotator cuff tear. Her MRI and clinical exam are consistent with a high-grade partial tear and the MRI clearly demonstrates a defect in the greater tuberosity. I discussed options with her including activity modification, continued NSAID and PT use as well as surgical options including rotator cuff repair. She feels she can not live like this has the quality of her life is diminished and she can not engage in meaningful daily activities. I discussed the risks, benefits and alternatives with her. I discussed the risk of infection, stiffness, nerve injury, need for further surgery as well as potential complications with anesthesia among others. She understands that this surgery is elective. She understands that there are risks associated with surgery and that in my opinion, the benefits outweigh the risks. I discussed with her. I also discussed that she has a 7-8 cigarettes a day smoking habit and she has COPD. These are both risk factors for postoperative complications. The COPD is controlled with albuterol and she states she has no shortness of breath at baseline. I strongly encouraged her to stop smoking. Smoking, however, is not a absolute contraindication to rotator cuff repair but it is a risk factor for increased risks including infection, delayed healing, stiffness and pain as well as lung related complications associated with anesthesia. She understands this and would like to proceed forward. I answered all of her questions to the best of my abilities. Coding Level of Care Code Est Pt Level 4 (43176) Diagnoses Rotator cuff tear, left M75.102
== END 2024-11-14 10:11 | disposition home or self-care (01) ==
LOC: HO.HOS 09:20
PROVIDERS: PCP Internal Medicine; Visit Provider Orthopaedic Surgery
DX: M75.102 Unspecified rotator cuff tear or rupture of left shoulder, not specified as traumatic (principal)
CPT/HCPCS: 99214

== ENCOUNTER → 2024-11-14 09:19 | Outpatient (BNVA) | payer OTHER, SELFPAY | PROVIDERS: PCP Internal Medicine; Visit Provider Orthopaedic Surgery | DX: Z71.2 Person consulting for explanation of examination or test findings (principal); M75.102 Unspecified rotator cuff tear or rupture of left shoulder, not specified as traumatic | CPT/HCPCS: 99212 ==

== ENCOUNTER 2025-01-17 08:13 | Outpatient (REF) | payer OTHER, SELFPAY ==
--- NOTE | ~2025-01-17 | XR_ITS ---
CLINICAL HISTORY: M54.9 - Dorsalgia, unspecified 3 views lumbar spine Comparison: None provided Findings: Normal alignment. No acute fractures or dislocation. No significant degenerative change. Arterial calcifications are present. Endovascular stent of the proximal left common iliac artery. Mild osteopenia. L4-5: Grade 1 anterolisthesis L4 over L5. Moderate DJD. Vacuum disc phenomena. L5-S1: Mild DJD. IMPRESSION: 1. Grade 1 anterolisthesis of L4 over L5 with moderate degenerative changes, including vacuum disc phenomena. 2. Mild degenerative changes at L5-S1. 3. Endovascular stent in the proximal left common iliac artery with arterial calcifications. 4. Mild osteopenia. This document has been electronically signed by: Alan Allen MD on 01/19/2025 18:34:00
== END 2025-01-17 08:14 | disposition home or self-care (01) ==
LOC: HO.HOSX 08:13
PROVIDERS: Visit Provider Physical Medicine & Rehabilitation
DX: G89.29 Other chronic pain (principal); M51.360 Other intervertebral disc degeneration, lumbar region with discogenic back pain only
CPT/HCPCS: 72100; 99202

== ENCOUNTER 2025-01-17 08:52 | Outpatient (AMB) | payer OTHER, SELFPAY ==
--- NOTE | 2025-01-17 09:12 | MHC.OFFVIS ---
Vital Signs 01/17/25 09:15 Height 5 ft 4 in Weight 134 lb BMI 23.0 Intake Visit Reasons: [employer]- Lower back pain Intake Note: Liliya is a 59 year old female who presents today as a new patient for her lower back pain. Patient was referred by 07/02/24. At today's visit she states that for the past year she has had lower back pain that does not radiate down her legs or up to the mid back but only across her lower back. She states that she has not tried physical therapy,injections, ice/heat or NSAIDs. Allergies nisoldipine (Sular) Allergy (Unknown, Verified 01/17/25 09:15) Unknown Sulfa (Sulfonamide Antibiotics) Allergy (Unknown, Verified 01/17/25 09:15) rash Codeine Phosphate Adverse Reaction (Unknown, Uncoded 08/12/24 14:42) hives Medication List - Last Reconciled 01/17/25 by Camille Calabrese MD albuterol sulfate 90 mcg/actuation 2 puffs inhalation Q6H PRN aspirin 81 mg PO DAILY diclofenac sodium 75 mg PO BID PRN 30 days gabapentin 100 mg PO BEDTIME levothyroxine 50 mcg PO DAILY@0600 losartan 50 mg PO DAILY HPI Comments Details: Chronic low back non radicular, axial. Never saw a specialist in the past. No back injuries. Severity can go up to 10/10, stabbing, center. Worse with bending over. No bladder/bowel changes. No gait changes. Lumbar x-ray done today, images reviewed by me, shows loss of disc space L4-5. [facility] Medical History (Updated 01/17/25 @ 09:52 by Camille Calabrese MD) Dysuria Leukocytosis (leucocytosis) Left hip pain Left shoulder pain COPD (chronic obstructive pulmonary disease) with emphysema Second degree burn of right foot Microscopic hematuria (~2020) Postmenopausal Plantar fascial fibromatosis of both feet Nicotine dependence, cigarettes, uncomplicated Mild intermittent asthma PAD (peripheral artery disease) Hypertriglyceridemia Impaired fasting glucose Degenerative disc disease, cervical Osteoarthritis involving multiple joints on both sides of body Primary insomnia Acquired hypothyroidism Essential hypertension Surgical History History of arthroscopic surgery of shoulder History of colonoscopy History of tubal ligation History of loop electrosurgical excision procedure (LEEP) History of angioplasty (2021) History of carpal tunnel surgery History of rotator cuff surgery (~2008) History of fusion of cervical spine (~2004) Family History Father Esophageal cancer Liver cancer Cancer of kidney Mother Emphysema lung Social History Household Members: Children Housing: House Do you presently have visiting nurse or other home services: No Alcohol intake: former Patient Tobacco Use Status: Current everyday Tobacco user Tobacco use type: Cigarette Cigarettes Per Day: 15 Years Smoked: onset 15yo, 1ppd x 44yrs, now 3/4ppd - 40+PYH e-Cigarette/Vaping Use: Never Used Second Hand Smoke Exposure: No Advance Directives Date on File: 09/15/23 service: No Current occupational status: employed Current occupation: [employer] Sexual orientation: Straight/Heterosexual Gender identity: Female Cognitive needs: No Hearing needs: No Vision needs: Yes Review of Systems Const All systems reviewed & are unremarkable except as noted in HPI and below Physical Exam Exam Exam: Constitutional: Patient appears to be in no acute distress, well nourished and well developed. Patient was appropriately conversant and oriented. Good historian. MSK: No specific abnormalities found on inspection of the spine and all extremities. Some tenderness over lumbar facets, especially right side. Mild tenderness over right SI joint. GT nontender. Lumbar ROM was full. Bilateral hip, knee and ankle ROM WNL. No ligamentous laxity or crepitance. No increased effusion. Straight-leg raising test negative. FABERE test positive bilateral. Strength is 5/5 in all muscle groups tested. No increased tone noted. Neurological: Neurologic examination of the upper and lower extremities was nonfocal with intact sensation, muscle stretch reflexes and without focal motor deficits . De La Rosa?s negative bilaterally. Babinski was down going bilaterally. Clonus was negative. Gait is non-antalgic without loss of balance. Vital Signs: BMI result Body Mass Index 23.0 Results Reviewed Results Reviewed: Await lumbar x-ray reading. I reviewed records from the following: Orthopedics Assessment & Plan Assessment & Plan (1) Disc degeneration, lumbar: Code(s): M51.369 - Other intervertebral disc degeneration, lumbar region without mention of lumbar back pain or lower extremity pain Category: Medical Qualifiers: Disc-related pain type: discogenic back pain only Qualified Code(s): M51.360 - Other intervertebral disc degeneration, lumbar region with discogenic back pain only (2) Chronic back pain: Code(s): M54.9 - Dorsalgia, unspecified; G89.29 - Other chronic pain Category: Medical Qualifiers: Back pain location: low back pain Back pain laterality: bilateral Sciatica presence: without sciatica Qualified Code(s): M54.50 - Low back pain, unspecified; G89.29 - Other chronic pain Plan Chronic axial back pain. No signs of lumbar radiculopathy on exam. We discussed lumbar x-ray images, visualized loss of disc space L4-5. We talked about how chronic axial back pain could come from other factors such as myofascial, lumbar facet, SI joint. We agreed on sending patient to physical therapy. We talked about possible referral to injections, whether lumbar facet versus epidural, if PT does not help. If sending for injections in the future, we will need an MRI. Assessment and plan discussed with patient, and patient was agreeable. All questions were answered thoroughly. Follow up 3 months. Camille Calabrese MD, KRYSTIAN Board Certified, [place] [employer] and Rehabilitation (ABPMR) Board Certified, [place] [employer] Electro[employer] (ABEM) Orders: Orders XR lumbar spine 2-3V Today M54.9 - Dorsalgia, unspecified PT Evaluation and Treatment Today G89.29 - Other chronic pain, M51.369 - Other intervertebral disc degeneration, lumbar region without mention of lumbar back pain or lower extremity pain, M54.9 - Dorsalgia, unspecified Coding Level of Care Code New Pt Level 4 (00865) Diagnoses Degeneration of intervertebral disc of lumbar region with discogenic back pain M51.360 Disc-related pain type: discogenic back pain only Chronic bilateral low back pain without sciatica M54.50; G89.29 Back pain location: low back pain Back pain laterality: bilateral Sciatica presence: without sciatica
[2025-01-17 09:15] VITALS: BMI 23.0
== END 2025-01-17 09:33 | disposition home or self-care (01) ==
LOC: HO.HOS 08:53
PROVIDERS: PCP Internal Medicine; Visit Provider Physical Medicine & Rehabilitation
DX: M51.360 Other intervertebral disc degeneration, lumbar region with discogenic back pain only (principal); M54.50 Low back pain, unspecified; G89.29 Other chronic pain
CPT/HCPCS: 99204

== ENCOUNTER → 2025-01-17 08:54 | Outpatient (BNV) | payer OTHER, SELFPAY | PROVIDERS: Visit Provider Radiology Diagnostic Radiology | DX: M51.360 Other intervertebral disc degeneration, lumbar region with discogenic back pain only (principal); M85.88 Other specified disorders of bone density and structure, other site | CPT/HCPCS: 72100 ==

== ENCOUNTER 2025-01-27 10:40 | Outpatient (AMB) | payer OTHER, SELFPAY ==
[2025-01-27 10:43] VITALS: BP 122/77; PULSE 101; O2SAT 98; BMI 21.5
--- NOTE | 2025-01-27 10:43 | MHC.OFFVIS ---
Vital Signs 01/27/25 10:43 Height 5 ft 4 in Weight 125 lb BMI 21.5 BP 122/77 Blood Pressure Location Lt brachial Position Sitting Pulse 101 H Pulse Source Pulse Oximeter Pulse Oximetry (%) 98 Oxygen Delivery Method Room Air Intake Visit Reasons: -01/29 L Rot. Cuff Allergies nisoldipine (Sular) Allergy (Unknown, Verified 01/17/25 09:15) Unknown Sulfa (Sulfonamide Antibiotics) Allergy (Unknown, Verified 01/17/25 09:15) rash Codeine Phosphate Adverse Reaction (Unknown, Uncoded 08/12/24 14:42) hives HPI HPI -01/29 L Rot. Cuff: Details: 59-year-old lady, active 30+ pack-year smoker followed for moderate COPD. She has been using Anoro and albuterol MDI with good control of his symptoms. She denies recent exacerbations. She does complain of a lingering cough after recent URI. [facility] Medical History (Updated 01/27/25 @ 10:56 by Scot Boston MD) Dysuria Leukocytosis (leucocytosis) Left hip pain Left shoulder pain COPD (chronic obstructive pulmonary disease) with emphysema Second degree burn of right foot Microscopic hematuria (~2020) Postmenopausal Plantar fascial fibromatosis of both feet Nicotine dependence, cigarettes, uncomplicated Mild intermittent asthma PAD (peripheral artery disease) Hypertriglyceridemia Impaired fasting glucose Degenerative disc disease, cervical Osteoarthritis involving multiple joints on both sides of body Primary insomnia Acquired hypothyroidism Essential hypertension Surgical History History of arthroscopic surgery of shoulder History of colonoscopy History of tubal ligation History of loop electrosurgical excision procedure (LEEP) History of angioplasty (2021) History of carpal tunnel surgery History of rotator cuff surgery (~2008) History of fusion of cervical spine (~2004) Family History Father Esophageal cancer Liver cancer Cancer of kidney Mother Emphysema lung Social History Household Members: Children Housing: House Do you presently have visiting nurse or other home services: No Alcohol intake: former Patient Tobacco Use Status: Current everyday Tobacco user Tobacco use type: Cigarette Cigarettes Per Day: 15 Years Smoked: onset 15yo, 1ppd x 44yrs, now 3/4ppd - 40+PYH e-Cigarette/Vaping Use: Never Used Second Hand Smoke Exposure: No Advance Directives Date on File: 09/15/23 service: No Current occupational status: employed Current occupation: [employer] Sexual orientation: Straight/Heterosexual Gender identity: Female Cognitive needs: No Hearing needs: No Vision needs: Yes Review of Systems Const Denies daytime sleepiness, Denies excessive sweating, Denies fatigue, Denies fever(s), Denies lethargy, Denies malaise, Denies night sweats, Denies snoring and Denies weight loss Eyes Denies blurry vision and Denies itchy eyes ENT Denies nasal congestion, Denies post nasal drip, Denies sinus pain, Denies sinus pressure and Denies other ( Thrush) Card Denies chest pain, Denies pedal edema, Denies dyspnea, Denies orthopnea and Denies paroxysmal nocturnal dyspnea Resp Reports cough, Denies hemoptysis, Denies excessive phlegm production, Denies dyspnea, Denies snoring and Denies wheezing GI Denies abdominal pain and Denies heartburn Musc Denies myalgias, Denies arthralgias and Denies joint swelling Skin/Breast Denies rash Neuro Denies memory loss and Denies seizure-like activity Psych Denies abnormal sleep pattern, Denies anxiety and Denies memory loss Endo Denies excessive sweating, Denies fatigue and Denies heat intolerance Catalino/Lymph Denies easy bruising Aller/Immun Denies itchy eyes, Denies seasonal rhinorrhea and Denies wheezing Physical Exam Vital Signs: Last Vital Signs Pulse 101 H 01/27/25 10:43 BP 122/77 01/27/25 10:43 Pulse Ox 98 01/27/25 10:43 Oxygen Delivery Method Room Air 01/27/25 10:43 BMI result Body Mass Index 21.5 Const General: no acute distress and alert Nutritional Appearance: not obese Orientation/consciousness: Other orientation findings ( oriented) HEENT Head: Yes atraumatic Eyes General: appearance normal, both eyes and all related structures Sclerae: sclerae normal EOM: EOMs intact bilaterally Neck Neck: Yes supple Lymphatic: no lymphadenopathy noted Resp Effort & Inspection: normal respiratory effort and no use of accessory muscles Auscultation: clear to auscultation bilaterally Cardio Rate: regular rate Rhythm: regular rhythm Heart sounds: no gallops, no murmurs and no rubs Skin General skin exam: other ( warm) Extrem General: No clubbing, No cyanosis and No edema Assessment & Plan Assessment & Plan (1) COPD (chronic obstructive pulmonary disease) with emphysema: Code(s): J43.9 - Emphysema, unspecified Category: Medical Qualifiers: Emphysema type: other Qualified Code(s): J43.8 - Other emphysema Plan: Well controlled on current regimen of Anoro and albuterol MDI. Continue current regimen. Still with lingering cough after recent URI, will treat with a course of azithromycin. (2) Nicotine dependence, cigarettes, uncomplicated: Comment: (current smoker, onset 15yo, 1ppd x 44yrs, now 3/4ppd - 40+PYH) Code(s): F17.210 - Nicotine dependence, cigarettes, uncomplicated Category: Medical Plan: Results of lung cancer screening CT chest from July of 2024 reviewed, no worrisome nodules are noted. Continue with yearly screening. (3) Preop pulmonary/respiratory exam: Code(s): Z01.811 - Encounter for preprocedural respiratory examination Category: Medical Plan: At this time patient is at low risk for pulmonary perioperative complications for the proposed rotator cuff surgery either under general anesthesia or monitored anesthesia care. Coding Level of Care Code Est Pt Level 4 (45288) Complex EM visit Add On G2211 Diagnoses Other emphysema J43.8 Emphysema type: other Nicotine dependence, cigarettes, uncomplicated F17.210 Preop pulmonary/respiratory exam Z01.811
== END 2025-01-27 10:56 | disposition home or self-care (01) ==
LOC: HO.HPS 10:41
PROVIDERS: PCP Internal Medicine; Visit Provider Internal Medicine Pulmonary Disease
DX: J43.8 Other emphysema (principal); F17.210 Nicotine dependence, cigarettes, uncomplicated; Z01.811 Encounter for preprocedural respiratory examination
CPT/HCPCS: 99214

== ENCOUNTER → 2025-01-27 10:40 | Outpatient (BNVA) | payer OTHER, SELFPAY | PROVIDERS: PCP Internal Medicine; Visit Provider Internal Medicine Pulmonary Disease | DX: Z01.811 Encounter for preprocedural respiratory examination (principal); J43.8 Other emphysema; F17.210 Nicotine dependence, cigarettes, uncomplicated | CPT/HCPCS: 99212 ==

== ENCOUNTER 2025-02-11 08:24 | Outpatient (REF) | payer OTHER, SELFPAY ==
[2025-02-11 08:41] LABS: MANUAL DIFF FLAG NO
--- NOTE | 2025-02-11 08:47 | ECG_ITS ---
Test Reason : PREOP Blood Pressure : */* mmHG Vent. Rate : 81 BPM Atrial Rate : 81 BPM P-R Int : 124 ms QRS Dur : 88 ms QT Int : 394 ms P-R-T Axes : 81 73 66 degrees QTcB Int : 457 ms Sinus rhythm with Premature atrial complexes Otherwise normal ECG When compared with ECG of 23-Jul-2024 18:31, Premature atrial complexes are now Present Nonspecific T wave abnormality no longer evident in Lateral leads Referred By: Dede Hua Electronically Signed By: MITESH MORALEZ MD
[2025-02-11 09:44] LABS: Hematocrit 45.3 % (37.0-47.0); Hemoglobin 15.9 g/dl (12.0-16.0); Imm Gran Abs Auto 0.04 X10*3/uL (0.00-0.03); Imm Gran Pct Auto 0.5 % (0.0-0.4); Lymphocytes Absolute Auto 1.9 X10*3/uL (1.2-4.9); Mean Corpuscular HGB Conc 35.1 g/dl (31.0-35.0); Mean Corpuscular Hemoglobin 35.1 pg (27.0-33.0); Mean Corpuscular Volume 100.0 fL (80.0-98.0); NRBC Abs Auto 0.000 X10*3/uL (0.0-0.012); NRBC Pct Auto 0.0 /100WBC (0.0-0.2); Platelet Count 259 X10*3/uL (160-400); Red Blood Count 4.53 X10*6/uL (4.20-5.50); White Blood Count 8.0 X10*3/uL (4.8-10.8)
[2025-02-11 10:08] LABS: Alanine Aminotransferase 9 U/L (0-31); Anion Gap 14 (12-20); Aspartate Amino Transferase 21 U/L (5-31); Blood Urea Nitrogen 10 mg/dL (9-16); Calcium 9.1 mg/dL (8.4-10.2); Carbon Dioxide 24 mmol/L (22-29); Chloride 104 mmol/L (96-108); Cholesterol 131 mg/dL (<200); Estimated Glomerular Filt Rate > 60; HDL Cholesterol 44 mg/dL (>40); Potassium 4.1 mmol/L (3.3-5.1); Sodium 138 mmol/L (135-145); Triglycerides 146 mg/dL (<150)
[2025-02-11 10:27] LABS: Folate 2.5 ng/mL (> or = 4.0); Vitamin B12 263 pg/mL (200-900)
[2025-02-11 10:34] LABS: Free T4 (Free Thyroxine) 1.11 ng/dL (0.71-1.85); Thyroid Stimulating Hormone 1.07 uIU/mL (0.32-4.0)
== END 2025-02-11 08:25 | disposition home or self-care (01) ==
LOC: HO.LAB 08:24
PROVIDERS: PCP Internal Medicine; Visit Provider Internal Medicine
DX: Z01.818 Encounter for other preprocedural examination (principal); Z09 Encounter for follow-up examination after completed treatment for conditions other than malignant neoplasm; I10 Essential (primary) hypertension; E03.9 Hypothyroidism, unspecified; I73.9 Peripheral vascular disease, unspecified; J43.8 Other emphysema; F10.90 Alcohol use, unspecified, uncomplicated; R73.01 Impaired fasting glucose
CPT/HCPCS: 36415; 80048; 80061; 82306; 82607; 82746; 83036; 84439; 84443; 84450; 84460; 85025; 93005

== ENCOUNTER → 2025-02-11 08:47 | Outpatient (BNV) | payer OTHER, SELFPAY | PROVIDERS: PCP Internal Medicine; Visit Provider Internal Medicine Cardiovascular Disease | DX: I48.91 Unspecified atrial fibrillation (principal) | CPT/HCPCS: 93010 ==

== ENCOUNTER 2025-02-14 11:43 | Outpatient (AMB) | payer OTHER, SELFPAY ==
[2025-02-14 11:52] VITALS: BP 116/82; PULSE 90; TEMP 36.3; O2SAT 95; BMI 21.8
--- NOTE | 2025-02-14 11:52 | AM.OFFWIN_ITS ---
Intake Vital Signs 02/14/25 11:52 Height 5 ft 4 in Weight 127 lb BMI 21.8 BP 116/82 Blood Pressure Location Rt brachial Position Sitting Pulse 90 Pulse Source Pulse Oximeter Temp 97.3 F Temp Source Oral Pulse Oximetry (%) 95 Oxygen Delivery Method Room Air Intake Visit Reasons: EP coughing up blood stuffy nose Intake Note: pt presents with non resolving chest congestion with productive coughing (yellow mucus), sinus congestion x2 wks- pt states she saw her p ulomnologist 01/27/25 was rx'd zpak and pt completed this 2 days ago Patient Tobacco Use Status: Current everyday Tobacco user Allergies Sulfa (Sulfonamide Antibiotics) Allergy (Unknown, Verified 01/17/25 09:15) rash Codeine Phosphate Adverse Reaction (Unknown, Uncoded 08/12/24 14:42) hives Do you need a note to return to daycare/school/sports/work: No HPI HPI Comments History of Present Illness Details This is a 59-year-old female with a past medical history of COPD, not currently oxygen dependent, who continues to use tobacco daily and is managed by Dr. Boston, habilitation specialist, presenting for evaluation of a cough that she has had for the past 2-3 weeks. Patient was on Augmentin at the time her cough started and was prescribed a Z-Mic by her habilitation specialist thereafter. Patient completed her Azithromycin 2 days ago. She denies having any fevers, chills, chest pain or shortness of breath. Patient is scheduled to have left shoulder rotator cuff repair on March 05, 2025. Patient has not been using her albuterol with an increased frequency. [facility] Medical History (Updated 01/27/25 @ 10:56 by Scot Boston MD) Dysuria Leukocytosis (leucocytosis) Left hip pain Left shoulder pain COPD (chronic obstructive pulmonary disease) with emphysema Second degree burn of right foot Microscopic hematuria (~2020) Postmenopausal Plantar fascial fibromatosis of both feet Nicotine dependence, cigarettes, uncomplicated Mild intermittent asthma PAD (peripheral artery disease) Hypertriglyceridemia Impaired fasting glucose Degenerative disc disease, cervical Osteoarthritis involving multiple joints on both sides of body Primary insomnia Acquired hypothyroidism Essential hypertension Surgical History History of arthroscopic surgery of shoulder History of colonoscopy History of tubal ligation History of loop electrosurgical excision procedure (LEEP) History of angioplasty (2021) History of carpal tunnel surgery History of rotator cuff surgery (~2008) History of fusion of cervical spine (~2004) Family History Father Esophageal cancer Liver cancer Cancer of kidney Mother Emphysema lung Social History Household Members: Children Housing: House Do you presently have visiting nurse or other home services: No Alcohol intake: former Patient Tobacco Use Status: Current everyday Tobacco user Tobacco use type: Cigarette Cigarettes Per Day: 15 Years Smoked: onset 15yo, 1ppd x 44yrs, now 3/4ppd - 40+PYH e-Cigarette/Vaping Use: Never Used Second Hand Smoke Exposure: No Advance Directives Date on File: 09/15/23 service: No Current occupational status: employed Current occupation: [employer] Sexual orientation: Straight/Heterosexual Gender identity: Female Cognitive needs: No Hearing needs: No Vision needs: Yes Review of Systems Const All systems reviewed & are unremarkable except as noted in HPI and below Denies body aches, Denies chills, Denies fatigue and Denies fever(s) Eyes Reports no additional complaints ENT Reports no additional complaints Card Denies chest pain, Denies pedal edema, Denies edema and Denies dyspnea on exertion Resp Reports as per HPI, Denies chest congestion, Reports cough, Denies dyspnea on exertion and Denies wheezing GI Reports no additional complaints, Denies nausea and Denies vomiting Musc Reports no additional complaints Skin/Breast Reports system reviewed and no additional complaints, except as documented Neuro Reports no additional complaints Psych Reports no additional complaints Endo Reports no additional complaints and Denies fatigue Aller/Immun Denies wheezing Physical Exam Vital Signs: Last Vital Signs Temp 97.3 F 02/14/25 11:52 Pulse 90 02/14/25 11:52 BP 116/82 02/14/25 11:52 Pulse Ox 95 02/14/25 11:52 Oxygen Delivery Method Room Air 02/14/25 11:52 BMI result Body Mass Index 21.8 Const General: cooperative, comfortable, well developed, alert, awake and Physically active; No lethargic Nutritional Appearance: thin Orientation/consciousness: patient oriented x3 and No lethargic Limitations: no limitations Resp Effort & Inspection: normal respiratory effort, able to speak in complete sentences, no audible wheezes, respiratory effort not decreased, not labored, no nasal flaring and not tachypneic Auscultation: wheezes expiratory wheezes and left lower Cardio Rate: regular rate Rhythm: regular rhythm Skin General skin exam: no rashes or lesions noted Neuro General: patient oriented x3 Psych Appearance: grossly normal Mental Status: mental status grossly normal Insight: Good insight present (Psych) Judgement: Good judgement present (Psych) Results Reviewed Results Reviewed: CXR reviewed with patient. Assessment & Plan Assessment & Plan (1) Cough: Code(s): R05.9 - Cough, unspecified Qualifiers: Cough type: subacute Plan: Patient has a history of COPD and she is not hypoxic or tachypneic at this time. There are no acute findings noted on chest x-ray. Patient will be discharged home with prednisone. Plan Prednisone 40 mg daily x5 days, Mucinex OTC with increased clear fluids. Orders: Orders XR chest 2V Today R05.9 - Cough, unspecified Medications: New prednisone 40 mg (2 x 20 mg) PO DAILY 10 tabs 0RF Coding Level of Care Code Est Pt Level 3 (25145) Diagnoses Cough R05.9 Cough type: subacute Time Spent (min) 20
== END 2025-02-14 12:36 | disposition home or self-care (01) ==
PROVIDERS: PCP Internal Medicine; Visit Provider Physician Assistant
DX: R05.9 Cough, unspecified (principal)

== ENCOUNTER 2025-02-14 11:43 | Outpatient (REF) | payer OTHER, SELFPAY ==
--- NOTE | ~2025-02-14 | XR_ITS ---
EXAMINATION: XR CHEST CLINICAL INFORMATION: R05.9 - Cough, unspecified COMPARISON: July 23, 2024 TECHNIQUE: 2 views of the chest were obtained. FINDINGS: Again seen are changes related to ACDF of the lower cervical spine. Lungs are mildly hyperinflated with attenuated pulmonary vascularity. There is no new airspace disease. Heart and mediastinal contours are within normal limits. No pleural effusion is evident. Two chronic compression fractures are present in the midthoracic spine. XR/XR chest 2V IMPRESSION: No acute abnormality, stable chest x-ray. Two chronic compression fractures are present in the midthoracic spine. Electronically signed by: Bridger Albarado MD 02/14/2025 12:33 PM [facility]
== END 2025-02-14 11:44 | disposition home or self-care (01) ==
LOC: HO.HMGCX 11:43
PROVIDERS: PCP Internal Medicine; Visit Provider Physician Assistant
DX: R05.1 Acute cough (principal); F17.210 Nicotine dependence, cigarettes, uncomplicated; Z87.09 Personal history of other diseases of the respiratory system
CPT/HCPCS: 71046; 99212

== ENCOUNTER → 2025-02-14 12:13 | Outpatient (BNV) | payer OTHER, SELFPAY | PROVIDERS: PCP Internal Medicine; Visit Provider Radiology Diagnostic Radiology | DX: R05.9 Cough, unspecified (principal) | CPT/HCPCS: 71046 ==

== ENCOUNTER 2025-02-19 12:45 | Outpatient (AMB) | payer OTHER, SELFPAY ==
--- NOTE | 2025-02-19 12:56 | A.OFFPC_ITS ---
Vital Signs 02/19/25 12:58 Height 5 ft 4 in Weight 129 lb BMI 22.1 BP 120/70 Blood Pressure Location Rt brachial Position Sitting Respiration 17 Pulse 75 Pulse Source Pulse Oximeter Temp 98.6 F Temp Source Oral Pulse Oximetry (%) 97 Oxygen Delivery Method Room Air Intake Visit Reasons: Lt rotator cuff repair Dr. Osman 03/05 Intake Note: Pt is here today for her pre-op for Lt rotator cuff repair Dr. Osman 03/05/25 Allergies Sulfa (Sulfonamide Antibiotics) Allergy (Unknown, Verified 03/02/25 20:54) rash oxycodone (From Percocet) Adverse Reaction (Verified 03/02/25 20:54) Vomiting Codeine Phosphate Adverse Reaction (Unknown, Uncoded 03/02/25 20:54) hives Medication List - Last Reconciled 02/19/25 by Dede Hua MD albuterol sulfate 90 mcg/actuation 2 puffs inhalation Q6H PRN aspirin 81 mg PO DAILY diclofenac sodium 75 mg PO BID PRN 30 days gabapentin 100 mg PO BEDTIME levothyroxine 50 mcg PO DAILY@0600 losartan 50 mg PO DAILY umeclidinium-vilanterol 62.5-25 mcg/actuation (Anoro Ellipta) 1 ea inhalation DAILY Tobacco use date assessed: 02/19/25 Dental Screening Dental Screen Date: 02/19/25 Did you have a dental visit in the last 12 months?: No Did you have a dental problem in the last 6 months where you did not have access to dental care?: No Was dental information given to patient?: Patient declined HPI Lt rotator cuff repair Dr. Osman 03/05 HPI Details The patient is a 59-year-old female here today complaining of a persistent cough. The patient reports an ongoing cough and wheezing, seen in urgent care last week and completed a 5-day course of 40 mg prednisone. Despite some improvement with prednisone, the cough and wheezing persist. Prior treatments for this episode included self-administered Augmentin and a three-day course of levofloxacin, neither of which were effective. She also completed a course of azithromycin prescribed by Dr. Boston, with minimal improvement. Her current respiratory medications include Anoro Ellipta daily and an albuterol inhaler as needed. She has a history of COPD, continues to smoke cigarettes at least half a pack a day. Chest x-ray done 02/14/2025 showed no acute pulmonary process going with two chronic midthoracic compression fractures noted. She has a history of a left shoulder fracture about a year ago and has subsequently developed a frozen shoulder. The surgery is scheduled for 03/05/2025, and she will be off work for two months with lifting restrictions, for which her FMLA has been approved. [facility] Medical History Back pain Thyroid disease URI, acute Asthma Dysuria Leukocytosis (leucocytosis) Left hip pain Left shoulder pain COPD (chronic obstructive pulmonary disease) with emphysema Second degree burn of right foot Microscopic hematuria (~2020) Postmenopausal Plantar fascial fibromatosis of both feet Nicotine dependence, cigarettes, uncomplicated Mild intermittent asthma PAD (peripheral artery disease) Hypertriglyceridemia Impaired fasting glucose Degenerative disc disease, cervical Osteoarthritis involving multiple joints on both sides of body Primary insomnia Acquired hypothyroidism Essential hypertension Surgical History History of arthroscopic surgery of shoulder History of colonoscopy History of tubal ligation History of loop electrosurgical excision procedure (LEEP) History of angioplasty (2021) History of rotator cuff surgery (~2008) History of fusion of cervical spine (~2004) Family History Father Esophageal cancer Liver cancer Cancer of kidney Mother Emphysema lung Social History Household Members: Children Housing: House Are you a primary doggy daycare activities director to a significant other at home: No Do you presently have visiting nurse or other home services: No Alcohol intake: former Patient Tobacco Use Status: Current everyday Tobacco user Tobacco use type: Cigarette Cigarette Packs Per Day: 0.5 Cigarettes Per Day: 10.0 Years Smoked: onset 15yo, 1ppd x 44yrs, now 3/4ppd - 40+PYH e-Cigarette/Vaping Use: Never Used Second Hand Smoke Exposure: No Advance Directives Date on File: 09/15/23 service: No Current occupational status: employed Current occupation: [employer] Sexual orientation: Straight/Heterosexual Gender identity: Female Cognitive needs: No Hearing needs: No Vision needs: Yes Questionnaire Thrive Questionnaire Date Thrive assessed: 04/08/24 I am a: Patient What is your living situation today?: I have a steady place to live Within the past 12 months, did the food you bought not last and you didn't have the money to get more?: Never true Within the past 12 months, did you worry whether your food would run out before you got money to buy more?: Never true Do you have trouble paying for medicines?: No Do you have trouble getting transportation to medical appointments?: No Do you have trouble paying your heating and electricity bill?: No Do you have trouble taking care of your child, family member or friend?: No Do you have trouble with day-to-day activities such as bathing, preparing meals, shopping, managing finances, etc.?: No Are you currently unemployed and looking for a job?: Yes Are you interested in more education?: No Please select the resources that you would like help with: None Currently or been in a relationship where the following occur: No concerns reported THRIVE Score: 0 JOHN-7 AMB Questionnaire JOHN-7 Date JOHN - 7 assessed: 06/14/24 Source: Developed by Drs. Maurice Talbot, Keke Gonzales, Mickey Henson and colleagues, with an educational elsa from [employer]. Review of Systems Const All systems reviewed & are unremarkable except as noted in HPI and below Physical exam (Primary Care) Vital Signs: Last Vital Signs Temp 98.6 F 02/19/25 12:58 Pulse 75 02/19/25 12:58 Resp 17 02/19/25 12:58 BP 120/70 02/19/25 12:58 Pulse Ox 97 02/19/25 12:58 Oxygen Delivery Method Room Air 02/19/25 12:58 BMI result Body Mass Index 22.1 Tobacco/Smoking Status: Tobacco use Status Tobacco use date assessed 02/19/25 02/19/25 13:02 Patient Tobacco Use Status Current everyday Tobacco 02/19/25 13:02 Tobacco use type Cigarette 02/19/25 13:02 e-Cigarette/Vaping Use Never Used 02/19/25 13:02 Are you ready to quit: No Tobacco cessation counseling provided: Yes Thrive Assessment: Date of Thrive Assessment Date Thrive assessed 04/08/24 02/19/25 13:02 Currently or been in a relationship where the following occur: No concerns reported Const Other: Alert oriented x3, no acute distress noted ambulatory normal gait Orientation/consciousness: patient oriented x3 HENMT Face and sinus: Yes face symmetric Mouth: Normal oral and palatal mucosa present, oropharynx normal and moist mucous membranes Eyes General: appearance normal, both eyes and all related structures Neck Neck: Yes full ROM, Yes no lymphadenopathy and Yes supple Resp Auscultation: no rales and wheezes scattered wheezes Cardio Rate: regular rate Rhythm: regular rhythm Heart sounds: S1 normal heart sound present and S2 normal heart sound present GI Palpation (GI): Soft to palpation, nontender and no guarding Auscultation: normal bowel sounds Skin General skin exam: no rashes or lesions noted Neuro General: patient oriented x3, gait normal, moves all extremities and no focal motor deficits Extrem General: Yes no joint enlargement, Yes no pedal edema, Yes no calf tenderness and Yes normal gait Coding Level of Care Code Est Pt Level 4 (81779) Diagnoses COPD (chronic obstructive pulmonary disease) with emphysema J43.9 Assessment & Plan Assessment & Plan (1) COPD (chronic obstructive pulmonary disease) with emphysema: Code(s): J43.9 - Emphysema, unspecified Category: Medical Plan: The patient presents with a persistent cough and wheezing despite recent courses of multiple antibiotics and oral prednisone. Chest x-ray showed no acute pulmonary findings started on fluticasone inhaler was sent, with instructions to use 1-2 puffs twice daily for one month. The patient was advised to use a spacer and to follow up by phone early next week if symptoms do not improve, at which point a course of doxycycline will be considered. The importance of smoking and alcohol cessation was reinforced. 2. Left rotator cuff injury The patient is scheduled for surgery She will have physical therapy post-operatively and will be out of work for two months with no lifting. The patient has not yet received her flu shot and was advised to get one once her current respiratory illness resolves Patient was informed and verbally consented to the use of an ambient scribe for clinic note documentation during this visit. Medications: New fluticasone propionate 110 mcg/actuation 1 puff inhalation Q12H 12 grams 0RF J43.8 - Other emphysema
[2025-02-19 12:58] VITALS: BP 120/70; PULSE 75; RESP 17; TEMP 37; O2SAT 97; BMI 22.1
== END 2025-02-19 14:39 | disposition home or self-care (01) ==
LOC: HO.HMCC 12:46
PROVIDERS: PCP Internal Medicine; Visit Provider Internal Medicine
DX: J43.9 Emphysema, unspecified (principal)

== ENCOUNTER → 2025-02-19 12:45 | Outpatient (BNVA) | payer OTHER, SELFPAY | PROVIDERS: PCP Internal Medicine; Visit Provider Internal Medicine | DX: Z01.818 Encounter for other preprocedural examination (principal); J43.9 Emphysema, unspecified; F17.210 Nicotine dependence, cigarettes, uncomplicated; Z71.6 Tobacco abuse counseling; Z79.899 Other long term (current) drug therapy | CPT/HCPCS: 99212 ==

== ENCOUNTER 2025-02-25 11:20 | Outpatient (AMB) | payer OTHER, SELFPAY ==
--- NOTE | 2025-02-25 11:41 | A.OFFVIS_ITS ---
Vital Signs 02/25/25 11:42 Height 5 ft 4 in Weight 129 lb BMI 22.1 BP 129/84 Blood Pressure Location Lt brachial Position Sitting Pulse 90 Pulse Source Pulse Oximeter Pulse Oximetry (%) 99 Handedness Right Intake Visit Reasons: Preop LT RTC Repair 03/05/25 NE Intake Note: Liliya is a 59 year old right hand dominant female who presents today for a pre op appointment for her left shoulder rotator cuff Repair 03/05/25 NE. Allergies Sulfa (Sulfonamide Antibiotics) Allergy (Unknown, Verified 02/25/25 11:45) rash oxycodone (From Percocet) Adverse Reaction (Verified 02/25/25 11:45) Vomiting Codeine Phosphate Adverse Reaction (Unknown, Uncoded 02/19/25 12:57) hives HPI HPI Preop LT RTC Repair 03/05/25 NE: Details: Ms. Richards is a 59-year-old right-hand dominant female who presents to the office today for her preoperative history and physical examination pending left shoulder rotator cuff repair tentatively scheduled for 03/05/[address] Osman. Patient has had pain since February of 2024 when she initially injured her left shoulder. She has had pain ever since. She is unable to sleep or abduct the arm without pain. She did have an injection which only helped her for 1 day as well as physical therapy with no relief. 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 [facility] Medical History (Updated 02/18/25 @ 12:05 by Flavia Barrett RN) Back pain Thyroid disease URI, acute Asthma Dysuria Leukocytosis (leucocytosis) Left hip pain Left shoulder pain COPD (chronic obstructive pulmonary disease) with emphysema Second degree burn of right foot Microscopic hematuria (~2020) Postmenopausal Plantar fascial fibromatosis of both feet Nicotine dependence, cigarettes, uncomplicated Mild intermittent asthma PAD (peripheral artery disease) Hypertriglyceridemia Impaired fasting glucose Degenerative disc disease, cervical Osteoarthritis involving multiple joints on both sides of body Primary insomnia Acquired hypothyroidism Essential hypertension Surgical History (Updated 02/25/25 @ 11:53 by Sara Moore PA-C) History of arthroscopic surgery of shoulder History of colonoscopy History of tubal ligation History of loop electrosurgical excision procedure (LEEP) History of angioplasty (2021) History of rotator cuff surgery (~2008) History of fusion of cervical spine (~2004) Family History Father Esophageal cancer Liver cancer Cancer of kidney Mother Emphysema lung Social History Household Members: Children Housing: House Are you a primary workforce investment act career manager to a significant other at home: No Do you presently have visiting nurse or other home services: No Alcohol intake: former Patient Tobacco Use Status: Current everyday Tobacco user Tobacco use type: Cigarette Cigarette Packs Per Day: 0.5 Cigarettes Per Day: 10.0 Years Smoked: onset 15yo, 1ppd x 43yrs, now 3/4ppd - 40+PYH e-Cigarette/Vaping Use: Never Used Second Hand Smoke Exposure: No Advance Directives Date on File: 09/15/23 service: No Current occupational status: employed Current occupation: [employer] Sexual orientation: Straight/Heterosexual Gender identity: Female Cognitive needs: No Hearing needs: No Vision needs: Yes Review of Systems Const All systems reviewed & are unremarkable except as noted in HPI and below Physical Exam Vital Signs: Last Vital Signs Pulse 90 02/25/25 11:42 BP 129/84 02/25/25 11:42 Pulse Ox 99 02/25/25 11:42 BMI result Body Mass Index 22.1 Const General: cooperative, healthy appearing and no acute distress Resp Effort & Inspection: normal respiratory effort and able to speak in complete sentences Cardio Rate: regular rate Peripheral pulses: Peripheral pulses 2+ throughout Skin Lesions: no lesions Rashes: no rashes Extrem Other: Left shoulder: Forward flexion to 120 degrees. Abduction to 45 degrees. Pain with cross-body reach. 3/5 strength with empty can. Negative drop arm. NVI. Assessment & Plan Assessment & Plan (1) Rotator cuff insufficiency of left shoulder: Code(s): M25.312 - Other instability, left shoulder Category: Medical Plan I discussed the proposed right shoulder arthroscopy procedure for rotator cuff repair in detail and that the goal of the surgery is to relieve pain and improve shoulder function, strength and attempt to prevent further tendon damage or muscle degeneration.? The procedure is typically done arthroscopically, although in some cases an open incision may be needed (biceps tenodesis).? The torn tendons are sutured and reattached to the bone using anchors.? Other necessary procedures (ie.)? Subacromial decompression and debridement may be performed based on intraoperative findings.? We discussed the risks, benefits and alternatives to the surgery as well as the rehabilitation course.? The risks; which include, but are not limited to infection, bleeding, nerve injury, ongoing pain, swelling, and stiffness, perioperative risk of injury to bones and soft tissues, and blood clots.? Specific risks to the shoulder include stiffness, frozen shoulder, re-tear of the repair, incomplete pain relief, shoulder weakness, delayed healing or nonhealing of the tendon and hardware (anchor) irritation. ?? Expected Benefits: Improve shoulder strength and function. Reduce or eliminate pain, restore motion for daily activities and work. Prevention of tear enlargement and/or further muscle degeneration. Improve quality of life and allow return to sports or hobbies.? Alternatives: Continued physical therapy, NSAIDs, cortisone injections and/or activity modifications.? The patient is aware these may manage symptoms but will not repair the torn tendon. Postoperative recovery was also discussed with the patient.? The patient will remain in the sling for 6 weeks postoperatively and attend physical therapy for several months.? The patient will be unable to drive for 6 weeks while he is in the sling and/or while taking narcotic pain medication.? Full recovery may take 6-12 months.? Adherence to the rehabilitation plan is essential for optimal outcome.? A physical therapy order has been placed while in the office today with instruction given to the patient to contact physical therapy to make an appointment for one week status post surgery.? Additionally, the patient was fit for an abduction sling while in the office today off the shelf.? This will be brought the day of surgery. Post operative medications were sent to the [facility] pharmacy while in the office today with instructions for the pharmacy to bring to the PACU on the date of surgery.? Oxycodone 5mg PO Q4-6H PRN, quantity 42 tabs as well as Zofran 8 mg ODT to be taken once a day as needed for nausea. The patient has had the opportunity to ask all questions and was satisfied with all answers.? The patient demonstrates understanding of the risks, benefits and alternatives.? The patient understands that there are no guarantees that can be made regarding the outcome. Patient was fit for a sling off the shelf while in the office today. With the patient's understanding they have consented to move forward with the administration of anesthesia, left shoulder arthroscopic rotator cuff repair as well as any additional procedures deemed necessary during surgery. The surgical consent form was given to the patient for additional review and signed by the patient with myself as a witness. In regards to outpatient physical therapy, patient would like to attend [facility] [place]. I provided the patient with an outpatient physical therapy paper prescription and instructed the patient to contact [facility] and begin physical therapy 1 week after date of surgery. Patient understands and accepts. Orders: Orders PT Evaluation and Treatment Today Z98.890 - Other specified postprocedural states Medications: New oxycodone-acetaminophen 5-325 mg Partial Fill upon patient request. 1 tab PO Q4-6H PRN 42 tabs 0RF pain 7 days ondansetron 8 mg PO DAILY PRN 7 tabs 0RF nausea and vomiting 7 days Coding Level of Care Code Global (94050) Diagnoses Rotator cuff insufficiency of left shoulder M25.312
[2025-02-25 11:42] VITALS: BP 129/84; PULSE 90; O2SAT 99; BMI 22.1
== END 2025-02-25 12:52 | disposition home or self-care (01) ==
LOC: HO.HOS 11:21
PROVIDERS: PCP Internal Medicine; Visit Provider Physician Assistant
DX: M25.312 Other instability, left shoulder (principal)
CPT/HCPCS: 99024

== ENCOUNTER → 2025-02-25 11:20 | Outpatient (BNVA) | payer OTHER, SELFPAY | PROVIDERS: PCP Internal Medicine; Visit Provider Physician Assistant | DX: M25.312 Other instability, left shoulder (principal); Z98.890 Other specified postprocedural states; Z79.1 Long term (current) use of non-steroidal anti-inflammatories (NSAID); Z71.6 Tobacco abuse counseling | CPT/HCPCS: 99212 ==

== ENCOUNTER 2025-03-05 06:42 | Day surgery (SDC) | payer OTHER, SELFPAY ==
[2025-02-18 12:23] VITALS: BMI 22.7
--- NOTE | 2025-03-03 09:03 | HO.ANESPROP2 ---
Documented by User: Nury Cartagena NP 03/04/25 12:24 HPI - Anesthesia Eval Consult details Narrative: 59yo F for Left Arthroscopic Rotator Cuff Repair Medically optimized per PCP Pulmo optmized. Follows [facility] Pulmo for Asthma/COPD/Active smoker PMFSH Active Problems Active Problems: All Active Problems S/P left rotator cuff repair (Acute) Preop pulmonary/respiratory exam (Acute) Chronic back pain (Acute) Disc degeneration, lumbar (Acute) Rotator cuff tear, left (Acute) Tobacco use (Acute) Alcohol use disorder (Acute) Lumbar back pain with radiculopathy affecting left lower extremity (Acute) Lumbar radiculopathy (Acute) Mild shortness of breath (Acute) Hospital discharge follow-up (Acute) Low TSH level (Acute) Rotator cuff insufficiency of left shoulder (Acute) Multifocal pneumonia (Acute) Bandemia (Acute) Calcific tendinitis of left shoulder (Acute) Encounter for routine adult physical exam with abnormal findings (Acute) SI (sacroiliac) pain (Acute) Personal history of nicotine dependence (Acute) Carpal tunnel syndrome, bilateral (Acute) Dysuria (Acute) Leukocytosis (leucocytosis) (Acute) Left hip pain (Acute) Left shoulder pain (Acute) COPD (chronic obstructive pulmonary disease) with emphysema (Acute) Microscopic hematuria (Acute ~2020) PAD (peripheral artery disease) (Acute) Essential hypertension (Acute) Acquired hypothyroidism (Acute) Impaired fasting glucose (Acute) Nicotine dependence, cigarettes, uncomplicated (Acute) Primary insomnia (Acute) Osteoarthritis involving multiple joints on both sides of body (Acute) Degenerative disc disease, cervical (Acute) Past Medical History Medical History Back pain Thyroid disease URI, acute Asthma Dysuria Leukocytosis (leucocytosis) Left hip pain Left shoulder pain COPD (chronic obstructive pulmonary disease) with emphysema Second degree burn of right foot Microscopic hematuria (~2020) Postmenopausal Plantar fascial fibromatosis of both feet Nicotine dependence, cigarettes, uncomplicated Mild intermittent asthma PAD (peripheral artery disease) Hypertriglyceridemia Impaired fasting glucose Degenerative disc disease, cervical Osteoarthritis involving multiple joints on both sides of body Primary insomnia Acquired hypothyroidism Essential hypertension Family History Family History Father Esophageal cancer Liver cancer Cancer of kidney Mother Emphysema lung Surgical History Surgical History History of arthroscopic surgery of shoulder History of colonoscopy History of tubal ligation History of loop electrosurgical excision procedure (LEEP) History of angioplasty (2021) History of rotator cuff surgery (~2008) History of fusion of cervical spine (~2004) Social History Social History Household Members: Children Housing: House Are you a primary childcare administrator to a significant other at home: No Do you presently have visiting nurse or other home services: No Alcohol intake: former Patient Tobacco Use Status: Current everyday Tobacco user Tobacco use type: Cigarette Cigarette Packs Per Day: 0.5 Cigarettes Per Day: 10.0 Years Smoked: onset 15yo, 1ppd x 44yrs, now 3/4ppd - 40+PYH e-Cigarette/Vaping Use: Never Used Second Hand Smoke Exposure: No Use of substances other than those prescribed or required for medical reasons: No Have you been hit, kicked, punched, or otherwise hurt by someone within the past year? If so, by whom?: No Advance Directives: No Advance Directives Information Provided: Yes Advance Directives on File: No Advance Directives Date on File: 09/15/23 Patient : No : No service: No Current occupational status: employed Current occupation: [employer] Sexual orientation: Straight/Heterosexual Gender identity: Female Cognitive needs: No Hearing needs: No Vision needs: Yes Meds Allergies Allergy/AdvReac Type Severity Reaction Status Date / Time Sulfa (Sulfonamide Allergy Unknown rash Verified 03/02/25 20:54 Antibiotics) oxycodone (From Percocet) AdvReac Vomiting Verified 03/02/25 20:54 Codeine Phosphate AdvReac Unknown hives Uncoded 03/02/25 20:54 Home Medications ?Medication ?Instructions ?Recorded ?Confirmed ?Last Taken ?Type umeclidinium 62.5 mcg-vilanterol 1 ea inhalation DAILY 01/27/25 02/19/25 03/05/25 History 25 mcg/actuation powdr for inhalation (Anoro Ellipta) Exam Height,Weight and Vital Signs: Height 5 ft 4 in Weight 59.874 kg Pertinent Lab Results Pertinent Lab Results: Laboratory Tests 02/11/25 08:39 WBC 8.0 Hgb 15.9 D Hct 45.3 D Plt Count 259 Sodium 138 Potassium 4.1 Chloride 104 Carbon Dioxide 24 BUN 10 Creatinine 0.85 Narrative Narrative: EKG 02/2025 Vent. Rate : 81 BPM Atrial Rate : 81 BPM P-R Int : 124 ms QRS Dur : 88 ms QT Int : 394 ms P-R-T Axes : 81 73 66 degrees QTcB Int : 457 ms Sinus rhythm with Premature atrial complexes Otherwise normal ECG When compared with ECG of 23-Jul-2024 18:31, Premature atrial complexes are now Present Nonspecific T wave abnormality no longer evident in Lateral leads Assessment and Plan Assessment Anesthesia Assessment: Chart Reviewed Documented by User: Ina Gerardo MD 03/05/25 07:35 PMFSH Past Medical History Medical History Back pain Thyroid disease URI, acute Asthma Dysuria Leukocytosis (leucocytosis) Left hip pain Left shoulder pain COPD (chronic obstructive pulmonary disease) with emphysema Second degree burn of right foot Microscopic hematuria (~2020) Postmenopausal Plantar fascial fibromatosis of both feet Nicotine dependence, cigarettes, uncomplicated Mild intermittent asthma PAD (peripheral artery disease) Hypertriglyceridemia Impaired fasting glucose Degenerative disc disease, cervical Osteoarthritis involving multiple joints on both sides of body Primary insomnia Acquired hypothyroidism Essential hypertension Family History Family History Father Esophageal cancer Liver cancer Cancer of kidney Mother Emphysema lung Family history of problems with anesthesia: No Surgical History Surgical History History of arthroscopic surgery of shoulder History of colonoscopy History of tubal ligation History of loop electrosurgical excision procedure (LEEP) History of angioplasty (2021) History of rotator cuff surgery (~2008) History of fusion of cervical spine (~2004) History of Problems with Anesthesia: No Social History Social History Household Members: Children Housing: House Are you a primary childcare administrator to a significant other at home: No Do you presently have visiting nurse or other home services: No Alcohol intake: former Patient Tobacco Use Status: Current everyday Tobacco user Tobacco use type: Cigarette Cigarette Packs Per Day: 0.5 Cigarettes Per Day: 10.0 Years Smoked: onset 15yo, 1ppd x 44yrs, now 3/4ppd - 40+PYH e-Cigarette/Vaping Use: Never Used Second Hand Smoke Exposure: No Use of substances other than those prescribed or required for medical reasons: No Have you been hit, kicked, punched, or otherwise hurt by someone within the past year? If so, by whom?: No Advance Directives: No Advance Directives Information Provided: Yes Advance Directives on File: No Advance Directives Date on File: 09/15/23 Patient : No : No service: No Current occupational status: employed Current occupation: [employer] Sexual orientation: Straight/Heterosexual Gender identity: Female Cognitive needs: No Hearing needs: No Vision needs: Yes Meds Allergies Allergy/AdvReac Type Severity Reaction Status Date / Time Sulfa (Sulfonamide Allergy Unknown rash Verified 03/02/25 20:54 Antibiotics) oxycodone (From Percocet) AdvReac Vomiting Verified 03/02/25 20:54 Codeine Phosphate AdvReac Unknown hives Uncoded 03/02/25 20:54 Home Medications ?Medication ?Instructions ?Recorded ?Confirmed ?Last Taken ?Type umeclidinium 62.5 mcg-vilanterol 1 ea inhalation DAILY 01/27/25 02/19/25 03/05/25 History 25 mcg/actuation powdr for inhalation (Anoro Ellipta) Exam Airway Mallampati Class: II TM Dist: >3cm Neck ROM: Full Heart: rrr Lungs: cta Assessment and Plan Assessment Anesthesia Assessment: Anesthesia Plan Discussed Final Anesthetic Review Family History of Problems with Anesthesia: No History of Problems with Anesthesia: No NPO: Yes ASA Class: III Final Preanesthetic Review: No Changes in Pt Med Stat, Meds/Allgs Chart Reviewed, Consent Obtained/Reviewed and Anes Risks/Benef Reviewed Patient Risk: Low Procedure Risk: Intermediate Anesthetic Plan Anesthetic Plan: GA, Regional Block and Agree w/ Assess. and Plan Disposition: Standard PACU
[2025-03-05] VITALS (8 sets, daily range): BP systolic 128–155; BP diastolic 75–93; PULSE 68–90; RESP 12–22; TEMP 36.6–37; O2SAT 94–100; BMI 21.5
--- NOTE | 2025-03-05 07:10 | PC.NURSE ---
patient woke up with a stiff neck and back pain. walking slowly
[2025-03-05] MEDS: Lactated Ringers 1,000 ML 100 ML IVCONT (07:33)
--- NOTE | 2025-03-05 08:12 | MHC.SHP ---
Pre-Procedural Eval Section A - 24 Hr Update-Section A only Date of Service: 03/05/25 The patient is an INPATIENT: No Changes since office visit: No Cold of Flu in the past 2 weeks, No New Medical Problems, No Changes in Medication and No Patient answered all questions The patient has been examined within 24 hours of the surgical procedure. The History & Physical has been completed within 30 days and I have reviewed it.: Yes Section B - Complete if H&P > 30 days Chief Complaint: Unspecified rotator cuff tear or rupture of left Allergies: Allergies Allergy/AdvReac Type Severity Reaction Status Date / Time Sulfa (Sulfonamide Allergy Unknown rash Verified 03/02/25 20:54 Antibiotics) oxycodone (From Percocet) AdvReac Vomiting Verified 03/02/25 20:54 Codeine Phosphate AdvReac Unknown hives Uncoded 03/02/25 20:54 Plan I have reviewed the history and physical and performed a pertinent physical examination on my patient. No changes have occurred unless specified. Time Spent With Patient Time: Total time managing care of this patient today ____ minutes.
--- NOTE | 2025-03-05 10:56 | PM.OP ---
Brief Operative Note Date of Service: 03/05/25 Pre-op diagnosis: Left RTC tear Post-op diagnosis: other (SLAp tear, Shoulder OA, RTC tear) Procedure: RTC repair, biceps tenotomy, chondroplasty Implants: Regeneten large Bio inductive patch, [employer] Surgeon: Jose G Osman MD Anesthesia: GETA and regional Was an Remote Sensing Technologist used for this Procedure?: Yes Remote Sensing Technologist: Sara Moore Estimated blood loss (mL): 25 IV fluids (mL): 750 Pathology: none sent Condition: stable Disposition: PACU
--- NOTE | 2025-03-11 07:47 | P.OP_ITS ---
Operative Note Operative Note Date of Service: 03/05/25 Narrative: Date of Service: 03/05/25 Pre-op diagnosis: Left RTC tear Post-op diagnosis: other (SLAP tear, Shoulder OA, RTC tear) Procedure: RTC repair, biceps tenotomy, chondroplasty Implants: Regeneten large Bio inductive patch, [employer] Surgeon: Jose G Osman MD Anesthesia: GETA and regional Was an Energy Audit Advisor used for this Procedure?: Yes Energy Audit Advisor: Sara Moore Estimated blood loss (mL): 25 IV fluids (mL): 750 Pathology: none sent Condition: stable Disposition: PACU Procedure in detail: Patient was brought to the operating room and placed the the beach chair position. All bony prominences were well padded and the limb was prepped and draped in standard sterile fashion. A time out was called to identify proper site, proper procedure and proper surgeon. IV antibiotics per weight were administered. I began by making a posterolateral stab incision with a 15 blade. A blunt trochar was placed into the glenohumeral joint and I insufflated the joint with saline and a 30 degree arthroscope was placed. I established an outside- in anterior portal just distal to the biceps tendon. I then began my inspection of the glenohumeral joint. There was a large degenerative SLAP tear at the biceps anchor ( Type 2). There were moderate cartilage changes at the inferior glenoid with less severe humeral head changes. There was a partial tearing of the supraspinatus undersurface at the myotendinolus junction. The subcapularis was intact. I debrided the loose cartilage of the glenoid and the degenerative labral tearing and performed a biceps tenotomy. I then removed the trochar and entered the subacromial space. A direct lateral portal was then established and I performed a bursectomy. The cuff was then examined. There were low grade scattered tearing at the insertion but no high grade tears. At this point I elected to place a large Regeneten bio inductive collagen patch. A second lateral portal was created and the patch was inserted via this portal. 4 soft tissue PEEK ton and two lateral bone ton were placed in standard fashion to keep the patch in place. I was satisfied that this covered the supraspinatus and infraspinatus. I then performed a limited anterior sub-acromial decompression with an oval emeka. Once I was satisfied with the repair final images were captured and I removed all instrumentation. Portals were closed with nylon. Patient was placed in an abduction sling, extubated and brought to the recovery room in stable condition. There were no known complications.
== END 2025-03-05 12:21 | disposition home or self-care (01) ==
LOC: HO.SSS 06:42
PROVIDERS: PCP Internal Medicine; Visit Provider Orthopaedic Surgery
PROC: (CPT 29827; principal; 2025-03-05 09:00)
DX: M75.102 Unspecified rotator cuff tear or rupture of left shoulder, not specified as traumatic (principal); M75.82 Other shoulder lesions, left shoulder; M25.312 Other instability, left shoulder; M25.512 Pain in left shoulder; Z87.828 Personal history of other (healed) physical injury and trauma; M50.30 Other cervical disc degeneration, unspecified cervical region; M15.9 Polyosteoarthritis, unspecified; M72.2 Plantar fascial fibromatosis; I10 Essential (primary) hypertension; D72.829 Elevated white blood cell count, unspecified; J44.9 Chronic obstructive pulmonary disease, unspecified; J45.20 Mild intermittent asthma, uncomplicated; R73.01 Impaired fasting glucose; E03.9 Hypothyroidism, unspecified; Z79.82 Long term (current) use of aspirin; Z79.899 Other long term (current) drug therapy; Z79.51 Long term (current) use of inhaled steroids; Z88.2 Allergy status to sulfonamides; Z88.5 Allergy status to narcotic agent; Z98.890 Other specified postprocedural states; F17.210 Nicotine dependence, cigarettes, uncomplicated
CPT/HCPCS: 29827; 29823; C1713; C1763; J0131; J0165; J0665; J0690; J1100; J2003; J2250; J2371; J2405; J2704; J3010

== ENCOUNTER → 2025-03-05 06:42 | Outpatient (BNV) | payer OTHER, SELFPAY | PROVIDERS: PCP Internal Medicine; Visit Provider Orthopaedic Surgery | DX: S46.012A Strain of muscle(s) and tendon(s) of the rotator cuff of left shoulder, initial encounter (principal); S43.432A Superior glenoid labrum lesion of left shoulder, initial encounter | CPT/HCPCS: 29823; 29827 ==

== ENCOUNTER 2025-03-13 13:53 | Outpatient (AMB) | payer OTHER, SELFPAY ==
--- NOTE | 2025-03-13 14:20 | MHC.OFFVIS ---
Intake Visit Reasons: PO LT RTC Repair 03/05/25 NE Intake Note: Liliya is a 59 year old right hand dominant female who presents today for a post operative appointment for her left shoulder rotator cuff Repair 03/05/25 NE. Patient reports she is having pain in her shoulder, she has been taking her pain medication which helps. Allergies Sulfa (Sulfonamide Antibiotics) Allergy (Unknown, Verified 03/13/25 14:25) rash oxycodone (From Percocet) Adverse Reaction (Verified 03/13/25 14:25) Vomiting Codeine Phosphate Adverse Reaction (Unknown, Uncoded 03/02/25 20:54) hives HPI Comments Details: History of Present Illness The patient is a 59-year-old female presenting for a routine follow-up visit six weeks after a left shoulder rotator cuff repair, biceps tenotomy, and chondroplasty, which was performed on 03/05/[address] Osman. Post-operatively, she has been attending physical therapy at an outside facility [facility]. Overall she is doing well. She has requested a refill of her pain medication. [facility] Medical History Back pain Thyroid disease URI, acute Asthma Dysuria Leukocytosis (leucocytosis) Left hip pain Left shoulder pain COPD (chronic obstructive pulmonary disease) with emphysema Second degree burn of right foot Microscopic hematuria (~2020) Postmenopausal Plantar fascial fibromatosis of both feet Nicotine dependence, cigarettes, uncomplicated Mild intermittent asthma PAD (peripheral artery disease) Hypertriglyceridemia Impaired fasting glucose Degenerative disc disease, cervical Osteoarthritis involving multiple joints on both sides of body Primary insomnia Acquired hypothyroidism Essential hypertension Surgical History History of arthroscopic surgery of shoulder History of colonoscopy History of tubal ligation History of loop electrosurgical excision procedure (LEEP) History of angioplasty (2021) History of rotator cuff surgery (~2008) History of fusion of cervical spine (~2004) Family History Father Esophageal cancer Liver cancer Cancer of kidney Mother Emphysema lung Social History Household Members: Children Housing: House Are you a primary medicare sales representative to a significant other at home: No Do you presently have visiting nurse or other home services: No Alcohol intake: former Patient Tobacco Use Status: Current everyday Tobacco user Tobacco use type: Cigarette Cigarette Packs Per Day: 0.5 Cigarettes Per Day: 10.0 Years Smoked: onset 15yo, 1ppd x 43yrs, now 3/4ppd - 40+PYH e-Cigarette/Vaping Use: Never Used Second Hand Smoke Exposure: No Advance Directives Date on File: 09/15/23 service: No Current occupational status: employed Current occupation: [employer] Sexual orientation: Straight/Heterosexual Gender identity: Female Cognitive needs: No Hearing needs: No Vision needs: Yes Review of Systems Const All systems reviewed & are unremarkable except as noted in HPI and below Physical Exam Exam Exam: Physical Exam left shoulder incision sites are clean dry and intact. Sutures intact. no surrounding erythema or drainage. No signs of infection. Forward flexion to 45 degrees, abduction 45 degrees and external rotation to neutral. NVI. Const General: cooperative, healthy appearing and no acute distress Resp Effort & Inspection: normal respiratory effort and able to speak in complete sentences Psych Appearance: grossly normal Mental Status: mental status grossly normal Attitude: cooperative Assessment & Plan Assessment & Plan (1) S/P left rotator cuff repair: Code(s): Z98.890 - Other specified postprocedural states Category: Medical Plan 1. Post-Operative Follow-Up For Left Shoulder Surgery: The patient is status post a left shoulder rotator cuff repair with a collagen patch, biceps tenotomy, and chondroplasty performed on 03/05/[address] Osman. The surgical incisions are healing well therefore sutures were removed in the office today and Steri-Strips were applied. She will continue to wear her sling for a total of six weeks and will be provided with an updated physical therapy protocol to accommodate for the collagen patch repair. She was instructed to bring this protocol with her at her next physical therapy appointment in which the patient understands and accepts. A refill for her pain medication was sent to her pharmacy. She will follow up in four weeks with Dr. Osman for her next check-in. Consent Patient was informed and verbally consented to the use of an ambient scribe for clinic note documentation during this visit. Coding Level of Care Code Global (44161) Diagnoses S/P left rotator cuff repair Z98.890
== END 2025-03-13 14:55 | disposition home or self-care (01) ==
LOC: HO.HOS 13:54
PROVIDERS: PCP Internal Medicine; Visit Provider Physician Assistant
DX: Z98.890 Other specified postprocedural states (principal)
CPT/HCPCS: 99024

== ENCOUNTER → 2025-03-13 13:53 | Outpatient (BNVA) | payer OTHER, SELFPAY | PROVIDERS: PCP Internal Medicine; Visit Provider Physician Assistant | DX: Z47.89 Encounter for other orthopedic aftercare (principal); Z98.890 Other specified postprocedural states | CPT/HCPCS: 99212 ==